=== PATIENT | male | born 1955 | race Caucasian/White ===

== ENCOUNTER 2016-10-20 12:03 | Emergency (ER) | payer MEDICAID ==
[~2016-10-20] VITALS: Ht 185.4 cm; Wt 100.0 kg
[~2016-10-20 12:03] MED LIST: ALBU18HF INH; CARB200T PO; CHLO25CA9 PO; CLON-365; CLON2TAB16 PO; ESCI10TA10 PO; GABA300C10 PO; HYDR-3138 PO; HYDR25CA94 PO; LEVO25TA4 PO; LISI-170 PO; LORA-446 PO; MELA5CAP PO; MIRT15TA4 PO; NALT50TA PO; PARO20TA4 PO; PHEN100C; PHEN100C PO; PHEN300C4 PO; PRAZ2CAP2 PO; QUET100T4 PO; QUET25TA5 PO; QUET400T4 PO; SERT25TA PO; TRAZ100T15 PO
[2016-10-20] MEDS ORDERED: FAMOTIDINE 20 MG/2 ML ONE (12:59)
[2016-10-20] MEDS ORDERED: MORPHINE SULFATE 4 MG/ML, 1ML ONE (12:59)
[2016-10-20] MEDS ORDERED: ONDANSETRON 2MG/ML, 2ML ONE (12:59)
[2016-10-20] MEDS ORDERED: MORPHINE SULFATE 4 MG/ML, 1ML IVPush PRN (13:00)
[2016-10-20] MEDS ORDERED: SODIUM CHLORIDE FLUSH 10ML SYR IVF ONE (13:00)
[2016-10-20] MEDS ORDERED: FAMOTIDINE 20 MG/2 ML IVP ONE (13:00)
[2016-10-20] MEDS ORDERED: ONDANSETRON 2MG/ML, 2ML IVPush ONE (13:00)
[2016-10-20] MEDS ORDERED: SODIUM CHLORIDE 0.9% 1,000ML IVBOLUS ONE (13:00)
[2016-10-20 13:28] LABS: ASPARTATE AMINO TRANSFERASE 18 U/L (15-37); BLOOD UREA NITROGEN 15 mg/dL (7-18)
[2016-10-20 14:34] VITALS: BP 122/79
== END 2016-10-20 14:54 | disposition home or self-care (01) ==
LOC: ED 14:02
DX: K59.00 Constipation, unspecified (principal); K08.89 Other specified disorders of teeth and supporting structures; I10 Essential (primary) hypertension; E03.9 Hypothyroidism, unspecified; J44.9 Chronic obstructive pulmonary disease, unspecified
CPT/HCPCS: 36415; 74020; 80053; 83690; 85025; 93005; 96361; 96374; 96375; 99285; J2405; J7030; S0028

== ENCOUNTER 2016-10-22 18:10 | Observation (INO) | payer MEDICAID ==
[~2016-10-22] VITALS: Ht 185.4 cm; Wt 95.0 kg
[2016-10-22] MEDS ORDERED: ZIPRASIDONE 20 MG INJ IM ONE ×4 (19:00→20:35)
[2016-10-22] MEDS ORDERED: LOSA50TA6 PO (19:04)
[2016-10-22] MEDS ORDERED: PROP20TA PO (19:04)
[2016-10-22] MEDS ORDERED: QUET300T PO (19:04)
[2016-10-22] MEDS ORDERED: MIRT45TA4 PO (19:04)
[2016-10-22] MEDS ORDERED: LEVE500T8 PO (19:04)
[2016-10-22] MEDS ORDERED: CARB200T4 PO (19:04)
[2016-10-22] MEDS ORDERED: GABA300C10 PO (19:04)
[2016-10-22] MEDS ORDERED: HYDR-3240 PO (19:04)
[2016-10-22] MEDS ORDERED: PHEN100C4 PO (19:04)
[2016-10-22 19:40] LABS: BLOOD UREA NITROGEN 19 mg/dL (7-18)
[2016-10-22 19:44] LABS: ACETAMINOPHEN 2 mcg/mL (10-30); ASPARTATE AMINO TRANSFERASE 22 U/L (15-37)
[2016-10-22] MEDS ORDERED: LORazepam 2 MG/ML, 1ML IM ONE (20:00)
[2016-10-22] MEDS ORDERED: LORazepam 2 MG/ML, 1ML ONE (20:35)
[2016-10-22 22:19] LABS: DAU SCREEN DISCLAIMER
[2016-10-22] MEDS ORDERED: HYDROcodone/APAP 5/325 TABLET PO ONE (23:30)
[2016-10-23] MEDS ORDERED: MELATONIN 3 MG TABLET PO PRN (01:30)
[2016-10-23] MEDS ORDERED: ACETAMINOPHEN 325 MG TABLET PO PRN (01:30)
[2016-10-23] MEDS ORDERED: ZIPRASIDONE 20 MG INJ IM PRN (01:30)
[2016-10-23] MEDS ORDERED: NICOTINE 14MG/24 HR PATCH.TD24 TD SCH (01:30)
[2016-10-23 01:47] VITALS: BP 130/74
[2016-10-23 08:02] VITALS: BP 121/76
[2016-10-23] MEDS ORDERED: LEVOTHYROXINE 25 MCG TABLET PO SCH (09:00)
[2016-10-23] MEDS ORDERED: PROPRANOLOL 20 MG TABLET PO SCH (09:00)
[2016-10-23] MEDS ORDERED: LOSARTAN 50MG TABLET PO SCH (09:00)
[2016-10-23] MEDS ORDERED: AMOXICILLIN 500 MG CAPSULE PO SCH (10:00)
[2016-10-23] MEDS ORDERED: QUET100T PO (10:08)
[2016-10-23] MEDS ORDERED: AMOX-291 PO (10:08)
[2016-10-23] MEDS ORDERED: QUETIAPINE 100MG TABLET PO SCH (21:00)
== END 2016-10-23 10:45 ==
LOC: ED 21:26 → INTOOBSV 10-23 00:54 → EDIP 10-23 00:54 → 3E 10-23 01:39
PROVIDERS: ADMIT Internal Medicine; ATTEND Internal Medicine
DX: R45.851 Suicidal ideations (principal); D63.8 Anemia in other chronic diseases classified elsewhere; I10 Essential (primary) hypertension; E03.9 Hypothyroidism, unspecified; J44.9 Chronic obstructive pulmonary disease, unspecified; F31.9 Bipolar disorder, unspecified; G40.909 Epilepsy, unspecified, not intractable, without status epilepticus; N40.0 Benign prostatic hyperplasia without lower urinary tract symptoms; F10.20 Alcohol dependence, uncomplicated; F17.200 Nicotine dependence, unspecified, uncomplicated; E11.9 Type 2 diabetes mellitus without complications; Z91.19 Patient's noncompliance with other medical treatment and regimen
CPT/HCPCS: 36415; 80053; 80185; 80307; 80329; 81003; 85025; 96372; 99285; G0378; J2060; J3486; G0480

== ENCOUNTER 2016-11-09 21:47 | Emergency (ER) | payer MEDICAID ==
[~2016-11-09] VITALS: Ht 185.4 cm; Wt 85.0 kg
[~2016-11-09 21:47] MED LIST changes: +AMOX-291 PO; +CARB200T4 PO; +HYDR-3240 PO; +LEVE500T8 PO; +LOSA50TA6 PO; +MIRT45TA4 PO; +PHEN100C4 PO; +PROP20TA PO; +QUET100T PO; +QUET300T PO
[2016-11-09 22:14] VITALS: BP 123/74
== END 2016-11-09 22:31 | disposition home or self-care (01) ==
LOC: ED 22:25
DX: I10 Essential (primary) hypertension (principal); F17.200 Nicotine dependence, unspecified, uncomplicated
CPT/HCPCS: 99283

== ENCOUNTER 2017-04-29 13:11 | Emergency (ER) | payer MEDICAID ==
[~2017-04-29] VITALS: Ht 185.4 cm; Wt 81.7 kg
[~2017-04-29 13:11] MED LIST changes: -HYDR-3138 PO; +HYDR-3237 PO
[2017-04-29 13:17] VITALS: BP 114/76
== END 2017-04-29 14:38 | disposition home or self-care (01) ==
LOC: ED 14:33
DX: Z76.0 Encounter for issue of repeat prescription (principal); F41.1 Generalized anxiety disorder; I10 Essential (primary) hypertension; E03.9 Hypothyroidism, unspecified; J44.9 Chronic obstructive pulmonary disease, unspecified; E11.40 Type 2 diabetes mellitus with diabetic neuropathy, unspecified
CPT/HCPCS: 99283

== ENCOUNTER 2017-06-19 13:31 | Emergency (ER) | payer MEDICAID ==
[~2017-06-19] VITALS: Ht 185.4 cm; Wt 80.8 kg
[2017-06-19] MEDS ORDERED: LORazepam 2 MG/ML, 1ML ONE (15:48)
[2017-06-19 16:00] LABS: ALANINE AMINOTRANSFERASE 18 U/L (12-78); ALBUMIN 3.7 g/dL (3.4-5.0); ANION GAP 9 mmol/L (5-15); CALCIUM 7.7 mg/dL (8.5-10.1); CHLORIDE 106 mmol/L (98-107); CREATININE 0.86 mg/dL (0.7-1.3); SALICYLATE LEVEL 2.1 mg/dL (2.8-20.0)
[2017-06-19] MEDS ORDERED: LORazepam 2 MG/ML, 1ML IM ONE (16:00)
[2017-06-19 16:03] LABS: ACETAMINOPHEN < 2 mcg/mL (10-30); ALKALINE PHOSPHATASE 148 U/L (45-117); BILIRUBIN,TOTAL 0.2 mg/dL (0.2-1.0)
[2017-06-19 16:16] LABS: AMPHETAMINE SCREEN, URINE Negative (Negative); BARBITURATE SCREEN, URINE Negative (Negative); BENZODIAZEPINE SCREEN, URINE Negative (Negative); CANNABINOID SCREEN, URINE Negative (Negative); COCAINE SCREEN, URINE Negative (Negative); METHADONE SCREEN, URINE Negative (Negative); OPIATE SCREEN, URINE Negative (Negative)
[2017-06-19 17:59] VITALS: BP 110/64
== END 2017-06-19 18:01 | disposition home or self-care (01) ==
LOC: ED 16:21
DX: F19.10 Other psychoactive substance abuse, uncomplicated (principal); F10.129 Alcohol abuse with intoxication, unspecified; J44.9 Chronic obstructive pulmonary disease, unspecified; I10 Essential (primary) hypertension; E03.9 Hypothyroidism, unspecified; E11.40 Type 2 diabetes mellitus with diabetic neuropathy, unspecified
CPT/HCPCS: 36415; 80053; 80307; 80329; 96372; 99284; J2060; G0480

== ENCOUNTER 2017-07-21 17:16 | Emergency (ER) | payer MEDICAID ==
[~2017-07-21] VITALS: Ht 185.4 cm; Wt 79.7 kg
[2017-07-21 17:24] VITALS: BP 114/64
[2017-07-21] MEDS ORDERED: CLON1TAB PO (18:42)
[2017-07-21] MEDS ORDERED: LOSA50TA6 PO (18:42)
[2017-07-21] MEDS ORDERED: CITA20TA5 PO (18:42)
[2017-07-21] MEDS ORDERED: GABA300C10 PO (18:42)
[2017-07-21] MEDS ORDERED: FLUT100B PO (18:42)
[2017-07-21] MEDS ORDERED: ALBU18HF IH (18:42)
[2017-07-22] MEDS ORDERED: ALBUTEROL 0.5%, 20ML ONE (01:01)
== END 2017-07-21 19:06 | disposition home or self-care (01) ==
LOC: ED 19:00
DX: F10.10 Alcohol abuse, uncomplicated (principal); F13.10 Sedative, hypnotic or anxiolytic abuse, uncomplicated; M54.6 Pain in thoracic spine; E11.9 Type 2 diabetes mellitus without complications; J44.9 Chronic obstructive pulmonary disease, unspecified; E03.9 Hypothyroidism, unspecified; I10 Essential (primary) hypertension; N40.0 Benign prostatic hyperplasia without lower urinary tract symptoms; F31.9 Bipolar disorder, unspecified; Z91.14 Patient's other noncompliance with medication regimen
CPT/HCPCS: 72072; 99284

== ENCOUNTER 2017-07-22 11:53 | Observation (INO) | payer MEDICAID ==
[~2017-07-22] VITALS: Ht 182.9 cm; Wt 79.7 kg
[~2017-07-22 11:53] MED LIST changes: +ALBU18HF IH; +CITA20TA5 PO; +CLON1TAB PO; +FLUT100B PO
[2017-07-22 13:03] LABS: MICROSCOPIC NOT IND
[2017-07-22 13:12] LABS: CULTURE INDICATED? NO
[2017-07-22 13:13] LABS: BASOPHILS # (AUTO) 0.02 x10^3/uL (0-0.1); BASOPHILS % (AUTO) 0 % (0-1); EOSINOPHILS # (AUTO) 0.14 x10^3/uL (0-0.4); EOSINOPHILS % (AUTO) 2 % (1-7); LYMPHOCYTES # (AUTO) 1.25 x10^3/uL (1-3.4); LYMPHOCYTES % (AUTO) 20 % (22-44); MD NO; MEAN CORPUSCULAR HEMOGLOBIN 32.9 pg (27.5-34.5); MEAN CORPUSCULAR HGB CONC 33.5 g/dL (33.2-36.2); MEAN PLATELET VOLUME 6.9 fL (7.4-10.4); MONOCYTES % (AUTO) 5 % (2-9); NEUTROPHILS % (AUTO) 73 % (42-75); PLATELET COUNT 319 x10^3/uL (130-400); RED BLOOD COUNT 3.87 x10^6/uL (4.38-5.82); RED CELL DISTRIBUTION WIDTH 14.7 % (9.4-14.8)
[2017-07-22 13:23] LABS: ANION GAP 8 mmol/L (5-15); CALCIUM 7.6 mg/dL (8.5-10.1); CHLORIDE 105 mmol/L (98-107); CREATININE 0.65 mg/dL (0.7-1.3)
[2017-07-22 13:27] LABS: AMPHETAMINE SCREEN, URINE Negative (Negative); BARBITURATE SCREEN, URINE Negative (Negative); BENZODIAZEPINE SCREEN, URINE Negative (Negative); CANNABINOID SCREEN, URINE Negative (Negative); COCAINE SCREEN, URINE Negative (Negative); METHADONE SCREEN, URINE Negative (Negative); OPIATE SCREEN, URINE Negative (Negative)
[2017-07-22 13:27] LABS: ACETAMINOPHEN < 2 mcg/mL (10-30); SALICYLATE LEVEL < 1.7 mg/dL (2.8-20.0)
[2017-07-22] MEDS ORDERED: IBUPROFEN 200 MG TABLET PO ONE (19:30)
[2017-07-22] MEDS ORDERED: IBUPROFEN 200 MG TABLET ONE (19:31)
[2017-07-23] MEDS ORDERED: DOCUSATE 100 MG CAPSULE PO PRN (03:00)
[2017-07-23] MEDS ORDERED: ALBUTEROL SULFATE 2.5 MG/3 ML IPPB PRN (03:00)
[2017-07-23] MEDS ORDERED: ONDANSETRON ODT 4 MG PO PRN (03:00)
[2017-07-23] MEDS ORDERED: QUETIAPINE 100MG TABLET ONE ×2 (03:04→20:41)
[2017-07-23] MEDS: QUETIAPINE 100MG TABLET PO SCH ×2 (03:12→20:48)
[2017-07-23] MEDS: LOSARTAN 50MG TABLET PO SCH (09:00)
[2017-07-23] MEDS: LEVOTHYROXINE 25 MCG TABLET PO SCH (09:00)
[2017-07-23] MEDS: GABAPENTIN 300 MG CAPSULE PO SCH (09:00)
[2017-07-23] MEDS ORDERED: GABAPENTIN 300 MG CAPSULE ONE (09:02)
[2017-07-23] MEDS: FLUTICASONE FUROATE 100MCG/INH INH SCH (09:16)
[2017-07-23] MEDS ORDERED: ACETAMINOPHEN 325 MG TABLET ONE ×2 (12:54→18:08)
[2017-07-23] MEDS: ACETAMINOPHEN 325 MG TABLET PO PRN ×2 (13:03→18:28)
[2017-07-23] MEDS ORDERED: PHENYTOIN 100 MG CAPSULE ONE (20:41)
[2017-07-23] MEDS ORDERED: FLUOXETINE HCL 20 MG CAPSULE ONE (20:42)
[2017-07-23] MEDS: FLUOXETINE HCL 20 MG CAPSULE PO SCH (20:47)
[2017-07-23] MEDS: PHENYTOIN 100 MG CAPSULE PO SCH (20:47)
[2017-07-24 03:00] VITALS: BP 137/80
[2017-07-24] MEDS: ACETAMINOPHEN 325 MG TABLET PO PRN ×3 (03:35→21:19)
[2017-07-24 08:38] VITALS: BP 128/78
[2017-07-24] MEDS: GABAPENTIN 300 MG CAPSULE PO SCH (08:40)
[2017-07-24] MEDS: LOSARTAN 50MG TABLET PO SCH (08:42)
[2017-07-24] MEDS: LEVOTHYROXINE 25 MCG TABLET PO SCH (08:42)
[2017-07-24] MEDS: FLUTICASONE FUROATE 100MCG/INH INH SCH (09:02)
[2017-07-24 13:34] VITALS: BP 136/63
[2017-07-24 20:00] VITALS: BP 125/69
[2017-07-24] MEDS: PHENYTOIN 100 MG CAPSULE PO SCH (21:04)
[2017-07-24] MEDS: FLUOXETINE HCL 20 MG CAPSULE PO SCH (21:05)
[2017-07-24] MEDS: QUETIAPINE 100MG TABLET PO SCH (21:05)
[2017-07-25 07:30] VITALS: BP_SYST 123
[2017-07-25] MEDS: LEVOTHYROXINE 25 MCG TABLET PO SCH (08:41)
[2017-07-25] MEDS: LOSARTAN 50MG TABLET PO SCH (08:42)
[2017-07-25] MEDS: FLUTICASONE FUROATE 100MCG/INH INH SCH (08:42)
[2017-07-25] MEDS: GABAPENTIN 300 MG CAPSULE PO SCH (08:42)
[2017-07-25] MEDS ORDERED: MAGNESIUM CITRATE 300ML ORAL SOL PO PRN (10:30)
[2017-07-25 20:13] VITALS: BP 137/70
[2017-07-25] MEDS: FLUOXETINE HCL 20 MG CAPSULE PO SCH (20:28)
[2017-07-25] MEDS: PHENYTOIN 100 MG CAPSULE PO SCH (20:29)
[2017-07-25] MEDS: QUETIAPINE 100MG TABLET PO SCH (20:29)
[2017-07-26 07:41] VITALS: BP 121/75
[2017-07-26] MEDS: ACETAMINOPHEN 325 MG TABLET PO PRN (08:52)
[2017-07-26] MEDS: LEVOTHYROXINE 25 MCG TABLET PO SCH (08:52)
[2017-07-26] MEDS: LOSARTAN 50MG TABLET PO SCH (08:52)
[2017-07-26] MEDS: GABAPENTIN 300 MG CAPSULE PO SCH (08:52)
[2017-07-26] MEDS: FLUTICASONE FUROATE 100MCG/INH INH SCH (09:05)
[2017-07-26 19:53] VITALS: BP 119/74
[2017-07-26] MEDS: FLUOXETINE HCL 20 MG CAPSULE PO SCH (20:18)
[2017-07-26] MEDS: QUETIAPINE 100MG TABLET PO SCH (20:18)
[2017-07-26] MEDS: PHENYTOIN 100 MG CAPSULE PO SCH (20:19)
[2017-07-27 08:27] VITALS: BP 114/78
[2017-07-27] MEDS: LEVOTHYROXINE 25 MCG TABLET PO SCH (09:02)
[2017-07-27] MEDS: GABAPENTIN 300 MG CAPSULE PO SCH (09:02)
[2017-07-27] MEDS: LOSARTAN 50MG TABLET PO SCH (09:02)
[2017-07-27] MEDS: FLUTICASONE FUROATE 100MCG/INH INH SCH (09:02)
[2017-07-27 19:59] VITALS: BP 98/53
[2017-07-27 20:46] VITALS: BP 110/67
[2017-07-27] MEDS: QUETIAPINE 100MG TABLET PO SCH (20:47)
[2017-07-27] MEDS: PHENYTOIN 100 MG CAPSULE PO SCH (20:47)
[2017-07-27] MEDS: FLUOXETINE HCL 20 MG CAPSULE PO SCH (20:47)
[2017-07-28 08:15] VITALS: BP 127/69
[2017-07-28] MEDS: LOSARTAN 50MG TABLET PO SCH (08:36)
[2017-07-28] MEDS: LEVOTHYROXINE 25 MCG TABLET PO SCH (08:36)
[2017-07-28] MEDS: FLUTICASONE FUROATE 100MCG/INH INH SCH (08:36)
[2017-07-28] MEDS: GABAPENTIN 300 MG CAPSULE PO SCH (08:36)
[2017-07-28 19:39] VITALS: BP 95/53
[2017-07-28 20:02] VITALS: BP 110/68
[2017-07-28] MEDS: PHENYTOIN 100 MG CAPSULE PO SCH (20:02)
[2017-07-28] MEDS: FLUOXETINE HCL 20 MG CAPSULE PO SCH (20:03)
[2017-07-28] MEDS: QUETIAPINE 100MG TABLET PO SCH (20:03)
[2017-07-29 07:30] VITALS: BP 121/73
[2017-07-29] MEDS: LOSARTAN 50MG TABLET PO SCH (08:08)
[2017-07-29] MEDS: LEVOTHYROXINE 25 MCG TABLET PO SCH (08:08)
[2017-07-29] MEDS: GABAPENTIN 300 MG CAPSULE PO SCH (08:08)
[2017-07-29] MEDS: FLUTICASONE FUROATE 100MCG/INH INH SCH (08:09)
[2017-07-29] MEDS ORDERED: QUET100T PO (10:21)
== END 2017-07-29 13:05 | disposition home or self-care (01) ==
LOC: ED 12:45 → EDIP 07-23 02:59 → INTOOBSV 07-23 02:59 → 3E 07-24 02:55
PROVIDERS: ADMIT Internal Medicine; ATTEND Family Medicine
DX: R45.851 Suicidal ideations (principal); F31.9 Bipolar disorder, unspecified; E03.9 Hypothyroidism, unspecified; I10 Essential (primary) hypertension; F41.1 Generalized anxiety disorder; F10.129 Alcohol abuse with intoxication, unspecified; G40.909 Epilepsy, unspecified, not intractable, without status epilepticus; E11.9 Type 2 diabetes mellitus without complications; M54.9 Dorsalgia, unspecified; N40.0 Benign prostatic hyperplasia without lower urinary tract symptoms; J44.9 Chronic obstructive pulmonary disease, unspecified; Z79.899 Other long term (current) drug therapy
CPT/HCPCS: 36415; 80048; 80307; 80329; 81003; 85025; 99285; G0378; G0480

== ENCOUNTER 2017-11-10 13:06 | Observation (INO) | payer MEDICAID ==
[~2017-11-10] VITALS: Ht 188 cm; Wt 75.7 kg
[~2017-11-10 13:06] MED LIST changes: -CITA20TA5 PO; +CITA20TA6 PO
[2017-11-10 13:50] LABS: BASOPHILS # (AUTO) 0.15 x10^3/uL (0-0.1); BASOPHILS % (AUTO) 2 % (0-1); EOSINOPHILS # (AUTO) 0.27 x10^3/uL (0-0.4); EOSINOPHILS % (AUTO) 4 % (1-7); LYMPHOCYTES # (AUTO) 1.97 x10^3/uL (1-3.4); LYMPHOCYTES % (AUTO) 31 % (22-44); MD NO; MEAN CORPUSCULAR HEMOGLOBIN 33.7 pg (27.5-34.5); MEAN CORPUSCULAR HGB CONC 34.1 g/dL (33.2-36.2); MEAN CORPUSCULAR VOLUME 98.6 fL (81-97); MEAN PLATELET VOLUME 6.9 fL (7.4-10.4); MONOCYTES # (AUTO) 0.43 x10^3/uL (0.2-0.8); MONOCYTES % (AUTO) 7 % (2-9); NEUTROPHILS # (AUTO) 3.56 x10^3/uL (1.8-6.8); NEUTROPHILS % (AUTO) 56 % (42-75); PLATELET COUNT 397 x10^3/uL (130-400); RED BLOOD COUNT 3.96 x10^6/uL (4.38-5.82); RED CELL DISTRIBUTION WIDTH 13.2 % (9.4-14.8)
[2017-11-10 13:57] LABS: ANION GAP 9 mmol/L (5-15); CALCIUM 8.7 mg/dL (8.5-10.1); CHLORIDE 102 mmol/L (98-107)
[2017-11-10 13:59] LABS: CREATININE 0.78 mg/dL (0.7-1.3); SALICYLATE LEVEL < 1.7 mg/dL (2.8-20.0)
[2017-11-10 14:01] LABS: ACETAMINOPHEN < 2 mcg/mL (10-30)
[2017-11-10 17:11] LABS: AMPHETAMINE SCREEN, URINE Negative (Negative); BARBITURATE SCREEN, URINE Negative (Negative); BENZODIAZEPINE SCREEN, URINE Negative (Negative); CANNABINOID SCREEN, URINE Negative (Negative); COCAINE SCREEN, URINE Negative (Negative); METHADONE SCREEN, URINE Negative (Negative); OPIATE SCREEN, URINE Negative (Negative)
[2017-11-10] MEDS ORDERED: LORazepam 2 MG/ML, 1ML IM PRN (20:30)
[2017-11-10] MEDS ORDERED: ONDANSETRON ODT 4 MG PO PRN (20:30)
[2017-11-10] MEDS ORDERED: LORazepam 1MG TABLET ONE (20:48)
[2017-11-10] MEDS: LORazepam 1MG TABLET PO PRN (20:50)
[2017-11-10 22:46] VITALS: BP 144/82
[2017-11-10] MEDS: FLUTICASONE/VILANTEROL 200-25MCG/INH INH SCH (23:50)
[2017-11-11] MEDS ORDERED: ALBUTEROL SULFATE 2.5 MG/3 ML NPPB PRN (01:30)
[2017-11-11 05:35] VITALS: BP 145/82
[2017-11-11] MEDS: LORazepam 1MG TABLET PO PRN ×5 (05:43→20:49)
[2017-11-11] MEDS: LEVOTHYROXINE 25 MCG TABLET PO SCH (05:43)
[2017-11-11 06:13] LABS: BASOPHILS # (AUTO) 0.07 x10^3/uL (0-0.1); BASOPHILS % (AUTO) 1 % (0-1); EOSINOPHILS # (AUTO) 0.48 x10^3/uL (0-0.4); EOSINOPHILS % (AUTO) 7 % (1-7); LYMPHOCYTES # (AUTO) 2.38 x10^3/uL (1-3.4); LYMPHOCYTES % (AUTO) 36 % (22-44); MD NO; MEAN CORPUSCULAR HEMOGLOBIN 33.4 pg (27.5-34.5); MEAN CORPUSCULAR HGB CONC 33.6 g/dL (33.2-36.2); MEAN CORPUSCULAR VOLUME 99.4 fL (81-97); MEAN PLATELET VOLUME 7.2 fL (7.4-10.4); MONOCYTES # (AUTO) 0.54 x10^3/uL (0.2-0.8); MONOCYTES % (AUTO) 8 % (2-9); NEUTROPHILS # (AUTO) 3.08 x10^3/uL (1.8-6.8); NEUTROPHILS % (AUTO) 47 % (42-75); PLATELET COUNT 384 x10^3/uL (130-400); RED BLOOD COUNT 3.98 x10^6/uL (4.38-5.82); RED CELL DISTRIBUTION WIDTH 13.4 % (9.4-14.8)
[2017-11-11 06:26] LABS: ALBUMIN 3.6 g/dL (3.4-5.0); ANION GAP 5 mmol/L (5-15); CALCIUM 8.5 mg/dL (8.5-10.1); CHLORIDE 104 mmol/L (98-107)
[2017-11-11 06:30] LABS: ALANINE AMINOTRANSFERASE 41 U/L (12-78); ALKALINE PHOSPHATASE 169 U/L (45-117); BILIRUBIN,TOTAL 0.4 mg/dL (0.2-1.0); CREATININE 0.73 mg/dL (0.7-1.3); TOTAL PROTEIN 6.8 g/dL (6.4-8.2)
[2017-11-11 08:02] VITALS: BP 108/60
[2017-11-11] MEDS: THIAMINE 100MG TABLET PO SCH (09:15)
[2017-11-11] MEDS: CITALOPRAM 20 MG TABLET PO SCH (09:15)
[2017-11-11] MEDS: MULTIVITAMIN 1 TABLET PO SCH (09:15)
[2017-11-11] MEDS ORDERED: ACETAMINOPHEN 500 MG TABLET PO PRN (12:00)
[2017-11-11] MEDS ORDERED: HYDR50TA13 PO (18:35)
[2017-11-11 19:39] VITALS: BP 123/75
[2017-11-11] MEDS: FLUTICASONE/VILANTEROL 200-25MCG/INH INH SCH (20:46)
[2017-11-11] MEDS: PHENYTOIN 100 MG CAPSULE PO SCH (20:48)
[2017-11-11] MEDS ORDERED: PHENYTOIN 100 MG CAPSULE PO SCH (21:00)
[2017-11-12 00:29] VITALS: BP 90/53
[2017-11-12 04:05] VITALS: BP 132/78
[2017-11-12] MEDS: LORazepam 1MG TABLET PO PRN ×6 (04:08→23:16)
[2017-11-12 07:24] VITALS: BP 124/61
[2017-11-12] MEDS: LEVOTHYROXINE 25 MCG TABLET PO SCH (08:04)
[2017-11-12] MEDS: MULTIVITAMIN 1 TABLET PO SCH (08:38)
[2017-11-12] MEDS: THIAMINE 100MG TABLET PO SCH (08:38)
[2017-11-12] MEDS: CITALOPRAM 20 MG TABLET PO SCH (08:38)
[2017-11-12] MEDS: ALBUTEROL SULFATE 2.5 MG/3 ML NPPB SCH ×3 (16:00→22:00)
[2017-11-12 20:48] VITALS: BP 122/76
[2017-11-12] MEDS: PHENYTOIN 100 MG CAPSULE PO SCH (20:57)
[2017-11-12] MEDS: FLUTICASONE/VILANTEROL 200-25MCG/INH INH SCH (20:58)
[2017-11-12] MEDS: DOCUSATE 100 MG CAPSULE PO PRN (23:16)
[2017-11-13] MEDS: ALBUTEROL SULFATE 2.5 MG/3 ML NPPB SCH ×5 (02:05→20:05)
[2017-11-13 02:33] VITALS: BP 107/48
[2017-11-13 02:39] VITALS: BP 165/90
[2017-11-13] MEDS: LORazepam 1MG TABLET PO PRN ×4 (02:44→18:30)
[2017-11-13] MEDS: LEVOTHYROXINE 25 MCG TABLET PO SCH (08:24)
[2017-11-13] MEDS: CITALOPRAM 20 MG TABLET PO SCH (09:11)
[2017-11-13] MEDS: THIAMINE 100MG TABLET PO SCH (09:12)
[2017-11-13] MEDS: MULTIVITAMIN 1 TABLET PO SCH (09:12)
[2017-11-13 09:17] VITALS: BP 135/81
[2017-11-13] MEDS ORDERED: PHEN100C4 PO (16:21)
[2017-11-13] MEDS ORDERED: SERT50TA PO (16:23)
[2017-11-13] MEDS ORDERED: LOSA50TA6 PO (16:25)
[2017-11-13 19:45] VITALS: BP 94/55
[2017-11-13] MEDS: FLUTICASONE/VILANTEROL 200-25MCG/INH INH SCH (21:00)
[2017-11-13] MEDS: PHENYTOIN 100 MG CAPSULE PO SCH (21:03)
[2017-11-14] MEDS: LORazepam 1MG TABLET PO PRN ×4 (00:31→20:56)
[2017-11-14] MEDS: ALBUTEROL SULFATE 2.5 MG/3 ML NPPB SCH ×2 (07:20→10:50)
[2017-11-14 07:34] VITALS: BP 149/89
[2017-11-14] MEDS: LEVOTHYROXINE 25 MCG TABLET PO SCH (08:00)
[2017-11-14] MEDS: THIAMINE 100MG TABLET PO SCH (08:30)
[2017-11-14] MEDS: LOSARTAN 25MG TABLET PO SCH (08:31)
[2017-11-14] MEDS: DOCUSATE 100 MG CAPSULE PO PRN (08:31)
[2017-11-14] MEDS: SERTRALINE 50MG TABLET PO SCH (08:31)
[2017-11-14] MEDS: MULTIVITAMIN 1 TABLET PO SCH (08:31)
[2017-11-14] MEDS ORDERED: ALBUTEROL SULFATE 2.5 MG/3 ML NPPB PRN (14:40)
[2017-11-14 19:25] VITALS: BP 135/73
[2017-11-14] MEDS: PHENYTOIN 100 MG CAPSULE PO SCH (20:50)
[2017-11-14] MEDS: FLUTICASONE/VILANTEROL 200-25MCG/INH INH SCH (20:51)
[2017-11-15] MEDS: LORazepam 1MG TABLET PO PRN ×4 (03:10→22:14)
[2017-11-15 08:08] VITALS: BP 120/81
[2017-11-15] MEDS: THIAMINE 100MG TABLET PO SCH (09:00)
[2017-11-15] MEDS: LOSARTAN 25MG TABLET PO SCH (09:38)
[2017-11-15] MEDS: SERTRALINE 50MG TABLET PO SCH (09:38)
[2017-11-15] MEDS: MULTIVITAMIN 1 TABLET PO SCH (09:38)
[2017-11-15] MEDS: LEVOTHYROXINE 25 MCG TABLET PO SCH (09:39)
[2017-11-15 19:33] VITALS: BP 121/78
[2017-11-15] MEDS: FLUTICASONE/VILANTEROL 200-25MCG/INH INH SCH (20:08)
[2017-11-15] MEDS: PHENYTOIN 100 MG CAPSULE PO SCH (20:08)
[2017-11-16] MEDS: LORazepam 1MG TABLET PO PRN ×2 (04:32→10:30)
[2017-11-16] MEDS: LEVOTHYROXINE 25 MCG TABLET PO SCH (06:42)
[2017-11-16 08:31] VITALS: BP 107/66
[2017-11-16] MEDS: LOSARTAN 25MG TABLET PO SCH (09:09)
[2017-11-16] MEDS: SERTRALINE 50MG TABLET PO SCH (09:10)
[2017-11-16] MEDS: MULTIVITAMIN 1 TABLET PO SCH (09:10)
[2017-11-16] MEDS: THIAMINE 100MG TABLET PO SCH (09:10)
[2017-11-16] MEDS ORDERED: PHENYTOIN 100 MG CAPSULE PO SCH (21:00)
== END 2017-11-16 13:20 ==
LOC: ED 20:01 → 2N 22:44 → INTOOBSV 22:44 → 2N 11-13 20:33
PROVIDERS: ADMIT Internal Medicine; ATTEND Internal Medicine
DX: R45.851 Suicidal ideations (principal); R56.9 Unspecified convulsions; R45.850 Homicidal ideations; J44.9 Chronic obstructive pulmonary disease, unspecified; F31.9 Bipolar disorder, unspecified; E03.9 Hypothyroidism, unspecified; F10.129 Alcohol abuse with intoxication, unspecified; G62.9 Polyneuropathy, unspecified; F41.1 Generalized anxiety disorder; I10 Essential (primary) hypertension; F17.210 Nicotine dependence, cigarettes, uncomplicated; F51.3 Sleepwalking [somnambulism]; E11.42 Type 2 diabetes mellitus with diabetic polyneuropathy
CPT/HCPCS: 36415; 80048; 80053; 80185; 80307; 80329; 82040; 82607; 82746; 82962; 83735; 84443; 85025; 94640; 99285; G0378; J7613; G0480

== ENCOUNTER 2017-11-27 09:13 | Emergency (ER) | payer MEDICAID ==
[~2017-11-27] VITALS: Ht 185.4 cm; Wt 73.9 kg
[~2017-11-27 09:13] MED LIST changes: +HYDR50TA13 PO; +SERT50TA PO
[2017-11-27] MEDS ORDERED: TRAZ50TA18 PO (09:42)
[2017-11-27 10:31] LABS: BASOPHILS # (AUTO) 0.08 x10^3/uL (0-0.1); BASOPHILS % (AUTO) 2 % (0-1); EOSINOPHILS % (AUTO) 4 % (1-7); LYMPHOCYTES # (AUTO) 1.71 x10^3/uL (1-3.4); LYMPHOCYTES % (AUTO) 33 % (22-44); MD NO; MEAN CORPUSCULAR HEMOGLOBIN 32.6 pg (27.5-34.5); MEAN CORPUSCULAR HGB CONC 33.6 g/dL (33.2-36.2); MEAN CORPUSCULAR VOLUME 96.9 fL (81-97); MONOCYTES # (AUTO) 0.44 x10^3/uL (0.2-0.8); MONOCYTES % (AUTO) 9 % (2-9); NEUTROPHILS # (AUTO) 2.71 x10^3/uL (1.8-6.8); NEUTROPHILS % (AUTO) 53 % (42-75); PLATELET COUNT 274 x10^3/uL (130-400); RED BLOOD COUNT 3.96 x10^6/uL (4.38-5.82)
[2017-11-27 10:35] LABS: TROPONIN I < 0.015 ng/mL (0.000-0.045)
[2017-11-27 10:43] LABS: ALANINE AMINOTRANSFERASE 28 U/L (12-78); ALBUMIN 3.8 g/dL (3.4-5.0); ANION GAP 11 mmol/L (5-15); CALCIUM 7.9 mg/dL (8.5-10.1); CHLORIDE 105 mmol/L (98-107); SALICYLATE LEVEL < 1.7 mg/dL (2.8-20.0)
[2017-11-27 10:46] LABS: ACETAMINOPHEN < 2 mcg/mL (10-30); ALKALINE PHOSPHATASE 161 U/L (45-117); BILIRUBIN,TOTAL 0.5 mg/dL (0.2-1.0); CREATININE 0.72 mg/dL (0.7-1.3)
[2017-11-27 12:19] LABS: AMPHETAMINE SCREEN, URINE Negative (Negative); BARBITURATE SCREEN, URINE Negative (Negative); BENZODIAZEPINE SCREEN, URINE Negative (Negative); CANNABINOID SCREEN, URINE Negative (Negative); COCAINE SCREEN, URINE Negative (Negative); METHADONE SCREEN, URINE Negative (Negative); OPIATE SCREEN, URINE Negative (Negative)
[2017-11-27 12:28] VITALS: BP 130/72
== END 2017-11-27 12:32 | disposition home or self-care (01) ==
LOC: ED 09:48
DX: F31.9 Bipolar disorder, unspecified (principal); R20.2 Paresthesia of skin; I10 Essential (primary) hypertension; E11.65 Type 2 diabetes mellitus with hyperglycemia; E03.9 Hypothyroidism, unspecified; J44.9 Chronic obstructive pulmonary disease, unspecified; F10.20 Alcohol dependence, uncomplicated; E11.40 Type 2 diabetes mellitus with diabetic neuropathy, unspecified; F17.200 Nicotine dependence, unspecified, uncomplicated; Z79.899 Other long term (current) drug therapy
CPT/HCPCS: 36415; 70450; 71045; 80053; 80307; 80329; 84484; 85025; 93005; 99285; G0480

== ENCOUNTER 2018-03-04 15:07 | Inpatient (IN) | payer MEDICAID ==
[~2018-03-04] VITALS: Ht 185.4 cm; Wt 79.0 kg
[~2018-03-04 15:07] MED LIST changes: -CLON-365; +CLON1TAB11; -LOSA50TA6 PO; +LOSA50TA7 PO; -MIRT45TA4 PO; +MIRT45TA61 PO; +QUET200T PO; +TRAZ-136 PO; +TRAZ-137 PO; -TRAZ100T15 PO
[2018-03-04 16:01] LABS: BASOPHILS # (AUTO) 0.08 x10^3/uL (0-0.1); BASOPHILS % (AUTO) 1 % (0-1); EOSINOPHILS # (AUTO) 0.08 x10^3/uL (0-0.4); EOSINOPHILS % (AUTO) 1 % (1-7); LYMPHOCYTES # (AUTO) 2.96 x10^3/uL (1-3.4); LYMPHOCYTES % (AUTO) 29 % (22-44); MD NO; MEAN CORPUSCULAR VOLUME 96.8 fL (81-97); MONOCYTES # (AUTO) 0.59 x10^3/uL (0.2-0.8); MONOCYTES % (AUTO) 6 % (2-9); NEUTROPHILS # (AUTO) 6.49 x10^3/uL (1.8-6.8); NEUTROPHILS % (AUTO) 64 % (42-75); PLATELET COUNT 371 x10^3/uL (130-400); RED CELL DISTRIBUTION WIDTH 14.2 % (9.4-14.8)
[2018-03-04 16:06] LABS: INTERNATIONAL NORMALIZED RATIO 0.99 (0.93-1.1); PROTHROMBIN TIME 10.3 Seconds (9.6-11.5)
[2018-03-04 16:07] LABS: ANION GAP 9 mmol/L (5-15); CALCIUM 7.7 mg/dL (8.5-10.1); CHLORIDE 98 mmol/L (98-107); CREATININE 0.62 mg/dL (0.7-1.3)
[2018-03-04 16:08] LABS: ALANINE AMINOTRANSFERASE 24 U/L (12-78); ALBUMIN 3.8 g/dL (3.4-5.0)
[2018-03-04 16:09] LABS: SALICYLATE LEVEL < 1.7 mg/dL (2.8-20.0)
[2018-03-04 16:11] LABS: ALKALINE PHOSPHATASE 127 U/L (45-117); BILIRUBIN,TOTAL 0.5 mg/dL (0.2-1.0); TOTAL PROTEIN 6.8 g/dL (6.4-8.2)
[2018-03-04 16:12] LABS: ACETAMINOPHEN < 2 mcg/mL (10-30)
[2018-03-04 16:17] LABS: AMPHETAMINE SCREEN, URINE Negative (Negative); BARBITURATE SCREEN, URINE Negative (Negative); BENZODIAZEPINE SCREEN, URINE Positive (Negative); CANNABINOID SCREEN, URINE Negative (Negative); COCAINE SCREEN, URINE Negative (Negative); METHADONE SCREEN, URINE Negative (Negative); OPIATE SCREEN, URINE Negative (Negative)
[2018-03-04] MEDS ORDERED: PANTOPRAZOLE 80 MG in SODIUM CHLORIDE 0.9% 50 ML IV ONE (16:30)
[2018-03-04] MEDS ORDERED: MORPHINE SULFATE 4 MG/ML, 1ML IVPush PRN (17:00)
[2018-03-04] MEDS ORDERED: ONDANSETRON 2MG/ML, 2ML IV PRN (17:00)
[2018-03-04] MEDS ORDERED: HALOPERIDOL 5 MG/ML IM PRN (17:00)
[2018-03-04] MEDS ORDERED: LORazepam 2 MG/ML, 1ML IV PRN ×4 (17:00)
[2018-03-04] MEDS ORDERED: ACETAMINOPHEN 325 MG TABLET PO PRN (17:00)
[2018-03-04] MEDS ORDERED: ONDANSETRON ODT 4 MG PO PRN (17:30)
[2018-03-04] MEDS ORDERED: ONDANSETRON 2MG/ML, 2ML IVPush PRN (17:30)
[2018-03-04] MEDS ORDERED: LORazepam 2 MG/ML, 1ML ONE (17:56)
[2018-03-04 18:07] LABS: THYROID STIMULATING HORMONE 4.78 mIU/L (0.358-3.740)
[2018-03-04] MEDS: PHENYTOIN 100 MG CAPSULE PO SCH (20:08)
[2018-03-04] MEDS ORDERED: ALBUTEROL SULFATE 2.5 MG/3 ML ONE (20:43)
[2018-03-04] MEDS: THIAMINE 100 MG in SODIUM CHLORIDE 0.9% 50 ML IV SCH (20:55)
[2018-03-04] MEDS: PANTOPRAZOLE 80 MG in SODIUM CHLORIDE 0.9% 100 ML IV SCH (21:27)
[2018-03-04 21:31] VITALS: BP 113/61
[2018-03-04 21:51] LABS: MICROSCOPIC INDICATED
[2018-03-04 21:56] LABS: CULTURE INDICATED? NO
[2018-03-04] MEDS: FOLIC ACID IV SCH (23:46)
[2018-03-04] MEDS: MAGNESIUM SULFATE IV SCH (23:46)
[2018-03-04] MEDS: MVI ADULT IV SCH (23:46)
[2018-03-04] MEDS: [UNRECOGNIZED DRUG - OTHER] IV SCH (23:46)
[2018-03-05 03:57] VITALS: BP 121/76
[2018-03-05 06:11] LABS: BASOPHILS # (AUTO) 0.08 x10^3/uL (0-0.1); BASOPHILS % (AUTO) 2 % (0-1); EOSINOPHILS # (AUTO) 0.13 x10^3/uL (0-0.4); EOSINOPHILS % (AUTO) 2 % (1-7); LYMPHOCYTES # (AUTO) 1.61 x10^3/uL (1-3.4); LYMPHOCYTES % (AUTO) 29 % (22-44); MD NO; MEAN CORPUSCULAR HEMOGLOBIN 33.2 pg (27.5-34.5); MEAN CORPUSCULAR HGB CONC 34.4 g/dL (33.2-36.2); MEAN CORPUSCULAR VOLUME 96.6 fL (81-97); MEAN PLATELET VOLUME 7.2 fL (7.4-10.4); MONOCYTES # (AUTO) 0.49 x10^3/uL (0.2-0.8); MONOCYTES % (AUTO) 9 % (2-9); NEUTROPHILS # (AUTO) 3.19 x10^3/uL (1.8-6.8); NEUTROPHILS % (AUTO) 58 % (42-75); PLATELET COUNT 281 x10^3/uL (130-400); RED BLOOD COUNT 3.17 x10^6/uL (4.38-5.82)
[2018-03-05 06:17] LABS: ALBUMIN 3.2 g/dL (3.4-5.0); ANION GAP 8 mmol/L (5-15); CALCIUM 7.2 mg/dL (8.5-10.1); CHLORIDE 105 mmol/L (98-107)
[2018-03-05 06:21] LABS: ALANINE AMINOTRANSFERASE 23 U/L (12-78); ALKALINE PHOSPHATASE 109 U/L (45-117); BILIRUBIN,TOTAL 0.3 mg/dL (0.2-1.0); CREATININE 0.52 mg/dL (0.7-1.3); TOTAL PROTEIN 5.7 g/dL (6.4-8.2)
[2018-03-05 07:36] VITALS: BP 127/77
[2018-03-05] MEDS: LORazepam 1MG TABLET PO PRN ×2 (07:42→21:52)
[2018-03-05] MEDS: LOSARTAN 50MG TABLET PO SCH (07:42)
[2018-03-05] MEDS: PANTOPRAZOLE 80 MG in SODIUM CHLORIDE 0.9% 100 ML IV SCH (07:53)
[2018-03-05] MEDS: ALBUTEROL SULFATE 2.5 MG/3 ML NPPB SCH ×4 (08:16→20:00)
[2018-03-05] MEDS ORDERED: LEVOTHYROXINE 25 MCG TABLET PO SCH (09:00)
[2018-03-05 13:19] LABS: ANION GAP 6 mmol/L (5-15); CALCIUM 7.3 mg/dL (8.5-10.1); CHLORIDE 106 mmol/L (98-107); CREATININE 0.55 mg/dL (0.7-1.3)
[2018-03-05] MEDS: GABAPENTIN 100 MG CAPSULE PO SCH ×2 (15:30→20:17)
[2018-03-05] MEDS: PANTOPROZOLE 40MG TABLET PO SCH (15:30)
[2018-03-05] MEDS: DEXTROSE 5% 1,000 ML IV SCH (15:31)
[2018-03-05 16:36] VITALS: BP 100/50
[2018-03-05 18:25] LABS: ANION GAP 7 mmol/L (5-15); CALCIUM 7.3 mg/dL (8.5-10.1); CHLORIDE 105 mmol/L (98-107); CREATININE 0.72 mg/dL (0.7-1.3)
[2018-03-05] MEDS: THIAMINE 100 MG in SODIUM CHLORIDE 0.9% 50 ML IV SCH (20:06)
[2018-03-05] MEDS: PHENYTOIN 100 MG CAPSULE PO SCH (20:17)
[2018-03-05 21:25] VITALS: BP 120/93
[2018-03-05] MEDS: FOLIC ACID IV SCH (21:52)
[2018-03-05] MEDS: MAGNESIUM SULFATE IV SCH (21:52)
[2018-03-05] MEDS: MVI ADULT IV SCH (21:52)
[2018-03-05] MEDS: [UNRECOGNIZED DRUG - OTHER] IV SCH (21:52)
[2018-03-06 02:32] VITALS: BP 99/56
[2018-03-06] MEDS: GABAPENTIN 100 MG CAPSULE PO SCH ×4 (05:34→19:53)
[2018-03-06] MEDS: LORazepam 0.5MG TABLET PO PRN ×3 (05:34→15:11)
[2018-03-06] MEDS: PANTOPROZOLE 40MG TABLET PO SCH ×2 (05:34→17:52)
[2018-03-06] MEDS: LEVOTHYROXINE 25 MCG TABLET PO SCH (05:34)
[2018-03-06 06:28] VITALS: BP 131/70
[2018-03-06 06:31] LABS: ALBUMIN 3.1 g/dL (3.4-5.0); ANION GAP 7 mmol/L (5-15); CALCIUM 7.5 mg/dL (8.5-10.1); CHLORIDE 108 mmol/L (98-107); CREATININE 0.57 mg/dL (0.7-1.3)
[2018-03-06] MEDS: ALBUTEROL SULFATE 2.5 MG/3 ML NPPB SCH ×4 (06:50→19:03)
[2018-03-06] MEDS: LOSARTAN 50MG TABLET PO SCH (10:12)
[2018-03-06] MEDS: DEXTROSE 5% 1,000 ML IV SCH (10:13)
[2018-03-06 12:16] VITALS: BP 123/67
[2018-03-06] MEDS: LACTATED RINGERS 1,000 ML IV SCH (15:12)
[2018-03-06] MEDS: ALBUTEROL SULFATE 2.5 MG/3 ML NPPB PRN (17:38)
[2018-03-06 18:46] VITALS: BP 154/81
[2018-03-06] MEDS: PHENYTOIN 100 MG CAPSULE PO SCH (19:53)
[2018-03-06] MEDS: THIAMINE 100 MG in SODIUM CHLORIDE 0.9% 50 ML IV SCH (19:54)
[2018-03-06] MEDS: QUETIAPINE 25MG TABLET PO SCH (19:54)
[2018-03-06] MEDS: CHLORDIAZEPOXIDE 10 MG CAPSULE PO SCH (20:40)
[2018-03-06] MEDS: MAGNESIUM SULFATE IV SCH (22:41)
[2018-03-06] MEDS: MVI ADULT IV SCH (22:41)
[2018-03-06] MEDS: [UNRECOGNIZED DRUG - OTHER] IV SCH (22:41)
[2018-03-06] MEDS: LORazepam 1MG TABLET PO PRN (22:41)
[2018-03-06] MEDS: FOLIC ACID IV SCH (22:41)
[2018-03-07] MEDS: LACTATED RINGERS 1,000 ML IV SCH (00:30)
[2018-03-07 02:49] VITALS: BP 112/56
[2018-03-07] MEDS: ALBUTEROL SULFATE 2.5 MG/3 ML NPPB SCH ×5 (03:20→20:00)
[2018-03-07] MEDS: LORazepam 1MG TABLET PO PRN (03:52)
[2018-03-07] MEDS: PANTOPROZOLE 40MG TABLET PO SCH ×2 (05:24→16:49)
[2018-03-07] MEDS: LEVOTHYROXINE 25 MCG TABLET PO SCH (05:24)
[2018-03-07] MEDS: GABAPENTIN 100 MG CAPSULE PO SCH ×4 (05:24→21:55)
[2018-03-07 06:10] LABS: BASOPHILS # (AUTO) 0.09 x10^3/uL (0-0.1); BASOPHILS % (AUTO) 2 % (0-1); EOSINOPHILS # (AUTO) 0.35 x10^3/uL (0-0.4); EOSINOPHILS % (AUTO) 7 % (1-7); LYMPHOCYTES # (AUTO) 1.17 x10^3/uL (1-3.4); LYMPHOCYTES % (AUTO) 24 % (22-44); MD NO; MEAN CORPUSCULAR HEMOGLOBIN 33.7 pg (27.5-34.5); MEAN CORPUSCULAR HGB CONC 34.5 g/dL (33.2-36.2); MEAN CORPUSCULAR VOLUME 97.6 fL (81-97); MEAN PLATELET VOLUME 7.1 fL (7.4-10.4); MONOCYTES # (AUTO) 0.36 x10^3/uL (0.2-0.8); MONOCYTES % (AUTO) 7 % (2-9); NEUTROPHILS % (AUTO) 61 % (42-75); PLATELET COUNT 237 x10^3/uL (130-400); RED BLOOD COUNT 2.62 x10^6/uL (4.38-5.82); RED CELL DISTRIBUTION WIDTH 14.2 % (9.4-14.8)
[2018-03-07 07:09] LABS: ALBUMIN 2.8 g/dL (3.4-5.0); ANION GAP 9 mmol/L (5-15); CHLORIDE 114 mmol/L (98-107); CREATININE 0.47 mg/dL (0.7-1.3)
[2018-03-07 07:51] VITALS: BP 108/54
[2018-03-07] MEDS: CHLORDIAZEPOXIDE 10 MG CAPSULE PO SCH ×3 (08:28→21:53)
[2018-03-07] MEDS: LOSARTAN 50MG TABLET PO SCH (08:28)
[2018-03-07] MEDS: QUETIAPINE 25MG TABLET PO SCH ×2 (08:29→21:54)
[2018-03-07] MEDS ORDERED: POLYETHYLENE GLYCOL 17 GM PACKET NG ONE (09:00)
[2018-03-07] MEDS ORDERED: DEXTROSE 5% 1,000 ML IV SCH (09:00)
[2018-03-07] MEDS ORDERED: POTASSIUM CHLORIDE 40 MEQ in SODIUM CHLORIDE 0.9% 500 ML IV ONE (09:30)
[2018-03-07] MEDS: DOCUSATE 100 MG CAPSULE PO PRN ×2 (10:08→23:08)
[2018-03-07 12:05] VITALS: BP 145/75
[2018-03-07 14:51] LABS: ANION GAP 7 mmol/L (5-15); CALCIUM 7.2 mg/dL (8.5-10.1); CHLORIDE 115 mmol/L (98-107); CREATININE 0.55 mg/dL (0.7-1.3)
[2018-03-07 19:27] VITALS: BP 123/69
[2018-03-07] MEDS: THIAMINE 100 MG in SODIUM CHLORIDE 0.9% 50 ML IV SCH (19:58)
[2018-03-07] MEDS: PHENYTOIN 100 MG CAPSULE PO SCH (21:54)
[2018-03-07] MEDS: [UNRECOGNIZED DRUG - OTHER] IV SCH (23:08)
[2018-03-07] MEDS: MAGNESIUM SULFATE IV SCH (23:08)
[2018-03-07] MEDS: FOLIC ACID IV SCH (23:08)
[2018-03-07] MEDS: MVI ADULT IV SCH (23:08)
[2018-03-08 01:58] VITALS: BP 120/64
[2018-03-08] MEDS: LORazepam 1MG TABLET PO PRN ×5 (02:07→19:26)
[2018-03-08] MEDS ORDERED: GABAPENTIN 100 MG CAPSULE ONE (06:07)
[2018-03-08 06:08] LABS: BASOPHILS # (AUTO) 0.08 x10^3/uL (0-0.1); BASOPHILS % (AUTO) 1 % (0-1); EOSINOPHILS # (AUTO) 0.65 x10^3/uL (0-0.4); EOSINOPHILS % (AUTO) 10 % (1-7); LYMPHOCYTES % (AUTO) 16 % (22-44); MD NO; MEAN CORPUSCULAR HGB CONC 34.6 g/dL (33.2-36.2); MEAN CORPUSCULAR VOLUME 98.1 fL (81-97); MEAN PLATELET VOLUME 6.9 fL (7.4-10.4); MONOCYTES # (AUTO) 0.49 x10^3/uL (0.2-0.8); MONOCYTES % (AUTO) 7 % (2-9); NEUTROPHILS # (AUTO) 4.48 x10^3/uL (1.8-6.8); NEUTROPHILS % (AUTO) 66 % (42-75); PLATELET COUNT 267 x10^3/uL (130-400); RED BLOOD COUNT 3.01 x10^6/uL (4.38-5.82); RED CELL DISTRIBUTION WIDTH 14.2 % (9.4-14.8)
[2018-03-08 06:14] LABS: ALBUMIN 3.4 g/dL (3.4-5.0); ANION GAP 6 mmol/L (5-15); CALCIUM 7.8 mg/dL (8.5-10.1); CHLORIDE 107 mmol/L (98-107); CREATININE 0.64 mg/dL (0.7-1.3)
[2018-03-08] MEDS: LEVOTHYROXINE 25 MCG TABLET PO SCH (06:24)
[2018-03-08] MEDS: PANTOPROZOLE 40MG TABLET PO SCH ×2 (06:24→18:16)
[2018-03-08] MEDS: ALBUTEROL SULFATE 2.5 MG/3 ML NPPB SCH ×4 (07:00→20:55)
[2018-03-08 07:16] VITALS: BP 137/74
[2018-03-08] MEDS: QUETIAPINE 25MG TABLET PO SCH ×2 (09:50→21:25)
[2018-03-08] MEDS: LOSARTAN 50MG TABLET PO SCH (09:50)
[2018-03-08] MEDS: SODIUM CHLORIDE 0.45% 1,000 ML IV SCH ×2 (09:50→21:33)
[2018-03-08] MEDS: CHLORDIAZEPOXIDE 10 MG CAPSULE PO SCH ×3 (09:50→21:24)
[2018-03-08 12:05] VITALS: BP 119/72
[2018-03-08] MEDS: THIAMINE 100 MG in SODIUM CHLORIDE 0.9% 50 ML IV SCH (20:34)
[2018-03-08 21:04] VITALS: BP 124/70
[2018-03-08] MEDS: PHENYTOIN 100 MG CAPSULE PO SCH (21:24)
[2018-03-08] MEDS: LORazepam 0.5MG TABLET PO PRN (21:33)
[2018-03-08] MEDS: MAGNESIUM SULFATE IV SCH (21:45)
[2018-03-08] MEDS: MVI ADULT IV SCH (21:45)
[2018-03-08] MEDS: FOLIC ACID IV SCH (21:45)
[2018-03-08] MEDS: [UNRECOGNIZED DRUG - OTHER] IV SCH (21:45)
[2018-03-09 02:41] VITALS: BP 120/69
[2018-03-09] MEDS: ALBUTEROL SULFATE 2.5 MG/3 ML NPPB SCH ×3 (03:01→10:15)
[2018-03-09] MEDS: LORazepam 1MG TABLET PO PRN (03:18)
[2018-03-09] MEDS: PANTOPROZOLE 40MG TABLET PO SCH ×2 (05:36→17:55)
[2018-03-09] MEDS: LEVOTHYROXINE 25 MCG TABLET PO SCH (05:36)
[2018-03-09 06:13] LABS: BASOPHILS # (AUTO) 0.03 x10^3/uL (0-0.1); BASOPHILS % (AUTO) 0 % (0-1); EOSINOPHILS # (AUTO) 0.74 x10^3/uL (0-0.4); EOSINOPHILS % (AUTO) 11 % (1-7); LYMPHOCYTES % (AUTO) 16 % (22-44); MD NO; MEAN CORPUSCULAR HEMOGLOBIN 33.3 pg (27.5-34.5); MEAN CORPUSCULAR HGB CONC 34.4 g/dL (33.2-36.2); MEAN CORPUSCULAR VOLUME 96.6 fL (81-97); MEAN PLATELET VOLUME 7.3 fL (7.4-10.4); MONOCYTES # (AUTO) 0.46 x10^3/uL (0.2-0.8); MONOCYTES % (AUTO) 7 % (2-9); NEUTROPHILS # (AUTO) 4.63 x10^3/uL (1.8-6.8); NEUTROPHILS % (AUTO) 67 % (42-75); PLATELET COUNT 253 x10^3/uL (130-400); RED BLOOD COUNT 3.12 x10^6/uL (4.38-5.82); RED CELL DISTRIBUTION WIDTH 14.5 % (9.4-14.8)
[2018-03-09 06:25] LABS: ALBUMIN 3.4 g/dL (3.4-5.0); ANION GAP 6 mmol/L (5-15); CALCIUM 7.9 mg/dL (8.5-10.1); CHLORIDE 106 mmol/L (98-107)
[2018-03-09 06:26] LABS: CREATININE 0.76 mg/dL (0.7-1.3)
[2018-03-09 07:29] VITALS: BP 115/71
[2018-03-09] MEDS: LOSARTAN 50MG TABLET PO SCH (08:21)
[2018-03-09] MEDS: QUETIAPINE 25MG TABLET PO SCH (08:22)
[2018-03-09] MEDS: CHLORDIAZEPOXIDE 10 MG CAPSULE PO SCH ×2 (08:22→21:07)
[2018-03-09] MEDS: SODIUM CHLORIDE 0.45% 1,000 ML IV SCH ×2 (08:23→21:08)
[2018-03-09] MEDS: ALBUTEROL SULFATE 2.5 MG/3 ML NPPB PRN ×2 (10:24→17:08)
[2018-03-09] MEDS: GUAIFENESIN/DM 100-10MG, 5ML UDC PO PRN ×2 (12:39→19:19)
[2018-03-09] MEDS: LORazepam 0.5MG TABLET PO PRN (12:47)
[2018-03-09 13:08] VITALS: BP 103/60
[2018-03-09 19:49] VITALS: BP 124/74
[2018-03-09] MEDS ORDERED: QUETIAPINE 100MG TABLET PO SCH (21:00)
[2018-03-09] MEDS: PHENYTOIN 100 MG CAPSULE PO SCH (21:07)
[2018-03-09] MEDS: THIAMINE 100 MG in SODIUM CHLORIDE 0.9% 50 ML IV SCH (21:07)
[2018-03-09] MEDS: [UNRECOGNIZED DRUG - OTHER] IV SCH (22:25)
[2018-03-09] MEDS: MVI ADULT IV SCH (22:25)
[2018-03-09] MEDS: FOLIC ACID IV SCH (22:25)
[2018-03-09] MEDS: MAGNESIUM SULFATE IV SCH (22:25)
[2018-03-10 00:40] LABS: OCCULT BLOOD NEGATIVE (NEGATIVE)
[2018-03-10 02:32] VITALS: BP 105/60
[2018-03-10] MEDS: PANTOPROZOLE 40MG TABLET PO SCH (05:58)
[2018-03-10] MEDS: LEVOTHYROXINE 25 MCG TABLET PO SCH (05:58)
[2018-03-10 06:23] LABS: BASOPHILS # (AUTO) 0.08 x10^3/uL (0-0.1); BASOPHILS % (AUTO) 2 % (0-1); EOSINOPHILS # (AUTO) 0.91 x10^3/uL (0-0.4); EOSINOPHILS % (AUTO) 18 % (1-7); LYMPHOCYTES # (AUTO) 1.12 x10^3/uL (1-3.4); LYMPHOCYTES % (AUTO) 21 % (22-44); MD NO; MEAN CORPUSCULAR HEMOGLOBIN 34.2 pg (27.5-34.5); MEAN CORPUSCULAR HGB CONC 34.8 g/dL (33.2-36.2); MEAN CORPUSCULAR VOLUME 98.3 fL (81-97); MONOCYTES # (AUTO) 0.67 x10^3/uL (0.2-0.8); MONOCYTES % (AUTO) 13 % (2-9); NEUTROPHILS # (AUTO) 2.44 x10^3/uL (1.8-6.8); NEUTROPHILS % (AUTO) 47 % (42-75); PLATELET COUNT 257 x10^3/uL (130-400); RED BLOOD COUNT 2.96 x10^6/uL (4.38-5.82); RED CELL DISTRIBUTION WIDTH 14.6 % (9.4-14.8)
[2018-03-10 06:26] LABS: ALBUMIN 3.2 g/dL (3.4-5.0); ANION GAP 5 mmol/L (5-15); CALCIUM 8.1 mg/dL (8.5-10.1); CHLORIDE 105 mmol/L (98-107); CREATININE 0.75 mg/dL (0.7-1.3)
[2018-03-10 07:44] VITALS: BP 120/68
[2018-03-10] MEDS: CHLORDIAZEPOXIDE 10 MG CAPSULE PO SCH (07:56)
[2018-03-10] MEDS: LOSARTAN 50MG TABLET PO SCH (07:57)
[2018-03-10] MEDS ORDERED: QUETIAPINE 25MG TABLET PO SCH (09:00)
[2018-03-10] MEDS: ALBUTEROL SULFATE 2.5 MG/3 ML NPPB PRN (09:45)
[2018-03-10] MEDS ORDERED: QUET100T PO (11:00)
[2018-03-10] MEDS ORDERED: QUET25TA PO (11:00)
[2018-03-10] MEDS ORDERED: CHLO5CAP2 PO (11:00)
[2018-03-10] MEDS ORDERED: LORazepam 0.5MG TABLET PO ONE (13:00)
[2018-03-10] MEDS: GUAIFENESIN/DM 100-10MG, 5ML UDC PO PRN (14:18)
[2018-03-10 14:30] VITALS: BP 100/65
== END 2018-03-10 16:34 | disposition home or self-care (01) | DRG 378 ==
LOC: ED 16:44 → EDIP 17:22 → 4WST 18:46 → 4EST 03-08 10:48 → DCLOUNGE 03-10 16:27
PROVIDERS: ADMIT Hospitalist; ATTEND Family Medicine
DX: K29.21 Alcoholic gastritis with bleeding (principal); E87.1 Hypo-osmolality and hyponatremia; R45.851 Suicidal ideations; D64.9 Anemia, unspecified; D72.829 Elevated white blood cell count, unspecified; E03.9 Hypothyroidism, unspecified; F10.229 Alcohol dependence with intoxication, unspecified; F17.200 Nicotine dependence, unspecified, uncomplicated; F31.9 Bipolar disorder, unspecified; F41.1 Generalized anxiety disorder; I10 Essential (primary) hypertension; J44.9 Chronic obstructive pulmonary disease, unspecified; N40.0 Benign prostatic hyperplasia without lower urinary tract symptoms; R09.02 Hypoxemia; R45.850 Homicidal ideations; Z91.19 Patient's noncompliance with other medical treatment and regimen; E11.42 Type 2 diabetes mellitus with diabetic polyneuropathy; Z83.3 Family history of diabetes mellitus; Z82.49 Family history of ischemic heart disease and other diseases of the circulatory system; Z71.51 Drug abuse counseling and surveillance of drug abuser; R56.9 Unspecified convulsions
CPT/HCPCS: 36415; 99285; J7613; 71045; 71250; 74177; 76700; 80048; 80053; 80185; 80307; 80329; 81001; 82040; 82140; 82272; 82607; 82728; 83540; 83550; 83690; 83735; 84443; 84466; 85014; 85018; 85025; 85610; 86677; 94640; 96374; 96375; 96376; G0378; J2405; J3411; J3475; J3480; J7070; Q0162; C9113; G0480; J2060; J7030; J7040; J7120

== ENCOUNTER 2018-03-13 09:55 | Emergency (ER) | payer MEDICAID ==
[~2018-03-13] VITALS: Ht 185.4 cm; Wt 79.0 kg
[~2018-03-13 09:55] MED LIST changes: +CHLO5CAP2 PO; +QUET25TA PO
[2018-03-13] MEDS ORDERED: LORazepam 1MG TABLET ONE (10:52)
[2018-03-13] MEDS ORDERED: ALBUTEROL/IPRATROPIUM 2.5MG/0.5MG, 3 ML NPPB ONE (11:00)
[2018-03-13] MEDS ORDERED: LORazepam 1MG TABLET PO ONE (11:00)
[2018-03-13] MEDS ORDERED: ALBUTEROL/IPRATROPIUM 2.5MG/0.5MG, 3 ML ONE (11:07)
[2018-03-13 11:10] LABS: BASOPHILS # (AUTO) 0.04 x10^3/uL (0-0.1); BASOPHILS % (AUTO) 1 % (0-1); EOSINOPHILS # (AUTO) 0.35 x10^3/uL (0-0.4); EOSINOPHILS % (AUTO) 7 % (1-7); LYMPHOCYTES # (AUTO) 1.65 x10^3/uL (1-3.4); LYMPHOCYTES % (AUTO) 31 % (22-44); MD NO; MEAN CORPUSCULAR HEMOGLOBIN 33.2 pg (27.5-34.5); MEAN CORPUSCULAR HGB CONC 33.7 g/dL (33.2-36.2); MEAN CORPUSCULAR VOLUME 98.2 fL (81-97); MEAN PLATELET VOLUME 6.6 fL (7.4-10.4); MONOCYTES # (AUTO) 0.46 x10^3/uL (0.2-0.8); MONOCYTES % (AUTO) 9 % (2-9); NEUTROPHILS # (AUTO) 2.88 x10^3/uL (1.8-6.8); NEUTROPHILS % (AUTO) 54 % (42-75); PLATELET COUNT 380 x10^3/uL (130-400); RED CELL DISTRIBUTION WIDTH 14.7 % (9.4-14.8)
[2018-03-13 11:13] LABS: ALBUMIN 3.8 g/dL (3.4-5.0); ANION GAP 8 mmol/L (5-15); CALCIUM 8.3 mg/dL (8.5-10.1); CHLORIDE 105 mmol/L (98-107)
[2018-03-13 11:14] LABS: SALICYLATE LEVEL < 1.7 mg/dL (2.8-20.0)
[2018-03-13 11:15] LABS: ALANINE AMINOTRANSFERASE 25 U/L (12-78); ALKALINE PHOSPHATASE 170 U/L (45-117); BILIRUBIN,TOTAL 0.3 mg/dL (0.2-1.0); CREATININE 0.73 mg/dL (0.7-1.3); TOTAL PROTEIN 7.1 g/dL (6.4-8.2)
[2018-03-13 11:18] LABS: ACETAMINOPHEN < 2 mcg/mL (10-30)
[2018-03-13 11:36] LABS: AMPHETAMINE SCREEN, URINE Negative (Negative); BARBITURATE SCREEN, URINE Negative (Negative); BENZODIAZEPINE SCREEN, URINE Positive (Negative); CANNABINOID SCREEN, URINE Negative (Negative); COCAINE SCREEN, URINE Negative (Negative); METHADONE SCREEN, URINE Negative (Negative); OPIATE SCREEN, URINE Negative (Negative)
[2018-03-13] MEDS ORDERED: DOCUSATE 100 MG CAPSULE PO PRN (15:00)
[2018-03-13] MEDS ORDERED: ACETAMINOPHEN 325 MG TABLET PO PRN (15:00)
[2018-03-13] MEDS ORDERED: ONDANSETRON ODT 4 MG PO PRN (15:00)
[2018-03-13] MEDS ORDERED: POLYETHYLENE GLYCOL 17 GM PACKET PO PRN (15:00)
[2018-03-13] MEDS ORDERED: ZIPRASIDONE 20MG CAPSULE ONE (16:06)
[2018-03-13] MEDS: ZIPRASIDONE 20MG CAPSULE PO PRN (16:07)
[2018-03-13] MEDS ORDERED: ALBUTEROL SULFATE 2.5 MG/3 ML ONE (17:54)
[2018-03-13] MEDS ORDERED: QUETIAPINE 100MG TABLET ONE (20:50)
[2018-03-13] MEDS ORDERED: PHENYTOIN 100 MG CAPSULE ONE (20:50)
[2018-03-13] MEDS ORDERED: TRAZODONE 50MG TABLET ONE (20:51)
[2018-03-13] MEDS: PHENYTOIN SODIUM 400 MG PO SCH (20:53)
[2018-03-13] MEDS: QUETIAPINE 100MG TABLET PO SCH (20:54)
[2018-03-13] MEDS: TEMPLATE NON-FORMULARY MED. (Trazodone Hcl** 50 MG) PO SCH (20:54)
[2018-03-14] MEDS ORDERED: ALBUTEROL SULFATE 2.5 MG/3 ML ONE (00:59)
[2018-03-14] MEDS ORDERED: SENNA/DOCUSATE TABLET ONE (08:26)
[2018-03-14] MEDS ORDERED: SERTRALINE 50MG TABLET ONE (08:26)
[2018-03-14] MEDS ORDERED: QUETIAPINE 25MG TABLET ONE (08:28)
[2018-03-14] MEDS ORDERED: ONDANSETRON ODT 4 MG ONE (08:32)
[2018-03-14] MEDS ORDERED: ALBUTEROL/IPRATROPIUM 2.5MG/0.5MG, 3 ML ONE (08:55)
[2018-03-14] MEDS ORDERED: TEMPLATE NON-FORMULARY MED. (Quetiapine Fumarate** 50 MG) PO SCH (09:00)
[2018-03-14] MEDS ORDERED: FLUTICASONE FUROATE 100MCG/INH INH SCH (09:00)
[2018-03-14] MEDS ORDERED: TEMPLATE NON-FORMULARY MED. (Albuterol Sulfate (Ventolin Hfa) 90 MCG) INH SCH (09:00)
[2018-03-14] MEDS ORDERED: SERTRALINE HCL 50 MG PO SCH (09:00)
[2018-03-14] MEDS: ALBUTEROL SULFATE 2.5 MG/3 ML NPPB PRN (09:02)
[2018-03-14] MEDS: BUDESONIDE 0.5 MG/2 ML INHA HHN SCH ×2 (09:02→19:37)
[2018-03-14] MEDS: LOSARTAN 50MG TABLET PO SCH (09:13)
[2018-03-14] MEDS: LEVOTHYROXINE 25 MCG TABLET PO SCH (09:13)
[2018-03-14] MEDS: SENNA/DOCUSATE TABLET PO SCH (09:14)
[2018-03-14] MEDS ORDERED: ZIPRASIDONE 20MG CAPSULE ONE (14:28)
[2018-03-14] MEDS: ZIPRASIDONE 20MG CAPSULE PO PRN (14:29)
[2018-03-14] MEDS ORDERED: LORazepam 1MG TABLET ONE (17:59)
[2018-03-14] MEDS ORDERED: LORazepam 1MG TABLET PO ONE (18:00)
[2018-03-14] MEDS ORDERED: PHENYTOIN 100 MG CAPSULE ONE (20:55)
[2018-03-14] MEDS ORDERED: QUETIAPINE 100MG TABLET ONE (20:55)
[2018-03-14] MEDS ORDERED: TRAZODONE 50MG TABLET ONE (20:56)
[2018-03-14] MEDS: TEMPLATE NON-FORMULARY MED. (Trazodone Hcl** 50 MG) PO SCH (21:02)
[2018-03-14] MEDS: QUETIAPINE 100MG TABLET PO SCH (21:05)
[2018-03-14] MEDS: PHENYTOIN SODIUM 400 MG PO SCH (21:06)
[2018-03-15] MEDS ORDERED: PHENYTOIN 100 MG CAPSULE PO SCH (01:01)
[2018-03-15] MEDS ORDERED: TRAZODONE 50MG TABLET PO SCH (01:02)
[2018-03-15] MEDS: BUDESONIDE 0.5 MG/2 ML INHA HHN SCH ×2 (09:00→19:13)
[2018-03-15] MEDS ORDERED: SERTRALINE 50MG TABLET ONE (09:21)
[2018-03-15] MEDS ORDERED: SENNA/DOCUSATE TABLET ONE (09:21)
[2018-03-15] MEDS ORDERED: QUETIAPINE 25MG TABLET ONE (09:21)
[2018-03-15] MEDS: LEVOTHYROXINE 25 MCG TABLET PO SCH (09:25)
[2018-03-15] MEDS: QUETIAPINE 25MG TABLET PO SCH (09:26)
[2018-03-15] MEDS: SERTRALINE 50MG TABLET PO SCH (09:26)
[2018-03-15] MEDS: LOSARTAN 50MG TABLET PO SCH (09:26)
[2018-03-15] MEDS: SENNA/DOCUSATE TABLET PO SCH (09:27)
[2018-03-15] MEDS: ZIPRASIDONE 20 MG INJ IM PRN ×2 (10:16→10:18)
[2018-03-15] MEDS ORDERED: ZIPRASIDONE 20MG CAPSULE ONE ×2 (17:14→19:42)
[2018-03-15] MEDS: ZIPRASIDONE 20MG CAPSULE PO PRN ×2 (17:16→20:32)
[2018-03-15] MEDS ORDERED: BUDESONIDE 0.5 MG/2 ML INHA ONE (19:08)
[2018-03-15] MEDS ORDERED: ALBUTEROL SULFATE 2.5 MG/3 ML ONE (19:08)
[2018-03-15] MEDS: ALBUTEROL SULFATE 2.5 MG/3 ML NPPB PRN (19:13)
[2018-03-15] MEDS ORDERED: PHENYTOIN 100 MG CAPSULE ONE (19:43)
[2018-03-15] MEDS ORDERED: TRAZODONE 50MG TABLET ONE (19:43)
[2018-03-15] MEDS ORDERED: QUETIAPINE 100MG TABLET ONE (19:43)
[2018-03-15] MEDS: QUETIAPINE 100MG TABLET PO SCH (20:32)
[2018-03-16] MEDS ORDERED: ZIPRASIDONE 20 MG INJ IM ONE (04:08)
[2018-03-16] MEDS: ZIPRASIDONE 20 MG INJ IM PRN (04:18)
[2018-03-16] MEDS ORDERED: DIPHENHYDRAMINE 50 MG CAPSULE ONE ×2 (07:27→17:52)
[2018-03-16] MEDS ORDERED: QUETIAPINE 25MG TABLET ONE (07:27)
[2018-03-16] MEDS ORDERED: SENNA/DOCUSATE TABLET ONE (07:27)
[2018-03-16] MEDS ORDERED: SERTRALINE 50MG TABLET ONE (07:27)
[2018-03-16] MEDS: QUETIAPINE 25MG TABLET PO SCH (07:33)
[2018-03-16] MEDS: SERTRALINE 50MG TABLET PO SCH (07:34)
[2018-03-16] MEDS: SENNA/DOCUSATE TABLET PO SCH (07:34)
[2018-03-16] MEDS: DIPHENHYDRAMINE 50 MG CAPSULE PO PRN ×2 (07:34→18:15)
[2018-03-16] MEDS ORDERED: ALBUTEROL SULFATE 2.5 MG/3 ML ONE ×2 (07:47→17:08)
[2018-03-16] MEDS ORDERED: BUDESONIDE 0.5 MG/2 ML INHA ONE ×2 (07:47→17:08)
[2018-03-16] MEDS: BUDESONIDE 0.5 MG/2 ML INHA HHN SCH ×2 (07:57→17:10)
[2018-03-16] MEDS: ALBUTEROL SULFATE 2.5 MG/3 ML NPPB PRN ×2 (07:57→17:11)
[2018-03-16] MEDS: LEVOTHYROXINE 25 MCG TABLET PO SCH (08:19)
[2018-03-16] MEDS: LOSARTAN 50MG TABLET PO SCH (08:19)
[2018-03-16] MEDS ORDERED: ZIPRASIDONE 20MG CAPSULE ONE ×2 (09:53→17:48)
[2018-03-16] MEDS: ZIPRASIDONE 20MG CAPSULE PO PRN ×2 (09:54→17:50)
[2018-03-16] MEDS ORDERED: hydrOXyzine 50MG TABLET ONE (17:48)
[2018-03-16 18:16] VITALS: BP 118/57
== END 2018-03-16 18:48 | disposition home or self-care (01) ==
LOC: ED 10:16 → EDIP 13:52 → INTOOBSV 13:52 → UNDOADMOB 13:52 → EDIP 03-15 17:41 → ED 03-16 18:48
DX: F32.9 Major depressive disorder, single episode, unspecified (principal); R45.851 Suicidal ideations
CPT/HCPCS: 36415; 71046; 80053; 80307; 80329; 85025; 93005; 94640; 96372; 99285; J3486; J7512; J7613; J7620; J7626; Q0177; G0480

== ENCOUNTER 2018-03-16 20:53 | Emergency (ER) | payer MEDICAID ==
[~2018-03-16] VITALS: Ht 182.9 cm; Wt 75.7 kg
[2018-03-16 21:02] VITALS: BP 140/80
[2018-03-16] MEDS ORDERED: QUETIAPINE 100MG TABLET ONE (21:56)
[2018-03-16] MEDS ORDERED: PHENYTOIN 100 MG CAPSULE ONE (21:56)
[2018-03-16] MEDS ORDERED: PHENYTOIN 100 MG CAPSULE PO ONE (22:00)
[2018-03-16] MEDS ORDERED: QUETIAPINE 100MG TABLET PO ONE (22:00)
== END 2018-03-16 22:18 | disposition home or self-care (01) ==
LOC: ED 22:02
DX: F41.9 Anxiety disorder, unspecified (principal); F32.9 Major depressive disorder, single episode, unspecified; E11.9 Type 2 diabetes mellitus without complications; J44.9 Chronic obstructive pulmonary disease, unspecified; E03.9 Hypothyroidism, unspecified; I10 Essential (primary) hypertension
CPT/HCPCS: 99283

== ENCOUNTER 2018-03-31 10:46 | Inpatient (IN) | payer MEDICAID ==
[~2018-03-31] VITALS: Ht 185.4 cm; Wt 68.2 kg
[~2018-03-31 10:46] MED LIST changes: -TRAZ-136 PO; +TRAZ50TA66 PO
[2018-03-31] MEDS ORDERED: ZIPRASIDONE 20 MG INJ IM ONE ×4 (10:59→17:00)
[2018-03-31 11:45] LABS: BASOPHILS # (AUTO) 0.02 x10^3/uL (0-0.1); BASOPHILS % (AUTO) 0 % (0-1); EOSINOPHILS % (AUTO) 3 % (1-7); LYMPHOCYTES # (AUTO) 1.46 x10^3/uL (1-3.4); LYMPHOCYTES % (AUTO) 21 % (22-44); MD NO; MEAN CORPUSCULAR HEMOGLOBIN 31.8 pg (27.5-34.5); MEAN CORPUSCULAR HGB CONC 33.1 g/dL (33.2-36.2); MEAN CORPUSCULAR VOLUME 96.1 fL (81-97); MEAN PLATELET VOLUME 6.9 fL (7.4-10.4); MONOCYTES # (AUTO) 0.56 x10^3/uL (0.2-0.8); MONOCYTES % (AUTO) 8 % (2-9); NEUTROPHILS # (AUTO) 4.74 x10^3/uL (1.8-6.8); NEUTROPHILS % (AUTO) 68 % (42-75); PLATELET COUNT 407 x10^3/uL (130-400); RED BLOOD COUNT 3.71 x10^6/uL (4.38-5.82); RED CELL DISTRIBUTION WIDTH 14.6 % (9.4-14.8)
[2018-03-31 11:55] LABS: ALBUMIN 3.5 g/dL (3.4-5.0); ANION GAP 14 mmol/L (5-15); CALCIUM 8.2 mg/dL (8.5-10.1); CHLORIDE 103 mmol/L (98-107)
[2018-03-31 12:07] LABS: ALANINE AMINOTRANSFERASE 24 U/L (12-78); ALKALINE PHOSPHATASE 138 U/L (45-117); BILIRUBIN,TOTAL 0.2 mg/dL (0.2-1.0); CREATININE 0.98 mg/dL (0.7-1.3); SALICYLATE LEVEL < 1.7 mg/dL (2.8-20.0)
[2018-03-31 12:08] LABS: ACETAMINOPHEN < 2 mcg/mL (10-30); THYROID STIMULATING HORMONE 0.658 mIU/L (0.358-3.740)
[2018-04-01] MEDS ORDERED: LORazepam 1MG TABLET PO ONE (00:30)
[2018-04-01 01:36] LABS: AMPHETAMINE SCREEN, URINE Negative (Negative); BARBITURATE SCREEN, URINE Negative (Negative); BENZODIAZEPINE SCREEN, URINE Positive (Negative); CANNABINOID SCREEN, URINE Negative (Negative); COCAINE SCREEN, URINE Negative (Negative); METHADONE SCREEN, URINE Negative (Negative); OPIATE SCREEN, URINE Negative (Negative)
[2018-04-01] MEDS ORDERED: LORazepam 2 MG/ML, 1ML IM PRN (04:00)
[2018-04-01] MEDS ORDERED: DOCUSATE 100 MG CAPSULE PO PRN (04:00)
[2018-04-01] MEDS ORDERED: ONDANSETRON ODT 4 MG PO PRN (04:00)
[2018-04-01] MEDS ORDERED: ALBUTEROL SULFATE 2.5 MG/3 ML NPPB PRN ×2 (04:30→22:30)
[2018-04-01 04:31] VITALS: BP 132/77
[2018-04-01] MEDS: LORazepam 1MG TABLET PO PRN ×4 (04:42→14:41)
[2018-04-01 04:55] VITALS: BP 122/77
[2018-04-01] MEDS: LEVOTHYROXINE 25 MCG TABLET PO SCH (08:01)
[2018-04-01] MEDS: QUETIAPINE 25MG TABLET PO SCH (08:01)
[2018-04-01 08:18] VITALS: BP 122/74
[2018-04-01] MEDS: FLUTICASONE FUROATE 100MCG/INH INH SCH (09:08)
[2018-04-01] MEDS: LOSARTAN 50MG TABLET PO SCH (09:09)
[2018-04-01] MEDS ORDERED: POTASSIUM CHLORIDE 20 MEQ TAB.ER.PRT PO ONE (11:00)
[2018-04-01] MEDS: MULTIVITAMIN 1 TABLET PO SCH (11:17)
[2018-04-01] MEDS: FOLIC ACID 1 MG TABLET PO SCH (11:17)
[2018-04-01] MEDS: THIAMINE 100MG TABLET PO SCH (11:19)
[2018-04-01] MEDS: hydrOXyzine 50MG TABLET PO PRN ×2 (14:41→22:13)
[2018-04-01 14:53] VITALS: BP 124/54
[2018-04-01] MEDS ORDERED: POTASSIUM CHLORIDE 20 MEQ, MVI ADULT 10 ML, FOLIC ACID 1 MG, MAGNESIUM SULFATE 2 GM in ... IV SCH (16:04)
[2018-04-01] MEDS ORDERED: ENOXAPARIN 40 MG/0.4 ML SQ SCH (16:30)
[2018-04-01] MEDS ORDERED: ONDANSETRON 2MG/ML, 2ML IV PRN (16:30)
[2018-04-01] MEDS ORDERED: PROMETHAZINE 12.5 MG SUPP PR PRN (16:30)
[2018-04-01] MEDS ORDERED: LORazepam 2 MG/ML, 1ML IV PRN ×3 (16:30)
[2018-04-01] MEDS ORDERED: POTASSIUM CHLORIDE 20 MEQ, MAGNESIUM SULFATE 1 GM, MVI ADULT 10 ML, THIAMINE 200 MG, FO... IV SCH (16:30)
[2018-04-01 17:22] VITALS: BP 119/75
[2018-04-01] MEDS: LORazepam 2 MG/ML, 1ML IV PRN ×2 (17:52→19:28)
[2018-04-01 19:45] VITALS: BP 122/70
[2018-04-01] MEDS: QUETIAPINE 100MG TABLET PO SCH (21:43)
[2018-04-02] MEDS: LORazepam 2 MG/ML, 1ML IV PRN ×2 (02:31→06:06)
[2018-04-02] MEDS: LEVOTHYROXINE 25 MCG TABLET PO SCH (06:07)
[2018-04-02 07:49] LABS: BASOPHILS # (AUTO) 0.04 x10^3/uL (0-0.1); BASOPHILS % (AUTO) 1 % (0-1); EOSINOPHILS # (AUTO) 0.38 x10^3/uL (0-0.4); EOSINOPHILS % (AUTO) 9 % (1-7); LYMPHOCYTES % (AUTO) 31 % (22-44); MD NO; MEAN CORPUSCULAR HEMOGLOBIN 31.7 pg (27.5-34.5); MEAN CORPUSCULAR VOLUME 95.9 fL (81-97); MEAN PLATELET VOLUME 6.5 fL (7.4-10.4); MONOCYTES # (AUTO) 0.46 x10^3/uL (0.2-0.8); MONOCYTES % (AUTO) 11 % (2-9); NEUTROPHILS # (AUTO) 2.02 x10^3/uL (1.8-6.8); NEUTROPHILS % (AUTO) 48 % (42-75); PLATELET COUNT 324 x10^3/uL (130-400); RED BLOOD COUNT 3.21 x10^6/uL (4.38-5.82); RED CELL DISTRIBUTION WIDTH 15.1 % (9.4-14.8)
[2018-04-02 07:59] LABS: ALANINE AMINOTRANSFERASE 16 U/L (12-78); ANION GAP 5 mmol/L (5-15); CALCIUM 7.6 mg/dL (8.5-10.1); CHLORIDE 108 mmol/L (98-107); CREATININE 0.72 mg/dL (0.7-1.3)
[2018-04-02 08:00] VITALS: BP 129/75
[2018-04-02 08:01] LABS: ALKALINE PHOSPHATASE 97 U/L (45-117); BILIRUBIN,TOTAL 0.3 mg/dL (0.2-1.0); TOTAL PROTEIN 6.1 g/dL (6.4-8.2)
[2018-04-02 08:25] VITALS: BP 113/69
[2018-04-02] MEDS: FOLIC ACID 1 MG TABLET PO SCH (08:31)
[2018-04-02] MEDS: LOSARTAN 50MG TABLET PO SCH (08:32)
[2018-04-02] MEDS: QUETIAPINE 25MG TABLET PO SCH (08:32)
[2018-04-02] MEDS: MULTIVITAMIN 1 TABLET PO SCH (08:32)
[2018-04-02] MEDS: LORazepam 1MG TABLET PO PRN ×4 (08:33→20:23)
[2018-04-02] MEDS: THIAMINE 100MG TABLET PO SCH (08:33)
[2018-04-02] MEDS: FLUTICASONE FUROATE 100MCG/INH INH SCH (12:05)
[2018-04-02] MEDS ORDERED: ZIPRASIDONE 20 MG INJ IM PRN (13:00)
[2018-04-02 14:18] VITALS: BP 135/75
[2018-04-02] MEDS: QUETIAPINE 100MG TABLET PO SCH (20:23)
[2018-04-02 20:37] VITALS: BP 148/83
[2018-04-03] MEDS: LORazepam 1MG TABLET PO PRN ×5 (02:58→21:34)
[2018-04-03] MEDS: LEVOTHYROXINE 25 MCG TABLET PO SCH (06:19)
[2018-04-03 07:02] VITALS: BP 114/67
[2018-04-03] MEDS: MULTIVITAMIN 1 TABLET PO SCH (08:02)
[2018-04-03] MEDS: LOSARTAN 50MG TABLET PO SCH (08:03)
[2018-04-03] MEDS: FOLIC ACID 1 MG TABLET PO SCH (08:03)
[2018-04-03] MEDS: QUETIAPINE 25MG TABLET PO SCH (08:03)
[2018-04-03] MEDS: THIAMINE 100MG TABLET PO SCH (08:03)
[2018-04-03] MEDS: FLUTICASONE FUROATE 100MCG/INH INH SCH (09:00)
[2018-04-03 12:28] VITALS: BP 131/80
[2018-04-03 20:54] VITALS: BP 135/79
[2018-04-03] MEDS: QUETIAPINE 100MG TABLET PO SCH (21:35)
[2018-04-04] MEDS: LORazepam 1MG TABLET PO PRN ×5 (02:13→18:10)
[2018-04-04 02:23] VITALS: BP 96/63
[2018-04-04] MEDS: LEVOTHYROXINE 25 MCG TABLET PO SCH (06:16)
[2018-04-04 06:46] VITALS: BP 108/68
[2018-04-04] MEDS: FLUTICASONE FUROATE 100MCG/INH INH SCH ×2 (09:00→09:06)
[2018-04-04] MEDS: FOLIC ACID 1 MG TABLET PO SCH (09:05)
[2018-04-04] MEDS: THIAMINE 100MG TABLET PO SCH (09:05)
[2018-04-04] MEDS: LOSARTAN 50MG TABLET PO SCH (09:05)
[2018-04-04] MEDS: QUETIAPINE 25MG TABLET PO SCH (09:05)
[2018-04-04] MEDS: MULTIVITAMIN 1 TABLET PO SCH (09:05)
[2018-04-04] MEDS: hydrOXyzine 50MG TABLET PO PRN (09:06)
[2018-04-04 18:39] VITALS: BP 100/61
[2018-04-04] MEDS: QUETIAPINE 100MG TABLET PO SCH (21:06)
[2018-04-05 03:20] VITALS: BP 101/61
[2018-04-05] MEDS: LORazepam 1MG TABLET PO PRN ×3 (03:52→12:10)
[2018-04-05 05:22] LABS: BASOPHILS # (AUTO) 0.05 x10^3/uL (0-0.1); BASOPHILS % (AUTO) 1 % (0-1); EOSINOPHILS # (AUTO) 0.44 x10^3/uL (0-0.4); EOSINOPHILS % (AUTO) 9 % (1-7); LYMPHOCYTES # (AUTO) 1.73 x10^3/uL (1-3.4); LYMPHOCYTES % (AUTO) 36 % (22-44); MD NO; MEAN CORPUSCULAR HEMOGLOBIN 32.1 pg (27.5-34.5); MEAN CORPUSCULAR HGB CONC 33.6 g/dL (33.2-36.2); MEAN CORPUSCULAR VOLUME 95.4 fL (81-97); MEAN PLATELET VOLUME 7.1 fL (7.4-10.4); MONOCYTES # (AUTO) 0.62 x10^3/uL (0.2-0.8); MONOCYTES % (AUTO) 13 % (2-9); NEUTROPHILS # (AUTO) 1.99 x10^3/uL (1.8-6.8); NEUTROPHILS % (AUTO) 41 % (42-75); PLATELET COUNT 354 x10^3/uL (130-400); RED BLOOD COUNT 3.76 x10^6/uL (4.38-5.82); RED CELL DISTRIBUTION WIDTH 14.8 % (9.4-14.8)
[2018-04-05] MEDS: LEVOTHYROXINE 25 MCG TABLET PO SCH (06:20)
[2018-04-05 07:01] VITALS: BP 96/56
[2018-04-05] MEDS: QUETIAPINE 25MG TABLET PO SCH (08:09)
[2018-04-05] MEDS: THIAMINE 100MG TABLET PO SCH (08:09)
[2018-04-05] MEDS: LOSARTAN 50MG TABLET PO SCH (08:09)
[2018-04-05] MEDS: FOLIC ACID 1 MG TABLET PO SCH (08:09)
[2018-04-05] MEDS: MULTIVITAMIN 1 TABLET PO SCH (08:09)
[2018-04-05] MEDS: FLUTICASONE FUROATE 100MCG/INH INH SCH (08:11)
[2018-04-05 13:02] VITALS: BP 99/57
== END 2018-04-05 13:15 | DRG 885 ==
LOC: ED 11:23 → INTOOBSV 04-01 01:28 → OBSVTOIN 04-01 01:28 → EDIP 04-01 01:28 → 2N 04-01 04:19 → 4WST 04-01 16:55
PROVIDERS: ADMIT Internal Medicine; ATTEND Internal Medicine
DX: F32.3 Major depressive disorder, single episode, severe with psychotic features (principal); F10.239 Alcohol dependence with withdrawal, unspecified; R45.851 Suicidal ideations; D64.9 Anemia, unspecified; E03.9 Hypothyroidism, unspecified; E11.9 Type 2 diabetes mellitus without complications; E87.6 Hypokalemia; F17.200 Nicotine dependence, unspecified, uncomplicated; F41.9 Anxiety disorder, unspecified; G47.00 Insomnia, unspecified; E11.51 Type 2 diabetes mellitus with diabetic peripheral angiopathy without gangrene; I10 Essential (primary) hypertension; J44.9 Chronic obstructive pulmonary disease, unspecified; N40.0 Benign prostatic hyperplasia without lower urinary tract symptoms; Z78.1 Physical restraint status; Z79.899 Other long term (current) drug therapy; Q65.89 Other specified congenital deformities of hip
CPT/HCPCS: 36415; 99285; J7613; 80053; 80307; 80329; 83690; 83735; 84100; 84443; 85025; 93005; 94640; G0378; J1650; J3411; J3475; J3480; J3486; G0480; J2060

== ENCOUNTER 2018-04-14 07:45 | Observation (INO) | payer MEDICAID ==
[~2018-04-14] VITALS: Ht 185.4 cm; Wt 82.0 kg
[2018-04-14 08:18] LABS: BASOPHILS # (AUTO) 0.12 x10^3/uL (0-0.1); BASOPHILS % (AUTO) 2 % (0-1); EOSINOPHILS # (AUTO) 0.03 x10^3/uL (0-0.4); EOSINOPHILS % (AUTO) 0 % (1-7); LYMPHOCYTES # (AUTO) 1.39 x10^3/uL (1-3.4); LYMPHOCYTES % (AUTO) 19 % (22-44); MD NO; MEAN CORPUSCULAR HEMOGLOBIN 31.4 pg (27.5-34.5); MEAN CORPUSCULAR HGB CONC 33.3 g/dL (33.2-36.2); MEAN CORPUSCULAR VOLUME 94.2 fL (81-97); MEAN PLATELET VOLUME 6.9 fL (7.4-10.4); MONOCYTES # (AUTO) 0.23 x10^3/uL (0.2-0.8); MONOCYTES % (AUTO) 3 % (2-9); NEUTROPHILS # (AUTO) 5.54 x10^3/uL (1.8-6.8); NEUTROPHILS % (AUTO) 76 % (42-75); PLATELET COUNT 472 x10^3/uL (130-400); RED BLOOD COUNT 4.17 x10^6/uL (4.38-5.82); RED CELL DISTRIBUTION WIDTH 15.4 % (9.4-14.8)
[2018-04-14 08:38] LABS: ALBUMIN 4.2 g/dL (3.4-5.0); ANION GAP 18 mmol/L (5-15); CALCIUM 8.8 mg/dL (8.5-10.1); CHLORIDE 107 mmol/L (98-107); CREATININE 0.97 mg/dL (0.7-1.3); SALICYLATE LEVEL 1.8 mg/dL (2.8-20.0)
[2018-04-14 08:49] LABS: ACETAMINOPHEN < 2 mcg/mL (10-30)
[2018-04-14] MEDS ORDERED: LORazepam 2 MG/ML, 1ML IVPush ONE (11:00)
[2018-04-14] MEDS ORDERED: THIAMINE 100MG TABLET PO ONE (11:00)
[2018-04-14] MEDS ORDERED: THIAMINE 100MG TABLET ONE (11:27)
[2018-04-14] MEDS ORDERED: LORazepam 2 MG/ML, 1ML ONE ×2 (11:29→17:39)
[2018-04-14 12:06] LABS: AMPHETAMINE SCREEN, URINE Negative (Negative); BARBITURATE SCREEN, URINE Negative (Negative); BENZODIAZEPINE SCREEN, URINE Negative (Negative); CANNABINOID SCREEN, URINE Negative (Negative); COCAINE SCREEN, URINE Negative (Negative); METHADONE SCREEN, URINE Negative (Negative); OPIATE SCREEN, URINE Negative (Negative)
[2018-04-14 12:10] LABS: SALICYLATE LEVEL < 1.7 mg/dL (2.8-20.0)
[2018-04-14 12:12] LABS: ACETAMINOPHEN < 2 mcg/mL (10-30)
[2018-04-14] MEDS ORDERED: LORazepam 1MG TABLET ONE (12:24)
[2018-04-14] MEDS ORDERED: ASPIRIN 81 MG TABLET CHEW ONE (12:24)
[2018-04-14] MEDS ORDERED: ASPIRIN 81 MG TABLET CHEW PO ONE (12:30)
[2018-04-14 13:23] LABS: TROPONIN I < 0.015 ng/mL (0.000-0.045)
[2018-04-14] MEDS ORDERED: LORazepam 2 MG/ML, 1ML IM PRN (17:30)
[2018-04-14] MEDS: NICOTINE 7 MG/24 HR PATCH.TD24 TD SCH (17:30)
[2018-04-14 18:03] LABS: TROPONIN I < 0.015 ng/mL (0.000-0.045)
[2018-04-14 18:15] VITALS: BP 132/77
[2018-04-14] MEDS: THIAMINE 50MG TABLET PO SCH (19:30)
[2018-04-14] MEDS: TRAZODONE 50MG TABLET PO SCH (19:53)
[2018-04-14] MEDS: PHENYTOIN 100 MG CAPSULE PO SCH (19:53)
[2018-04-14] MEDS: CHLORDIAZEPOXIDE 5 MG CAPSULE PO SCH (19:54)
[2018-04-14] MEDS: QUETIAPINE 100MG TABLET PO SCH (19:54)
[2018-04-14 20:42] VITALS: BP 132/77
[2018-04-14] MEDS: BUDESONIDE 0.5 MG/2 ML INHA NPPB SCH (22:41)
[2018-04-15] MEDS: LEVOTHYROXINE 25 MCG TABLET PO SCH (05:29)
[2018-04-15 05:58] LABS: BASOPHILS # (AUTO) 0.09 x10^3/uL (0-0.1); BASOPHILS % (AUTO) 2 % (0-1); EOSINOPHILS # (AUTO) 0.21 x10^3/uL (0-0.4); EOSINOPHILS % (AUTO) 3 % (1-7); LYMPHOCYTES # (AUTO) 2.07 x10^3/uL (1-3.4); LYMPHOCYTES % (AUTO) 33 % (22-44); MD NO; MEAN CORPUSCULAR HEMOGLOBIN 31.6 pg (27.5-34.5); MEAN CORPUSCULAR HGB CONC 33.7 g/dL (33.2-36.2); MEAN CORPUSCULAR VOLUME 93.8 fL (81-97); MEAN PLATELET VOLUME 6.4 fL (7.4-10.4); MONOCYTES # (AUTO) 0.53 x10^3/uL (0.2-0.8); MONOCYTES % (AUTO) 8 % (2-9); NEUTROPHILS # (AUTO) 3.41 x10^3/uL (1.8-6.8); NEUTROPHILS % (AUTO) 54 % (42-75); PLATELET COUNT 407 x10^3/uL (130-400); RED BLOOD COUNT 3.69 x10^6/uL (4.38-5.82); RED CELL DISTRIBUTION WIDTH 14.9 % (9.4-14.8)
[2018-04-15 06:14] LABS: ALBUMIN 3.7 g/dL (3.4-5.0); ANION GAP 10 mmol/L (5-15); CALCIUM 8.2 mg/dL (8.5-10.1); CHLORIDE 104 mmol/L (98-107); CREATININE 0.83 mg/dL (0.7-1.3)
[2018-04-15 06:17] LABS: ALANINE AMINOTRANSFERASE 45 U/L (12-78); ALKALINE PHOSPHATASE 120 U/L (45-117); BILIRUBIN,TOTAL 0.6 mg/dL (0.2-1.0)
[2018-04-15 07:57] VITALS: BP 119/77
[2018-04-15] MEDS: LOSARTAN 50MG TABLET PO SCH (08:30)
[2018-04-15] MEDS: CHLORDIAZEPOXIDE 5 MG CAPSULE PO SCH ×2 (08:30→21:10)
[2018-04-15] MEDS: QUETIAPINE 25MG TABLET PO SCH (08:34)
[2018-04-15] MEDS: ACETAMINOPHEN 325 MG TABLET PO PRN (08:43)
[2018-04-15] MEDS: SERTRALINE 50MG TABLET PO SCH (09:00)
[2018-04-15] MEDS: THIAMINE 50MG TABLET PO SCH (09:00)
[2018-04-15] MEDS ORDERED: ALBUTEROL SULFATE 2.5 MG/3 ML NPPB SCH (09:00)
[2018-04-15] MEDS: ALBUTEROL SULFATE 2.5 MG/3 ML NPPB SCH ×2 (09:47→20:45)
[2018-04-15] MEDS: BUDESONIDE 0.5 MG/2 ML INHA NPPB SCH ×2 (09:47→20:45)
[2018-04-15] MEDS: NICOTINE 7 MG/24 HR PATCH.TD24 TD SCH (17:30)
[2018-04-15 19:39] VITALS: BP 112/68
[2018-04-15] MEDS: PHENYTOIN 100 MG CAPSULE PO SCH (21:09)
[2018-04-15] MEDS: TRAZODONE 50MG TABLET PO SCH (21:09)
[2018-04-15] MEDS: QUETIAPINE 100MG TABLET PO SCH (21:10)
[2018-04-16] MEDS: LEVOTHYROXINE 25 MCG TABLET PO SCH (07:39)
[2018-04-16 08:00] VITALS: BP 113/70
[2018-04-16] MEDS: LOSARTAN 50MG TABLET PO SCH (08:02)
[2018-04-16] MEDS: CHLORDIAZEPOXIDE 5 MG CAPSULE PO SCH ×2 (08:03→20:58)
[2018-04-16] MEDS: QUETIAPINE 25MG TABLET PO SCH (08:04)
[2018-04-16] MEDS: THIAMINE 50MG TABLET PO SCH (08:05)
[2018-04-16] MEDS: SERTRALINE 50MG TABLET PO SCH (08:05)
[2018-04-16] MEDS: BUDESONIDE 0.5 MG/2 ML INHA NPPB SCH ×2 (09:05→21:00)
[2018-04-16] MEDS: ALBUTEROL SULFATE 2.5 MG/3 ML NPPB SCH ×2 (09:05→21:00)
[2018-04-16] MEDS: NICOTINE 7 MG/24 HR PATCH.TD24 TD SCH (17:30)
[2018-04-16 19:43] VITALS: BP 113/71
[2018-04-16] MEDS: QUETIAPINE 100MG TABLET PO SCH (20:58)
[2018-04-16] MEDS: PHENYTOIN 100 MG CAPSULE PO SCH (20:58)
[2018-04-16] MEDS: TRAZODONE 50MG TABLET PO SCH (20:58)
[2018-04-16] MEDS: ACETAMINOPHEN 325 MG TABLET PO PRN (22:45)
[2018-04-17] MEDS: LEVOTHYROXINE 25 MCG TABLET PO SCH (07:12)
[2018-04-17] MEDS: ACETAMINOPHEN 325 MG TABLET PO PRN (07:52)
[2018-04-17 08:16] VITALS: BP 122/67
[2018-04-17] MEDS: LOSARTAN 50MG TABLET PO SCH (08:39)
[2018-04-17] MEDS: CHLORDIAZEPOXIDE 5 MG CAPSULE PO SCH ×2 (08:39→20:09)
[2018-04-17] MEDS: QUETIAPINE 25MG TABLET PO SCH (08:40)
[2018-04-17] MEDS: THIAMINE 50MG TABLET PO SCH (08:40)
[2018-04-17] MEDS: SERTRALINE 50MG TABLET PO SCH (08:41)
[2018-04-17] MEDS: BUDESONIDE 0.5 MG/2 ML INHA NPPB SCH ×2 (09:00→21:00)
[2018-04-17] MEDS: ALBUTEROL SULFATE 2.5 MG/3 ML NPPB SCH ×2 (09:00→21:00)
[2018-04-17] MEDS: NICOTINE 7 MG/24 HR PATCH.TD24 TD SCH (17:59)
[2018-04-17 19:20] VITALS: BP 96/57
[2018-04-17] MEDS: PHENYTOIN 100 MG CAPSULE PO SCH (20:10)
[2018-04-17] MEDS: TRAZODONE 50MG TABLET PO SCH (20:10)
[2018-04-17] MEDS: QUETIAPINE 100MG TABLET PO SCH (20:11)
[2018-04-18] MEDS: ONDANSETRON ODT 4 MG PO PRN ×2 (05:50→08:16)
[2018-04-18] MEDS: LEVOTHYROXINE 25 MCG TABLET PO SCH (05:55)
[2018-04-18 08:06] VITALS: BP 102/59
[2018-04-18] MEDS: LOSARTAN 50MG TABLET PO SCH ×2 (09:00→09:33)
[2018-04-18] MEDS: CHLORDIAZEPOXIDE 5 MG CAPSULE PO SCH (09:33)
[2018-04-18] MEDS: QUETIAPINE 25MG TABLET PO SCH ×2 (09:33→10:09)
[2018-04-18] MEDS: THIAMINE 50MG TABLET PO SCH ×2 (09:34→10:09)
[2018-04-18] MEDS: SERTRALINE 50MG TABLET PO SCH ×2 (09:34→10:09)
[2018-04-18 09:57] VITALS: BP 90/45
[2018-04-18 09:59] VITALS: BP 96/61
[2018-04-18] MEDS: BUDESONIDE 0.5 MG/2 ML INHA NPPB SCH ×2 (10:00→21:00)
[2018-04-18] MEDS: ALBUTEROL SULFATE 2.5 MG/3 ML NPPB SCH ×2 (10:00→21:00)
[2018-04-18 10:11] VITALS: BP 105/65
[2018-04-18] MEDS: NICOTINE 7 MG/24 HR PATCH.TD24 TD SCH (17:21)
[2018-04-18 19:14] VITALS: BP 105/64
[2018-04-18] MEDS: PHENYTOIN 100 MG CAPSULE PO SCH (20:12)
[2018-04-18] MEDS: TRAZODONE 100MG TABLET PO SCH (20:13)
[2018-04-18] MEDS: hydrOXyzine 50MG TABLET PO PRN (20:13)
[2018-04-18] MEDS: DIVALPROEX 500 MG TAB.ER.24H PO SCH (23:30)
[2018-04-19] MEDS: DIVALPROEX 500 MG TAB.ER.24H PO SCH ×2 (00:06→20:14)
[2018-04-19] MEDS: LEVOTHYROXINE 25 MCG TABLET PO SCH (07:44)
[2018-04-19 08:08] VITALS: BP 105/65
[2018-04-19] MEDS: BUDESONIDE 0.5 MG/2 ML INHA NPPB SCH ×2 (09:00→21:00)
[2018-04-19] MEDS ORDERED: DIVALPROEX 500 MG TAB.ER.24H PO SCH (09:00)
[2018-04-19] MEDS: ALBUTEROL SULFATE 2.5 MG/3 ML NPPB SCH ×2 (09:00→21:00)
[2018-04-19] MEDS: SERTRALINE 50MG TABLET PO SCH (12:09)
[2018-04-19] MEDS: THIAMINE 50MG TABLET PO SCH (12:11)
[2018-04-19] MEDS: NICOTINE 7 MG/24 HR PATCH.TD24 TD SCH (17:30)
[2018-04-19 19:32] VITALS: BP 93/57
[2018-04-19] MEDS: PHENYTOIN 100 MG CAPSULE PO SCH (20:14)
[2018-04-19] MEDS: hydrOXyzine 50MG TABLET PO PRN (20:15)
[2018-04-19] MEDS: TRAZODONE 100MG TABLET PO SCH (20:15)
[2018-04-20 07:30] VITALS: BP 108/68
[2018-04-20] MEDS: THIAMINE 50MG TABLET PO SCH (08:01)
[2018-04-20] MEDS: SERTRALINE 50MG TABLET PO SCH (08:01)
[2018-04-20] MEDS: LEVOTHYROXINE 25 MCG TABLET PO SCH (08:01)
[2018-04-20] MEDS: ALBUTEROL SULFATE 2.5 MG/3 ML NPPB SCH ×2 (09:00→20:27)
[2018-04-20] MEDS: BUDESONIDE 0.5 MG/2 ML INHA NPPB SCH ×2 (09:00→20:27)
[2018-04-20] MEDS: hydrOXyzine 50MG TABLET PO PRN ×2 (12:40→20:14)
[2018-04-20] MEDS: NICOTINE 7 MG/24 HR PATCH.TD24 TD SCH (17:22)
[2018-04-20 19:49] VITALS: BP 104/57
[2018-04-20] MEDS: DIVALPROEX 500 MG TAB.ER.24H PO SCH (20:06)
[2018-04-20] MEDS: PHENYTOIN 100 MG CAPSULE PO SCH (20:06)
[2018-04-20] MEDS ORDERED: TRAZODONE 50MG TABLET PO SCH (21:00)
[2018-04-21 07:30] VITALS: BP 94/57
[2018-04-21] MEDS: SERTRALINE 50MG TABLET PO SCH (07:45)
[2018-04-21] MEDS: THIAMINE 50MG TABLET PO SCH (07:45)
[2018-04-21] MEDS: LEVOTHYROXINE 25 MCG TABLET PO SCH (07:46)
[2018-04-21] MEDS: ALBUTEROL SULFATE 2.5 MG/3 ML NPPB SCH (09:00)
[2018-04-21] MEDS: BUDESONIDE 0.5 MG/2 ML INHA NPPB SCH (09:45)
[2018-04-21] MEDS: hydrOXyzine 50MG TABLET PO PRN (12:12)
[2018-04-21] MEDS ORDERED: TRAZ50TA66 PO (13:13)
[2018-04-21] MEDS ORDERED: DIVA500T4 PO (13:13)
== END 2018-04-21 15:45 | disposition home or self-care (01) ==
LOC: ED 08:49 → EDIP 13:41 → 2N 18:15
PROVIDERS: ADMIT Hospitalist; ATTEND Internal Medicine
DX: R45.851 Suicidal ideations (principal); F31.9 Bipolar disorder, unspecified; J44.9 Chronic obstructive pulmonary disease, unspecified; G40.909 Epilepsy, unspecified, not intractable, without status epilepticus; E03.9 Hypothyroidism, unspecified; E11.9 Type 2 diabetes mellitus without complications; F10.239 Alcohol dependence with withdrawal, unspecified; I10 Essential (primary) hypertension; N40.0 Benign prostatic hyperplasia without lower urinary tract symptoms; Z79.899 Other long term (current) drug therapy; Z87.891 Personal history of nicotine dependence; Z59.0 Homelessness; Z91.5 Personal history of self-harm
CPT/HCPCS: 36415; 71045; 80048; 80053; 80185; 80307; 80329; 82040; 84484; 85025; 93005; 94640; 96374; 99284; G0378; J2060; J7613; J7626; Q0162; G0480

== ENCOUNTER 2018-06-05 03:02 | Emergency (ER) | payer MEDICAID ==
[~2018-06-05] VITALS: Ht 185.4 cm; Wt 78.0 kg
[~2018-06-05 03:02] MED LIST changes: +DIVA500T4 PO; +LOSA50TA14 PO; -LOSA50TA7 PO
[2018-06-05 03:07] VITALS: BP 140/80
--- NOTE | 2018-06-05 03:13 | NUR ---
PT REFUSING MEDICATIONS. PT STATES "I DONT WANT IT, IT WON'T WORK".
== END 2018-06-05 03:46 | disposition home or self-care (01) ==
LOC: ED 03:22
DX: F41.1 Generalized anxiety disorder (principal); I10 Essential (primary) hypertension; J44.9 Chronic obstructive pulmonary disease, unspecified; F32.9 Major depressive disorder, single episode, unspecified; G62.9 Polyneuropathy, unspecified
CPT/HCPCS: 99284; Q0177

== ENCOUNTER 2018-06-15 07:08 | Emergency (ER) | payer MEDICAID ==
[~2018-06-15] VITALS: Ht 182.9 cm; Wt 85.0 kg
[2018-06-15 07:19] VITALS: BP 136/76
[2018-06-15] MEDS ORDERED: hydrOXYzine 50 MG/ML IM PRN (07:30)
--- NOTE | 2018-06-15 07:37 | NUR ---
BIB [facility] FROM RETIREMENT FOR SI, PREVIOUS ATTEMPT (OD ON RISPERDAL) REPORTED BY EMS LAST WEEK. HX BIPOLAR, COPD, HYPOTHYROID. PT REMOVED ALL BELONGINGS, 3 BAGS LABELED AND SECURED IN BELONGINGS LOCKER. GARAGE DOORS DOWN, NO ITEMS IN PT ROOM. PT ANXIOUS, IMPULSIVE AT THIS TIME. SITTER OUTSIDE ROOM WATCHING PT. MEAL TRAY ORDERD. PT AWARE URINE SAMPLE NEEDED.
[2018-06-15 07:48] LABS: BASOPHILS # (AUTO) 0.04 x10^3/uL (0-0.1); BASOPHILS % (AUTO) 1 % (0-1); EOSINOPHILS # (AUTO) 0.16 x10^3/uL (0-0.4); EOSINOPHILS % (AUTO) 4 % (1-7); LYMPHOCYTES # (AUTO) 1.23 x10^3/uL (1-3.4); LYMPHOCYTES % (AUTO) 31 % (22-44); MD NO; MEAN CORPUSCULAR HEMOGLOBIN 30.3 pg (27.5-34.5); MEAN CORPUSCULAR HGB CONC 32.9 g/dL (33.2-36.2); MEAN CORPUSCULAR VOLUME 92.3 fL (81-97); MEAN PLATELET VOLUME 6.7 fL (7.4-10.4); MONOCYTES # (AUTO) 0.44 x10^3/uL (0.2-0.8); MONOCYTES % (AUTO) 11 % (2-9); NEUTROPHILS # (AUTO) 2.15 x10^3/uL (1.8-6.8); NEUTROPHILS % (AUTO) 54 % (42-75); PLATELET COUNT 343 x10^3/uL (130-400); RED BLOOD COUNT 3.84 x10^6/uL (4.38-5.82); RED CELL DISTRIBUTION WIDTH 15.2 % (9.4-14.8)
[2018-06-15 08:00] LABS: ALBUMIN 3.6 g/dL (3.4-5.0); ANION GAP 3 mmol/L (5-15); CALCIUM 8.4 mg/dL (8.5-10.1); CHLORIDE 108 mmol/L (98-107); CREATININE 0.76 mg/dL (0.7-1.3)
[2018-06-15 08:09] LABS: ACETAMINOPHEN < 2 mcg/mL (10-30); SALICYLATE LEVEL < 1.7 mg/dL (2.8-20.0)
[2018-06-15 08:31] LABS: AMPHETAMINE SCREEN, URINE Negative (Negative); BARBITURATE SCREEN, URINE Negative (Negative); BENZODIAZEPINE SCREEN, URINE Negative (Negative); CANNABINOID SCREEN, URINE Negative (Negative); COCAINE SCREEN, URINE Negative (Negative); METHADONE SCREEN, URINE Negative (Negative); OPIATE SCREEN, URINE Negative (Negative)
--- NOTE | 2018-06-15 08:55 | NUR ---
AT BEDSIDE. PT GIVEN BREAKFAST. RESTING IN [facility] AT THIS TIME, NAD
[2018-06-15] MEDS ORDERED: LORazepam 1MG TABLET PO ONE (09:30)
--- NOTE | 2018-06-15 09:30 | NUR ---
PT. WAS MEDICATED FOR ANXIETY ORDERED.
[2018-06-15] MEDS ORDERED: LORazepam 1MG TABLET ONE (09:44)
--- NOTE | 2018-06-15 11:13 | NUR ---
SOC CALLED FOR CONSULT
--- NOTE | 2018-06-15 11:29 | NUR ---
PER [facility] HYDRAULIC LIFT OPERATOR Bunny MORTON, PT ACCEPTED INTO ROOM 384-1. ACCEPTING PROVIDER DR SAHU. OKAY FOR TRANSFER. ANITA NOTIFIED THAT [facility] RN IS ON LUNCH AND REPORT HAS NOT BEEN GIVEN. ANITA STATED OKAY TO TRANSFER PT TO ROOM.
--- NOTE | 2018-06-15 12:40 | NUR ---
PT TRANSFERRED TO [facility] WITH TECH AND ALL BELONGINGS, 3BAGS
== END 2018-06-15 12:44 ==
LOC: ED 08:53
DX: F32.9 Major depressive disorder, single episode, unspecified (principal); R45.851 Suicidal ideations; J44.9 Chronic obstructive pulmonary disease, unspecified; E11.9 Type 2 diabetes mellitus without complications; I10 Essential (primary) hypertension; E03.9 Hypothyroidism, unspecified; Z79.899 Other long term (current) drug therapy
CPT/HCPCS: 36415; 80048; 80307; 80329; 82040; 85025; 99285; G0480

== ENCOUNTER 2018-06-15 11:59 | Inpatient (IN) | payer MEDICAID ==
[~2018-06-15] VITALS: Ht 185.4 cm; Wt 73.2 kg
[~2018-06-15 11:59] MED LIST changes: -QUET25TA PO; +QUET25TA7 PO
[2018-06-15] MEDS ORDERED: ONDANSETRON ODT 4 MG PO PRN (12:00)
[2018-06-15] MEDS ORDERED: HYDROXYZINE PAMOATE 50MG CAP PO PRN (12:00)
[2018-06-15] MEDS ORDERED: POLYETHYLENE GLYCOL 17 GM PACKET PO PRN (12:00)
[2018-06-15] MEDS ORDERED: BISACODYL 10 MG SUPP PR PRN (12:00)
[2018-06-15] MEDS ORDERED: DOCUSATE 100 MG CAPSULE PO PRN (12:00)
[2018-06-15] MEDS ORDERED: SENNA/DOCUSATE TABLET PO PRN (12:00)
[2018-06-15 14:58] VITALS: BP 127/74
[2018-06-15] MEDS: LORazepam 1MG TABLET PO PRN ×2 (16:19→20:00)
[2018-06-15] MEDS ORDERED: LOSARTAN 50MG TABLET ONE (17:08)
[2018-06-15] MEDS: LOSARTAN 50MG TABLET PO SCH (17:21)
[2018-06-15 19:36] VITALS: BP 119/71
[2018-06-15] MEDS ORDERED: TRAZODONE 50MG TABLET ONE (19:47)
[2018-06-15] MEDS ORDERED: TRAZODONE 100MG TABLET ONE (19:47)
[2018-06-15] MEDS: TRAZODONE 150MG TABLET PO SCH (20:00)
[2018-06-15] MEDS: PHENYTOIN 100 MG CAPSULE PO SCH (20:00)
[2018-06-15] MEDS: PRAZOSIN 2 MG CAPSULE PO SCH (20:00)
[2018-06-15] MEDS: QUETIAPINE 100MG TABLET PO SCH (20:01)
[2018-06-15] MEDS: DIVALPROEX 500 MG TAB.ER.24H PO SCH (20:01)
[2018-06-15] MEDS: LITHIUM CARBONATE 300 MG CAPSULE PO SCH (20:35)
[2018-06-16 05:51] LABS: HCT (SEDRATE) 34.9 % (39.2-51.8)
[2018-06-16 06:28] LABS: LDL/HDL RATIO 0.9 (0.5-3.0); THYROID STIMULATING HORMONE 1.08 mIU/L (0.358-3.740)
[2018-06-16 07:39] VITALS: BP 97/61
[2018-06-16] MEDS: LEVOTHYROXINE 25 MCG TABLET PO SCH ×2 (08:02→08:30)
[2018-06-16] MEDS: THIAMINE 100MG TABLET PO SCH (08:59)
[2018-06-16] MEDS: QUETIAPINE 100MG TABLET PO SCH ×2 (08:59→20:30)
[2018-06-16] MEDS: LORazepam 1MG TABLET PO PRN ×2 (08:59→20:29)
[2018-06-16] MEDS: LOSARTAN 50MG TABLET PO SCH (09:00)
[2018-06-16] MEDS ORDERED: hydrOXyzine 50MG TABLET PO PRN (09:30)
[2018-06-16 13:12] VITALS: BP 97/58
[2018-06-16] MEDS: BUDESONIDE 0.5 MG/2 ML INHA INH SCH ×2 (13:27→21:10)
[2018-06-16] MEDS: IPRATROPIUM 0.5 MG/2.5 ML INHA HHN SCH ×2 (13:27→21:15)
[2018-06-16 13:45] LABS: MICROSCOPIC NOT IND
[2018-06-16 13:48] LABS: CULTURE INDICATED? NO
[2018-06-16 20:20] VITALS: BP 100/62
[2018-06-16] MEDS: TRAZODONE 150MG TABLET PO SCH (20:26)
[2018-06-16] MEDS: PHENYTOIN 100 MG CAPSULE PO SCH (20:29)
[2018-06-16] MEDS: PRAZOSIN 2 MG CAPSULE PO SCH (20:29)
[2018-06-16] MEDS: LITHIUM CARBONATE 300 MG CAPSULE PO SCH (20:30)
[2018-06-16] MEDS ORDERED: DIVALPROEX 500 MG TAB.ER.24H PO SCH (21:00)
[2018-06-16] MEDS ORDERED: BUDESONIDE 0.5 MG/2 ML INHA NPPB SCH (21:00)
[2018-06-16] MEDS ORDERED: PHENYTOIN 100 MG CAPSULE PO SCH (21:00)
[2018-06-16] MEDS: DIVALPROEX 500 MG TAB.ER.24H PO SCH (21:00)
[2018-06-17] MEDS: IPRATROPIUM 0.5 MG/2.5 ML INHA HHN SCH ×2 (03:10→09:05)
[2018-06-17 05:15] VITALS: BP 92/60
[2018-06-17] MEDS: LORazepam 1MG TABLET PO PRN ×2 (05:34→13:15)
[2018-06-17] MEDS: LEVOTHYROXINE 25 MCG TABLET PO SCH ×2 (05:35→10:07)
[2018-06-17 07:08] VITALS: BP 101/67
[2018-06-17] MEDS: QUETIAPINE 100MG TABLET PO SCH ×2 (09:00→19:54)
[2018-06-17] MEDS: LOSARTAN 50MG TABLET PO SCH (09:00)
[2018-06-17] MEDS ORDERED: FLUTICASONE FUROATE 100MCG/INH INH SCH (09:00)
[2018-06-17] MEDS: TEMPLATE NON-FORMULARY MED. (Albuterol Sulfate (Ventolin Hfa) 90 MCG) INH SCH (09:00)
[2018-06-17] MEDS: BUDESONIDE 0.5 MG/2 ML INHA INH SCH ×2 (09:05→21:40)
[2018-06-17] MEDS: THIAMINE 100MG TABLET PO SCH (10:06)
[2018-06-17] MEDS: SERTRALINE 50MG TABLET PO SCH (10:06)
[2018-06-17 10:37] VITALS: BP 94/57
[2018-06-17] MEDS ORDERED: ALBUTEROL SULFATE 2.5MG/0.5ML NPPB SCH (11:00)
[2018-06-17] MEDS ORDERED: SODIUM CHLORIDE 0.9%, 500ML IVBOLUS ONE (11:00)
[2018-06-17] MEDS ORDERED: LACTULOSE 20 GM/30 ML UDC ONE (11:27)
[2018-06-17] MEDS: LACTULOSE 20 GM/30 ML UDC PO SCH ×3 (11:33→19:53)
[2018-06-17] MEDS: RIFAXIMIN 550 MG TABLET PO SCH ×2 (11:42→19:53)
[2018-06-17 12:50] VITALS: BP 103/64
[2018-06-17] MEDS: ACETAMINOPHEN 325 MG TABLET PO PRN (13:15)
[2018-06-17 14:08] VITALS: BP 114/69
[2018-06-17] MEDS: ALBUTEROL/IPRATROPIUM 2.5MG/0.5MG, 3 ML NPPB SCH ×2 (15:25→21:40)
[2018-06-17] MEDS ORDERED: LACTULOSE 20 GM/30 ML UDC PO SCH (16:00)
[2018-06-17 19:51] VITALS: BP 115/74
[2018-06-17] MEDS: LITHIUM CARBONATE 300 MG CAPSULE PO SCH (19:53)
[2018-06-17] MEDS: TRAZODONE 150MG TABLET PO SCH (19:54)
[2018-06-17] MEDS: PRAZOSIN 2 MG CAPSULE PO SCH (19:54)
[2018-06-17] MEDS: DIVALPROEX 500 MG TAB.ER.24H PO SCH (19:55)
[2018-06-17] MEDS: PHENYTOIN 100 MG CAPSULE PO SCH (19:56)
[2018-06-17] MEDS: LORazepam 0.5MG TABLET PO PRN (20:02)
[2018-06-18] MEDS: ALBUTEROL/IPRATROPIUM 2.5MG/0.5MG, 3 ML NPPB SCH ×4 (02:29→21:30)
[2018-06-18] MEDS: LEVOTHYROXINE 25 MCG TABLET PO SCH ×2 (05:34→08:31)
[2018-06-18] MEDS: LORazepam 0.5MG TABLET PO PRN ×3 (06:06→18:36)
[2018-06-18 07:23] VITALS: BP 107/66
[2018-06-18] MEDS: THIAMINE 100MG TABLET PO SCH (08:31)
[2018-06-18] MEDS: ACETAMINOPHEN 325 MG TABLET PO PRN (08:31)
[2018-06-18] MEDS: QUETIAPINE 100MG TABLET PO SCH ×2 (08:31→19:54)
[2018-06-18] MEDS: RIFAXIMIN 550 MG TABLET PO SCH ×2 (08:31→19:54)
[2018-06-18] MEDS: LACTULOSE 20 GM/30 ML UDC PO SCH ×3 (08:31→19:54)
[2018-06-18] MEDS: SERTRALINE 50MG TABLET PO SCH (08:31)
[2018-06-18] MEDS: LOSARTAN 50MG TABLET PO SCH (08:32)
[2018-06-18] MEDS: TEMPLATE NON-FORMULARY MED. (Albuterol Sulfate (Ventolin Hfa) 90 MCG) INH SCH (08:32)
[2018-06-18] MEDS: BUDESONIDE 0.5 MG/2 ML INHA INH SCH ×2 (09:20→21:30)
[2018-06-18] MEDS: AMOXICILLIN/CLAV 875-125MG TABLET PO SCH ×2 (11:22→19:54)
[2018-06-18 11:27] LABS: BASOPHILS # (AUTO) 0.07 x10^3/uL (0-0.1); BASOPHILS % (AUTO) 1 % (0-1); EOSINOPHILS # (AUTO) 0.34 x10^3/uL (0-0.4); EOSINOPHILS % (AUTO) 5 % (1-7); LYMPHOCYTES # (AUTO) 1.68 x10^3/uL (1-3.4); LYMPHOCYTES % (AUTO) 23 % (22-44); MD NO; MEAN CORPUSCULAR HEMOGLOBIN 31.1 pg (27.5-34.5); MEAN CORPUSCULAR HGB CONC 33.4 g/dL (33.2-36.2); MEAN CORPUSCULAR VOLUME 92.9 fL (81-97); MEAN PLATELET VOLUME 6.5 fL (7.4-10.4); MONOCYTES # (AUTO) 0.63 x10^3/uL (0.2-0.8); MONOCYTES % (AUTO) 9 % (2-9); NEUTROPHILS # (AUTO) 4.65 x10^3/uL (1.8-6.8); NEUTROPHILS % (AUTO) 63 % (42-75); PLATELET COUNT 325 x10^3/uL (130-400); RED BLOOD COUNT 3.71 x10^6/uL (4.38-5.82); RED CELL DISTRIBUTION WIDTH 15.4 % (9.4-14.8)
[2018-06-18 11:38] LABS: ALANINE AMINOTRANSFERASE 19 U/L (12-78); ALBUMIN 3.2 g/dL (3.4-5.0); ANION GAP 6 mmol/L (5-15); CALCIUM 8.4 mg/dL (8.5-10.1); CHLORIDE 101 mmol/L (98-107)
[2018-06-18 11:41] LABS: ALKALINE PHOSPHATASE 82 U/L (45-117); BILIRUBIN,TOTAL 0.2 mg/dL (0.2-1.0); CREATININE 0.74 mg/dL (0.7-1.3); TOTAL PROTEIN 5.8 g/dL (6.4-8.2)
[2018-06-18 12:21] VITALS: BP 114/71
[2018-06-18 18:20] VITALS: BP 123/74
[2018-06-18 19:53] VITALS: BP 103/60
[2018-06-18] MEDS: PHENYTOIN 100 MG CAPSULE PO SCH (19:54)
[2018-06-18] MEDS: DIVALPROEX 500 MG TAB.ER.24H PO SCH (19:55)
[2018-06-18] MEDS: LITHIUM CARBONATE 300 MG CAPSULE PO SCH (19:55)
[2018-06-18] MEDS: TRAZODONE 150MG TABLET PO SCH (19:55)
[2018-06-18] MEDS: PRAZOSIN 2 MG CAPSULE PO SCH (19:55)
[2018-06-19] MEDS: ALBUTEROL/IPRATROPIUM 2.5MG/0.5MG, 3 ML NPPB SCH ×4 (02:56→19:30)
[2018-06-19] MEDS: LEVOTHYROXINE 25 MCG TABLET PO SCH ×2 (05:59→08:15)
[2018-06-19] MEDS: LORazepam 0.5MG TABLET PO PRN ×3 (05:59→20:20)
[2018-06-19 07:51] VITALS: BP 101/60
[2018-06-19] MEDS: AMOXICILLIN/CLAV 875-125MG TABLET PO SCH ×2 (08:14→20:11)
[2018-06-19] MEDS: LACTULOSE 20 GM/30 ML UDC PO SCH ×3 (08:14→20:13)
[2018-06-19] MEDS: QUETIAPINE 100MG TABLET PO SCH ×2 (08:15→20:14)
[2018-06-19] MEDS: LOSARTAN 50MG TABLET PO SCH (08:15)
[2018-06-19] MEDS: RIFAXIMIN 550 MG TABLET PO SCH ×2 (08:22→20:14)
[2018-06-19] MEDS: SERTRALINE 50MG TABLET PO SCH (08:22)
[2018-06-19] MEDS: TEMPLATE NON-FORMULARY MED. (Albuterol Sulfate (Ventolin Hfa) 90 MCG) INH SCH (09:00)
[2018-06-19] MEDS: BUDESONIDE 0.5 MG/2 ML INHA INH SCH ×2 (09:10→19:30)
[2018-06-19] MEDS: THIAMINE 100MG TABLET PO SCH (09:57)
[2018-06-19 19:30] VITALS: BP 91/57
[2018-06-19] MEDS: TRAZODONE 150MG TABLET PO SCH (20:12)
[2018-06-19] MEDS: PRAZOSIN 2 MG CAPSULE PO SCH (20:13)
[2018-06-19] MEDS: PHENYTOIN 100 MG CAPSULE PO SCH (20:13)
[2018-06-19] MEDS: LITHIUM CARBONATE 300 MG CAPSULE PO SCH (20:13)
[2018-06-19] MEDS: DIVALPROEX 500 MG TAB.ER.24H PO SCH (21:00)
[2018-06-20] MEDS: ALBUTEROL/IPRATROPIUM 2.5MG/0.5MG, 3 ML NPPB SCH ×4 (03:00→21:40)
[2018-06-20] MEDS: LEVOTHYROXINE 25 MCG TABLET PO SCH ×2 (05:47→08:32)
[2018-06-20 07:20] VITALS: BP 97/56
[2018-06-20] MEDS: THIAMINE 100MG TABLET PO SCH (08:32)
[2018-06-20] MEDS: AMOXICILLIN/CLAV 875-125MG TABLET PO SCH ×2 (08:32→21:16)
[2018-06-20] MEDS: ACETAMINOPHEN 325 MG TABLET PO PRN (08:32)
[2018-06-20] MEDS: QUETIAPINE 100MG TABLET PO SCH ×2 (08:32→21:18)
[2018-06-20] MEDS: RIFAXIMIN 550 MG TABLET PO SCH ×2 (08:32→21:00)
[2018-06-20] MEDS: LORazepam 0.5MG TABLET PO PRN ×2 (08:33→16:33)
[2018-06-20] MEDS: LACTULOSE 20 GM/30 ML UDC PO SCH ×3 (08:33→21:00)
[2018-06-20] MEDS: SERTRALINE 50MG TABLET PO SCH (08:33)
[2018-06-20] MEDS: LOSARTAN 50MG TABLET PO SCH (08:33)
[2018-06-20] MEDS: TEMPLATE NON-FORMULARY MED. (Albuterol Sulfate (Ventolin Hfa) 90 MCG) INH SCH (08:38)
[2018-06-20] MEDS: BUDESONIDE 0.5 MG/2 ML INHA INH SCH ×2 (09:20→21:40)
[2018-06-20 19:52] VITALS: BP 91/52
[2018-06-20] MEDS: DIVALPROEX 500 MG TAB.ER.24H PO SCH (21:00)
[2018-06-20] MEDS: PRAZOSIN 2 MG CAPSULE PO SCH (21:00)
[2018-06-20] MEDS: TRAZODONE 150MG TABLET PO SCH (21:16)
[2018-06-20] MEDS: PHENYTOIN 100 MG CAPSULE PO SCH (21:17)
[2018-06-20] MEDS: LITHIUM CARBONATE 300 MG CAPSULE PO SCH (21:18)
[2018-06-21] MEDS: LORazepam 0.5MG TABLET PO PRN ×3 (03:09→20:10)
[2018-06-21 07:25] VITALS: BP 88/54
[2018-06-21] MEDS: ALBUTEROL/IPRATROPIUM 2.5MG/0.5MG, 3 ML NPPB SCH ×3 (08:45→20:00)
[2018-06-21] MEDS: BUDESONIDE 0.5 MG/2 ML INHA INH SCH ×2 (08:45→20:02)
[2018-06-21] MEDS: TEMPLATE NON-FORMULARY MED. (Albuterol Sulfate (Ventolin Hfa) 90 MCG) INH SCH (08:46)
[2018-06-21] MEDS: LACTULOSE 20 GM/30 ML UDC PO SCH ×3 (08:57→20:07)
[2018-06-21] MEDS: AMOXICILLIN/CLAV 875-125MG TABLET PO SCH ×2 (08:57→20:04)
[2018-06-21] MEDS: QUETIAPINE 100MG TABLET PO SCH ×2 (08:58→20:09)
[2018-06-21] MEDS: THIAMINE 100MG TABLET PO SCH (08:59)
[2018-06-21] MEDS: LEVOTHYROXINE 25 MCG TABLET PO SCH ×2 (08:59→09:15)
[2018-06-21] MEDS: RIFAXIMIN 550 MG TABLET PO SCH ×2 (08:59→20:09)
[2018-06-21] MEDS: SERTRALINE 50MG TABLET PO SCH (08:59)
[2018-06-21] MEDS: LOSARTAN 50MG TABLET PO SCH (09:00)
[2018-06-21 11:45] VITALS: BP 116/72
[2018-06-21 19:54] VITALS: BP 106/66
[2018-06-21] MEDS: DIVALPROEX 500 MG TAB.ER.24H PO SCH (20:05)
[2018-06-21] MEDS: TRAZODONE 150MG TABLET PO SCH (20:06)
[2018-06-21] MEDS: PHENYTOIN 100 MG CAPSULE PO SCH (20:07)
[2018-06-21] MEDS: LITHIUM CARBONATE 300 MG CAPSULE PO SCH (20:08)
[2018-06-21] MEDS: PRAZOSIN 2 MG CAPSULE PO SCH (20:08)
[2018-06-22] MEDS: LEVOTHYROXINE 25 MCG TABLET PO SCH ×2 (05:48→08:50)
[2018-06-22 07:31] VITALS: BP 100/67
[2018-06-22] MEDS: THIAMINE 100MG TABLET PO SCH (08:50)
[2018-06-22] MEDS: SERTRALINE 50MG TABLET PO SCH (08:50)
[2018-06-22] MEDS: RIFAXIMIN 550 MG TABLET PO SCH ×2 (08:50→20:21)
[2018-06-22] MEDS: AMOXICILLIN/CLAV 875-125MG TABLET PO SCH ×2 (08:50→20:19)
[2018-06-22] MEDS: QUETIAPINE 100MG TABLET PO SCH ×2 (08:51→20:21)
[2018-06-22] MEDS: LORazepam 0.5MG TABLET PO PRN ×2 (08:51→17:24)
[2018-06-22] MEDS: LACTULOSE 20 GM/30 ML UDC PO SCH ×3 (08:52→21:00)
[2018-06-22] MEDS: LOSARTAN 50MG TABLET PO SCH (08:52)
[2018-06-22] MEDS: TEMPLATE NON-FORMULARY MED. (Albuterol Sulfate (Ventolin Hfa) 90 MCG) INH SCH (09:00)
[2018-06-22] MEDS: BUDESONIDE 0.5 MG/2 ML INHA INH SCH ×2 (09:00→19:50)
[2018-06-22] MEDS: ALBUTEROL/IPRATROPIUM 2.5MG/0.5MG, 3 ML NPPB SCH ×3 (09:00→19:50)
[2018-06-22 20:00] VITALS: BP 107/77
[2018-06-22] MEDS: DIVALPROEX 500 MG TAB.ER.24H PO SCH (20:19)
[2018-06-22] MEDS: PHENYTOIN 100 MG CAPSULE PO SCH (20:20)
[2018-06-22] MEDS: PRAZOSIN 2 MG CAPSULE PO SCH (20:21)
[2018-06-22] MEDS: LITHIUM CARBONATE 300 MG CAPSULE PO SCH (20:21)
[2018-06-22] MEDS: TRAZODONE 150MG TABLET PO SCH (20:22)
[2018-06-23] MEDS: ALBUTEROL/IPRATROPIUM 2.5MG/0.5MG, 3 ML NPPB SCH ×4 (03:00→21:00)
[2018-06-23] MEDS: LEVOTHYROXINE 25 MCG TABLET PO SCH ×2 (05:39→08:21)
[2018-06-23 07:46] VITALS: BP 104/66
[2018-06-23] MEDS: SERTRALINE 50MG TABLET PO SCH (08:21)
[2018-06-23] MEDS: AMOXICILLIN/CLAV 875-125MG TABLET PO SCH ×2 (08:21→21:03)
[2018-06-23] MEDS: RIFAXIMIN 550 MG TABLET PO SCH ×2 (08:21→21:04)
[2018-06-23] MEDS: LORazepam 0.5MG TABLET PO PRN ×3 (08:21→21:13)
[2018-06-23] MEDS: THIAMINE 100MG TABLET PO SCH (08:21)
[2018-06-23] MEDS: QUETIAPINE 100MG TABLET PO SCH ×2 (08:22→21:04)
[2018-06-23] MEDS: LOSARTAN 50MG TABLET PO SCH (08:27)
[2018-06-23] MEDS: LACTULOSE 20 GM/30 ML UDC PO SCH ×3 (08:27→21:05)
[2018-06-23] MEDS: TEMPLATE NON-FORMULARY MED. (Albuterol Sulfate (Ventolin Hfa) 90 MCG) INH SCH (09:00)
[2018-06-23] MEDS: BUDESONIDE 0.5 MG/2 ML INHA INH SCH ×2 (09:00→21:00)
[2018-06-23] MEDS ORDERED: LITH300C PO (15:01)
[2018-06-23] MEDS ORDERED: RIFA550T4 PO (15:01)
[2018-06-23] MEDS ORDERED: LEVO25TA2 PO (15:01)
[2018-06-23] MEDS ORDERED: PHEN100C PO (15:01)
[2018-06-23] MEDS ORDERED: AMOX1TAB12 PO (15:01)
[2018-06-23] MEDS ORDERED: QUET100T PO (15:01)
[2018-06-23] MEDS ORDERED: TRAZ150T62 PO (15:01)
[2018-06-23] MEDS ORDERED: LOSA50TA2 PO (15:01)
[2018-06-23] MEDS ORDERED: HYDR50CA2 PO (15:01)
[2018-06-23] MEDS ORDERED: LACT20SO13 PO (15:01)
[2018-06-23] MEDS ORDERED: SERT50TA28 PO (15:01)
[2018-06-23] MEDS ORDERED: PRAZ2CAP2 PO (15:01)
[2018-06-23] MEDS ORDERED: ALBUTEROL SULFATE INH (15:01)
[2018-06-23 19:36] VITALS: BP 106/69
[2018-06-23] MEDS: PRAZOSIN 2 MG CAPSULE PO SCH (21:04)
[2018-06-23] MEDS: PHENYTOIN 100 MG CAPSULE PO SCH (21:04)
[2018-06-23] MEDS: TRAZODONE 150MG TABLET PO SCH (21:04)
[2018-06-23] MEDS: LITHIUM CARBONATE 300 MG CAPSULE PO SCH (21:04)
[2018-06-23] MEDS: DIVALPROEX 500 MG TAB.ER.24H PO SCH (21:05)
[2018-06-24] MEDS: ALBUTEROL/IPRATROPIUM 2.5MG/0.5MG, 3 ML NPPB SCH ×2 (03:00→06:13)
[2018-06-24] MEDS: LEVOTHYROXINE 25 MCG TABLET PO SCH (06:08)
[2018-06-24] MEDS: BUDESONIDE 0.5 MG/2 ML INHA INH SCH (06:13)
[2018-06-24 07:29] VITALS: BP 90/61
[2018-06-24] MEDS: LACTULOSE 20 GM/30 ML UDC PO SCH (09:00)
[2018-06-24 09:23] VITALS: BP 125/70
[2018-06-24] MEDS: AMOXICILLIN/CLAV 875-125MG TABLET PO SCH (09:24)
[2018-06-24] MEDS: SERTRALINE 50MG TABLET PO SCH (09:24)
[2018-06-24] MEDS: THIAMINE 100MG TABLET PO SCH (09:24)
[2018-06-24] MEDS: QUETIAPINE 100MG TABLET PO SCH (09:24)
[2018-06-24] MEDS: LORazepam 0.5MG TABLET PO PRN (09:24)
[2018-06-24] MEDS: RIFAXIMIN 550 MG TABLET PO SCH (09:24)
[2018-06-24] MEDS: LOSARTAN 50MG TABLET PO SCH (09:25)
== END 2018-06-24 11:15 | disposition home or self-care (01) | DRG 885 ==
LOC: 3E 12:42
PROVIDERS: ADMIT Psychiatry & Neurology Psychosomatic Medicine; ATTEND Psychiatry & Neurology Psychosomatic Medicine
DX: F31.30 Bipolar disorder, current episode depressed, mild or moderate severity, unspecified (principal); J18.9 Pneumonia, unspecified organism; J44.0 Chronic obstructive pulmonary disease with (acute) lower respiratory infection; I10 Essential (primary) hypertension; G40.909 Epilepsy, unspecified, not intractable, without status epilepticus; F29 Unspecified psychosis not due to a substance or known physiological condition; F17.210 Nicotine dependence, cigarettes, uncomplicated; K59.00 Constipation, unspecified; E03.9 Hypothyroidism, unspecified; F41.1 Generalized anxiety disorder; F10.21 Alcohol dependence, in remission; Z82.5 Family history of asthma and other chronic lower respiratory diseases; Z83.3 Family history of diabetes mellitus; Q65.89 Other specified congenital deformities of hip; Z79.899 Other long term (current) drug therapy; Z87.01 Personal history of pneumonia (recurrent)
CPT/HCPCS: 36415; J7620; J7626; J7644; 71045; 80053; 80061; 80185; 81003; 82140; 82607; 83605; 83735; 84100; 84436; 84443; 85025; 85651; 86592; 93005; 94640; 92523-GN; J7040

== ENCOUNTER 2018-07-10 07:41 | Emergency (ER) | payer MEDICAID ==
[~2018-07-10] VITALS: Ht 185.4 cm; Wt 77.5 kg
[~2018-07-10 07:41] MED LIST changes: +ALBUTEROL SULFATE INH; +AMOX1TAB12 PO; +HYDR50CA2 PO; +LACT20SO13 PO; +LEVO25TA2 PO; +LITH300C PO; +LOSA50TA2 PO; +RIFA550T4 PO; +SERT50TA28 PO; +TRAZ150T62 PO
[2018-07-10 08:23] LABS: BASOPHILS # (AUTO) 0.07 x10^3/uL (0-0.1); BASOPHILS % (AUTO) 1 % (0-1); EOSINOPHILS # (AUTO) 0.95 x10^3/uL (0-0.4); EOSINOPHILS % (AUTO) 15 % (1-7); LYMPHOCYTES # (AUTO) 1.78 x10^3/uL (1-3.4); LYMPHOCYTES % (AUTO) 27 % (22-44); MD NO; MEAN CORPUSCULAR HEMOGLOBIN 29.8 pg (27.5-34.5); MEAN CORPUSCULAR HGB CONC 32.6 g/dL (33.2-36.2); MEAN CORPUSCULAR VOLUME 91.3 fL (81-97); MEAN PLATELET VOLUME 7.4 fL (7.4-10.4); MONOCYTES # (AUTO) 0.39 x10^3/uL (0.2-0.8); MONOCYTES % (AUTO) 6 % (2-9); NEUTROPHILS # (AUTO) 3.36 x10^3/uL (1.8-6.8); NEUTROPHILS % (AUTO) 51 % (42-75); PLATELET COUNT 303 x10^3/uL (130-400); RED BLOOD COUNT 4.33 x10^6/uL (4.38-5.82); RED CELL DISTRIBUTION WIDTH 15.5 % (9.4-14.8)
[2018-07-10 08:31] LABS: ALBUMIN 3.6 g/dL (3.4-5.0); ANION GAP 3 mmol/L (5-15); CALCIUM 8.1 mg/dL (8.5-10.1); CHLORIDE 109 mmol/L (98-107); CREATININE 0.93 mg/dL (0.7-1.3)
--- NOTE | 2018-07-10 08:48 | NUR ---
PT ESCORTED TO BATHROOM WITH STANDBY ASSIST. PT STAGGERING GAIT PER PT CHRONIC NEUROPATHY IN BLE CAUSES GAIT ISSUES. REQUEST IV TO BE REMOVED. DISCUSSED POC WITH PT WHOM VERBALIZES UNDERSTANDING. IV DC'D PER REQUEST. PT TOLERATED WELL
[2018-07-10 08:50] VITALS: BP 127/67
[2018-07-10] MEDS ORDERED: ALBUTEROL/IPRATROPIUM 2.5MG/0.5MG, 3 ML ONE (09:50)
[2018-07-10] MEDS ORDERED: ALBUTEROL SULFATE 2.5MG/0.5ML ONE (09:51)
== END 2018-07-10 10:13 | disposition home or self-care (01) ==
LOC: ED 08:20
DX: J44.1 Chronic obstructive pulmonary disease with (acute) exacerbation (principal); J15.9 Unspecified bacterial pneumonia
CPT/HCPCS: 36415; 71045; 80048; 82040; 85025; 93005; 94640; 99284

== ENCOUNTER 2018-07-22 08:29 | Emergency (ER) | payer MEDICAID ==
[~2018-07-22] VITALS: Ht 180.3 cm; Wt 85.0 kg
--- NOTE | 2018-07-22 08:43 | NUR ---
PT. ARRIVES BY [facility] WITH C/O DIFFICULTY BREATHING. ONSET LAST NIGHT. PT. REPORTS RECENT PNEUMONIA AND COUGHING SINCE LAST NIGHT. PT. RECEIVED ONE ALBUTEROL AND ONE DUO-NEB TREATMENT IN THE FIELD NURSE ASSESSOR. PT. HAS AUDIBLE EXP. WHEEZING NOTED. IV ACCESS WAS ESTABLISHED IN THE FIELD. PT.'S 12 LEAD EKG WAS DONE. PT. HAS THE CP MONITOR IN PLACE. PT. IS RESTING WITH THE HOB ELEVATED AND SIDERAILS ARE UP X 2. PT. HAS THE CALL LIGHT IN REACH.
--- NOTE | 2018-07-22 08:50 | NUR ---
Report received from Fannie ALCAZAR.
--- NOTE | 2018-07-22 09:05 | NUR ---
Patient continues to have slight audible wheezes, 3-4 word sentences. Deminished to bases but maintains pox at 90-93 on room air. Has received 2 breathing treatment in transport by EMS w/ "minimal improvement" per patient. Denies chest pain/fevers/aches. Encouraged to continue smoking cessation (quit 2 weeks ago). Call argueta in hand/side rails up/ on putty worker.
[2018-07-22] MEDS ORDERED: ALBUTEROL SULFATE 2.5 MG/3 ML NPPB ONE (09:30)
[2018-07-22] MEDS ORDERED: ALBUTEROL SULFATE 2.5 MG/3 ML ONE (09:41)
--- NOTE | 2018-07-22 09:56 | NUR ---
RT at bedside for additional neb treatment. Also given po steroids. Patient continue to do well on room air (92%). eating/drinking. Asking when her can go home. Updated on estimated poc. Call argueta in hand/ on monitor. Will Continue to frequently
[2018-07-22 10:03] LABS: BASOPHILS # (AUTO) 0.05 x10^3/uL (0-0.1); BASOPHILS % (AUTO) 1 % (0-1); EOSINOPHILS # (AUTO) 1.05 x10^3/uL (0-0.4); EOSINOPHILS % (AUTO) 19 % (1-7); LYMPHOCYTES # (AUTO) 1.79 x10^3/uL (1-3.4); LYMPHOCYTES % (AUTO) 32 % (22-44); MD NO; MEAN CORPUSCULAR HEMOGLOBIN 30.1 pg (27.5-34.5); MEAN CORPUSCULAR HGB CONC 32.9 g/dL (33.2-36.2); MEAN CORPUSCULAR VOLUME 91.4 fL (81-97); MEAN PLATELET VOLUME 6.8 fL (7.4-10.4); MONOCYTES # (AUTO) 0.44 x10^3/uL (0.2-0.8); MONOCYTES % (AUTO) 8 % (2-9); NEUTROPHILS # (AUTO) 2.32 x10^3/uL (1.8-6.8); NEUTROPHILS % (AUTO) 41 % (42-75); PLATELET COUNT 256 x10^3/uL (130-400); RED BLOOD COUNT 4.16 x10^6/uL (4.38-5.82); RED CELL DISTRIBUTION WIDTH 16.2 % (9.4-14.8)
[2018-07-22 10:12] LABS: ALBUMIN 3.7 g/dL (3.4-5.0); ANION GAP 6 mmol/L (5-15); CALCIUM 8.1 mg/dL (8.5-10.1); CHLORIDE 106 mmol/L (98-107); CREATININE 0.82 mg/dL (0.7-1.3)
--- NOTE | 2018-07-22 10:42 | NUR ---
wheezing now minimal. wob deminished. reports he feeling much better and is ready to go home. Up walking to restroom w/out difficulty
[2018-07-22 11:20] VITALS: BP 127/71
== END 2018-07-22 11:23 | disposition home or self-care (01) ==
LOC: ED 09:12
DX: J44.1 Chronic obstructive pulmonary disease with (acute) exacerbation (principal); F41.1 Generalized anxiety disorder; E03.9 Hypothyroidism, unspecified; I10 Essential (primary) hypertension; F31.9 Bipolar disorder, unspecified; Z87.891 Personal history of nicotine dependence
CPT/HCPCS: 36415; 71046; 80048; 82040; 85025; 93005; 94640; 99284; J7512; J7613

== ENCOUNTER 2018-07-24 09:23 | Emergency (ER) | payer MEDICAID ==
[~2018-07-24] VITALS: Ht 185.4 cm; Wt 75.0 kg
[2018-07-24 09:27] VITALS: BP 126/60
--- NOTE | 2018-07-24 09:32 | NUR ---
PT SPEAKING IN FULL SENTENCES
[2018-07-24] MEDS ORDERED: BENZONATATE 100 MG CAPSULE ONE (09:42)
--- NOTE | 2018-07-24 09:45 | NUR ---
PT YELLING DOWN HALLWAY FOR HELP, PT NOT FOUND IN ANY DISTRESS, PT REQUESTS SOMETHING FOR COUGH. DISCUSSED POC WITH PT. PT NOT REASSURABLE AND PERSISTENTLY AGITATED CLAIMING "NOTHING EVER WORKS" PT UNCOOPERATIVE WITH NURSING INTERVENTIONS AND RESISTENT TO EXPLANATION OF POC.
[2018-07-24] MEDS ORDERED: BENZONATATE 100 MG CAPSULE PO ONE (10:00)
[2018-07-24] MEDS ORDERED: SODIUM CHLORIDE FLUSH 10ML SYR IVF ONE (10:00)
[2018-07-24] MEDS ORDERED: ALBUTEROL/IPRATROPIUM 2.5MG/0.5MG, 3 ML ONE (10:07)
--- NOTE | 2018-07-24 10:15 | NUR ---
PT YELLING AT STAFF AND MD. PT RECEIVED DC PAPERWORK AND CAB VOUCHER. VERBALIZES UNDERSTANDING OF DC INSTRUCTIONS. ESCORTED TO LOBBY BY SECURITY
== END 2018-07-24 10:17 | disposition home or self-care (01) ==
LOC: ED 09:26
DX: J44.1 Chronic obstructive pulmonary disease with (acute) exacerbation (principal); F41.1 Generalized anxiety disorder; I10 Essential (primary) hypertension; E03.9 Hypothyroidism, unspecified; F31.9 Bipolar disorder, unspecified; E11.649 Type 2 diabetes mellitus with hypoglycemia without coma
CPT/HCPCS: 71045; 93005; 99283

== ENCOUNTER 2018-08-05 05:59 | Inpatient (IN) | payer MEDICAID ==
[~2018-08-05] VITALS: Ht 185.4 cm; Wt 83.5 kg
--- NOTE | 2018-08-05 06:17 | NUR ---
PT HERE FOR OB. PT GIVEN DOUNEB BY LEANDRO PORTILLO. PT SAS HE NEEDS HOME O2. VSS. AT BEDSIDE. CALL LIGHT IN EACH
[2018-08-05] MEDS ORDERED: LORazepam 2 MG/ML, 1ML ONE (06:29)
[2018-08-05] MEDS ORDERED: ALBUTEROL/IPRATROPIUM 2.5MG/0.5MG, 3 ML NPPB ONE (06:30)
[2018-08-05] MEDS ORDERED: LORazepam 2 MG/ML, 1ML IVP ONE (06:30)
[2018-08-05] MEDS ORDERED: ALBUTEROL/IPRATROPIUM 2.5MG/0.5MG, 3 ML ONE (06:37)
--- NOTE | 2018-08-05 06:48 | NUR ---
REPORT FROM XAVIER ALCAZAR, ASSUME CARE OF PT AT THIS TIME.
[2018-08-05 06:54] LABS: BASOPHILS # (AUTO) 0.06 x10^3/uL (0-0.1); BASOPHILS % (AUTO) 1 % (0-1); EOSINOPHILS # (AUTO) 0.58 x10^3/uL (0-0.4); EOSINOPHILS % (AUTO) 10 % (1-7); LYMPHOCYTES # (AUTO) 1.62 x10^3/uL (1-3.4); LYMPHOCYTES % (AUTO) 29 % (22-44); MD NO; MEAN CORPUSCULAR HEMOGLOBIN 31.6 pg (27.5-34.5); MEAN CORPUSCULAR HGB CONC 33.9 g/dL (33.2-36.2); MEAN CORPUSCULAR VOLUME 93.4 fL (81-97); MEAN PLATELET VOLUME 6.8 fL (7.4-10.4); MONOCYTES # (AUTO) 0.44 x10^3/uL (0.2-0.8); MONOCYTES % (AUTO) 8 % (2-9); NEUTROPHILS # (AUTO) 2.93 x10^3/uL (1.8-6.8); NEUTROPHILS % (AUTO) 52 % (42-75); PLATELET COUNT 283 x10^3/uL (130-400); RED BLOOD COUNT 3.75 x10^6/uL (4.38-5.82); RED CELL DISTRIBUTION WIDTH 16.8 % (9.4-14.8)
--- NOTE | 2018-08-05 07:00 | NUR ---
PT ASKING TO AMBULATE TO BR. OXYGEN REMOVED, PT'S SATS 87-90% RA. PT ENCOURAGED TO STAY ON GURNEY, URINAL PROVIDED. ERP UPDATED.
[2018-08-05 07:01] LABS: ALBUMIN 3.6 g/dL (3.4-5.0); ANION GAP 5 mmol/L (5-15); CALCIUM 8.4 mg/dL (8.5-10.1); CHLORIDE 109 mmol/L (98-107)
[2018-08-05 07:03] LABS: ALANINE AMINOTRANSFERASE 21 U/L (12-78); ALKALINE PHOSPHATASE 110 U/L (45-117); BILIRUBIN,TOTAL 0.2 mg/dL (0.2-1.0); CREATININE 0.88 mg/dL (0.7-1.3); TOTAL PROTEIN 6.4 g/dL (6.4-8.2)
[2018-08-05] MEDS ORDERED: CEFTRIAXONE PMX 1GM/50ML 50 ML IVPB ONE (07:30)
[2018-08-05] MEDS ORDERED: SODIUM CHLORIDE FLUSH 10ML SYR IVF ONE (07:30)
[2018-08-05] MEDS ORDERED: methylPREDNISolone SOD SUCC 125 MG/2 ML IVP ONE (07:30)
[2018-08-05] MEDS ORDERED: AZITHROMYCIN 500 MG in SODIUM CHLORIDE 0.9% 250 ML IVPB ONE (07:30)
[2018-08-05] MEDS ORDERED: CEFTRIAXONE PMX 1GM/50ML 50 ML ONE (07:36)
[2018-08-05] MEDS ORDERED: methylPREDNISolone SOD SUCC 125 MG/2 ML ONE (07:37)
[2018-08-05] MEDS ORDERED: TRAZ300T2 PO (07:51)
--- NOTE | 2018-08-05 08:07 | NUR ---
ANTIBIOTIC INFUSING AFTER BC X 2 DRAWN. REPORT CALLED TO CONNIE ALCAZAR. PT READY FOR TRANSPORT TO FLOOR.
[2018-08-05 08:30] VITALS: BP 94/56
[2018-08-05] MEDS ORDERED: SODIUM CHLORIDE 0.9% 1,000 ML IV SCH (08:49)
[2018-08-05] MEDS ORDERED: GABAPENTIN 300 MG CAPSULE PO PRN (09:00)
[2018-08-05] MEDS ORDERED: LABETALOL 5MG/ML, 20ML IVPush PRN (09:00)
[2018-08-05] MEDS ORDERED: DOCUSATE 100 MG CAPSULE PO PRN (09:00)
[2018-08-05] MEDS: QUETIAPINE 100MG TABLET PO SCH ×2 (09:00→20:52)
[2018-08-05] MEDS ORDERED: ACETAMINOPHEN 325 MG TABLET PO PRN (09:00)
[2018-08-05] MEDS ORDERED: BISACODYL 10 MG SUPP PR PRN (09:00)
[2018-08-05] MEDS ORDERED: hydrALAzine 20 MG/ML, 1ML IVPush PRN (09:00)
[2018-08-05 09:29] LABS: FREE T4 (FREE THYROXINE) 0.75 ng/dL (0.76-1.46); TROPONIN I < 0.015 ng/mL (0.000-0.045)
[2018-08-05] MEDS ORDERED: ALBUTEROL SULFATE 2.5 MG/3 ML NPPB PRN (09:30)
[2018-08-05] MEDS ORDERED: DOXYCYCLINE 50 MG/5 ML ORAL SUSP PO SCH (10:00)
[2018-08-05] MEDS ORDERED: CEFTRIAXONE PMX 1GM/50ML 50 ML IV SCH (10:00)
--- NOTE | 2018-08-05 10:37 | NUR ---
REC: Regular diet with thin liquids Addendum: 08/05/18 at 1038 by Charissa BEAR Amended: Links added.
[2018-08-05] MEDS: ALBUTEROL SULFATE 2.5 MG/3 ML NPPB SCH ×2 (11:43→18:14)
[2018-08-05] MEDS: GUAIFENESIN/DM 200-20MG, 10ML UDC PO PRN (11:53)
[2018-08-05] MEDS: SERTRALINE 50MG TABLET PO SCH (11:54)
[2018-08-05] MEDS: LOSARTAN 50MG TABLET PO SCH (11:55)
[2018-08-05] MEDS: LEVOTHYROXINE 25 MCG TABLET PO SCH (11:56)
[2018-08-05] MEDS: DOXYCYCLINE 100MG TABLET PO SCH ×2 (11:57→20:52)
[2018-08-05] MEDS: HEPARIN 5,000 UNITS/ML, 1ML SQ SCH ×2 (11:58→18:39)
[2018-08-05] MEDS: NICOTINE 7 MG/24 HR PATCH.TD24 TD SCH (11:59)
[2018-08-05] MEDS: methylPREDNISolone SOD SUCC 40 MG/ML IV SCH ×2 (12:02→18:39)
[2018-08-05 12:13] VITALS: BP 106/65
[2018-08-05 13:07] VITALS: BP 99/60
[2018-08-05] MEDS: LORazepam 1MG TABLET PO SCH ×2 (14:35→20:52)
[2018-08-05 14:46] LABS: TROPONIN I < 0.015 ng/mL (0.000-0.045)
[2018-08-05 20:00] VITALS: BP 109/72
[2018-08-05] MEDS: PHENYTOIN 100 MG CAPSULE PO SCH (20:51)
[2018-08-05] MEDS: PRAZOSIN 2 MG CAPSULE PO SCH (20:52)
[2018-08-05] MEDS: TRAZODONE 150MG TABLET PO SCH (20:52)
[2018-08-05] MEDS: DIVALPROEX 500 MG TAB.ER.24H PO SCH (20:52)
[2018-08-06] MEDS: methylPREDNISolone SOD SUCC 40 MG/ML IV SCH ×3 (00:33→10:39)
[2018-08-06] MEDS: ALBUTEROL SULFATE 2.5 MG/3 ML NPPB SCH ×4 (01:10→20:01)
[2018-08-06 01:34] VITALS: BP 113/68
[2018-08-06] MEDS: HEPARIN 5,000 UNITS/ML, 1ML SQ SCH ×3 (02:00→18:30)
[2018-08-06] MEDS: LEVOTHYROXINE 25 MCG TABLET PO SCH (05:33)
[2018-08-06 05:41] LABS: BASOPHILS # (AUTO) 0.01 x10^3/uL (0-0.1); BASOPHILS % (AUTO) 0 % (0-1); EOSINOPHILS % (AUTO) 0 % (1-7); LYMPHOCYTES # (AUTO) 0.94 x10^3/uL (1-3.4); LYMPHOCYTES % (AUTO) 13 % (22-44); MD NO; MEAN CORPUSCULAR HEMOGLOBIN 30.5 pg (27.5-34.5); MEAN CORPUSCULAR HGB CONC 32.9 g/dL (33.2-36.2); MEAN CORPUSCULAR VOLUME 92.7 fL (81-97); MEAN PLATELET VOLUME 7.1 fL (7.4-10.4); MONOCYTES # (AUTO) 0.25 x10^3/uL (0.2-0.8); MONOCYTES % (AUTO) 4 % (2-9); NEUTROPHILS # (AUTO) 6.08 x10^3/uL (1.8-6.8); NEUTROPHILS % (AUTO) 84 % (42-75); PLATELET COUNT 277 x10^3/uL (130-400); RED BLOOD COUNT 3.78 x10^6/uL (4.38-5.82); RED CELL DISTRIBUTION WIDTH 16.4 % (9.4-14.8)
[2018-08-06 05:51] LABS: CHLORIDE 109 mmol/L (98-107)
[2018-08-06 06:15] LABS: ALANINE AMINOTRANSFERASE 28 U/L (12-78); ALBUMIN 3.6 g/dL (3.4-5.0); ALKALINE PHOSPHATASE 109 U/L (45-117); ANION GAP 5 mmol/L (5-15); BILIRUBIN,TOTAL 0.2 mg/dL (0.2-1.0); CALCIUM 8.7 mg/dL (8.5-10.1); CHOL/HDL RATIO 2.5; CHOLESTEROL, TOTAL 188 mg/dL (140-239); CREATININE 0.84 mg/dL (0.7-1.3); HDL CHOL % 40 % (26-37); HDL CHOLESTEROL (DIRECT) 76 mg/dL (40-60); LDL CHOLESTEROL,CALCULATED 95 mg/dL (54-169); LDL/HDL RATIO 1.3 (0.5-3.0); TOTAL PROTEIN 6.5 g/dL (6.4-8.2); TRIGLYCERIDES 85 mg/dL (50-200); VLDL CHOLESTEROL 17 mg/dL (0-25)
[2018-08-06 08:21] VITALS: BP 109/70
[2018-08-06] MEDS: SERTRALINE 50MG TABLET PO SCH (10:01)
[2018-08-06] MEDS: DOXYCYCLINE 100MG TABLET PO SCH ×2 (10:01→20:35)
[2018-08-06] MEDS: LOSARTAN 50MG TABLET PO SCH (10:01)
[2018-08-06] MEDS: LORazepam 1MG TABLET PO SCH ×3 (10:01→20:35)
[2018-08-06] MEDS: NICOTINE 7 MG/24 HR PATCH.TD24 TD SCH (10:03)
[2018-08-06] MEDS: CEFTRIAXONE PMX 1GM/50ML 50 ML IV SCH (10:36)
[2018-08-06] MEDS: QUETIAPINE 100MG TABLET PO SCH ×2 (10:36→20:35)
[2018-08-06] MEDS: SODIUM CHLORIDE 0.9% 1,000 ML IV SCH ×2 (10:36→20:30)
[2018-08-06 12:20] VITALS: BP 96/60
[2018-08-06] MEDS: predniSONE 50MG TABLET PO SCH (12:32)
[2018-08-06] MEDS: GUAIFENESIN/DM 200-20MG, 10ML UDC PO PRN ×2 (12:47→21:15)
[2018-08-06 14:33] VITALS: BP 111/70
[2018-08-06 18:50] VITALS: BP 123/65
[2018-08-06] MEDS: PRAZOSIN 2 MG CAPSULE PO SCH (20:35)
[2018-08-06] MEDS: PHENYTOIN 100 MG CAPSULE PO SCH (20:35)
[2018-08-06] MEDS: DIVALPROEX 500 MG TAB.ER.24H PO SCH (20:35)
[2018-08-06] MEDS: TRAZODONE 150MG TABLET PO SCH (20:35)
[2018-08-07] MEDS: HEPARIN 5,000 UNITS/ML, 1ML SQ SCH ×3 (02:00→16:56)
[2018-08-07] MEDS: LEVOTHYROXINE 25 MCG TABLET PO SCH (05:59)
[2018-08-07] MEDS: SODIUM CHLORIDE 0.9% 1,000 ML IV SCH ×2 (05:59→16:55)
[2018-08-07] MEDS: ALBUTEROL SULFATE 2.5 MG/3 ML NPPB SCH ×3 (07:15→20:00)
[2018-08-07 07:46] VITALS: BP 108/69
[2018-08-07] MEDS: predniSONE 50MG TABLET PO SCH (08:55)
[2018-08-07] MEDS: QUETIAPINE 100MG TABLET PO SCH ×2 (08:55→21:17)
[2018-08-07] MEDS: NICOTINE 7 MG/24 HR PATCH.TD24 TD SCH (08:55)
[2018-08-07] MEDS: CEFTRIAXONE PMX 1GM/50ML 50 ML IV SCH (08:55)
[2018-08-07] MEDS: DOXYCYCLINE 100MG TABLET PO SCH ×2 (08:56→21:17)
[2018-08-07] MEDS: LORazepam 1MG TABLET PO SCH ×3 (08:56→21:16)
[2018-08-07] MEDS: LOSARTAN 50MG TABLET PO SCH (08:56)
[2018-08-07] MEDS: SERTRALINE 50MG TABLET PO SCH (09:00)
[2018-08-07] MEDS: GUAIFENESIN/DM 200-20MG, 10ML UDC PO PRN ×2 (09:11→21:25)
[2018-08-07 14:06] VITALS: BP 102/64
[2018-08-07] MEDS: POLYETHYLENE GLYCOL 17 GM PACKET PO PRN (16:55)
[2018-08-07 19:06] VITALS: BP 93/54
[2018-08-07] MEDS: DIVALPROEX 500 MG TAB.ER.24H PO SCH (21:00)
[2018-08-07] MEDS: TRAZODONE 150MG TABLET PO SCH (21:16)
[2018-08-07] MEDS: PHENYTOIN 100 MG CAPSULE PO SCH (21:16)
[2018-08-07] MEDS: PRAZOSIN 2 MG CAPSULE PO SCH (21:17)
[2018-08-07] MEDS: CEFUROXIME 250 MG TABLET PO SCH (21:17)
[2018-08-08 01:33] VITALS: BP 102/63
[2018-08-08] MEDS: HEPARIN 5,000 UNITS/ML, 1ML SQ SCH ×3 (01:48→19:30)
[2018-08-08] MEDS: SODIUM CHLORIDE 0.9% 1,000 ML IV SCH ×3 (04:04→21:35)
[2018-08-08] MEDS: LEVOTHYROXINE 25 MCG TABLET PO SCH (05:47)
[2018-08-08 07:32] VITALS: BP 93/55
[2018-08-08] MEDS: ALBUTEROL SULFATE 2.5 MG/3 ML NPPB SCH ×3 (08:05→20:16)
[2018-08-08] MEDS: LOSARTAN 50MG TABLET PO SCH (08:58)
[2018-08-08] MEDS: LORazepam 1MG TABLET PO SCH ×3 (08:59→21:37)
[2018-08-08] MEDS: QUETIAPINE 100MG TABLET PO SCH ×2 (08:59→21:37)
[2018-08-08] MEDS: DOXYCYCLINE 100MG TABLET PO SCH ×2 (08:59→21:37)
[2018-08-08] MEDS: CEFUROXIME 250 MG TABLET PO SCH ×2 (09:00→21:00)
[2018-08-08] MEDS: predniSONE 50MG TABLET PO SCH (09:01)
[2018-08-08] MEDS: SERTRALINE 50MG TABLET PO SCH (09:05)
[2018-08-08] MEDS: GUAIFENESIN/DM 200-20MG, 10ML UDC PO PRN (09:23)
[2018-08-08] MEDS: POLYETHYLENE GLYCOL 17 GM PACKET PO PRN (09:24)
[2018-08-08 09:25] VITALS: BP 103/64
[2018-08-08] MEDS: NICOTINE 7 MG/24 HR PATCH.TD24 TD SCH (11:39)
[2018-08-08 13:30] VITALS: BP 102/58
[2018-08-08 20:31] VITALS: BP 110/69
[2018-08-08] MEDS: DIVALPROEX 500 MG TAB.ER.24H PO SCH (21:36)
[2018-08-08] MEDS: PHENYTOIN 100 MG CAPSULE PO SCH (21:36)
[2018-08-08] MEDS: TRAZODONE 150MG TABLET PO SCH (21:37)
[2018-08-08] MEDS: PRAZOSIN 2 MG CAPSULE PO SCH (21:37)
[2018-08-09] MEDS: HEPARIN 5,000 UNITS/ML, 1ML SQ SCH ×2 (03:30→11:30)
[2018-08-09] MEDS: SODIUM CHLORIDE 0.9% 1,000 ML IV SCH (05:01)
[2018-08-09] MEDS: LEVOTHYROXINE 25 MCG TABLET PO SCH (05:01)
[2018-08-09 05:04] VITALS: BP 104/65
[2018-08-09 07:15] VITALS: BP 96/58
[2018-08-09] MEDS: ALBUTEROL SULFATE 2.5 MG/3 ML NPPB SCH (08:54)
[2018-08-09] MEDS: CEFUROXIME 250 MG TABLET PO SCH (09:00)
[2018-08-09] MEDS: LOSARTAN 50MG TABLET PO SCH (09:16)
[2018-08-09] MEDS: DOXYCYCLINE 100MG TABLET PO SCH (09:16)
[2018-08-09] MEDS: SERTRALINE 50MG TABLET PO SCH (09:16)
[2018-08-09] MEDS: predniSONE 50MG TABLET PO SCH (09:16)
[2018-08-09] MEDS: LORazepam 1MG TABLET PO SCH (09:16)
[2018-08-09] MEDS: QUETIAPINE 100MG TABLET PO SCH (09:16)
[2018-08-09] MEDS: NICOTINE 7 MG/24 HR PATCH.TD24 TD SCH (09:17)
[2018-08-09] MEDS ORDERED: DOXY100T PO (09:21)
[2018-08-09] MEDS ORDERED: CEFU250T66 PO (09:21)
[2018-08-09] MEDS ORDERED: BUDE10.2 INH (09:21)
[2018-08-09] MEDS ORDERED: GUAI-110 PO (09:21)
== END 2018-08-09 15:29 | disposition home or self-care (01) | DRG 190 ==
LOC: ED 07:29 → 3NE 07:30 → ED 07:42
PROVIDERS: ADMIT Internal Medicine; ATTEND Internal Medicine
DX: J43.9 Emphysema, unspecified (principal); J15.9 Unspecified bacterial pneumonia; E87.2 Acidosis; N40.0 Benign prostatic hyperplasia without lower urinary tract symptoms; F17.210 Nicotine dependence, cigarettes, uncomplicated; F31.9 Bipolar disorder, unspecified; E11.9 Type 2 diabetes mellitus without complications; E03.9 Hypothyroidism, unspecified; F41.1 Generalized anxiety disorder; G40.909 Epilepsy, unspecified, not intractable, without status epilepticus; F10.11 Alcohol abuse, in remission; I10 Essential (primary) hypertension; D64.9 Anemia, unspecified; R13.10 Dysphagia, unspecified; Z83.3 Family history of diabetes mellitus; Z82.5 Family history of asthma and other chronic lower respiratory diseases; Z99.81 Dependence on supplemental oxygen; Z63.8 Other specified problems related to primary support group
CPT/HCPCS: 36415; 99285; J7613; J7620; 71046; 80053; 80061; 80185; 80307; 83605; 83735; 83880; 84439; 84443; 84484; 85025; 87040; 87070; 87205; 93005; 94640; 96374; 96375; G0378; J0456; J0696; J1644; J2060; J2920; J2930; J7030; J7050; J7512

== ENCOUNTER 2018-11-07 16:11 | Emergency (ER) | payer MEDICAID ==
[~2018-11-07] VITALS: Ht 185.4 cm; Wt 85.0 kg
[~2018-11-07 16:11] MED LIST changes: +BUDE10.2 INH; +CEFU250T66 PO; +DOXY100T PO; +GUAI-110 PO; +TRAZ300T2 PO
[2018-11-07] MEDS ORDERED: THIA100T67 PO (16:28)
[2018-11-07] MEDS ORDERED: SALM50DI INH (16:28)
[2018-11-07] MEDS ORDERED: NALT50TA PO (16:28)
[2018-11-07] MEDS ORDERED: MIRT7.5T8 PO (16:28)
[2018-11-07] MEDS ORDERED: LORazepam 2 MG/ML, 1ML ONE (16:59)
[2018-11-07] MEDS ORDERED: SODIUM CHLORIDE 0.9% 1,000ML IVBOLUS ONE (17:00)
[2018-11-07] MEDS ORDERED: SODIUM CHLORIDE FLUSH 10ML SYR IVF ONE (17:00)
[2018-11-07] MEDS ORDERED: LORazepam 2 MG/ML, 1ML IVPush ONE ×2 (17:00→19:00)
[2018-11-07 17:08] LABS: BASOPHILS # (AUTO) 0.06 x10^3/uL (0-0.1); BASOPHILS % (AUTO) 1 % (0-1); EOSINOPHILS % (AUTO) 3 % (1-7); LYMPHOCYTES # (AUTO) 2.23 x10^3/uL (1-3.4); LYMPHOCYTES % (AUTO) 29 % (22-44); MD NO; MEAN CORPUSCULAR HEMOGLOBIN 32.1 pg (27.5-34.5); MEAN CORPUSCULAR HGB CONC 32.8 g/dL (33.2-36.2); MEAN CORPUSCULAR VOLUME 97.9 fL (81-97); MEAN PLATELET VOLUME 6.5 fL (7.4-10.4); MONOCYTES # (AUTO) 0.67 x10^3/uL (0.2-0.8); MONOCYTES % (AUTO) 9 % (2-9); NEUTROPHILS # (AUTO) 4.67 x10^3/uL (1.8-6.8); NEUTROPHILS % (AUTO) 60 % (42-75); PLATELET COUNT 377 x10^3/uL (130-400); RED BLOOD COUNT 3.94 x10^6/uL (4.38-5.82); RED CELL DISTRIBUTION WIDTH 14.2 % (9.4-14.8)
--- NOTE | 2018-11-07 17:13 | NUR ---
TO CT PER LORAINE
--- NOTE | 2018-11-07 17:15 | NUR ---
PT REPORT TO RADHA MANZANARES RN. CARE TRANSFERRRED.
[2018-11-07 17:20] LABS: ALANINE AMINOTRANSFERASE 17 U/L (12-78); ALBUMIN 3.9 g/dL (3.4-5.0); ANION GAP 7 mmol/L (5-15); CALCIUM 8.6 mg/dL (8.5-10.1); CHLORIDE 100 mmol/L (98-107); CREATININE 0.75 mg/dL (0.7-1.3)
[2018-11-07 17:24] LABS: ALKALINE PHOSPHATASE 159 U/L (45-117); BILIRUBIN,TOTAL 0.4 mg/dL (0.2-1.0); TOTAL PROTEIN 7.2 g/dL (6.4-8.2); TROPONIN I < 0.015 ng/mL (0.000-0.045)
[2018-11-07 17:27] LABS: MICROSCOPIC NOT IND
[2018-11-07 17:30] LABS: CULTURE INDICATED? NO
[2018-11-07 17:37] LABS: AMPHETAMINE SCREEN, URINE Positive (Negative); BARBITURATE SCREEN, URINE Negative (Negative); BENZODIAZEPINE SCREEN, URINE Negative (Negative); CANNABINOID SCREEN, URINE Negative (Negative); COCAINE SCREEN, URINE Negative (Negative); METHADONE SCREEN, URINE Negative (Negative); OPIATE SCREEN, URINE Negative (Negative)
[2018-11-07 17:39] VITALS: BP 140/80
--- NOTE | 2018-11-07 18:01 | NUR ---
PT CARE RESUMED
--- NOTE | 2018-11-07 18:04 | NUR ---
REPORT TO JOSE ANTONIO ALCAZAR
--- NOTE | 2018-11-07 18:40 | NUR ---
PT AMBULATORY TO & FROM ROOM BR W/OUT INCIDENT, GAIT STEADY.
--- NOTE | 2018-11-07 18:45 | NUR ---
PT SITTING ON SIDE OF BED.
--- NOTE | 2018-11-07 18:46 | NUR ---
DR BROWN BS. PT REQUESTING MED FOR RIDER PAIN - INITIALLY REFUSED MOTRIN & TYLENOL. REQUESTING ADDITIONAL ATIVAN. ASKING FOR DETOX, STATES "I GUESS I'LL HAVE TO DRINK SOME BEER".
--- NOTE | 2018-11-07 18:50 | NUR ---
FAUSTINO AND HUBER BROOKE PROVIDED TO PT. PT PULLED IV OUT. WILL NOTIFY ERP
[2018-11-07] MEDS ORDERED: LORazepam 1MG TABLET ONE (18:55)
[2018-11-07] MEDS ORDERED: IBUPROFEN 800 MG TABLET ONE (18:55)
[2018-11-07] MEDS ORDERED: LORazepam 1MG TABLET PO ONE (19:00)
[2018-11-07] MEDS ORDERED: IBUPROFEN 800 MG TABLET PO ONE (19:00)
--- NOTE | 2018-11-07 19:12 | NUR ---
NOTIFIED PT OF PENDING DC. PT REQUESTING TAXI VOUCHER. INFORMED PT BUS PASS MIGHT BE AVAILABLE. PT STATES "I DON'T TAKE THE BUS. I ALWAYS TAKE A TAXI. I CAN'T WALK WITH THESE FEET" (PT SITTING ON GURNEY W/ ANKLES CROSSED; HAS BEEN OBSERVED WALKING AROUND ED ROOM).
--- NOTE | 2018-11-07 19:15 | NUR ---
NOTIFIED SUP OF PT TAXI REQUEST. WILL NOTIFY PT OF MTM TAXI SERVICE.
--- NOTE | 2018-11-07 19:16 | NUR ---
PT NOT IN ROOM. UNABLE TO GIVEN WRITTEN DC INSTRUCTIONS.
== END 2018-11-07 19:22 | disposition left against medical advice (07) ==
LOC: ED 19:02
DX: F10.239 Alcohol dependence with withdrawal, unspecified (principal); F15.159 Other stimulant abuse with stimulant-induced psychotic disorder, unspecified; F39 Unspecified mood [affective] disorder; F41.9 Anxiety disorder, unspecified; I10 Essential (primary) hypertension; E11.9 Type 2 diabetes mellitus without complications; F31.9 Bipolar disorder, unspecified; E03.9 Hypothyroidism, unspecified; J44.9 Chronic obstructive pulmonary disease, unspecified; R45.1 Restlessness and agitation; R45.4 Irritability and anger; Y90.9 Presence of alcohol in blood, level not specified
CPT/HCPCS: 36415; 70450; 71045; 80053; 80185; 80307; 81003; 82140; 84484; 85025; 93005; 96374; 99284; J2060; J7030

== ENCOUNTER 2018-11-12 11:21 | Emergency (ER) | payer MEDICAID ==
[~2018-11-12] VITALS: Ht 185.4 cm; Wt 85.0 kg
[~2018-11-12 11:21] MED LIST changes: +MIRT7.5T8 PO; +SALM50DI INH; +THIA100T67 PO
[2018-11-12 11:28] VITALS: BP 148/90
[2018-11-12 11:48] LABS: BASOPHILS # (AUTO) 0.06 x10^3/uL (0-0.1); BASOPHILS % (AUTO) 1 % (0-1); EOSINOPHILS # (AUTO) 0.23 x10^3/uL (0-0.4); EOSINOPHILS % (AUTO) 4 % (1-7); LYMPHOCYTES # (AUTO) 1.81 x10^3/uL (1-3.4); LYMPHOCYTES % (AUTO) 33 % (22-44); MD NO; MEAN CORPUSCULAR HEMOGLOBIN 33.3 pg (27.5-34.5); MEAN CORPUSCULAR VOLUME 97.9 fL (81-97); MEAN PLATELET VOLUME 6.8 fL (7.4-10.4); MONOCYTES # (AUTO) 0.46 x10^3/uL (0.2-0.8); MONOCYTES % (AUTO) 9 % (2-9); NEUTROPHILS # (AUTO) 2.87 x10^3/uL (1.8-6.8); NEUTROPHILS % (AUTO) 53 % (42-75); PLATELET COUNT 325 x10^3/uL (130-400); RED BLOOD COUNT 4.09 x10^6/uL (4.38-5.82); RED CELL DISTRIBUTION WIDTH 14.1 % (9.4-14.8)
--- NOTE | 2018-11-12 11:55 | NUR ---
Rubi gil in [facility] - 11/12/18 at 1158 by FUNMI THROUGHPUT: SOC HARIS) INTIATED, TELEMONITOR IN PLACE.
[2018-11-12 11:57] LABS: ALBUMIN 3.7 g/dL (3.4-5.0); ANION GAP 5 mmol/L (5-15); CALCIUM 8.4 mg/dL (8.5-10.1); CHLORIDE 108 mmol/L (98-107); CREATININE 0.87 mg/dL (0.7-1.3); SALICYLATE LEVEL 3.7 mg/dL (2.8-20.0)
[2018-11-12] MEDS ORDERED: LORazepam 1MG TABLET ONE (11:57)
--- NOTE | 2018-11-12 11:58 | NUR ---
CHARTING @ 8495 ENTERED IN ERROR
[2018-11-12] MEDS ORDERED: LORazepam 1MG TABLET PO ONE (12:00)
--- NOTE | 2018-11-12 12:17 | NUR ---
LEFT MESSAGE FOR JOSR CONSULT WITH 2N PA PHONE PER ERP REQUEST
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
--- NOTE | 2018-11-12 12:39 | NUR ---
LUNCH RN: PT TAKEN TO RESTROOM. PT ASKED TO PROVIDE UA, WHEN ASKED PT STARTED SMACKING THE BATHROOM WALL AND YELLING "FUCK, FUCK, FUCK I NEED TO GO" PT WAS PROVIDED WITH URINE SAMPLE CUP IMMEDIATELY AND ASKED TO PLEASE PROVIDE SAMPLE HE DID NOT WANT TO USE URINAL SECONDRAY TO ENLARGED PROSTATE. PT INFORMED THAT THIS BEHAVIOR IS NOT ACCEPTABLE AND WILL NOT BE TOLERATED IF HE ATTEMPTS TO HURT HIMSELF WE WILL CONSULT WITH PHYSCIAN FOR A MEANS TO KEEP HIM SAFE.
--- NOTE | 2018-11-12 12:55 | NUR ---
LUNCH RN: SUSHIL SENT TO LAB, PT PROVIDED WITH MILK AND GRAHM CRACKERS.
--- NOTE | 2018-11-12 12:58 | NUR ---
AUTUMN RN: ED SUICIDE SAFETY TRAY ORDERED FOR PT.
[2018-11-12 13:11] LABS: AMPHETAMINE SCREEN, URINE Negative (Negative); BARBITURATE SCREEN, URINE Negative (Negative); BENZODIAZEPINE SCREEN, URINE Negative (Negative); CANNABINOID SCREEN, URINE Negative (Negative); COCAINE SCREEN, URINE Negative (Negative); METHADONE SCREEN, URINE Negative (Negative); OPIATE SCREEN, URINE Negative (Negative)
--- NOTE | 2018-11-12 13:35 | NUR ---
Patient awake, being seen by Norma Armenta APRN.
--- NOTE | 2018-11-12 15:41 | NUR ---
Patient discharging back to his jail. Prescriptions faxed to [facility]'s pharmacy, and patient calling [facility] for ride. Discharge instructions reviewed with patient, including medications and follow up plans. Patient to call for follow up appointments o Wednesday morning. States he is feeling calm and safe now, denies SI/HI.
--- NOTE | 2018-11-12 16:02 | NUR ---
Patient decided to take the bus home - bus pass provided. Discharged home.
== END 2018-11-12 16:22 | disposition home or self-care (01) ==
LOC: ED 11:47
DX: F31.9 Bipolar disorder, unspecified (principal); Z00.01 Encounter for general adult medical examination with abnormal findings; I10 Essential (primary) hypertension; J43.9 Emphysema, unspecified; E03.9 Hypothyroidism, unspecified; E11.649 Type 2 diabetes mellitus with hypoglycemia without coma
CPT/HCPCS: 36415; 80048; 80307; 82040; 85025; 99284

== ENCOUNTER 2018-11-21 17:31 | Emergency (ER) | payer MEDICAID ==
[~2018-11-21] VITALS: Ht 185.4 cm; Wt 80.0 kg
[2018-11-21 17:36] VITALS: BP 146/74
--- NOTE | 2018-11-21 17:41 | NUR ---
BIB EMS FOR ANXIETY ATTACK. EMS GAVE 2.5 VERSED, 324 ASA, 4 MG ZOFRAN. PT STATES HE WAS HAVING CHEST PAIN, NAUSEA, AND DIZZINESS. HE STATES HE FEELS LIKE HE CAN HURT PEOPLE AND IS VERY AGITATED LATELY.
--- NOTE | 2018-11-21 17:50 | NUR ---
Received report from break RN; patient resting in bed comfortably; patient speaking calm and comfortably; VSS.
--- NOTE | 2018-11-21 17:50 | NUR ---
REPORT TO LANIE. VS STABLE. PT RESTING COMFORTABLE.
== END 2018-11-21 18:45 | disposition home or self-care (01) ==
LOC: ED 18:31
DX: F41.1 Generalized anxiety disorder (principal); F31.9 Bipolar disorder, unspecified; J44.9 Chronic obstructive pulmonary disease, unspecified; E11.9 Type 2 diabetes mellitus without complications; I10 Essential (primary) hypertension; Z72.9 Problem related to lifestyle, unspecified
CPT/HCPCS: 99284

== ENCOUNTER 2018-12-06 12:08 | Emergency (ER) | payer MEDICAID ==
[~2018-12-06] VITALS: Ht 185.4 cm; Wt 84.0 kg
[~2018-12-06 12:08] MED LIST changes: +MIRT-34 PO; -MIRT15TA4 PO
[2018-12-06 12:46] VITALS: BP 114/72
--- NOTE | 2018-12-06 13:29 | NUR ---
THIS IS A 63 YO MALE WHO PRESENTS TO THE ER BY LEANDRO FROM [facility] WHERE PT WAS BROUGHT BY FOR DETOX. PT STATED TO RN "I WANT TO " BUT DENIED ANY PLAN OF THE SAME AND DENIED ANY PREVIOUS ATTEMPTS. PT DENIES WANTING TO HURT ANYONE. PT STATES "I JUST WANT TO GET OUT OF HERE. I'M SICK. I'M A SHIT FROM HELL. THE DOCTOR WON'T GIVE ME ANY HELP, I NEED ATIVAN. I NEED FOOD. I WANT MY CLOTHES. I JUST WANT TO LEAVE." PT ALSO STATED TO DOCTOR "I WOULD NEVER HURT MYSELF, I DON'T HAVE THE GUTS. I JUST WANT TO GET OUT OF HERE.". PT ADMITS TO DRINKING 14 BEERS THIS MORNING. PT IS ABRASIVE WITH STAFF AND MINIMALLY COOPERATIVE. PT FREQUENTLY TRYING TO GET OUT OF BED TO LEAVE AND DEMANDING HIS CLOTHES, FOOD AND MEDICATION. ERMIsaias AWARE. ASTRID OSORIO AWARE OF PT AND IS FAMILIAR WITH HIM. SITTER OUTSIDE OF ROOM. GARAGE DOORS DOWN IN ROOM. BELONGINGS IN BAG AND LOCKED.
--- NOTE | 2018-12-06 14:33 | NUR ---
PT PROVIDED WITH MEAL TRAY. PT CONT TO REQUEST CLOTHING. AFTER SPEAKING DR. LAMAR, DR. LAMAR WILL DISCHARGE PT. PT IS VERBALIZING PLAN TO SECURE A NEW HOME OR [facility] WITH [facility]. PT WAS STEADY UPON AMBULATION TO RESTROOM. PT DENIES OTHER NEEDS AT THIS TIME. CALL LIGHT WITHIN REACH. WILL CONT TO MONITOR PT.
== END 2018-12-06 15:31 | disposition home or self-care (01) ==
LOC: ED 13:38
DX: F10.220 Alcohol dependence with intoxication, uncomplicated (principal); F41.1 Generalized anxiety disorder; E03.9 Hypothyroidism, unspecified; F31.9 Bipolar disorder, unspecified; E11.9 Type 2 diabetes mellitus without complications; J43.9 Emphysema, unspecified
CPT/HCPCS: 99283

== ENCOUNTER 2018-12-12 19:23 | Emergency (ER) | payer MEDICAID ==
[~2018-12-12] VITALS: Ht 175.3 cm; Wt 76.8 kg
[2018-12-12 21:30] VITALS: BP 92/49
== END 2018-12-12 22:13 | disposition home or self-care (01) ==
LOC: ED 19:30 → EDIP 21:02 → UNDOADMIN 21:02 → ED 22:13
DX: J96.01 Acute respiratory failure with hypoxia (principal); J43.9 Emphysema, unspecified; F10.220 Alcohol dependence with intoxication, uncomplicated; I10 Essential (primary) hypertension; E11.9 Type 2 diabetes mellitus without complications; F17.210 Nicotine dependence, cigarettes, uncomplicated
CPT/HCPCS: 36415; 71045; 80053; 80307; 83880; 84484; 85025; 93005; 94640; 96374; 99284; J2930; J7620; J7644

== ENCOUNTER 2019-04-12 11:11 | Emergency (ER) | payer MEDICAID ==
[~2019-04-12] VITALS: Ht 185.4 cm; Wt 70.0 kg
[2019-04-12 11:16] VITALS: BP 126/68
--- NOTE | 2019-04-12 11:20 | NUR ---
[facility] EMS FOR ANXIETY AND MULITPLE COMPLAINTS. PT IS DEMANDING ANXIETY MEDS, WAS RELEASED FROM [facility]. PT STATES HAS GENENERALIZED PAIN, BEEN DRINKING ABOUT 12 BEERS A DAY THE PAST 2 DAYS AND HASNT BEEN TAKING HIS MEDS. PT STATES HE HAS VOID BUT IS REFUSIG TO AMBULATE TO BATHROOM OR USE URINAL AND BECOMING VERBALL AGGRESSIVE W STAFF.
[2019-04-12] MEDS ORDERED: SODIUM CHLORIDE 0.9% 1,000 ML IV ONE (11:30)
[2019-04-12] MEDS ORDERED: THIAMINE 100 MG in SODIUM CHLORIDE 0.9% 50 ML IVPB ONE (11:30)
[2019-04-12] MEDS ORDERED: SODIUM CHLORIDE FLUSH 10ML SYR IVF ONE (11:30)
[2019-04-12] MEDS ORDERED: LORazepam 2 MG/ML, 1ML IM ONE (11:30)
[2019-04-12] MEDS ORDERED: LORazepam 2 MG/ML, 1ML ONE (11:38)
--- NOTE | 2019-04-12 11:50 | NUR ---
MEDICATED PER ORDERS. IV ESTABLISHED. PT COOPERATIVE
[2019-04-12 12:09] LABS: BASOPHILS # (AUTO) 0.14 x10^3/uL (0-0.1); BASOPHILS % (AUTO) 1 % (0-1); EOSINOPHILS # (AUTO) 0.04 x10^3/uL (0-0.4); EOSINOPHILS % (AUTO) 0 % (1-7); LYMPHOCYTES # (AUTO) 1.83 x10^3/uL (1-3.4); LYMPHOCYTES % (AUTO) 18 % (22-44); MD NO; MEAN CORPUSCULAR HEMOGLOBIN 32.4 pg (27.5-34.5); MEAN CORPUSCULAR HGB CONC 33.5 g/dL (33.2-36.2); MEAN CORPUSCULAR VOLUME 96.9 fL (81-97); MONOCYTES # (AUTO) 0.77 x10^3/uL (0.2-0.8); MONOCYTES % (AUTO) 8 % (2-9); NEUTROPHILS # (AUTO) 7.26 x10^3/uL (1.8-6.8); NEUTROPHILS % (AUTO) 72 % (42-75); PLATELET COUNT 312 x10^3/uL (130-400); RED BLOOD COUNT 4.09 x10^6/uL (4.38-5.82)
[2019-04-12 12:21] LABS: CHLORIDE 101 mmol/L (98-107)
[2019-04-12 12:22] LABS: ALANINE AMINOTRANSFERASE 33 U/L (12-78); ALBUMIN 3.6 g/dL (3.4-5.0); ANION GAP 9 mmol/L (5-15); CALCIUM 8.3 mg/dL (8.5-10.1); CREATININE 0.86 mg/dL (0.7-1.3)
[2019-04-12 12:23] LABS: ALKALINE PHOSPHATASE 222 U/L (45-117); BILIRUBIN,TOTAL 0.4 mg/dL (0.2-1.0)
--- NOTE | 2019-04-12 12:32 | NUR ---
APPLIED 2 L O2. PT RA DESAT TO 84%. NOW 91%
--- NOTE | 2019-04-12 13:11 | NUR ---
GIVEN MEAL TRAY
[2019-04-12] MEDS ORDERED: PHENYTOIN 100 MG CAPSULE ONE (13:26)
[2019-04-12] MEDS ORDERED: PHENYTOIN 125 MG/5 ML ORAL SUSP PO ONE (13:30)
--- NOTE | 2019-04-13 08:58 | NUR ---
late entry 4449 04/12/19 Task rn: in room to d/c pt. pt eating sandwich. this rn introduces himself to pt and pt states "what do you want." informed pt that I am here to pull his iv. pt states he is not getting admitted. pt educated that the md evaluated pt and is being discharged. pt stated "I am homeless you can't send me home if I don't have a home" list of shelters offered but pt declined. pt stated to this rn you can't discharge me I am confused. pt able to answer axo questions. pt asks how am i suppose to get my mediciations? care chest paper provided. taxi cab voucher provided to [facility].
== END 2019-04-12 13:49 | disposition home or self-care (01) ==
LOC: ED 13:39
DX: R56.9 Unspecified convulsions (principal); E11.9 Type 2 diabetes mellitus without complications; I10 Essential (primary) hypertension; J44.9 Chronic obstructive pulmonary disease, unspecified; Z72.9 Problem related to lifestyle, unspecified
CPT/HCPCS: 36415; 80053; 80185; 80307; 83735; 85025; 96365; 96372; 99283; J2060; J3411; J7030

== ENCOUNTER 2019-04-12 21:58 | Emergency (ER) | payer MEDICAID ==
[~2019-04-12] VITALS: Ht 177.8 cm; Wt 83.0 kg
[2019-04-12 22:09] VITALS: BP 126/84
[2019-04-12] MEDS ORDERED: NEOSPORIN OINT. PKT 1 PACKET ONE (22:54)
== END 2019-04-12 23:17 ==
LOC: ED 22:30
DX: F41.1 Generalized anxiety disorder (principal); F10.220 Alcohol dependence with intoxication, uncomplicated; F17.200 Nicotine dependence, unspecified, uncomplicated; J44.9 Chronic obstructive pulmonary disease, unspecified; I10 Essential (primary) hypertension; E11.40 Type 2 diabetes mellitus with diabetic neuropathy, unspecified; E03.9 Hypothyroidism, unspecified; G40.909 Epilepsy, unspecified, not intractable, without status epilepticus
CPT/HCPCS: 99283; Q0177

== ENCOUNTER 2019-04-17 16:38 | Emergency (ER) | payer MEDICAID ==
[~2019-04-17] VITALS: Ht 185.4 cm; Wt 75.2 kg
--- NOTE | 2019-04-17 17:26 | NUR ---
Went in to patient room. Pt resting on gurney. Pt states, "I am on methamphetamine, I am unsteady on my feet, I can't walk. I am suicidal, I am going to do it this time. I am homicidal, I want to kill all black people." Pt denies past SA. Pt admits past SI. Pt plan is to "jump off a bridge." Moved pt from room 10 to room 41 and provided report to OTTONIEL Vuong. All questions answered. All patient clothing and personal belongings removed and placed in ED locker for safe keeping. One personal belonging bag with clothing is in the locker, and patient's covington backpack (labeled) is in locker. Pt refusing to provide urine sample at this time. EDMD aware. OTTONIEL Vuong aware. Pt sitting on gurney in SI/HI secured room. Sitter near doorway in direct line of sight for observation. ED charge aware.
--- NOTE | 2019-04-17 17:40 | NUR ---
GUNSTOCK REPAIRER SPEAKING WITH PT
[2019-04-17 18:14] LABS: SALICYLATE LEVEL 2.3 mg/dL (2.8-20.0)
--- NOTE | 2019-04-17 18:15 | NUR ---
QUIETLY SITING IN [facility]
[2019-04-17 18:29] LABS: MEAN CORPUSCULAR HEMOGLOBIN 32.6 pg (27.5-34.5); MEAN CORPUSCULAR HGB CONC 33.1 g/dL (33.2-36.2); MEAN CORPUSCULAR VOLUME 98.5 fL (81-97); MEAN PLATELET VOLUME 7.4 fL (7.4-10.4); PLATELET COUNT 268 x10^3/uL (130-400); RED BLOOD COUNT 3.83 x10^6/uL (4.38-5.82); RED CELL DISTRIBUTION WIDTH 14.3 % (9.4-14.8)
[2019-04-17 18:29] LABS: AMPHETAMINE SCREEN, URINE Positive (Negative); BARBITURATE SCREEN, URINE Negative (Negative); BENZODIAZEPINE SCREEN, URINE Negative (Negative); CANNABINOID SCREEN, URINE Negative (Negative); COCAINE SCREEN, URINE Negative (Negative); METHADONE SCREEN, URINE Negative (Negative); OPIATE SCREEN, URINE Negative (Negative)
[2019-04-17 18:45] LABS: BASOPHILS # (AUTO) 0.04 x10^3/uL (0-0.1); BASOPHILS % (AUTO) 1 % (0-1); EOSINOPHILS # (AUTO) 0.12 x10^3/uL (0-0.4); EOSINOPHILS % (AUTO) 1 % (1-7); LYMPHOCYTES # (AUTO) 1.49 x10^3/uL (1-3.4); LYMPHOCYTES % (AUTO) 17 % (22-44); MD SCAN; MONOCYTES # (AUTO) 0.79 x10^3/uL (0.2-0.8); MONOCYTES % (AUTO) 9 % (2-9); NEUTROPHILS # (AUTO) 6.18 x10^3/uL (1.8-6.8); NEUTROPHILS % (AUTO) 72 % (42-75)
--- NOTE | 2019-04-17 18:59 | NUR ---
REPORT TO MELINDA ALCAZAR
[2019-04-17 19:52] VITALS: BP 142/87
--- NOTE | 2019-04-17 19:54 | NUR ---
TELEPSYCH CONSULT INITIATED.
--- NOTE | 2019-04-17 20:13 | NUR ---
Pt resting in room. Pt has equal chest rise, good cap refill and unlabored breathing. Pt has industrial health and safety professor outside room for continous monitoring.
--- NOTE | 2019-04-17 21:30 | NUR ---
Pt resting in room. Pt has equal chest rise, good cap refill and unlabored breathing. Pt has safety patrol officer outside room for continous monitoring.
--- NOTE | 2019-04-17 21:53 | NUR ---
DR. CHAVEZ CALLED AND GIVEN REPORT REGARDING PATIENTS CONDITION AND CURRENT ADMISSION.
--- NOTE | 2019-04-17 22:47 | NUR ---
Per psych md consult, pt to dc. Pt refusing to leave. Pt reporting that he is not leaving despite our request. Security to bedside and pt refusing to leave. [employer] being called to tresspass pt as he is being aggresive and refusing to leave.
--- NOTE | 2019-04-17 22:51 | NUR ---
Patient/Caregiver given discharge instructions and they have confirmed that they understand the instructions. Patient ambulatory with steady gait.
== END 2019-04-17 22:53 | disposition home or self-care (01) ==
LOC: ED 19:38
DX: R45.851 Suicidal ideations (principal); F15.10 Other stimulant abuse, uncomplicated; J44.9 Chronic obstructive pulmonary disease, unspecified; E03.9 Hypothyroidism, unspecified; I10 Essential (primary) hypertension; E11.9 Type 2 diabetes mellitus without complications
CPT/HCPCS: 36415; 80307; 85025; 93005; 99284

== ENCOUNTER 2019-06-27 22:07 | Emergency (ER) | payer MEDICAID ==
[~2019-06-27] VITALS: Ht 172.7 cm; Wt 75.0 kg
[~2019-06-27 22:07] MED LIST changes: -HYDR50TA13 PO; +HYDR50TA99 PO; -TRAZ-137 PO; +TRAZ-175 PO
[2019-06-27] MEDS ORDERED: ALBUTEROL/IPRATROPIUM 2.5MG/0.5MG, 3 ML NPPB ONE (22:30)
--- NOTE | 2019-06-27 22:30 | NUR ---
Pt is adamently denying si w/ md at bedside for assessment.
--- NOTE | 2019-06-27 23:12 | NUR ---
WOB better and pt states feeling better. Up for recheck.
[2019-06-27 23:16] VITALS: BP 115/55
[2019-06-27] MEDS ORDERED: LORazepam 1MG TABLET ONE (23:20)
[2019-06-27] MEDS ORDERED: LORazepam 1MG TABLET PO ONE (23:30)
== END 2019-06-27 23:55 | disposition home or self-care (01) ==
LOC: ED 23:40
DX: F41.1 Generalized anxiety disorder (principal); I10 Essential (primary) hypertension; E11.9 Type 2 diabetes mellitus without complications; J44.9 Chronic obstructive pulmonary disease, unspecified; G40.909 Epilepsy, unspecified, not intractable, without status epilepticus; F17.200 Nicotine dependence, unspecified, uncomplicated; E03.9 Hypothyroidism, unspecified; I45.10 Unspecified right bundle-branch block
CPT/HCPCS: 93005; 94640; 99283; J7620

== ENCOUNTER 2019-06-28 14:58 | Emergency (ER) | payer MEDICAID ==
[~2019-06-28] VITALS: Ht 185.4 cm; Wt 67.2 kg
[2019-06-28] MEDS ORDERED: ALBUTEROL/IPRATROPIUM 2.5MG/0.5MG, 3 ML ONE (15:20)
[2019-06-28] MEDS ORDERED: LORazepam 1MG TABLET PO ONE (15:30)
[2019-06-28] MEDS ORDERED: ALBUTEROL/IPRATROPIUM 2.5MG/0.5MG, 3 ML NPPB ONE (15:30)
[2019-06-28] MEDS ORDERED: methylPREDNISolone SOD SUCC 125 MG/2 ML IV ONE (15:30)
[2019-06-28 15:36] LABS: BASOPHILS % (AUTO) 1 % (0-1); EOSINOPHILS # (AUTO) 0.92 x10^3/uL (0-0.4); EOSINOPHILS % (AUTO) 13 % (1-7); LYMPHOCYTES # (AUTO) 1.48 x10^3/uL (1-3.4); LYMPHOCYTES % (AUTO) 21 % (22-44); MD NO; MEAN CORPUSCULAR HEMOGLOBIN 32.3 pg (27.5-34.5); MEAN CORPUSCULAR HGB CONC 33.1 g/dL (33.2-36.2); MEAN CORPUSCULAR VOLUME 97.4 fL (81-97); MONOCYTES # (AUTO) 0.52 x10^3/uL (0.2-0.8); MONOCYTES % (AUTO) 7 % (2-9); NEUTROPHILS # (AUTO) 4.15 x10^3/uL (1.8-6.8); NEUTROPHILS % (AUTO) 58 % (42-75); PLATELET COUNT 288 x10^3/uL (130-400); RED BLOOD COUNT 4.08 x10^6/uL (4.38-5.82); RED CELL DISTRIBUTION WIDTH 14.9 % (9.4-14.8)
--- NOTE | 2019-06-28 15:40 | NUR ---
RECEIVED BEDSIDE REPORT AND CARE FROM GOSIA ALCAZAR. PT REPORTS "I'M VERY ANXIOUS AND MY COPD IS BAD TODAY, MY OXYGEN HAS BEEN LOW, I USUALLY WEAR 3L AT HOME AT ALL TIMES." DENIES CP OR ANY PAIN. TO MEDICATE PER MD ORDER. CONT PULSE OX, BP, CARDIAC MONITORS APPLIED. SR ON MONITOR. VSS. CALL LIGHT IN REACH. FALL PRECAUTIONS IN PLACE. DENIES NEED TO USE RESTROOM.
[2019-06-28 15:43] LABS: ALBUMIN 3.8 g/dL (3.4-5.0); ANION GAP 3 mmol/L (5-15); CALCIUM 8.8 mg/dL (8.5-10.1); CHLORIDE 102 mmol/L (98-107); CREATININE 0.71 mg/dL (0.7-1.3)
[2019-06-28 15:48] LABS: TROPONIN I < 0.015 ng/mL (0.000-0.045)
[2019-06-28] MEDS ORDERED: LORazepam 1MG TABLET ONE ×2 (15:48→16:31)
[2019-06-28] MEDS ORDERED: methylPREDNISolone SOD SUCC 125 MG/2 ML ONE (15:48)
--- NOTE | 2019-06-28 15:49 | NUR ---
BEDSIDE REPORT AND TRANSFER OF CARE TO ADA RN AT THIS TIME.
[2019-06-28] MEDS ORDERED: LORazepam 2 MG/ML, 1ML IVPush ONE (17:00)
--- NOTE | 2019-06-28 19:13 | NUR ---
PT PROVIDED WITH FOOD PER REQUEST. AWAITING DELIVERY OF O2 TANK AT THIS TIME FOR DISCHARGE.
[2019-06-28 19:51] VITALS: BP 109/58
== END 2019-06-28 20:59 | disposition home or self-care (01) ==
LOC: ED 20:53
DX: J44.1 Chronic obstructive pulmonary disease with (acute) exacerbation (principal); F41.9 Anxiety disorder, unspecified; I45.10 Unspecified right bundle-branch block; I21.9 Acute myocardial infarction, unspecified; I10 Essential (primary) hypertension; E11.9 Type 2 diabetes mellitus without complications; E03.9 Hypothyroidism, unspecified; F17.200 Nicotine dependence, unspecified, uncomplicated; Z99.81 Dependence on supplemental oxygen
CPT/HCPCS: 36415; 71045; 80048; 82040; 84484; 85025; 93005; 94640; 96374; 96375; 99285; J2060; J2930; J7620

== ENCOUNTER 2019-07-10 23:01 | Emergency (ER) | payer MEDICAID ==
[~2019-07-10] VITALS: Ht 190.5 cm; Wt 100.0 kg
[~2019-07-10 23:01] MED LIST changes: +MONT10TA11 PO; +PRED10TA PO
[2019-07-10] MEDS ORDERED: LORazepam 2 MG/ML, 1ML ONE (23:28)
[2019-07-10] MEDS ORDERED: LORazepam 2 MG/ML, 1ML IVPush PRN (23:30)
[2019-07-10] MEDS ORDERED: ALBUTEROL/IPRATROPIUM 2.5MG/0.5MG, 3 ML NPPB ONE (23:30)
[2019-07-10 23:37] LABS: BASOPHILS # (AUTO) 0.06 x10^3/uL (0-0.1); BASOPHILS % (AUTO) 1 % (0-1); EOSINOPHILS # (AUTO) 0.26 x10^3/uL (0-0.4); EOSINOPHILS % (AUTO) 3 % (1-7); LYMPHOCYTES # (AUTO) 2.12 x10^3/uL (1-3.4); LYMPHOCYTES % (AUTO) 25 % (22-44); MD NO; MEAN CORPUSCULAR HEMOGLOBIN 32.5 pg (27.5-34.5); MEAN CORPUSCULAR HGB CONC 33.8 g/dL (33.2-36.2); MONOCYTES % (AUTO) 10 % (2-9); NEUTROPHILS # (AUTO) 5.29 x10^3/uL (1.8-6.8); NEUTROPHILS % (AUTO) 61 % (42-75); PLATELET COUNT 447 x10^3/uL (130-400)
[2019-07-10 23:46] LABS: ALANINE AMINOTRANSFERASE 52 U/L (12-78); ALBUMIN 3.3 g/dL (3.4-5.0); ANION GAP 4 mmol/L (5-15); CALCIUM 8.3 mg/dL (8.5-10.1); CHLORIDE 102 mmol/L (98-107); CREATININE 0.68 mg/dL (0.7-1.3)
[2019-07-10 23:51] LABS: ALKALINE PHOSPHATASE 109 U/L (45-117); BILIRUBIN,TOTAL 0.3 mg/dL (0.2-1.0); TOTAL PROTEIN 6.9 g/dL (6.4-8.2); TROPONIN I < 0.015 ng/mL (0.000-0.045)
[2019-07-11 00:12] LABS: AMPHETAMINE SCREEN, URINE Negative (Negative); BARBITURATE SCREEN, URINE Negative (Negative); BENZODIAZEPINE SCREEN, URINE Negative (Negative); CANNABINOID SCREEN, URINE Negative (Negative); COCAINE SCREEN, URINE Negative (Negative); METHADONE SCREEN, URINE Negative (Negative); OPIATE SCREEN, URINE Negative (Negative)
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
[2019-07-11] MEDS ORDERED: PHENYTOIN SODIUM 1,000 MG in SODIUM CHLORIDE 0.9% 100 ML IV ONE (00:30)
--- NOTE | 2019-07-11 00:55 | NUR ---
break rn note iv dilantin infusing pt is sleeping sz precution noted vss stable
[2019-07-11 00:56] VITALS: BP 116/70
[2019-07-11] MEDS ORDERED: FILTER 0.22 MICRON IV ONE (01:00)
--- NOTE | 2019-07-11 01:36 | NUR ---
RN spoke with Nette at [phone] and informed the patient was receiving a dose of medication to affect and reduce his seizures. Family member was informed that he would be ready to go soon, but that he would need an oxygen tank to be brought so that he could wear his oxygen tank home.
== END 2019-07-11 02:38 | disposition home or self-care (01) ==
LOC: ED 23:31
DX: G40.909 Epilepsy, unspecified, not intractable, without status epilepticus (principal); E03.9 Hypothyroidism, unspecified; I10 Essential (primary) hypertension; J44.9 Chronic obstructive pulmonary disease, unspecified; E11.9 Type 2 diabetes mellitus without complications; F17.210 Nicotine dependence, cigarettes, uncomplicated
CPT/HCPCS: 71045; 80053; 80185; 80307; 82962; 83735; 83880; 84484; 85025; 93005; 94640; 96365; 96375; 99285; 99406; J1165; J2060

== ENCOUNTER 2020-01-18 10:19 | Emergency (ER) | payer MEDICAID ==
[~2020-01-18] VITALS: Ht 185.4 cm; Wt 80.0 kg
--- NOTE | 2020-01-18 10:51 | NUR ---
PATIENT ARRIVES FROM HOME WITH [facility] FEELING CONSTIPATION, ABDOMINAL PAIN, AND DIFFICULTY URINATING. HE ALSO REPORTS HAVING SOB, HE HAS COPD AND IS ON 2-3 LITERS HE REPORTS, AND WAS 88% ON ROOM AIR. PLACED ON THREE LITERS NC. PATIENT IS ANXIOUS AND SHOUTING OUT AT TIMES.
[2020-01-18] MEDS ORDERED: ALBUTEROL/IPRATROPIUM 2.5MG/0.5MG, 3 ML NPPB ONE (11:00)
[2020-01-18] MEDS ORDERED: methylPREDNISolone SOD SUCC 125 MG/2 ML IV ONE (11:00)
[2020-01-18] MEDS ORDERED: methylPREDNISolone SOD SUCC 125 MG/2 ML ONE (11:01)
[2020-01-18] MEDS ORDERED: ALBUTEROL/IPRATROPIUM 2.5MG/0.5MG, 3 ML ONE (11:02)
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
[2020-01-18 11:24] LABS: BASOPHILS # (AUTO) 0.07 x10^3/uL (0-0.1); BASOPHILS % (AUTO) 2 % (0-1); EOSINOPHILS # (AUTO) 0.33 x10^3/uL (0-0.4); EOSINOPHILS % (AUTO) 9 % (1-7); LYMPHOCYTES # (AUTO) 1.43 x10^3/uL (1-3.4); LYMPHOCYTES % (AUTO) 38 % (22-44); MD NO; MEAN CORPUSCULAR HEMOGLOBIN 32.6 pg (27.5-34.5); MEAN CORPUSCULAR HGB CONC 32.6 g/dL (33.2-36.2); MEAN CORPUSCULAR VOLUME 99.9 fL (81-97); MEAN PLATELET VOLUME 7.2 fL (7.4-10.4); MONOCYTES # (AUTO) 0.26 x10^3/uL (0.2-0.8); MONOCYTES % (AUTO) 7 % (2-9); NEUTROPHILS # (AUTO) 1.66 x10^3/uL (1.8-6.8); NEUTROPHILS % (AUTO) 45 % (42-75); PLATELET COUNT 370 x10^3/uL (130-400); RED BLOOD COUNT 3.68 x10^6/uL (4.38-5.82); RED CELL DISTRIBUTION WIDTH 14.6 % (9.4-14.8)
[2020-01-18 11:40] LABS: ALBUMIN 3.4 g/dL (3.4-5.0); ANION GAP 6 mmol/L (5-15); CALCIUM 8.6 mg/dL (8.5-10.1); CHLORIDE 107 mmol/L (98-107)
[2020-01-18 11:45] LABS: ALANINE AMINOTRANSFERASE 14 U/L (12-78); ALKALINE PHOSPHATASE 115 U/L (45-117); BILIRUBIN,TOTAL 0.2 mg/dL (0.2-1.0); CREATININE 0.77 mg/dL (0.7-1.3); TOTAL PROTEIN 7.2 g/dL (6.4-8.2); TROPONIN I < 0.015 ng/mL (0.000-0.045)
[2020-01-18 11:46] LABS: SALICYLATE LEVEL < 1.7 mg/dL (2.8-20.0)
--- NOTE | 2020-01-18 11:50 | NUR ---
BELONGINGS REMOVED. GOWNED. PATIENT IN XRAY WILL CATH FOR URINE WHEN RETURNS. ONE BELONGING BAG IN LOCKER
--- NOTE | 2020-01-18 12:09 | NUR ---
urine sent. clean catch, able to void about 50 ml dark yellow. patient report to OTTONIEL Jane and patient moved rooms
--- NOTE | 2020-01-18 12:17 | NUR ---
REPORT FROM. RANJIT. PT DEMANDING FOOD.
[2020-01-18 12:26] LABS: MICROSCOPIC NOT IND
[2020-01-18 13:47] LABS: AMPHETAMINE SCREEN, URINE Negative (Negative); BARBITURATE SCREEN, URINE Positive (Negative); BENZODIAZEPINE SCREEN, URINE Negative (Negative); CANNABINOID SCREEN, URINE Negative (Negative); COCAINE SCREEN, URINE Negative (Negative); METHADONE SCREEN, URINE Negative (Negative); OPIATE SCREEN, URINE Negative (Negative)
--- NOTE | 2020-01-18 13:53 | NUR ---
PREPARATORY TECHNICIAN AT BEDSIDE.
[2020-01-18] MEDS ORDERED: MAGNESIUM CITRATE 300ML ORAL SOL ONE (14:26)
[2020-01-18] MEDS ORDERED: MAGNESIUM CITRATE 300ML ORAL SOL PO ONE (14:30)
--- NOTE | 2020-01-18 15:35 | NUR ---
Patient/Caregiver given discharge instructions and they have confirmed that they understand the instructions. Patient ambulatory with steady gait.
[2020-01-18 15:36] VITALS: BP 124/65
== END 2020-01-18 15:37 | disposition home or self-care (01) ==
LOC: ED 12:27
DX: J44.9 Chronic obstructive pulmonary disease, unspecified (principal); K59.00 Constipation, unspecified; K08.89 Other specified disorders of teeth and supporting structures; R06.02 Shortness of breath; F41.1 Generalized anxiety disorder; I10 Essential (primary) hypertension; E11.9 Type 2 diabetes mellitus without complications; F17.200 Nicotine dependence, unspecified, uncomplicated; E03.9 Hypothyroidism, unspecified; G40.909 Epilepsy, unspecified, not intractable, without status epilepticus
CPT/HCPCS: 36415; 71045; 74021; 80053; 80185; 80307; 81003; 83690; 83735; 84443; 84484; 85025; 94640; 96374; 99284; J2930

== ENCOUNTER 2020-01-23 18:55 | Inpatient (IN) | payer MEDICAID ==
[~2020-01-23] VITALS: Ht 182.9 cm; Wt 75.5 kg
[2020-01-23] MEDS ORDERED: LORazepam 0.5MG TABLET PO ONE ×2 (19:00→20:00)
[2020-01-23] MEDS ORDERED: methylPREDNISolone SOD SUCC 125 MG/2 ML IV ONE (19:00)
[2020-01-23] MEDS ORDERED: ALBUTEROL/IPRATROPIUM 2.5MG/0.5MG, 3 ML NPPB ONE (19:00)
[2020-01-23] MEDS ORDERED: LORazepam 0.5MG TABLET ONE (19:12)
[2020-01-23] MEDS ORDERED: methylPREDNISolone SOD SUCC 125 MG/2 ML ONE (19:12)
[2020-01-23] MEDS ORDERED: ALBUTEROL/IPRATROPIUM 2.5MG/0.5MG, 3 ML ONE (19:12)
--- NOTE | 2020-01-23 19:22 | NUR ---
SUMMARY NOTE: BIB [facility] FOR C/O SOB X 3 DAYS. HX OF COPD; PT. STATES WEARS 4L NC HOME O2 23/11. STATES INHAILER NOT HELPING TODAY. EMS FOUND PT. TO BE 83% ON RA; PT. STATES "I WAS WAITING FOR THEM ON THE FRONT PORCH AND I DIDN'T TAKE MY OXYGEN WITH ME". DUONEB AND ALBUTEROL TX EN ROUTE. PT. ARRIVED TO ED WITH 4L NC O2 SATS >96%. PT. SHOUTING AT RN "I AM ANXIOUS! GET ME SOMETHING FOR THIS ANXIETY NOW!". DR. PACHECO WAS IN TO EVAL PT. AND DISCUSS POC. PT. VERY VERBALLY AGRESSIVE WITH THIS RN. PT. SHOUTING "I NEED MORE THAN JUST A HALF A MILIGRAM OF ATIVAN, THAT'S NOT EVEN CLOSE TO ENOUGHT!". PT. OFFERED REASSURANCE. EKG WAS DONE ON ARRIVAL; CONTINUOUS PULSE OX HEART MONITORS PLACED. B/P MONITOR IN PLACE. BREATHING TX IN PROCESS NOW; PT. WAS MEDICATED PER JUL. BS REPORT TO OTTONIEL LEAL.
[2020-01-23 19:29] LABS: MEAN CORPUSCULAR HEMOGLOBIN 32.4 pg (27.5-34.5); MEAN CORPUSCULAR HGB CONC 32.5 g/dL (33.2-36.2); MEAN PLATELET VOLUME 6.9 fL (7.4-10.4); PLATELET COUNT 346 x10^3/uL (130-400); RED BLOOD COUNT 3.66 x10^6/uL (4.38-5.82)
[2020-01-23 19:39] LABS: ALBUMIN 3.7 g/dL (3.4-5.0); ANION GAP 7 mmol/L (5-15); CALCIUM 8.7 mg/dL (8.5-10.1); CHLORIDE 108 mmol/L (98-107); CREATININE 0.81 mg/dL (0.7-1.3)
[2020-01-23 19:43] LABS: TROPONIN I < 0.015 ng/mL (0.000-0.045)
[2020-01-23 19:48] LABS: BASOPHILS # (AUTO) 0.06 x10^3/uL (0-0.1); BASOPHILS % (AUTO) 1 % (0-1); EOSINOPHILS # (AUTO) 0.56 x10^3/uL (0-0.4); EOSINOPHILS % (AUTO) 8 % (1-7); LYMPHOCYTES # (AUTO) 3.42 x10^3/uL (1-3.4); LYMPHOCYTES % (AUTO) 49 % (22-44); MD SCAN; MONOCYTES # (AUTO) 0.55 x10^3/uL (0.2-0.8); MONOCYTES % (AUTO) 8 % (2-9); NEUTROPHILS # (AUTO) 2.34 x10^3/uL (1.8-6.8); NEUTROPHILS % (AUTO) 34 % (42-75)
[2020-01-23] MEDS ORDERED: DOXYCYCLINE 100 MG in DEXTROSE 5% 250 ML IV SCH (20:30)
[2020-01-23] MEDS ORDERED: PROMETHAZINE 25 MG/ML, 1ML IM PRN (21:30)
[2020-01-23] MEDS ORDERED: DOCUSATE 100 MG CAPSULE PO PRN (21:30)
[2020-01-23] MEDS ORDERED: ONDANSETRON 2MG/ML, 2ML IVPush PRN (21:30)
[2020-01-23] MEDS: methylPREDNISolone SOD SUCC 125 MG/2 ML IVPush SCH (21:30)
[2020-01-23] MEDS ORDERED: ONDANSETRON ODT 4 MG PO PRN (21:30)
[2020-01-23] MEDS ORDERED: POLYETHYLENE GLYCOL 17 GM PACKET PO PRN (21:30)
[2020-01-23] MEDS ORDERED: ACETAMINOPHEN 325 MG TABLET PO PRN (21:30)
[2020-01-23] MEDS ORDERED: PHENYTOIN 100 MG CAPSULE PO SCH (21:30)
[2020-01-23] MEDS ORDERED: OXYcodone IR 5MG TABLET PO PRN (21:30)
[2020-01-23] MEDS ORDERED: morphine SULFATE 10 MG/ML, 1ML IVPush PRN (21:30)
[2020-01-23] MEDS ORDERED: BISACODYL 10 MG SUPP PR PRN (21:30)
[2020-01-23] MEDS ORDERED: hydrALAzine 20 MG/ML, 1ML IVPush PRN (21:30)
[2020-01-23 21:55] VITALS: BP 116/70
[2020-01-23] MEDS: ENOXAPARIN 40 MG/0.4 ML SQ SCH (22:19)
[2020-01-23] MEDS: MIRTAZAPINE 15 MG TABLET PO SCH (22:19)
[2020-01-23] MEDS: MONTELUKAST 10 MG TABLET PO SCH (22:19)
[2020-01-23] MEDS: ALBUTEROL-IPRATROPIUM MDI INH INH SCH (22:48)
[2020-01-23] MEDS: CEFTRIAXONE PMX 2GM/50ML 50 ML IV SCH (22:48)
[2020-01-24] VITALS (9 sets, daily range): BP systolic 108–121; BP diastolic 58–77
[2020-01-24] MEDS: methylPREDNISolone SOD SUCC 125 MG/2 ML IVPush SCH (03:05)
[2020-01-24] MEDS: ALBUTEROL-IPRATROPIUM MDI INH INH SCH ×4 (06:03→21:09)
[2020-01-24] MEDS: LEVOTHYROXINE 25 MCG TABLET PO SCH (06:03)
[2020-01-24 06:14] LABS: BASOPHILS # (AUTO) 0.02 x10^3/uL (0-0.1); BASOPHILS % (AUTO) 0 % (0-1); EOSINOPHILS # (AUTO) 0.01 x10^3/uL (0-0.4); EOSINOPHILS % (AUTO) 0 % (1-7); LYMPHOCYTES # (AUTO) 0.82 x10^3/uL (1-3.4); LYMPHOCYTES % (AUTO) 20 % (22-44); MD NO; MEAN CORPUSCULAR HEMOGLOBIN 32.6 pg (27.5-34.5); MEAN CORPUSCULAR HGB CONC 33.3 g/dL (33.2-36.2); MONOCYTES # (AUTO) 0.07 x10^3/uL (0.2-0.8); MONOCYTES % (AUTO) 2 % (2-9); NEUTROPHILS # (AUTO) 3.22 x10^3/uL (1.8-6.8); NEUTROPHILS % (AUTO) 78 % (42-75); PLATELET COUNT 331 x10^3/uL (130-400); RED BLOOD COUNT 3.54 x10^6/uL (4.38-5.82); RED CELL DISTRIBUTION WIDTH 14.5 % (9.4-14.8)
[2020-01-24 06:40] LABS: ALBUMIN 3.2 g/dL (3.4-5.0); ANION GAP 5 mmol/L (5-15); CALCIUM 8.7 mg/dL (8.5-10.1); CHLORIDE 111 mmol/L (98-107)
[2020-01-24 06:49] LABS: ALANINE AMINOTRANSFERASE 19 U/L (12-78); ALKALINE PHOSPHATASE 96 U/L (45-117); BILIRUBIN,TOTAL < 0.1 mg/dL (0.2-1.0); CHOL/HDL RATIO 3.1; CHOLESTEROL, TOTAL 173 mg/dL (140-239); CREATININE 0.72 mg/dL (0.7-1.3); HDL CHOL % 32 % (26-37); HDL CHOLESTEROL (DIRECT) 56 mg/dL (40-60); LDL CHOLESTEROL,CALCULATED 100 mg/dL (54-169); LDL/HDL RATIO 1.8 (0.5-3.0); TOTAL PROTEIN 6.6 g/dL (6.4-8.2); TRIGLYCERIDES 84 mg/dL (50-200); VLDL CHOLESTEROL 17 mg/dL (0-25)
[2020-01-24] MEDS ORDERED: ACETAMINOPHEN 325 MG TABLET PO PRN (07:30)
[2020-01-24] MEDS: SODIUM CHLORIDE 0.9% 1,000 ML IV SCH (08:01)
[2020-01-24] MEDS ORDERED: PHEN50TA4 PO (09:02)
[2020-01-24] MEDS ORDERED: PHEN200C3 PO (09:02)
[2020-01-24] MEDS ORDERED: PHEN100C4 PO ×2 (09:02)
[2020-01-24] MEDS ORDERED: TAMS-11 PO (09:03)
[2020-01-24] MEDS ORDERED: LOSA100T14 PO (09:04)
[2020-01-24] MEDS: PHENYTOIN 100 MG CAPSULE PO SCH ×2 (12:17→21:09)
[2020-01-24] MEDS ORDERED: ALBUTEROL/IPRATROPIUM 2.5MG/0.5MG, 3 ML ONE (18:02)
[2020-01-24] MEDS ORDERED: ALBUTEROL/IPRATROPIUM 2.5MG/0.5MG, 3 ML NPPB PRN (18:30)
[2020-01-24] MEDS: MIRTAZAPINE 15 MG TABLET PO SCH (21:09)
[2020-01-24] MEDS: MONTELUKAST 10 MG TABLET PO SCH (21:09)
[2020-01-24] MEDS: CEFTRIAXONE PMX 2GM/50ML 50 ML IV SCH (21:11)
[2020-01-24] MEDS: ENOXAPARIN 40 MG/0.4 ML SQ SCH (21:14)
[2020-01-25] MEDS: SODIUM CHLORIDE 0.9% 1,000 ML IV SCH (00:10)
[2020-01-25 01:05] VITALS: BP 110/67
[2020-01-25] MEDS: ALBUTEROL-IPRATROPIUM MDI INH INH SCH ×4 (05:32→20:30)
[2020-01-25] MEDS: LEVOTHYROXINE 25 MCG TABLET PO SCH (05:32)
[2020-01-25] MEDS: AZITHROMYCIN 500 MG in SODIUM CHLORIDE 0.9% 250 ML IV SCH (09:09)
[2020-01-25] MEDS: FLUTICASONE FUROATE 100MCG/INH INH SCH (09:10)
[2020-01-25] MEDS: TAMSULOSIN 0.4 MG CAP.ER.24H PO SCH (09:11)
[2020-01-25] MEDS: LOSARTAN 100 MG TAB PO SCH (09:11)
[2020-01-25] MEDS: PHENYTOIN 50 MG TAB.CHEW PO SCH (09:12)
[2020-01-25] MEDS: THIAMINE 100MG TABLET PO SCH (09:12)
[2020-01-25] MEDS: NALTREXONE HCL 50 MG TABLET PO SCH (09:13)
[2020-01-25 09:28] VITALS: BP 108/74
[2020-01-25] MEDS: methylPREDNISolone SOD SUCC 40 MG/ML IV SCH ×2 (11:50→21:08)
[2020-01-25] MEDS: PHENYTOIN 100 MG CAPSULE PO SCH ×2 (11:51→21:09)
[2020-01-25 15:59] VITALS: BP 98/61
[2020-01-25 18:49] VITALS: BP 97/60
[2020-01-25] MEDS: MONTELUKAST 10 MG TABLET PO SCH (21:08)
[2020-01-25] MEDS: CEFTRIAXONE PMX 2GM/50ML 50 ML IV SCH (21:09)
[2020-01-25] MEDS: ENOXAPARIN 40 MG/0.4 ML SQ SCH (21:09)
[2020-01-25] MEDS: MIRTAZAPINE 15 MG TABLET PO SCH (21:09)
[2020-01-26 01:38] VITALS: BP 100/55
[2020-01-26] MEDS: ALBUTEROL-IPRATROPIUM MDI INH INH SCH ×4 (06:24→20:59)
[2020-01-26] MEDS: LEVOTHYROXINE 25 MCG TABLET PO SCH (06:24)
[2020-01-26 06:52] VITALS: BP 138/68
[2020-01-26] MEDS: FLUTICASONE FUROATE 100MCG/INH INH SCH (08:34)
[2020-01-26] MEDS: AZITHROMYCIN 500 MG in SODIUM CHLORIDE 0.9% 250 ML IV SCH (09:11)
[2020-01-26] MEDS: NALTREXONE HCL 50 MG TABLET PO SCH (09:12)
[2020-01-26] MEDS: PHENYTOIN 50 MG TAB.CHEW PO SCH (09:12)
[2020-01-26] MEDS: TAMSULOSIN 0.4 MG CAP.ER.24H PO SCH (09:13)
[2020-01-26] MEDS: LOSARTAN 100 MG TAB PO SCH (09:13)
[2020-01-26] MEDS: methylPREDNISolone SOD SUCC 40 MG/ML IV SCH ×2 (09:14→20:59)
[2020-01-26] MEDS: THIAMINE 100MG TABLET PO SCH (09:15)
[2020-01-26] MEDS: PHENYTOIN 100 MG CAPSULE PO SCH ×2 (12:12→21:00)
[2020-01-26 12:42] VITALS: BP 112/75
[2020-01-26 18:31] VITALS: BP 100/60
[2020-01-26] MEDS: ENOXAPARIN 40 MG/0.4 ML SQ SCH (20:59)
[2020-01-26] MEDS: OLANZAPINE 5 MG TABLET PO SCH (21:00)
[2020-01-26] MEDS: MONTELUKAST 10 MG TABLET PO SCH (21:00)
[2020-01-26] MEDS: MIRTAZAPINE 15 MG TABLET PO SCH (21:00)
[2020-01-26] MEDS: CEFTRIAXONE PMX 2GM/50ML 50 ML IV SCH (22:01)
[2020-01-27 00:55] VITALS: BP 100/62
[2020-01-27] MEDS: LEVOTHYROXINE 25 MCG TABLET PO SCH (06:29)
[2020-01-27] MEDS: ALBUTEROL-IPRATROPIUM MDI INH INH SCH ×4 (06:30→20:05)
[2020-01-27 07:04] VITALS: BP 111/66
[2020-01-27] MEDS: methylPREDNISolone SOD SUCC 40 MG/ML IV SCH (08:35)
[2020-01-27] MEDS: AZITHROMYCIN 500 MG in SODIUM CHLORIDE 0.9% 250 ML IV SCH (08:35)
[2020-01-27] MEDS: THIAMINE 100MG TABLET PO SCH (08:36)
[2020-01-27] MEDS: TAMSULOSIN 0.4 MG CAP.ER.24H PO SCH (08:36)
[2020-01-27] MEDS: NALTREXONE HCL 50 MG TABLET PO SCH (08:36)
[2020-01-27] MEDS: LOSARTAN 100 MG TAB PO SCH (08:36)
[2020-01-27] MEDS: PHENYTOIN 50 MG TAB.CHEW PO SCH (08:36)
[2020-01-27] MEDS: OLANZAPINE 5 MG TABLET PO SCH ×2 (08:37→20:03)
[2020-01-27] MEDS: FLUTICASONE FUROATE 100MCG/INH INH SCH (09:00)
[2020-01-27 12:57] VITALS: BP 92/52
[2020-01-27] MEDS: PHENYTOIN 100 MG CAPSULE PO SCH ×2 (13:27→20:03)
[2020-01-27] MEDS: MIRTAZAPINE 15 MG TABLET PO SCH (20:03)
[2020-01-27] MEDS: MONTELUKAST 10 MG TABLET PO SCH (20:04)
[2020-01-27 22:16] VITALS: BP 102/49
[2020-01-27] MEDS: CEFTRIAXONE PMX 2GM/50ML 50 ML IV SCH (22:16)
[2020-01-27] MEDS: ENOXAPARIN 40 MG/0.4 ML SQ SCH (22:16)
[2020-01-28 02:28] VITALS: BP 90/53
[2020-01-28] MEDS: LEVOTHYROXINE 25 MCG TABLET PO SCH (05:38)
[2020-01-28] MEDS: ALBUTEROL-IPRATROPIUM MDI INH INH SCH ×4 (05:38→15:50)
[2020-01-28] MEDS: FLUTICASONE FUROATE 100MCG/INH INH SCH (06:59)
[2020-01-28 07:27] VITALS: BP 109/67
[2020-01-28] MEDS: LOSARTAN 100 MG TAB PO SCH (08:32)
[2020-01-28] MEDS: AZITHROMYCIN 500 MG in SODIUM CHLORIDE 0.9% 250 ML IV SCH (08:32)
[2020-01-28] MEDS: NALTREXONE HCL 50 MG TABLET PO SCH (08:32)
[2020-01-28] MEDS: THIAMINE 100MG TABLET PO SCH (08:33)
[2020-01-28] MEDS: OLANZAPINE 5 MG TABLET PO SCH (08:33)
[2020-01-28] MEDS: TAMSULOSIN 0.4 MG CAP.ER.24H PO SCH (08:33)
[2020-01-28] MEDS: methylPREDNISolone SOD SUCC 40 MG/ML IV SCH (08:34)
[2020-01-28] MEDS: PHENYTOIN 50 MG TAB.CHEW PO SCH (08:35)
[2020-01-28] MEDS ORDERED: CEFD300C37 PO (12:19)
[2020-01-28] MEDS ORDERED: AZIT500T PO (12:19)
[2020-01-28] MEDS ORDERED: PRED20TA PO (12:19)
[2020-01-28] MEDS ORDERED: LOSA100T14 PO (12:19)
[2020-01-28] MEDS ORDERED: OLAN5TAB9 PO (12:19)
[2020-01-28] MEDS: PHENYTOIN 100 MG CAPSULE PO SCH (12:50)
[2020-01-28 12:53] VITALS: BP 102/63
== END 2020-01-28 16:51 | disposition home or self-care (01) | DRG 190 ==
LOC: ED 19:43 → EDIP 20:40 → 3N 21:48 → DCLOUNGE 01-28 16:24
PROVIDERS: ADMIT Internal Medicine; ATTEND Hospitalist
PROC: 02HV33Z Insertion of Infusion Device into Superior Vena Cava, Percutaneous Approach (ICD-10-PCS; principal; 2020-01-24)
PROC: B5181ZA Fluoroscopy of Superior Vena Cava using Low Osmolar Contrast, Guidance (ICD-10-PCS; 2020-01-24)
PROC: B548ZZA Ultrasonography of Superior Vena Cava, Guidance (ICD-10-PCS; 2020-01-24)
DX: J44.0 Chronic obstructive pulmonary disease with (acute) lower respiratory infection (principal); J15.9 Unspecified bacterial pneumonia; F31.30 Bipolar disorder, current episode depressed, mild or moderate severity, unspecified; J96.10 Chronic respiratory failure, unspecified whether with hypoxia or hypercapnia; F13.20 Sedative, hypnotic or anxiolytic dependence, uncomplicated; I50.32 Chronic diastolic (congestive) heart failure; J44.1 Chronic obstructive pulmonary disease with (acute) exacerbation; E03.9 Hypothyroidism, unspecified; E11.9 Type 2 diabetes mellitus without complications; F17.200 Nicotine dependence, unspecified, uncomplicated; F41.9 Anxiety disorder, unspecified; G40.909 Epilepsy, unspecified, not intractable, without status epilepticus; G89.29 Other chronic pain; I11.0 Hypertensive heart disease with heart failure; N40.0 Benign prostatic hyperplasia without lower urinary tract symptoms; Z82.49 Family history of ischemic heart disease and other diseases of the circulatory system; Z82.5 Family history of asthma and other chronic lower respiratory diseases; Z83.3 Family history of diabetes mellitus; Z99.81 Dependence on supplemental oxygen
CPT/HCPCS: 36415; 36573; 71045; 80048; 80053; 80061; 80185; 82040; 83036; 83605; 83735; 84443; 84484; 85025; 87040; 87070; 87205; 93005; 94640; 96374; G0378; J0456; J0696; J1650; J7060; C1751; J2920; J2930; J7030; J7050

== ENCOUNTER 2020-02-02 19:37 | Emergency (ER) | payer MEDICAID ==
[~2020-02-02] VITALS: Ht 185.4 cm; Wt 74.0 kg
[~2020-02-02 19:37] MED LIST changes: +AZIT500T PO; +CEFD300C37 PO; +LOSA100T14 PO; +METH4TAB2 PO; +OLAN5TAB9 PO; +PHEN200C3 PO; +PHEN50TA4 PO; +PRED20TA PO; +TAMS-11 PO
--- NOTE | 2020-02-02 20:00 | NUR ---
64 year old male to ed [facility]. recent admit for pneumonia. she was sob today and activated ems. he states he has been dizzy and sob with cough that produces greenish brown phlegm and he also desribes pleuritic chest pain
[2020-02-02] MEDS ORDERED: ALBUTEROL/IPRATROPIUM 2.5MG/0.5MG, 3 ML ONE (20:38)
[2020-02-02] MEDS: ALBUTEROL/IPRATROPIUM 2.5MG/0.5MG, 3 ML NPPB SCH ×2 (20:41→23:35)
[2020-02-02 21:16] LABS: BASOPHILS # (AUTO) 0.29 x10^3/uL (0-0.1); BASOPHILS % (AUTO) 4 % (0-1); EOSINOPHILS # (AUTO) 1.17 x10^3/uL (0-0.4); EOSINOPHILS % (AUTO) 14 % (1-7); LYMPHOCYTES # (AUTO) 3.06 x10^3/uL (1-3.4); LYMPHOCYTES % (AUTO) 37 % (22-44); MD NO; MEAN CORPUSCULAR HGB CONC 33.5 g/dL (33.2-36.2); MEAN PLATELET VOLUME 7.3 fL (7.4-10.4); MONOCYTES # (AUTO) 0.68 x10^3/uL (0.2-0.8); MONOCYTES % (AUTO) 8 % (2-9); NEUTROPHILS # (AUTO) 3.06 x10^3/uL (1.8-6.8); NEUTROPHILS % (AUTO) 37 % (42-75); PLATELET COUNT 320 x10^3/uL (130-400); RED BLOOD COUNT 3.36 x10^6/uL (4.38-5.82); RED CELL DISTRIBUTION WIDTH 15.1 % (9.4-14.8)
[2020-02-02 21:17] LABS: ALANINE AMINOTRANSFERASE 24 U/L (12-78); ALBUMIN 3.5 g/dL (3.4-5.0); ANION GAP 5 mmol/L (5-15); CALCIUM 8.3 mg/dL (8.5-10.1); CHLORIDE 103 mmol/L (98-107); CREATININE 0.72 mg/dL (0.7-1.3)
[2020-02-02 21:21] LABS: ALKALINE PHOSPHATASE 122 U/L (45-117); BILIRUBIN,TOTAL 0.2 mg/dL (0.2-1.0); TOTAL PROTEIN 6.5 g/dL (6.4-8.2)
[2020-02-02] MEDS ORDERED: LORazepam 1MG TABLET ONE (21:40)
[2020-02-02] MEDS ORDERED: LORazepam 1MG TABLET PO ONE (22:00)
--- NOTE | 2020-02-02 23:53 | NUR ---
Attempted to discharge patient. He began dyspneic w ambulation. He was placed on a monitor and O2 sat dropped to 82%. He was placed back into bed and Nasal canula was replaced. [facility] states he usually uses home O2 but doesn't have his tank.
[2020-02-03] MEDS ORDERED: ALBUTEROL/IPRATROPIUM 2.5MG/0.5MG, 3 ML ONE (00:07)
[2020-02-03] MEDS ORDERED: ALBUTEROL/IPRATROPIUM 2.5MG/0.5MG, 3 ML NPPB ONE (00:30)
[2020-02-03] MEDS ORDERED: GUAIFENESIN/DM 200-20MG, 10ML UDC PO PRN (01:00)
[2020-02-03] MEDS ORDERED: GUAIFENESIN/DM 200-20MG, 10ML UDC ONE (01:12)
[2020-02-03 02:23] VITALS: BP 118/64
--- NOTE | 2020-02-03 02:24 | NUR ---
KODISA at bedside to transfer patient home with O2.
== END 2020-02-03 02:37 | disposition home or self-care (01) ==
LOC: ED 20:07
DX: J44.1 Chronic obstructive pulmonary disease with (acute) exacerbation (principal); R06.02 Shortness of breath; I45.10 Unspecified right bundle-branch block; R05 Cough; I10 Essential (primary) hypertension; E11.9 Type 2 diabetes mellitus without complications; E03.9 Hypothyroidism, unspecified; F17.200 Nicotine dependence, unspecified, uncomplicated; G40.909 Epilepsy, unspecified, not intractable, without status epilepticus
CPT/HCPCS: 36415; 71045; 80053; 80307; 83735; 83880; 85025; 93005; 94640; 99285; J7512

== ENCOUNTER 2020-02-12 21:54 | Emergency (ER) | payer MEDICAID ==
[~2020-02-12] VITALS: Ht 185.4 cm; Wt 73.8 kg
[2020-02-12] MEDS ORDERED: ALBUTEROL SULFATE 2.5 MG/3 ML NPPB ONE (22:00)
[2020-02-12] MEDS ORDERED: ALBUTEROL SULFATE 2.5 MG/3 ML ONE (22:18)
--- NOTE | 2020-02-12 22:29 | NUR ---
PT DIAGNOSED WITH PNA 2 WEEKS AGO, WAS TAKING ABX AND STEROIDS BUT BREATHING GOTTEN WORSE TODAY. BIB EMS, GIVEN 2 BREATHING TX INCLUDING DUO NEB AND ALBUTEROL. PT SEEN BY ERP, PT MEDICATED PER EMAR, PLACED ON ALL MONITORS, STATES FEELING A LITTLE BETTER WITH BREATHING TX, BUT IS FEELING ANXIOUS.
--- NOTE | 2020-02-12 23:13 | NUR ---
LAB AT BEDSIDE FOR BLOOD DRAW
[2020-02-12] MEDS ORDERED: LORazepam 1MG TABLET ONE (23:25)
[2020-02-12 23:32] LABS: BASOPHILS % (AUTO) 1 % (0-1); EOSINOPHILS % (AUTO) 22 % (1-7); LYMPHOCYTES % (AUTO) 36 % (22-44); MEAN CORPUSCULAR HEMOGLOBIN 33.2 pg (27.5-34.5); MEAN CORPUSCULAR HGB CONC 33.7 g/dL (33.2-36.2); MEAN PLATELET VOLUME 6.8 fL (7.4-10.4); MONOCYTES % (AUTO) 9 % (2-9); NEUTROPHILS % (AUTO) 32 % (42-75); PLATELET COUNT 284 x10^3/uL (130-400); RED CELL DISTRIBUTION WIDTH 14.7 % (9.4-14.8)
--- NOTE | 2020-02-12 23:34 | NUR ---
PT STATED BEING ANXIOUS, ERP UPDATED AND PT MEDICATED PER EMAR.
[2020-02-12 23:40] LABS: ALBUMIN 3.6 g/dL (3.4-5.0); ANION GAP 3 mmol/L (5-15); CALCIUM 8.3 mg/dL (8.5-10.1); CHLORIDE 107 mmol/L (98-107); CREATININE 0.72 mg/dL (0.7-1.3)
[2020-02-12 23:43] LABS: TROPONIN I < 0.015 ng/mL (0.000-0.045)
[2020-02-13] MEDS ORDERED: LORazepam 1MG TABLET PO ONE
[2020-02-13 00:23] LABS: MD SCAN
[2020-02-13 00:56] VITALS: BP 115/77
--- NOTE | 2020-02-13 01:10 | NUR ---
PRIOR TO D/C O2 REMOVED TO ENSURE PT. CAN MAINTAIN O2 SAT >90% FOR TAXI RIDE HOME. O2 REMIANED >95% WITH O2 OFF FOR 5 MINUTES. O2 TO BE USED UNTIL TAXI ARRIVES FOR PT. RIDE HOME. PT. STATES HE WILL PUT ON HIS O2 UPON ARRIAL TO HOME.
== END 2020-02-13 01:25 | disposition home or self-care (01) ==
LOC: ED 23:46
DX: J44.1 Chronic obstructive pulmonary disease with (acute) exacerbation (principal); F17.210 Nicotine dependence, cigarettes, uncomplicated; I10 Essential (primary) hypertension; E11.9 Type 2 diabetes mellitus without complications; G40.909 Epilepsy, unspecified, not intractable, without status epilepticus; E03.9 Hypothyroidism, unspecified
CPT/HCPCS: 36415; 71045; 80048; 82040; 84484; 85025; 93005; 94640; 99285; 99406; J7512; J7613

== ENCOUNTER 2020-02-21 21:29 | Inpatient (IN) | payer MEDICAID ==
[~2020-02-21] VITALS: Ht 185.4 cm; Wt 73.3 kg
--- NOTE | 2020-02-21 21:30 | NUR ---
pt BIB LEANDRO into ed today due to COPD exacerbation, states he was here recently with pneumonia, SOB started yesterday and has been worsening. Pt reports 3-4L NC at home 23/11. pt was able to stand and transfer to bed with assist. pt has a productive cough, provided spit bag for phelgm. pt NAD. pt reports using albuterol inhaler and 3-4 neb treatments at home prior to arrival. found by [facility] at 88% RA pt placed on SPO2/BP/ECG monitoring
[2020-02-21] MEDS ORDERED: ALBUTEROL/IPRATROPIUM 2.5MG/0.5MG, 3 ML ONE ×2 (21:43→21:46)
[2020-02-21] MEDS ORDERED: ALBUTEROL SULFATE 2.5MG/0.5ML ONE (21:46)
[2020-02-21] MEDS ORDERED: ALBUTEROL/IPRATROPIUM 2.5MG/0.5MG, 3 ML NPPB ONE (22:00)
[2020-02-21] MEDS ORDERED: ALBUTEROL SULFATE 2.5 MG/3 ML NPPB ONE ×2 (22:00→23:00)
[2020-02-21 22:17] LABS: MEAN CORPUSCULAR HEMOGLOBIN 33.2 pg (27.5-34.5); MEAN CORPUSCULAR HGB CONC 33.6 g/dL (33.2-36.2); MEAN PLATELET VOLUME 6.7 fL (7.4-10.4); PLATELET COUNT 272 x10^3/uL (130-400); RED BLOOD COUNT 3.51 x10^6/uL (4.38-5.82); RED CELL DISTRIBUTION WIDTH 14.7 % (9.4-14.8)
[2020-02-21 22:27] LABS: ANION GAP 5 mmol/L (5-15); CALCIUM 8.3 mg/dL (8.5-10.1); CHLORIDE 107 mmol/L (98-107); CREATININE 0.66 mg/dL (0.7-1.3)
[2020-02-21 22:44] LABS: MD YES
[2020-02-21 22:48] LABS: BASOS#(MANUAL) 0.14 x10^3/uL (0-0.1); BASOS% (MANUAL) 2 % (0-1); EOS#(MANUAL) 1.66 x10^3/uL (0.0-0.4); EOS% (MANUAL) 24 % (1-7); LYMPH#(MANUAL) 2.69 x10^3/uL (1-3.4); LYMPHS% (MANUAL) 39 % (22-44); MONOS#(MANUAL) 0.35 x10^3/uL (0.3-2.7); MONOS% (MANUAL) 5 % (2-9); SEG#(MANUAL) 2.07 x10^3/uL (1.8-6.8); SEGS% (MANUAL) 30 % (42-75)
[2020-02-21 22:49] LABS: <PLATELET ESTIMATE> ADEQUATE; ANISOCYTOSIS 1+; SMALL PLATELETS 1+
[2020-02-21] MEDS ORDERED: SODIUM CHLORIDE 0.9% 1,000ML IVBOLUS ONE (23:00)
[2020-02-21] MEDS ORDERED: methylPREDNISolone SOD SUCC 125 MG/2 ML ONE (23:00)
[2020-02-21] MEDS ORDERED: methylPREDNISolone SOD SUCC 125 MG/2 ML IVPush SCH (23:00)
[2020-02-21] MEDS: OLANZAPINE 5 MG TABLET PO SCH (23:30)
[2020-02-21] MEDS ORDERED: ACETAMINOPHEN 325 MG TABLET PO PRN (23:30)
[2020-02-21] MEDS: MONTELUKAST 10 MG TABLET PO SCH (23:30)
[2020-02-21] MEDS ORDERED: ONDANSETRON ODT 4 MG PO PRN (23:30)
[2020-02-21] MEDS ORDERED: POLYETHYLENE GLYCOL 17 GM PACKET PO PRN (23:30)
[2020-02-21] MEDS ORDERED: GUAIFENESIN/DM 200-20MG, 10ML UDC PO PRN (23:30)
[2020-02-21] MEDS: methylPREDNISolone SOD SUCC 125 MG/2 ML IVPush SCH (23:30)
[2020-02-21] MEDS ORDERED: BISACODYL 10 MG SUPP PR PRN (23:30)
[2020-02-21] MEDS ORDERED: PHENYTOIN SODIUM 200 MG PO SCH (23:30)
[2020-02-21] MEDS ORDERED: MIRTAZAPINE 7.5 MG PO SCH (23:30)
[2020-02-22] MEDS ORDERED: ALBUTEROL HFA 90 MCG/SPRAY INH PRN
--- NOTE | 2020-02-22 00:48 | NUR ---
Patient was given a sandwich and juice. Offers no compalints. Called housekeeping at this time for a hospital bed.
[2020-02-22] MEDS: SODIUM CHLORIDE FLUSH 10ML SYR IVF SCH ×3 (00:49→21:38)
[2020-02-22] MEDS ORDERED: HEPARIN 5,000 UNITS/ML, 1ML ONE ×2 (01:23→10:13)
[2020-02-22] MEDS: HEPARIN 5,000 UNITS/ML, 1ML SQ SCH ×3 (01:36→15:56)
--- NOTE | 2020-02-22 01:45 | NUR ---
Law RN: Pt transfered to hospital bed. Pt able to ambulate chair with standby assist. Pt also medicated per EMAR. Lights turned out for comfort, call light with in reach.
[2020-02-22 04:36] LABS: BASOPHILS % (AUTO) 1 % (0-1); EOSINOPHILS % (AUTO) 1 % (1-7); LYMPHOCYTES % (AUTO) 14 % (22-44); MEAN CORPUSCULAR HGB CONC 33.6 g/dL (33.2-36.2); MEAN PLATELET VOLUME 6.5 fL (7.4-10.4); MONOCYTES % (AUTO) 3 % (2-9); NEUTROPHILS % (AUTO) 81 % (42-75); PLATELET COUNT 256 x10^3/uL (130-400); RED BLOOD COUNT 3.53 x10^6/uL (4.38-5.82); RED CELL DISTRIBUTION WIDTH 14.7 % (9.4-14.8)
[2020-02-22 04:38] LABS: MD NO
[2020-02-22 04:46] LABS: ANION GAP 4 mmol/L (5-15); CALCIUM 8.4 mg/dL (8.5-10.1); CHLORIDE 110 mmol/L (98-107); CREATININE 0.73 mg/dL (0.7-1.3)
--- NOTE | 2020-02-22 06:41 | NUR ---
Glycerin Supervisor sent request to pharmacy for all daily meds at this time, d/t being a hold patient in the ER
[2020-02-22] MEDS ORDERED: ALBUTEROL HFA 90 MCG/SPRAY INH SCH (07:00)
[2020-02-22] MEDS: FLUTICASONE/VILANTEROL 100-25MCG/INH INH SCH (08:53)
[2020-02-22] MEDS: LEVOTHYROXINE 25 MCG TABLET PO SCH (08:54)
[2020-02-22] MEDS: NALTREXONE HCL 50 MG TABLET PO SCH (08:54)
[2020-02-22] MEDS ORDERED: SALMETEROL 50 MCG INH SCH (09:00)
[2020-02-22] MEDS ORDERED: SODIUM CHLORIDE 0.9% 500 ML IV ONE (09:00)
[2020-02-22] MEDS: ALBUTEROL-IPRATROPIUM MDI INH INH SCH ×4 (09:00→21:00)
[2020-02-22] MEDS: PHENYTOIN 100 MG CAPSULE PO SCH ×3 (09:00→21:40)
[2020-02-22] MEDS ORDERED: FLUTICASONE/VILANTEROL 100-25MCG/INH INH SCH (09:00)
[2020-02-22] MEDS ORDERED: SODIUM CHLORIDE 0.9% 1,000 ML IV SCH (09:00)
[2020-02-22] MEDS ORDERED: LOSARTAN 50MG TABLET PO SCH (09:00)
[2020-02-22 09:07] VITALS: BP 111/66
[2020-02-22] MEDS ORDERED: PHEN100C PO (09:17)
[2020-02-22] MEDS ORDERED: methylPREDNISolone SOD SUCC 125 MG/2 ML ONE ×2 (10:12→10:16)
[2020-02-22] MEDS ORDERED: TAMSULOSIN 0.4 MG CAP.ER.24H ONE (10:13)
[2020-02-22] MEDS ORDERED: THIAMINE 100MG TABLET ONE (10:13)
[2020-02-22] MEDS ORDERED: PHENYTOIN 100 MG CAPSULE ONE ×2 (10:13→12:40)
[2020-02-22] MEDS ORDERED: SENNA/DOCUSATE TABLET ONE (10:13)
[2020-02-22] MEDS ORDERED: OLANZAPINE 5 MG TABLET ONE (10:13)
[2020-02-22] MEDS: methylPREDNISolone SOD SUCC 125 MG/2 ML IVPush SCH ×2 (10:22→21:38)
[2020-02-22] MEDS: OLANZAPINE 5 MG TABLET PO SCH ×2 (10:23→21:38)
[2020-02-22] MEDS: THIAMINE 100MG TABLET PO SCH (10:23)
[2020-02-22] MEDS: TAMSULOSIN 0.4 MG CAP.ER.24H PO SCH (10:23)
[2020-02-22] MEDS: SENNA/DOCUSATE TABLET PO SCH (10:24)
[2020-02-22] MEDS ORDERED: GUAIFENESIN 200 MG TABLET ONE ×2 (12:08→12:40)
[2020-02-22] MEDS: GUAIFENESIN 200 MG TABLET PO SCH ×3 (12:19→21:40)
[2020-02-22 13:36] VITALS: BP 111/66
[2020-02-22] MEDS ORDERED: FLU VACC QS2020-21(6MOS UP)/PF 60MCG/0.5 ML SYR IM ONE ×2 (14:00→15:00)
[2020-02-22 14:14] VITALS: BP 121/65
--- NOTE | 2020-02-22 14:18 | NUR ---
BREAK RN: REPORT RECEIVED FROM PRIMARY RN, PATIENT RESTING IN [facility], NO SIGNS OF ACUTE DISTRESS, WAITING FOR STAFF TO TRANSPORT TO FLOOR.
--- NOTE | 2020-02-22 14:34 | NUR ---
Patient transferred to floor via gurney with geothermal technician, all patient belongings taken to floor with patient.
[2020-02-22 19:21] VITALS: BP 100/60
[2020-02-22] MEDS: MONTELUKAST 10 MG TABLET PO SCH (21:39)
[2020-02-22] MEDS: AMOXICILLIN/CLAV 875-125MG TABLET PO SCH (21:39)
[2020-02-22] MEDS: MIRTAZAPINE 15 MG TABLET PO SCH (21:39)
[2020-02-22] MEDS: DOXYCYCLINE 100MG TABLET PO SCH (21:41)
[2020-02-23] MEDS: HEPARIN 5,000 UNITS/ML, 1ML SQ SCH ×3 (00:02→15:07)
[2020-02-23 00:06] VITALS: BP 116/75
[2020-02-23] MEDS: ALBUTEROL-IPRATROPIUM MDI INH INH SCH ×5 (03:00→19:28)
[2020-02-23] MEDS: methylPREDNISolone SOD SUCC 125 MG/2 ML IVPush SCH ×4 (03:09→21:03)
[2020-02-23] MEDS: GUAIFENESIN 200 MG TABLET PO SCH ×4 (06:24→21:01)
[2020-02-23] MEDS: LEVOTHYROXINE 25 MCG TABLET PO SCH (06:24)
[2020-02-23] MEDS: OLANZAPINE 5 MG TABLET PO SCH ×2 (08:52→21:28)
[2020-02-23] MEDS: TAMSULOSIN 0.4 MG CAP.ER.24H PO SCH (08:52)
[2020-02-23] MEDS: PHENYTOIN 100 MG CAPSULE PO SCH ×4 (08:52→21:02)
[2020-02-23] MEDS: SENNA/DOCUSATE TABLET PO SCH (08:52)
[2020-02-23] MEDS: DOXYCYCLINE 100MG TABLET PO SCH ×2 (08:52→21:03)
[2020-02-23] MEDS: AMOXICILLIN/CLAV 875-125MG TABLET PO SCH ×2 (08:53→21:02)
[2020-02-23] MEDS: THIAMINE 100MG TABLET PO SCH (08:53)
[2020-02-23] MEDS: SODIUM CHLORIDE FLUSH 10ML SYR IVF SCH ×2 (08:55→21:00)
[2020-02-23] MEDS: FLUTICASONE/VILANTEROL 100-25MCG/INH INH SCH (09:00)
[2020-02-23] MEDS: NALTREXONE HCL 50 MG TABLET PO SCH (09:00)
[2020-02-23 12:29] VITALS: BP 107/64
[2020-02-23 17:32] VITALS: BP 102/62
[2020-02-23 19:41] VITALS: BP 101/68
[2020-02-23] MEDS: MIRTAZAPINE 15 MG TABLET PO SCH (21:02)
[2020-02-23] MEDS: MONTELUKAST 10 MG TABLET PO SCH (21:02)
[2020-02-23] MEDS ORDERED: OLANZAPINE 10 MG TABLET ONE (21:26)
[2020-02-24] MEDS: HEPARIN 5,000 UNITS/ML, 1ML SQ SCH ×4 (00:03→23:44)
[2020-02-24 01:39] VITALS: BP 110/65
[2020-02-24] MEDS: methylPREDNISolone SOD SUCC 125 MG/2 ML IVPush SCH ×4 (02:59→22:56)
[2020-02-24] MEDS: LEVOTHYROXINE 25 MCG TABLET PO SCH (05:53)
[2020-02-24] MEDS: GUAIFENESIN 200 MG TABLET PO SCH ×4 (05:53→21:42)
[2020-02-24 06:40] VITALS: BP 92/53
[2020-02-24] MEDS: FLUTICASONE/VILANTEROL 100-25MCG/INH INH SCH (06:50)
[2020-02-24] MEDS: ALBUTEROL-IPRATROPIUM MDI INH INH SCH ×4 (06:50→19:29)
[2020-02-24] MEDS: SENNA/DOCUSATE TABLET PO SCH (08:24)
[2020-02-24] MEDS: TAMSULOSIN 0.4 MG CAP.ER.24H PO SCH (08:24)
[2020-02-24] MEDS: AMOXICILLIN/CLAV 875-125MG TABLET PO SCH ×2 (08:24→21:42)
[2020-02-24] MEDS: DOXYCYCLINE 100MG TABLET PO SCH ×2 (08:25→21:42)
[2020-02-24] MEDS: PHENYTOIN 100 MG CAPSULE PO SCH ×3 (08:25→21:42)
[2020-02-24] MEDS: THIAMINE 100MG TABLET PO SCH (08:25)
[2020-02-24] MEDS: OLANZAPINE 5 MG TABLET PO SCH ×2 (08:25→21:42)
[2020-02-24] MEDS: NALTREXONE HCL 50 MG TABLET PO SCH (08:26)
[2020-02-24] MEDS: SODIUM CHLORIDE FLUSH 10ML SYR IVF SCH ×2 (11:41→21:46)
[2020-02-24 14:10] VITALS: BP 99/64
[2020-02-24] MEDS ORDERED: MAGNESIUM CITRATE 300ML ORAL SOL PO ONE (14:30)
[2020-02-24 18:55] VITALS: BP 117/66
[2020-02-24] MEDS: MIRTAZAPINE 15 MG TABLET PO SCH (21:43)
[2020-02-24] MEDS: MONTELUKAST 10 MG TABLET PO SCH (21:43)
[2020-02-25 02:54] VITALS: BP 106/68
[2020-02-25 05:14] VITALS: BP 112/67
[2020-02-25] MEDS: methylPREDNISolone SOD SUCC 125 MG/2 ML IVPush SCH ×4 (05:15→21:25)
[2020-02-25] MEDS: LEVOTHYROXINE 25 MCG TABLET PO SCH (05:15)
[2020-02-25] MEDS: GUAIFENESIN 200 MG TABLET PO SCH ×4 (05:15→21:23)
[2020-02-25 06:47] VITALS: BP 120/76
[2020-02-25] MEDS: HEPARIN 5,000 UNITS/ML, 1ML SQ SCH ×3 (07:54→23:34)
[2020-02-25] MEDS: ALBUTEROL-IPRATROPIUM MDI INH INH SCH ×4 (07:55→19:30)
[2020-02-25] MEDS: FLUTICASONE/VILANTEROL 100-25MCG/INH INH SCH ×2 (09:00→10:17)
[2020-02-25] MEDS: SODIUM CHLORIDE FLUSH 10ML SYR IVF SCH ×2 (10:11→21:25)
[2020-02-25] MEDS: DOXYCYCLINE 100MG TABLET PO SCH ×2 (10:11→21:23)
[2020-02-25] MEDS: AMOXICILLIN/CLAV 875-125MG TABLET PO SCH ×2 (10:11→21:23)
[2020-02-25] MEDS: TAMSULOSIN 0.4 MG CAP.ER.24H PO SCH (10:11)
[2020-02-25] MEDS: SENNA/DOCUSATE TABLET PO SCH (10:11)
[2020-02-25] MEDS: OLANZAPINE 5 MG TABLET PO SCH ×2 (10:12→21:24)
[2020-02-25] MEDS: PHENYTOIN 100 MG CAPSULE PO SCH ×3 (10:12→21:25)
[2020-02-25] MEDS: THIAMINE 100MG TABLET PO SCH (10:13)
[2020-02-25] MEDS: NALTREXONE HCL 50 MG TABLET PO SCH (10:17)
[2020-02-25 12:48] VITALS: BP 105/59
[2020-02-25 19:34] VITALS: BP 112/68
[2020-02-25] MEDS: MONTELUKAST 10 MG TABLET PO SCH (21:23)
[2020-02-25] MEDS: MIRTAZAPINE 15 MG TABLET PO SCH (21:24)
[2020-02-26 03:36] VITALS: BP 102/59
[2020-02-26] MEDS: methylPREDNISolone SOD SUCC 125 MG/2 ML IVPush SCH ×2 (03:36→08:06)
[2020-02-26 05:22] LABS: BASOPHILS % (AUTO) 0 % (0-1); EOSINOPHILS % (AUTO) 0 % (1-7); LYMPHOCYTES % (AUTO) 19 % (22-44); MEAN CORPUSCULAR HEMOGLOBIN 33.1 pg (27.5-34.5); MEAN CORPUSCULAR HGB CONC 33.4 g/dL (33.2-36.2); MEAN PLATELET VOLUME 7.1 fL (7.4-10.4); MONOCYTES % (AUTO) 6 % (2-9); NEUTROPHILS % (AUTO) 75 % (42-75); PLATELET COUNT 260 x10^3/uL (130-400); RED BLOOD COUNT 3.48 x10^6/uL (4.38-5.82); RED CELL DISTRIBUTION WIDTH 15.5 % (9.4-14.8)
[2020-02-26 05:28] LABS: MD NO
[2020-02-26 05:33] LABS: ALBUMIN 3.1 g/dL (3.4-5.0); CALCIUM 8.5 mg/dL (8.5-10.1); CHLORIDE 106 mmol/L (98-107); CREATININE 0.67 mg/dL (0.7-1.3)
[2020-02-26 05:39] LABS: ALANINE AMINOTRANSFERASE 15 U/L (12-78); ALKALINE PHOSPHATASE 95 U/L (45-117); ANION GAP 4 mmol/L (5-15); BILIRUBIN,TOTAL 0.2 mg/dL (0.2-1.0)
[2020-02-26] MEDS: GUAIFENESIN 200 MG TABLET PO SCH ×4 (06:20→20:10)
[2020-02-26] MEDS: LEVOTHYROXINE 25 MCG TABLET PO SCH (06:20)
[2020-02-26] MEDS: FLUTICASONE/VILANTEROL 100-25MCG/INH INH SCH (07:20)
[2020-02-26] MEDS: ALBUTEROL-IPRATROPIUM MDI INH INH SCH ×4 (07:20→19:38)
[2020-02-26 08:00] VITALS: BP 118/70
[2020-02-26] MEDS: HEPARIN 5,000 UNITS/ML, 1ML SQ SCH ×3 (08:05→23:37)
[2020-02-26] MEDS: THIAMINE 100MG TABLET PO SCH (08:06)
[2020-02-26] MEDS: AMOXICILLIN/CLAV 875-125MG TABLET PO SCH ×2 (08:06→20:10)
[2020-02-26] MEDS: OLANZAPINE 5 MG TABLET PO SCH ×2 (08:06→20:12)
[2020-02-26] MEDS: TAMSULOSIN 0.4 MG CAP.ER.24H PO SCH (08:07)
[2020-02-26] MEDS: DOXYCYCLINE 100MG TABLET PO SCH ×2 (08:07→20:12)
[2020-02-26] MEDS: SENNA/DOCUSATE TABLET PO SCH (08:07)
[2020-02-26] MEDS: SODIUM CHLORIDE FLUSH 10ML SYR IVF SCH ×2 (08:08→20:10)
[2020-02-26] MEDS: NALTREXONE HCL 50 MG TABLET PO SCH (08:08)
[2020-02-26] MEDS: PHENYTOIN 100 MG CAPSULE PO SCH ×3 (09:00→20:11)
[2020-02-26] MEDS ORDERED: CYANOCOBALAMIN 1,000 MCG/ML, 1ML IM ONE (10:00)
[2020-02-26] MEDS: CHOLECALCIFEROL 5,000u TAB PO SCH (11:12)
[2020-02-26] MEDS: ZINC SULFATE 220 MG CAPSULE PO SCH (11:12)
[2020-02-26] MEDS: ASCORBIC ACID 500 MG TABLET PO SCH ×2 (11:13→16:18)
[2020-02-26 13:27] VITALS: BP 106/58
[2020-02-26 20:05] VITALS: BP 101/59
[2020-02-26] MEDS: MIRTAZAPINE 15 MG TABLET PO SCH (20:11)
[2020-02-26] MEDS: MONTELUKAST 10 MG TABLET PO SCH (20:12)
[2020-02-27 03:30] VITALS: BP 103/67
[2020-02-27] MEDS: LEVOTHYROXINE 25 MCG TABLET PO SCH (05:42)
[2020-02-27] MEDS: GUAIFENESIN 200 MG TABLET PO SCH ×2 (05:42→11:23)
[2020-02-27] MEDS: ALBUTEROL-IPRATROPIUM MDI INH INH SCH ×2 (07:28→10:36)
[2020-02-27 08:21] VITALS: BP 102/62
[2020-02-27] MEDS: SENNA/DOCUSATE TABLET PO SCH (09:00)
[2020-02-27] MEDS: NALTREXONE HCL 50 MG TABLET PO SCH (09:00)
[2020-02-27] MEDS: THIAMINE 100MG TABLET PO SCH (09:05)
[2020-02-27] MEDS: HEPARIN 5,000 UNITS/ML, 1ML SQ SCH (09:05)
[2020-02-27] MEDS: ZINC SULFATE 220 MG CAPSULE PO SCH (09:06)
[2020-02-27] MEDS: DOXYCYCLINE 100MG TABLET PO SCH (09:06)
[2020-02-27] MEDS: AMOXICILLIN/CLAV 875-125MG TABLET PO SCH (09:06)
[2020-02-27] MEDS: OLANZAPINE 5 MG TABLET PO SCH (09:06)
[2020-02-27] MEDS: ASCORBIC ACID 500 MG TABLET PO SCH (09:06)
[2020-02-27] MEDS: TAMSULOSIN 0.4 MG CAP.ER.24H PO SCH (09:06)
[2020-02-27] MEDS: SODIUM CHLORIDE FLUSH 10ML SYR IVF SCH (09:07)
[2020-02-27] MEDS: PHENYTOIN 100 MG CAPSULE PO SCH ×2 (09:07→11:23)
[2020-02-27] MEDS: CHOLECALCIFEROL 5,000u TAB PO SCH (09:07)
[2020-02-27] MEDS ORDERED: ALBU18HF INH (09:12)
[2020-02-27] MEDS ORDERED: FLUT1AER INH (09:12)
[2020-02-27] MEDS ORDERED: PRED20TA PO (09:12)
[2020-02-27] MEDS: FLUTICASONE/VILANTEROL 100-25MCG/INH INH SCH (10:36)
== END 2020-02-27 12:25 | disposition home or self-care (01) | DRG 202 ==
LOC: ED 21:41 → EDIP 23:13 → 4NE 02-22 14:32 → 4NW 02-23 15:43 → DCLOUNGE 02-27 12:12
PROVIDERS: ADMIT Internal Medicine; ATTEND Family Medicine
DX: J20.9 Acute bronchitis, unspecified (principal); J44.1 Chronic obstructive pulmonary disease with (acute) exacerbation; J96.11 Chronic respiratory failure with hypoxia; E03.9 Hypothyroidism, unspecified; E11.9 Type 2 diabetes mellitus without complications; F10.10 Alcohol abuse, uncomplicated; D50.9 Iron deficiency anemia, unspecified; D53.9 Nutritional anemia, unspecified; F17.210 Nicotine dependence, cigarettes, uncomplicated; F31.9 Bipolar disorder, unspecified; F41.9 Anxiety disorder, unspecified; G40.909 Epilepsy, unspecified, not intractable, without status epilepticus; I10 Essential (primary) hypertension; K59.00 Constipation, unspecified; Z66 Do not resuscitate; F10.129 Alcohol abuse with intoxication, unspecified; N40.0 Benign prostatic hyperplasia without lower urinary tract symptoms; Q65.89 Other specified congenital deformities of hip; Z82.49 Family history of ischemic heart disease and other diseases of the circulatory system; Z82.5 Family history of asthma and other chronic lower respiratory diseases; Z83.3 Family history of diabetes mellitus; Z71.6 Tobacco abuse counseling; Z79.899 Other long term (current) drug therapy; Z79.891 Long term (current) use of opiate analgesic; Z79.01 Long term (current) use of anticoagulants
CPT/HCPCS: 36415; 96374; 99285; J7613; 71045; 80048; 80053; 80185; 80307; 82607; 83735; 84443; 85025; 85379; 90686; 94640; G0378; J1644; J2930; J3420; J7030; J7040; J7512

== ENCOUNTER 2020-03-25 07:48 | Inpatient (IN) | payer MEDICAID ==
[~2020-03-25] VITALS: Ht 182.9 cm; Wt 73.5 kg
[~2020-03-25 07:48] MED LIST changes: +FLUT1AER INH
--- NOTE | 2020-03-25 08:15 | NUR ---
Pt BIBA for new onset of tremors, per family. EMS states that pt has HX of agressive behaviors, pt currently states "I dont feel good", and "leave me alone". Refusing to don hospital gown. Pt refusing to answer any other questions.
[2020-03-25] MEDS ORDERED: LORazepam 2 MG/ML, 1ML IVPush ONE ×2 (08:30→09:00)
[2020-03-25] MEDS ORDERED: THIAMINE 100 MG in SODIUM CHLORIDE 0.9% 50 ML IVPB ONE (08:30)
[2020-03-25] MEDS ORDERED: SODIUM CHLORIDE FLUSH 10ML SYR IVF ONE (08:30)
[2020-03-25] MEDS ORDERED: LORazepam 2 MG/ML, 1ML ONE ×2 (08:41→09:58)
[2020-03-25 08:48] LABS: BASOPHILS % (AUTO) 1 % (0-1); EOSINOPHILS % (AUTO) 2 % (1-7); LYMPHOCYTES % (AUTO) 20 % (22-44); MEAN CORPUSCULAR HEMOGLOBIN 33.6 pg (27.5-34.5); MEAN CORPUSCULAR HGB CONC 33.9 g/dL (33.2-36.2); MONOCYTES % (AUTO) 7 % (2-9); NEUTROPHILS % (AUTO) 69 % (42-75); PLATELET COUNT 372 x10^3/uL (130-400); RED BLOOD COUNT 3.98 x10^6/uL (4.38-5.82); RED CELL DISTRIBUTION WIDTH 14.3 % (9.4-14.8)
[2020-03-25 09:00] LABS: MD NO
[2020-03-25] MEDS ORDERED: LORazepam 2 MG/ML, 1ML IVPush PRN (09:00)
[2020-03-25 09:02] LABS: ALANINE AMINOTRANSFERASE 19 U/L (12-78); ALBUMIN 4.2 g/dL (3.4-5.0); ANION GAP 9 mmol/L (5-15); CALCIUM 8.8 mg/dL (8.5-10.1); CHLORIDE 110 mmol/L (98-107); CREATININE 0.89 mg/dL (0.7-1.3)
[2020-03-25 09:12] LABS: ALKALINE PHOSPHATASE 128 U/L (45-117); BILIRUBIN,TOTAL 0.2 mg/dL (0.2-1.0); TOTAL PROTEIN 7.7 g/dL (6.4-8.2)
--- NOTE | 2020-03-25 09:23 | NUR ---
Pt more uncooperative, attempting to get out of bed, pt not coherent with his words. Given Ativan per ERP. ERP at bedside.
[2020-03-25 09:26] LABS: SALICYLATE LEVEL < 1.7 mg/dL (2.8-20.0)
[2020-03-25] MEDS ORDERED: LACTULOSE 3.3 GM/5 ML ORAL.SOL RC ONE (09:30)
--- NOTE | 2020-03-25 09:35 | NUR ---
BG 90
[2020-03-25] MEDS ORDERED: ZIPRASIDONE 20 MG INJ IM ONE ×2 (09:57→10:00)
[2020-03-25] MEDS ORDERED: SODIUM CHLORIDE 0.9% 1,000ML IVBOLUS ONE (10:30)
--- NOTE | 2020-03-25 11:04 | NUR ---
Pt given more Ativan and Geodaon. EKG complete. Enema in progress. VS updated.
[2020-03-25] MEDS ORDERED: LORazepam 2 MG/ML, 1ML IV PRN ×3 (11:30)
[2020-03-25 11:34] LABS: INTERNATIONAL NORMALIZED RATIO 1.04 (0.93-1.1)
--- NOTE | 2020-03-25 12:01 | NUR ---
Lactulose enema complete, pt cleaned, linens changed. VS updated.
--- NOTE | 2020-03-25 12:45 | NUR ---
LUNCH RN: PT RESTING IN [facility]. UE TREMOR NOTED. US AT BEDSIDE.
[2020-03-25] MEDS ORDERED: ENOXAPARIN 40 MG/0.4 ML ONE (13:41)
[2020-03-25] MEDS: ENOXAPARIN 40 MG/0.4 ML SQ SCH (13:48)
--- NOTE | 2020-03-25 13:54 | NUR ---
Bolus infusing, pt sleeping. Less tremulous. VS updated.
[2020-03-25] MEDS ORDERED: THIAMINE 200 MG in DEXTROSE 5% 50 ML IVPB ONE (14:02)
[2020-03-25 16:10] VITALS: BP 153/78
[2020-03-25] MEDS: SODIUM CHLORIDE 0.9% 1,000 ML IV SCH (17:18)
[2020-03-25] MEDS: RIFAXIMIN 200 MG TABLET PO SCH ×2 (17:18→21:03)
[2020-03-25] MEDS: LACTULOSE 20 GM/30 ML UDC PO SCH ×2 (17:18→21:04)
[2020-03-25 18:44] VITALS: BP 137/88
[2020-03-25] MEDS ORDERED: MIRTAZAPINE 15 MG TAB.RAPDIS PO SCH (21:00)
[2020-03-25] MEDS ORDERED: PHENYTOIN 100 MG CAPSULE PO SCH (21:00)
[2020-03-25] MEDS: OLANZAPINE 5 MG TABLET PO SCH (21:03)
[2020-03-25 23:17] LABS: AMPHETAMINE SCREEN, URINE Negative (Negative); BARBITURATE SCREEN, URINE Negative (Negative); BENZODIAZEPINE SCREEN, URINE Negative (Negative); CANNABINOID SCREEN, URINE Negative (Negative); COCAINE SCREEN, URINE Negative (Negative); METHADONE SCREEN, URINE Negative (Negative); OPIATE SCREEN, URINE Negative (Negative)
[2020-03-26 00:44] VITALS: BP 134/80
[2020-03-26] MEDS: LORazepam 2 MG/ML, 1ML IV PRN ×7 (02:14→21:22)
[2020-03-26] MEDS: SODIUM CHLORIDE 0.9% 1,000 ML IV SCH ×2 (02:45→11:44)
[2020-03-26 05:58] LABS: MICROSCOPIC AUTO
[2020-03-26] MEDS ORDERED: LEVOTHYROXINE 25 MCG TABLET PO SCH (06:00)
[2020-03-26 07:45] VITALS: BP 139/76
[2020-03-26 07:54] LABS: BASOPHILS % (AUTO) 1 % (0-1); EOSINOPHILS % (AUTO) 7 % (1-7); LYMPHOCYTES % (AUTO) 32 % (22-44); MEAN CORPUSCULAR HEMOGLOBIN 34.2 pg (27.5-34.5); MEAN CORPUSCULAR HGB CONC 34.7 g/dL (33.2-36.2); MEAN PLATELET VOLUME 6.8 fL (7.4-10.4); MONOCYTES % (AUTO) 10 % (2-9); NEUTROPHILS % (AUTO) 50 % (42-75); PLATELET COUNT 310 x10^3/uL (130-400); RED BLOOD COUNT 3.42 x10^6/uL (4.38-5.82); RED CELL DISTRIBUTION WIDTH 14.6 % (9.4-14.8)
[2020-03-26 08:00] LABS: MD NO
[2020-03-26 08:02] LABS: CALCIUM 9.2 mg/dL (8.5-10.1); CHLORIDE 114 mmol/L (98-107)
[2020-03-26 08:08] LABS: ALANINE AMINOTRANSFERASE 16 U/L (12-78); ALBUMIN 3.5 g/dL (3.4-5.0); ALKALINE PHOSPHATASE 128 U/L (45-117); ANION GAP 6 mmol/L (5-15); BILIRUBIN,TOTAL 0.5 mg/dL (0.2-1.0); CREATININE 0.73 mg/dL (0.7-1.3); TOTAL PROTEIN 6.5 g/dL (6.4-8.2)
[2020-03-26] MEDS: OLANZAPINE 5 MG TABLET PO SCH (08:36)
[2020-03-26] MEDS: LACTULOSE 20 GM/30 ML UDC PO SCH ×2 (08:36→14:09)
[2020-03-26] MEDS: MULTIVITAMINS/MINERALS TABLET PO SCH (08:36)
[2020-03-26] MEDS: RIFAXIMIN 200 MG TABLET PO SCH ×2 (08:36→14:09)
[2020-03-26] MEDS: LOSARTAN 50MG TABLET PO SCH (08:37)
[2020-03-26] MEDS ORDERED: FOLIC ACID 1 MG TABLET PO SCH (09:00)
[2020-03-26] MEDS ORDERED: TAMSULOSIN 0.4 MG CAP.ER.24H PO SCH (09:00)
[2020-03-26] MEDS ORDERED: THIAMINE 100MG TABLET PO SCH (09:00)
[2020-03-26] MEDS ORDERED: PHENYTOIN 100 MG CAPSULE PO SCH ×2 (09:00→12:00)
[2020-03-26] MEDS: FLUTICASONE FUROATE 100MCG/INH INH SCH (09:35)
[2020-03-26] MEDS: ENOXAPARIN 40 MG/0.4 ML SQ SCH (11:00)
[2020-03-26 11:42] LABS: MICROSCOPIC AUTO
[2020-03-26 11:53] LABS: AMPHETAMINE SCREEN, URINE Negative (Negative); BARBITURATE SCREEN, URINE Negative (Negative); BENZODIAZEPINE SCREEN, URINE Negative (Negative); CANNABINOID SCREEN, URINE Negative (Negative); COCAINE SCREEN, URINE Negative (Negative); METHADONE SCREEN, URINE Negative (Negative); OPIATE SCREEN, URINE Negative (Negative)
[2020-03-26 12:28] VITALS: BP 151/97
--- NOTE | 2020-03-26 12:30 | NUR ---
NPO - PARALLEL COMPUTING SOFTWARE ENGINEER PLACED SWALLOW PRECAUTION SIGN AT HOB Addendum: 03/26/20 at 1230 by Olga BEAR Amended: Links added.
[2020-03-26] MEDS ORDERED: LACTULOSE 3.3 GM/5 ML ORAL.SOL RC ONE ×2 (15:30→21:00)
[2020-03-26] MEDS ORDERED: THIAMINE 100 MG in SODIUM CHLORIDE 0.9% 50 ML IV SCH (15:30)
[2020-03-26] MEDS: PHENYTOIN SODIUM 50 MG/ML, 2ML IVPush SCH ×2 (17:38→19:49)
[2020-03-26] MEDS: D5%-0.9% NACL 1,000 ML IV SCH (17:40)
[2020-03-26 20:02] VITALS: BP 150/84
[2020-03-27] MEDS: LORazepam 2 MG/ML, 1ML IV PRN ×3 (00:12→06:31)
[2020-03-27 01:55] VITALS: BP 148/87
[2020-03-27 06:08] LABS: BASOPHILS % (AUTO) 1 % (0-1); EOSINOPHILS % (AUTO) 5 % (1-7); LYMPHOCYTES % (AUTO) 35 % (22-44); MEAN CORPUSCULAR HEMOGLOBIN 33.7 pg (27.5-34.5); MEAN CORPUSCULAR HGB CONC 34.4 g/dL (33.2-36.2); MEAN PLATELET VOLUME 7.3 fL (7.4-10.4); MONOCYTES % (AUTO) 12 % (2-9); NEUTROPHILS % (AUTO) 47 % (42-75); PLATELET COUNT 245 x10^3/uL (130-400); RED BLOOD COUNT 3.38 x10^6/uL (4.38-5.82); RED CELL DISTRIBUTION WIDTH 13.9 % (9.4-14.8)
[2020-03-27 06:09] LABS: MD NO
[2020-03-27 06:23] LABS: ALANINE AMINOTRANSFERASE 28 U/L (12-78); ALBUMIN 3.4 g/dL (3.4-5.0); ANION GAP 5 mmol/L (5-15); CALCIUM 7.9 mg/dL (8.5-10.1); CHLORIDE 112 mmol/L (98-107)
[2020-03-27 06:26] LABS: ALKALINE PHOSPHATASE 130 U/L (45-117); BILIRUBIN,TOTAL 0.4 mg/dL (0.2-1.0); TOTAL PROTEIN 6.1 g/dL (6.4-8.2)
[2020-03-27 06:50] VITALS: BP 146/61
[2020-03-27] MEDS: D5%-0.9% NACL 1,000 ML IV SCH ×2 (09:00→22:54)
[2020-03-27] MEDS: AMPICILLIN/SULBACTAM 3 GM in SODIUM CHLORIDE 0.9% 100 ML IV SCH ×4 (09:00→22:15)
[2020-03-27] MEDS: FLUTICASONE FUROATE 100MCG/INH INH SCH (09:00)
[2020-03-27] MEDS: MULTIVITAMINS/MINERALS TABLET PO SCH ×2 (09:00→09:13)
[2020-03-27] MEDS: LOSARTAN 50MG TABLET PO SCH (09:13)
[2020-03-27] MEDS: PHENYTOIN SODIUM 50 MG/ML, 2ML IVPush SCH (09:13)
[2020-03-27 11:31] VITALS: BP 151/81
[2020-03-27] MEDS: ENOXAPARIN 40 MG/0.4 ML SQ SCH (12:23)
[2020-03-27 14:00] VITALS: BP 143/78
[2020-03-27 20:13] VITALS: BP 138/75
[2020-03-27] MEDS: PHENYTOIN 100 MG CAPSULE PO SCH (21:00)
[2020-03-27] MEDS: LACTULOSE 20 GM/30 ML UDC PO SCH (21:00)
[2020-03-28 01:54] VITALS: BP 120/83
[2020-03-28] MEDS: AMPICILLIN/SULBACTAM 3 GM in SODIUM CHLORIDE 0.9% 100 ML IV SCH ×2 (04:09→10:00)
[2020-03-28 05:18] LABS: BASOPHILS % (AUTO) 1 % (0-1); EOSINOPHILS % (AUTO) 6 % (1-7); LYMPHOCYTES % (AUTO) 34 % (22-44); MEAN CORPUSCULAR HEMOGLOBIN 34.2 pg (27.5-34.5); MEAN CORPUSCULAR HGB CONC 34.8 g/dL (33.2-36.2); MEAN PLATELET VOLUME 7.4 fL (7.4-10.4); MONOCYTES % (AUTO) 13 % (2-9); NEUTROPHILS % (AUTO) 46 % (42-75); PLATELET COUNT 242 x10^3/uL (130-400)
[2020-03-28 05:23] LABS: MD NO
[2020-03-28 05:38] LABS: CHLORIDE 110 mmol/L (98-107)
[2020-03-28 05:47] LABS: ALANINE AMINOTRANSFERASE 24 U/L (12-78); ALKALINE PHOSPHATASE 123 U/L (45-117); ANION GAP 4 mmol/L (5-15); BILIRUBIN,TOTAL 0.3 mg/dL (0.2-1.0); CALCIUM 7.8 mg/dL (8.5-10.1); TOTAL PROTEIN 5.7 g/dL (6.4-8.2)
[2020-03-28 07:03] VITALS: BP 125/75
[2020-03-28] MEDS: PHENYTOIN 100 MG CAPSULE PO SCH ×3 (08:43→20:48)
[2020-03-28] MEDS: LACTULOSE 20 GM/30 ML UDC PO SCH ×3 (08:44→20:48)
[2020-03-28] MEDS: MULTIVITAMINS/MINERALS TABLET PO SCH (08:44)
[2020-03-28] MEDS: FLUTICASONE FUROATE 100MCG/INH INH SCH (08:44)
[2020-03-28] MEDS: LOSARTAN 50MG TABLET PO SCH (08:44)
[2020-03-28] MEDS ORDERED: THIAMINE 100MG TABLET PO SCH (09:00)
[2020-03-28] MEDS ORDERED: LORazepam 1MG TABLET PO PRN ×4 (11:30)
[2020-03-28] MEDS: AMOXICILLIN/CLAV 875-125MG TABLET PO SCH ×2 (12:06→23:41)
[2020-03-28] MEDS: ENOXAPARIN 40 MG/0.4 ML SQ SCH (12:06)
[2020-03-28] MEDS ORDERED: THIAMINE 200 MG in SODIUM CHLORIDE 0.9% 50 ML IV ONE (12:30)
[2020-03-28 12:45] VITALS: BP 123/71
[2020-03-28] MEDS ORDERED: ALBUTEROL HFA 90 MCG/SPRAY INH PRN (13:00)
[2020-03-28] MEDS ORDERED: ACETAMINOPHEN 325 MG TABLET PO PRN (18:30)
[2020-03-28 20:05] VITALS: BP 127/77
[2020-03-28] MEDS: MONTELUKAST 10 MG TABLET PO SCH (20:48)
[2020-03-28] MEDS: LORazepam 0.5MG TABLET PO PRN (23:41)
[2020-03-29 00:06] VITALS: BP 111/76
[2020-03-29] MEDS: LORazepam 0.5MG TABLET PO PRN ×5 (03:06→20:10)
[2020-03-29 07:04] VITALS: BP 126/74
[2020-03-29 07:51] VITALS: BP 121/74
[2020-03-29] MEDS: LOSARTAN 50MG TABLET PO SCH (08:09)
[2020-03-29] MEDS: MULTIVITAMINS/MINERALS TABLET PO SCH (08:09)
[2020-03-29] MEDS: THIAMINE 100MG TABLET PO SCH (08:09)
[2020-03-29] MEDS: LACTULOSE 20 GM/30 ML UDC PO SCH ×3 (08:09→20:26)
[2020-03-29] MEDS: FLUTICASONE FUROATE 100MCG/INH INH SCH (08:14)
[2020-03-29] MEDS: PHENYTOIN 100 MG CAPSULE PO SCH ×3 (08:15→20:10)
[2020-03-29] MEDS: AMOXICILLIN/CLAV 875-125MG TABLET PO SCH ×2 (12:12→23:35)
[2020-03-29] MEDS: SALMETEROL INH 50MCG/INH DISK.W.DEV INH SCH (12:12)
[2020-03-29] MEDS: ENOXAPARIN 40 MG/0.4 ML SQ SCH (12:13)
[2020-03-29 12:39] VITALS: BP 125/72
[2020-03-29 18:53] VITALS: BP 94/55
[2020-03-29] MEDS: MONTELUKAST 10 MG TABLET PO SCH (20:10)
[2020-03-29] MEDS ORDERED: TRAZODONE 50MG TABLET PO SCH (21:00)
[2020-03-30] VITALS (7 sets, daily range): BP systolic 105–124; BP diastolic 55–79
[2020-03-30] MEDS: LORazepam 0.5MG TABLET PO PRN ×2 (00:05→05:59)
[2020-03-30 06:39] LABS: BASOPHILS % (AUTO) 1 % (0-1); EOSINOPHILS % (AUTO) 6 % (1-7); LYMPHOCYTES % (AUTO) 30 % (22-44); MEAN CORPUSCULAR HEMOGLOBIN 33.8 pg (27.5-34.5); MEAN CORPUSCULAR HGB CONC 34.7 g/dL (33.2-36.2); MEAN PLATELET VOLUME 7.4 fL (7.4-10.4); MONOCYTES % (AUTO) 10 % (2-9); NEUTROPHILS % (AUTO) 53 % (42-75); PLATELET COUNT 255 x10^3/uL (130-400); RED BLOOD COUNT 3.18 x10^6/uL (4.38-5.82); RED CELL DISTRIBUTION WIDTH 14.3 % (9.4-14.8)
[2020-03-30 06:53] LABS: MD NO
[2020-03-30] MEDS: LACTULOSE 20 GM/30 ML UDC PO SCH (08:38)
[2020-03-30] MEDS: PHENYTOIN 100 MG CAPSULE PO SCH ×3 (08:44→19:37)
[2020-03-30] MEDS: FLUTICASONE FUROATE 100MCG/INH INH SCH (08:47)
[2020-03-30] MEDS: SALMETEROL INH 50MCG/INH DISK.W.DEV INH SCH (08:47)
[2020-03-30] MEDS: LOSARTAN 50MG TABLET PO SCH (08:49)
[2020-03-30] MEDS: THIAMINE 100MG TABLET PO SCH (08:49)
[2020-03-30] MEDS: MULTIVITAMINS/MINERALS TABLET PO SCH (08:49)
[2020-03-30] MEDS ORDERED: TEMAZEPAM 15 MG CAPSULE PO PRN (09:00)
[2020-03-30] MEDS: AMOXICILLIN/CLAV 875-125MG TABLET PO SCH ×3 (11:47→23:06)
[2020-03-30] MEDS: ENOXAPARIN 40 MG/0.4 ML SQ SCH (12:44)
[2020-03-30] MEDS: MONTELUKAST 10 MG TABLET PO SCH (19:37)
[2020-03-30] MEDS ORDERED: LORazepam 1MG TABLET ONE (22:55)
[2020-03-30] MEDS ORDERED: LORazepam 1MG TABLET PO ONE (23:00)
[2020-03-30] MEDS ORDERED: HALOPERIDOL 5 MG/ML IM ONE (23:30)
[2020-03-31 00:42] VITALS: BP 120/78
[2020-03-31 01:31] VITALS: BP 112/68
[2020-03-31 02:44] VITALS: BP 96/57
[2020-03-31 07:08] VITALS: BP 107/65
[2020-03-31] MEDS: PHENYTOIN 100 MG CAPSULE PO SCH ×3 (08:40→20:34)
[2020-03-31] MEDS: FLUTICASONE FUROATE 100MCG/INH INH SCH (08:41)
[2020-03-31] MEDS: MULTIVITAMINS/MINERALS TABLET PO SCH (08:41)
[2020-03-31] MEDS: LOSARTAN 50MG TABLET PO SCH (08:41)
[2020-03-31] MEDS: THIAMINE 100MG TABLET PO SCH (08:41)
[2020-03-31] MEDS: SALMETEROL INH 50MCG/INH DISK.W.DEV INH SCH (08:42)
[2020-03-31] MEDS: AMOXICILLIN/CLAV 875-125MG TABLET PO SCH ×2 (11:15→23:03)
[2020-03-31] MEDS: ENOXAPARIN 40 MG/0.4 ML SQ SCH (12:21)
[2020-03-31] MEDS ORDERED: ACETAMINOPHEN 325 MG TABLET PO PRN (12:30)
[2020-03-31 13:20] VITALS: BP 108/78
[2020-03-31 19:07] VITALS: BP 105/53
[2020-03-31] MEDS: MONTELUKAST 10 MG TABLET PO SCH (20:34)
[2020-04-01 01:49] VITALS: BP 115/66
[2020-04-01 06:46] LABS: CREATININE 0.59 mg/dL (0.7-1.3)
[2020-04-01 07:14] VITALS: BP 108/64
[2020-04-01] MEDS: THIAMINE 100MG TABLET PO SCH (08:15)
[2020-04-01] MEDS: SALMETEROL INH 50MCG/INH DISK.W.DEV INH SCH (08:15)
[2020-04-01] MEDS: FLUTICASONE FUROATE 100MCG/INH INH SCH (08:15)
[2020-04-01] MEDS: MULTIVITAMINS/MINERALS TABLET PO SCH (08:15)
[2020-04-01] MEDS: PHENYTOIN 100 MG CAPSULE PO SCH ×2 (08:16→14:09)
[2020-04-01] MEDS: LOSARTAN 50MG TABLET PO SCH (08:16)
[2020-04-01] MEDS: AMOXICILLIN/CLAV 875-125MG TABLET PO SCH (11:22)
[2020-04-01] MEDS: ENOXAPARIN 40 MG/0.4 ML SQ SCH (13:10)
[2020-04-01] MEDS ORDERED: SALM50DI INH (15:36)
[2020-04-01] MEDS ORDERED: MONT10TA11 PO (15:36)
[2020-04-01] MEDS ORDERED: THIA100T67 PO (15:36)
[2020-04-01] MEDS ORDERED: FLUT100B INH (15:36)
[2020-04-01] MEDS ORDERED: LOSA50TA2 PO (15:36)
[2020-04-01] MEDS ORDERED: PHEN100C PO ×2 (15:36)
[2020-04-01] MEDS ORDERED: MULT-484 PO (15:36)
[2020-04-01] MEDS ORDERED: AMOX1TAB12 PO (15:36)
[2020-04-01] MEDS ORDERED: ALBU18HF INH (15:36)
[2020-04-01 15:54] VITALS: BP 114/72
== END 2020-04-01 19:01 | disposition home or self-care (01) | DRG 441 ==
LOC: ED 10:10 → EDIP 10:17 → 4WST 15:37 → 3N 03-29 16:31
PROVIDERS: ADMIT Internal Medicine; ATTEND Internal Medicine
DX: K72.00 Acute and subacute hepatic failure without coma (principal); J69.0 Pneumonitis due to inhalation of food and vomit; F10.239 Alcohol dependence with withdrawal, unspecified; J44.1 Chronic obstructive pulmonary disease with (acute) exacerbation; E72.20 Disorder of urea cycle metabolism, unspecified; Z20.828 Contact with and (suspected) exposure to other viral communicable diseases; D64.9 Anemia, unspecified; E03.9 Hypothyroidism, unspecified; E11.9 Type 2 diabetes mellitus without complications; F17.210 Nicotine dependence, cigarettes, uncomplicated; F31.9 Bipolar disorder, unspecified; G40.909 Epilepsy, unspecified, not intractable, without status epilepticus; I10 Essential (primary) hypertension; I45.10 Unspecified right bundle-branch block; K74.60 Unspecified cirrhosis of liver; N40.0 Benign prostatic hyperplasia without lower urinary tract symptoms; E87.5 Hyperkalemia; F41.9 Anxiety disorder, unspecified; Z82.49 Family history of ischemic heart disease and other diseases of the circulatory system; Z82.5 Family history of asthma and other chronic lower respiratory diseases; Z83.3 Family history of diabetes mellitus
CPT/HCPCS: 36415; 96365; 96372; 96375; 99285; J7042; 36573; 70450; 71045; 76700; 80053; 80185; 80307; 81001; 82140; 82565; 82962; 83036; 83735; 83880; 84100; 84443; 85025; 85610; 87040; 87077; 87086; 87186; 87635; 93005; G0378; J0295; J1165; J1650; J3411; J3486; 92522-GN; J1630; J2060; J7030; J7512

== ENCOUNTER 2020-04-21 11:19 | Emergency (ER) | payer MEDICAID ==
[~2020-04-21] VITALS: Ht 185.4 cm; Wt 72.6 kg
[~2020-04-21 11:19] MED LIST changes: +FLUT100B INH; -MONT10TA11 PO; +MONT10TA96 PO; +MULT-484 PO
[2020-04-21 11:25] VITALS: BP 108/63
--- NOTE | 2020-04-21 11:50 | NUR ---
BREAK RN:LU AT BEDSIDE EVALUATION.
[2020-04-21] MEDS ORDERED: ASPIRIN 81 MG TABLET CHEW ONE (11:56)
[2020-04-21] MEDS ORDERED: SODIUM CHLORIDE FLUSH 10ML SYR IVF ONE (12:00)
[2020-04-21] MEDS ORDERED: SODIUM CHLORIDE 0.9% 1,000ML IVBOLUS ONE (12:00)
[2020-04-21] MEDS ORDERED: ASPIRIN 81 MG TABLET CHEW PO ONE (12:00)
--- NOTE | 2020-04-21 12:14 | NUR ---
PIV ATTEMPT X1 W/BLOOD DRAW. UNABLE TO FLUSH. DC'D WITH CATH INTACT. PT REFUSING 2ND ATTEMPT. PT IS VERY AGITATED AND DEMANDING. EDUCATED PT ON PROCESS. PT REFUSES TO COMPLY. PT OPENING DOOR TO ROOM AND YELLING OUT DEMANDS. CHARGE UPDATED.
--- NOTE | 2020-04-21 12:21 | NUR ---
BLADDER SCAN REVEALED APPROX 120 ML'S. PT REFUSING STRAIGHT CATH. URINAL PROVIDED AND PT EDUCATED ON CLEAN CATCH PROCEDURE. PT VERBALIZES UNDERSTANDING.
[2020-04-21 12:23] LABS: BASOPHILS % (AUTO) 1 % (0-1); EOSINOPHILS % (AUTO) 9 % (1-7); LYMPHOCYTES % (AUTO) 44 % (22-44); MEAN CORPUSCULAR HEMOGLOBIN 33.1 pg (27.5-34.5); MEAN CORPUSCULAR HGB CONC 34.1 g/dL (33.2-36.2); MEAN PLATELET VOLUME 7.6 fL (7.4-10.4); MONOCYTES % (AUTO) 7 % (2-9); NEUTROPHILS % (AUTO) 38 % (42-75); PLATELET COUNT 310 x10^3/uL (130-400); RED BLOOD COUNT 3.71 x10^6/uL (4.38-5.82)
[2020-04-21 12:32] LABS: MD NO
[2020-04-21 12:39] LABS: ALANINE AMINOTRANSFERASE 37 U/L (12-78); ALBUMIN 3.9 g/dL (3.4-5.0); ANION GAP 3 mmol/L (5-15); CALCIUM 8.3 mg/dL (8.5-10.1); CHLORIDE 109 mmol/L (98-107); CREATININE 0.88 mg/dL (0.7-1.3)
[2020-04-21 12:41] LABS: ALKALINE PHOSPHATASE 125 U/L (45-117); BILIRUBIN,TOTAL 0.3 mg/dL (0.2-1.0); TOTAL PROTEIN 6.8 g/dL (6.4-8.2); TROPONIN I < 0.015 ng/mL (0.000-0.045)
== END 2020-04-21 15:33 | disposition home or self-care (01) ==
LOC: ED 11:54
DX: R06.00 Dyspnea, unspecified (principal); R00.2 Palpitations; R39.11 Hesitancy of micturition; K62.5 Hemorrhage of anus and rectum; I45.10 Unspecified right bundle-branch block; I10 Essential (primary) hypertension; E11.9 Type 2 diabetes mellitus without complications; E03.9 Hypothyroidism, unspecified; J44.9 Chronic obstructive pulmonary disease, unspecified; G40.909 Epilepsy, unspecified, not intractable, without status epilepticus
CPT/HCPCS: 36415; 71045; 80053; 84484; 85025; 85379; 93005; 99285

== ENCOUNTER 2020-05-26 13:57 | Emergency (ER) | payer MEDICAID ==
[~2020-05-26] VITALS: Ht 182.9 cm; Wt 72.0 kg
[~2020-05-26 13:57] MED LIST changes: +HYDR-1067 PO; -HYDR-3240 PO
--- NOTE | 2020-05-26 14:15 | NUR ---
RUBIA ESCAMILLA at bedside.
[2020-05-26 14:23] VITALS: BP 137/65
--- NOTE | 2020-05-26 14:42 | NUR ---
Pt refusing care and interventions. Education provided and plan of care discussed. RN and MD discussed risks on AMA with pt. AMA signed. IV catheter removed. Pt taken to lobby in wheelchair to make phonecall for ride home.
== END 2020-05-26 14:49 | disposition left against medical advice (07) ==
LOC: ED 14:19
DX: R07.89 Other chest pain (principal); F41.1 Generalized anxiety disorder; J44.9 Chronic obstructive pulmonary disease, unspecified; I10 Essential (primary) hypertension; E11.9 Type 2 diabetes mellitus without complications; E03.9 Hypothyroidism, unspecified; F17.200 Nicotine dependence, unspecified, uncomplicated
CPT/HCPCS: 99283

== ENCOUNTER 2020-06-19 11:24 | Inpatient (IN) | payer MEDICAID ==
[~2020-06-19] VITALS: Ht 182.9 cm; Wt 66.8 kg
[~2020-06-19 11:24] MED LIST changes: +MONT10TA17 PO; -MONT10TA96 PO
[2020-06-19] MEDS ORDERED: ALBUTEROL SULFATE 2.5 MG/3 ML ONE (11:59)
[2020-06-19] MEDS ORDERED: SODIUM CHLORIDE FLUSH 10ML SYR IVF ONE (12:00)
[2020-06-19] MEDS ORDERED: ALBUTEROL/IPRATROPIUM 2.5MG/0.5MG, 3 ML NPPB ONE (12:00)
[2020-06-19] MEDS ORDERED: ALBUTEROL/IPRATROPIUM 2.5MG/0.5MG, 3 ML ONE (12:00)
[2020-06-19 12:32] LABS: ALBUMIN 3.8 g/dL (3.4-5.0); ANION GAP 8 mmol/L (5-15); CALCIUM 8.3 mg/dL (8.5-10.1); CHLORIDE 107 mmol/L (98-107)
[2020-06-19 12:37] LABS: BASOPHILS % (AUTO) 1 % (0-1); EOSINOPHILS % (AUTO) 8 % (1-7); LYMPHOCYTES % (AUTO) 31 % (22-44); MEAN CORPUSCULAR HEMOGLOBIN 32.7 pg (27.5-34.5); MEAN CORPUSCULAR HGB CONC 34.4 g/dL (33.2-36.2); MEAN PLATELET VOLUME 7.6 fL (7.4-10.4); MONOCYTES % (AUTO) 7 % (2-9); NEUTROPHILS % (AUTO) 53 % (42-75); PLATELET COUNT 234 x10^3/uL (130-400); RED BLOOD COUNT 3.99 x10^6/uL (4.38-5.82); RED CELL DISTRIBUTION WIDTH 13.3 % (9.4-14.8)
[2020-06-19 12:40] LABS: ALANINE AMINOTRANSFERASE 23 U/L (12-78); ALKALINE PHOSPHATASE 151 U/L (45-117); BILIRUBIN,TOTAL 0.4 mg/dL (0.2-1.0); CREATININE 0.93 mg/dL (0.7-1.3); TOTAL PROTEIN 6.8 g/dL (6.4-8.2); TROPONIN I < 0.015 ng/mL (0.000-0.045)
[2020-06-19 13:06] LABS: MD SCAN
[2020-06-19] MEDS ORDERED: methylPREDNISolone SOD SUCC 125 MG/2 ML IVPush ONE (13:30)
[2020-06-19] MEDS ORDERED: methylPREDNISolone SOD SUCC 125 MG/2 ML ONE (13:41)
[2020-06-19] MEDS ORDERED: OMNIPAQUE 350 MG/ML, 75ML BOTTLE ONE (14:22)
[2020-06-19] MEDS ORDERED: PHENYTOIN 50 MG TAB.CHEW PO ONE (15:30)
[2020-06-19] MEDS ORDERED: ALBUTEROL/IPRATROPIUM 2.5MG/0.5MG, 3 ML HHN SCH (16:30)
[2020-06-19] MEDS ORDERED: ALBUTEROL HFA 90 MCG/SPRAY INH PRN (16:30)
[2020-06-19] MEDS ORDERED: ENALAPRILAT 1.25 MG/ML, 2ML IVPush PRN (16:30)
[2020-06-19] MEDS ORDERED: ONDANSETRON 2MG/ML, 2ML IVPush PRN (16:30)
[2020-06-19] MEDS ORDERED: HYDROcodone/APAP 5/325 TABLET PO PRN (16:30)
[2020-06-19] MEDS ORDERED: ENOXAPARIN 40 MG/0.4 ML SQ SCH (16:30)
[2020-06-19] MEDS ORDERED: SODIUM CHLORIDE FLUSH 10ML SYR IVF PRN (16:30)
[2020-06-19] MEDS ORDERED: BISACODYL 10 MG SUPP PR PRN (16:30)
[2020-06-19] MEDS ORDERED: ACETAMINOPHEN 325 MG TABLET PO PRN (16:30)
[2020-06-19] MEDS ORDERED: hydrALAzine 20 MG/ML, 1ML IVPush PRN (16:30)
[2020-06-19] MEDS: methylPREDNISolone SOD SUCC 125 MG/2 ML IVPush SCH ×2 (16:30→21:59)
[2020-06-19] MEDS ORDERED: ONDANSETRON ODT 4 MG PO PRN (16:30)
[2020-06-19] MEDS ORDERED: LACTATED RINGERS 1,000 ML IV SCH (16:30)
[2020-06-19] MEDS ORDERED: PHENYTOIN 100 MG CAPSULE PO SCH (16:30)
[2020-06-19] MEDS ORDERED: GADOTERATE 7.5 MMOL/15 ML VIAL ONE (16:54)
[2020-06-19] MEDS: NICOTINE 7 MG/24 HR PATCH.TD24 TD SCH (17:00)
[2020-06-19 19:08] VITALS: BP 107/61
[2020-06-19] MEDS ORDERED: PHENYTOIN 50 MG TAB.CHEW PO SCH (21:00)
[2020-06-19] MEDS: MONTELUKAST 10 MG TABLET PO SCH (21:57)
[2020-06-19] MEDS: OLANZAPINE 5 MG TABLET PO SCH (21:58)
[2020-06-19] MEDS: ALBUTEROL-IPRATROPIUM MDI INH INH SCH (22:50)
[2020-06-20] VITALS (11 sets, daily range): BP systolic 98–126; BP diastolic 60–80
[2020-06-20] MEDS: methylPREDNISolone SOD SUCC 125 MG/2 ML IVPush SCH ×4 (03:58→21:08)
[2020-06-20 05:20] LABS: ANION GAP 7 mmol/L (5-15); CALCIUM 8.1 mg/dL (8.5-10.1); CHLORIDE 110 mmol/L (98-107); CREATININE 1.13 mg/dL (0.7-1.3)
[2020-06-20 05:57] LABS: BASOPHILS % (AUTO) 1 % (0-1); EOSINOPHILS % (AUTO) 1 % (1-7); LYMPHOCYTES % (AUTO) 18 % (22-44); MEAN CORPUSCULAR HEMOGLOBIN 33.1 pg (27.5-34.5); MEAN CORPUSCULAR HGB CONC 34.4 g/dL (33.2-36.2); MEAN PLATELET VOLUME 6.6 fL (7.4-10.4); MONOCYTES % (AUTO) 4 % (2-9); NEUTROPHILS % (AUTO) 76 % (42-75); PLATELET COUNT 334 x10^3/uL (130-400); RED CELL DISTRIBUTION WIDTH 13.4 % (9.4-14.8)
[2020-06-20 05:58] LABS: MD NO
[2020-06-20] MEDS: LEVOTHYROXINE 25 MCG TABLET PO SCH (06:19)
[2020-06-20] MEDS: ALBUTEROL-IPRATROPIUM MDI INH INH SCH ×4 (06:19→19:36)
[2020-06-20] MEDS ORDERED: BREO INH SCH (09:00)
[2020-06-20] MEDS ORDERED: FLUTICASONE FUROATE 100MCG/INH INH SCH (09:00)
[2020-06-20] MEDS ORDERED: morphine SULFATE 10 MG/ML, 1ML ONE (10:07)
[2020-06-20] MEDS: PHENYTOIN 50 MG TAB.CHEW PO SCH ×3 (10:23→20:00)
[2020-06-20] MEDS: FLUTICASONE/VILANTEROL 100-25MCG/INH INH SCH (10:26)
[2020-06-20] MEDS ORDERED: MORPHINE SULFATE 4 MG/ML, 1ML IVPush ONE (10:30)
[2020-06-20] MEDS ORDERED: MECLIZINE 25 MG TABLET PO PRN (10:30)
[2020-06-20] MEDS ORDERED: FLUMAZENIL 0.1 MG/1 ML, 5ML ONE ×2 (12:38→14:20)
[2020-06-20] MEDS ORDERED: MIDAZOLAM 1 MG/ML, 5ML ONE ×2 (12:38→14:20)
[2020-06-20] MEDS ORDERED: FENTANYL PF 100 MCG/2ML ONE ×3 (12:38→14:20)
[2020-06-20] MEDS ORDERED: NALOXONE 1 MG/ML, 2ML ONE ×2 (12:38→14:20)
[2020-06-20] MEDS: HYDROcodone/APAP 5/325 TABLET PO PRN ×2 (15:13→20:05)
[2020-06-20] MEDS: SENNA/DOCUSATE TABLET PO SCH (15:28)
[2020-06-20] MEDS: MULTIVITAMINS/MINERALS TABLET PO SCH (15:28)
[2020-06-20] MEDS: THIAMINE 100MG TABLET PO SCH (15:28)
[2020-06-20] MEDS: OLANZAPINE 5 MG TABLET PO SCH ×2 (15:28→20:01)
[2020-06-20] MEDS: FINASTERIDE 5 MG TABLET PO SCH (15:33)
[2020-06-20] MEDS: MAGNESIUM HYDROXIDE 8%, 30ML UDC PO SCH (15:33)
[2020-06-20] MEDS: NICOTINE 7 MG/24 HR PATCH.TD24 TD SCH (15:36)
[2020-06-20] MEDS: MORPHINE SULFATE 4 MG/ML, 1ML IVPush PRN (18:11)
[2020-06-20] MEDS: MONTELUKAST 10 MG TABLET PO SCH (20:00)
[2020-06-21 01:02] VITALS: BP 98/62
[2020-06-21] MEDS: HYDROcodone/APAP 5/325 TABLET PO PRN ×5 (01:31→21:24)
[2020-06-21 06:24] LABS: ANION GAP 6 mmol/L (5-15); CALCIUM 7.8 mg/dL (8.5-10.1); CHLORIDE 110 mmol/L (98-107)
[2020-06-21 06:27] LABS: CREATININE 0.79 mg/dL (0.7-1.3)
[2020-06-21] MEDS: methylPREDNISolone SOD SUCC 125 MG/2 ML IVPush SCH ×2 (06:30→12:36)
[2020-06-21] MEDS: LEVOTHYROXINE 25 MCG TABLET PO SCH (06:31)
[2020-06-21] MEDS: ALBUTEROL-IPRATROPIUM MDI INH INH SCH ×4 (07:24→21:00)
[2020-06-21 07:29] VITALS: BP 116/69
[2020-06-21] MEDS: MAGNESIUM HYDROXIDE 8%, 30ML UDC PO SCH (09:00)
[2020-06-21] MEDS: MULTIVITAMINS/MINERALS TABLET PO SCH (09:50)
[2020-06-21] MEDS: SENNA/DOCUSATE TABLET PO SCH (09:50)
[2020-06-21] MEDS: OLANZAPINE 5 MG TABLET PO SCH ×2 (09:50→21:19)
[2020-06-21] MEDS: THIAMINE 100MG TABLET PO SCH (09:50)
[2020-06-21] MEDS: TAMSULOSIN 0.4 MG CAP.ER.24H PO SCH (09:50)
[2020-06-21] MEDS: FLUTICASONE/VILANTEROL 100-25MCG/INH INH SCH (09:50)
[2020-06-21] MEDS: FINASTERIDE 5 MG TABLET PO SCH (09:51)
[2020-06-21] MEDS: PHENYTOIN 50 MG TAB.CHEW PO SCH ×2 (09:53→16:00)
[2020-06-21 11:18] LABS: MICROSCOPIC NOT IND
[2020-06-21 12:15] VITALS: BP 101/53
[2020-06-21] MEDS: NICOTINE 7 MG/24 HR PATCH.TD24 TD SCH (16:02)
[2020-06-21] MEDS: POLYETHYLENE GLYCOL 17 GM PACKET PO PRN (16:36)
[2020-06-21 19:26] VITALS: BP 89/46
[2020-06-21] MEDS ORDERED: SODIUM CHLORIDE 0.9%, 500ML IVBOLUS ONE (20:00)
[2020-06-21 21:05] VITALS: BP 91/43
[2020-06-21] MEDS: MONTELUKAST 10 MG TABLET PO SCH (21:19)
[2020-06-22] MEDS: PHENYTOIN 50 MG TAB.CHEW PO SCH ×4 (00:10→21:11)
[2020-06-22 01:38] VITALS: BP 102/63
[2020-06-22] MEDS: methylPREDNISolone SOD SUCC 125 MG/2 ML IVPush SCH ×2 (01:49→13:26)
[2020-06-22] MEDS: HYDROcodone/APAP 5/325 TABLET PO PRN ×5 (01:50→23:38)
[2020-06-22 05:59] LABS: BASOPHILS % (AUTO) 1 % (0-1); EOSINOPHILS % (AUTO) 1 % (1-7); LYMPHOCYTES % (AUTO) 19 % (22-44); MEAN CORPUSCULAR HEMOGLOBIN 33.1 pg (27.5-34.5); MEAN CORPUSCULAR HGB CONC 34.3 g/dL (33.2-36.2); MEAN PLATELET VOLUME 6.7 fL (7.4-10.4); MONOCYTES % (AUTO) 4 % (2-9); NEUTROPHILS % (AUTO) 75 % (42-75); PLATELET COUNT 306 x10^3/uL (130-400); RED BLOOD COUNT 3.52 x10^6/uL (4.38-5.82); RED CELL DISTRIBUTION WIDTH 13.8 % (9.4-14.8)
[2020-06-22] MEDS: ALBUTEROL-IPRATROPIUM MDI INH INH SCH ×5 (06:00→21:00)
[2020-06-22 06:05] LABS: MD NO
[2020-06-22 06:06] LABS: ANION GAP 5 mmol/L (5-15); CALCIUM 8.2 mg/dL (8.5-10.1); CHLORIDE 111 mmol/L (98-107); CREATININE 0.65 mg/dL (0.7-1.3)
[2020-06-22] MEDS: LEVOTHYROXINE 25 MCG TABLET PO SCH (06:15)
[2020-06-22 07:50] VITALS: BP 119/64
[2020-06-22] MEDS: FLUTICASONE/VILANTEROL 100-25MCG/INH INH SCH (09:00)
[2020-06-22] MEDS: MAGNESIUM HYDROXIDE 8%, 30ML UDC PO SCH (10:42)
[2020-06-22] MEDS: THIAMINE 100MG TABLET PO SCH (10:43)
[2020-06-22] MEDS: SENNA/DOCUSATE TABLET PO SCH (10:43)
[2020-06-22] MEDS: TAMSULOSIN 0.4 MG CAP.ER.24H PO SCH (10:44)
[2020-06-22] MEDS: OLANZAPINE 5 MG TABLET PO SCH ×2 (10:44→21:11)
[2020-06-22] MEDS: MULTIVITAMINS/MINERALS TABLET PO SCH (10:44)
[2020-06-22] MEDS: FINASTERIDE 5 MG TABLET PO SCH (10:54)
[2020-06-22 13:40] VITALS: BP 106/58
[2020-06-22] MEDS: NICOTINE 7 MG/24 HR PATCH.TD24 TD SCH (17:39)
[2020-06-22 20:21] VITALS: BP_SYST 84; BP_SYST 87; BP_DIAS 47; BP_DIAS 49
[2020-06-22] MEDS: MONTELUKAST 10 MG TABLET PO SCH (21:11)
[2020-06-23 00:19] VITALS: BP 103/60
[2020-06-23] MEDS: methylPREDNISolone SOD SUCC 125 MG/2 ML IVPush SCH ×2 (01:17→13:03)
[2020-06-23] MEDS: MORPHINE SULFATE 4 MG/ML, 1ML IVPush PRN ×2 (02:44→03:20)
[2020-06-23 05:19] LABS: ANION GAP 5 mmol/L (5-15); BASOPHILS % (AUTO) 1 % (0-1); CALCIUM 8.1 mg/dL (8.5-10.1); CHLORIDE 109 mmol/L (98-107); CREATININE 0.66 mg/dL (0.7-1.3); EOSINOPHILS % (AUTO) 1 % (1-7); LYMPHOCYTES % (AUTO) 23 % (22-44); MEAN CORPUSCULAR HEMOGLOBIN 33.8 pg (27.5-34.5); MEAN PLATELET VOLUME 6.7 fL (7.4-10.4); MONOCYTES % (AUTO) 6 % (2-9); NEUTROPHILS % (AUTO) 69 % (42-75); PLATELET COUNT 322 x10^3/uL (130-400); RED BLOOD COUNT 3.45 x10^6/uL (4.38-5.82); RED CELL DISTRIBUTION WIDTH 13.6 % (9.4-14.8)
[2020-06-23 05:24] LABS: MD NO
[2020-06-23] MEDS: LEVOTHYROXINE 25 MCG TABLET PO SCH (06:05)
[2020-06-23] MEDS: HYDROcodone/APAP 5/325 TABLET PO PRN ×4 (06:09→22:14)
[2020-06-23 07:50] VITALS: BP 108/56
[2020-06-23] MEDS: ALBUTEROL-IPRATROPIUM MDI INH INH SCH ×3 (08:03→20:14)
[2020-06-23] MEDS: FLUTICASONE/VILANTEROL 100-25MCG/INH INH SCH (08:03)
[2020-06-23] MEDS: MAGNESIUM HYDROXIDE 8%, 30ML UDC PO SCH (08:34)
[2020-06-23] MEDS: PHENYTOIN 50 MG TAB.CHEW PO SCH ×3 (08:34→20:37)
[2020-06-23] MEDS: SENNA/DOCUSATE TABLET PO SCH (08:34)
[2020-06-23] MEDS: THIAMINE 100MG TABLET PO SCH (08:35)
[2020-06-23] MEDS: OLANZAPINE 5 MG TABLET PO SCH ×2 (08:35→20:36)
[2020-06-23] MEDS: FINASTERIDE 5 MG TABLET PO SCH (08:35)
[2020-06-23] MEDS: MULTIVITAMINS/MINERALS TABLET PO SCH (08:35)
[2020-06-23] MEDS: TAMSULOSIN 0.4 MG CAP.ER.24H PO SCH (08:35)
[2020-06-23] MEDS: ASPIRIN 325 MG TABLET PO SCH (09:23)
[2020-06-23] MEDS ORDERED: PRED10TA14 PO (11:41)
[2020-06-23] MEDS ORDERED: PHEN50TA PO (11:41)
[2020-06-23] MEDS ORDERED: FINA5TAB4 PO (12:08)
[2020-06-23] MEDS ORDERED: PINK LADY ENEMA 490 ML BOTTLE PR ONE (13:30)
[2020-06-23 14:39] VITALS: BP 107/65
[2020-06-23] MEDS: NICOTINE 7 MG/24 HR PATCH.TD24 TD SCH (16:40)
[2020-06-23 19:02] VITALS: BP 93/43
[2020-06-23] MEDS: MONTELUKAST 10 MG TABLET PO SCH (20:37)
[2020-06-23 22:10] VITALS: BP 105/73
[2020-06-24 00:57] VITALS: BP 100/58
[2020-06-24] MEDS: methylPREDNISolone SOD SUCC 125 MG/2 ML IVPush SCH ×2 (01:02→12:42)
[2020-06-24] MEDS: LEVOTHYROXINE 25 MCG TABLET PO SCH (05:11)
[2020-06-24] MEDS: ASPIRIN 325 MG TABLET PO SCH (05:12)
[2020-06-24] MEDS: HYDROcodone/APAP 5/325 TABLET PO PRN ×5 (05:14→21:43)
[2020-06-24] MEDS: ALBUTEROL-IPRATROPIUM MDI INH INH SCH ×5 (06:00→19:39)
[2020-06-24 06:30] VITALS: BP 103/47
[2020-06-24 07:41] LABS: BASOPHILS % (AUTO) 1 % (0-1); CALCIUM 8.1 mg/dL (8.5-10.1); CREATININE 0.67 mg/dL (0.7-1.3); EOSINOPHILS % (AUTO) 0 % (1-7); LYMPHOCYTES % (AUTO) 26 % (22-44); MEAN CORPUSCULAR HEMOGLOBIN 33.2 pg (27.5-34.5); MEAN CORPUSCULAR HGB CONC 34.4 g/dL (33.2-36.2); MEAN PLATELET VOLUME 6.4 fL (7.4-10.4); MONOCYTES % (AUTO) 5 % (2-9); NEUTROPHILS % (AUTO) 68 % (42-75); PLATELET COUNT 318 x10^3/uL (130-400); RED BLOOD COUNT 3.33 x10^6/uL (4.38-5.82); RED CELL DISTRIBUTION WIDTH 13.7 % (9.4-14.8)
[2020-06-24 07:46] LABS: MD NO
[2020-06-24 07:48] LABS: ANION GAP 4 mmol/L (5-15); CHLORIDE 108 mmol/L (98-107)
[2020-06-24] MEDS: FLUTICASONE/VILANTEROL 100-25MCG/INH INH SCH ×2 (08:00→12:15)
[2020-06-24] MEDS: MAGNESIUM HYDROXIDE 8%, 30ML UDC PO SCH (08:55)
[2020-06-24] MEDS: SENNA/DOCUSATE TABLET PO SCH (08:56)
[2020-06-24] MEDS: TAMSULOSIN 0.4 MG CAP.ER.24H PO SCH (08:57)
[2020-06-24] MEDS: MULTIVITAMINS/MINERALS TABLET PO SCH (08:57)
[2020-06-24] MEDS: THIAMINE 100MG TABLET PO SCH (08:57)
[2020-06-24] MEDS: PHENYTOIN 50 MG TAB.CHEW PO SCH ×3 (09:12→21:41)
[2020-06-24] MEDS: OLANZAPINE 5 MG TABLET PO SCH ×2 (09:13→21:43)
[2020-06-24] MEDS: FINASTERIDE 5 MG TABLET PO SCH (09:17)
[2020-06-24 11:26] VITALS: BP 92/59
[2020-06-24] MEDS: NICOTINE 7 MG/24 HR PATCH.TD24 TD SCH (16:52)
[2020-06-24 18:50] VITALS: BP 102/55
[2020-06-24] MEDS: MONTELUKAST 10 MG TABLET PO SCH (21:43)
[2020-06-24] MEDS: POLYETHYLENE GLYCOL 17 GM PACKET PO PRN (21:43)
[2020-06-25 00:04] VITALS: BP 94/47
[2020-06-25] MEDS: HYDROcodone/APAP 5/325 TABLET PO PRN ×3 (01:55→16:25)
[2020-06-25] MEDS: ASPIRIN 325 MG TABLET PO SCH (04:45)
[2020-06-25] MEDS: LEVOTHYROXINE 25 MCG TABLET PO SCH (04:47)
[2020-06-25 06:14] LABS: BASOPHILS % (AUTO) 1 % (0-1); EOSINOPHILS % (AUTO) 3 % (1-7); LYMPHOCYTES % (AUTO) 39 % (22-44); MEAN CORPUSCULAR HGB CONC 34.1 g/dL (33.2-36.2); MEAN PLATELET VOLUME 6.3 fL (7.4-10.4); MONOCYTES % (AUTO) 10 % (2-9); NEUTROPHILS % (AUTO) 47 % (42-75); PLATELET COUNT 302 x10^3/uL (130-400); RED BLOOD COUNT 3.07 x10^6/uL (4.38-5.82); RED CELL DISTRIBUTION WIDTH 13.4 % (9.4-14.8)
[2020-06-25 06:21] LABS: ANION GAP 5 mmol/L (5-15); CALCIUM 7.9 mg/dL (8.5-10.1); CHLORIDE 106 mmol/L (98-107); CREATININE 0.65 mg/dL (0.7-1.3)
[2020-06-25 06:22] LABS: MD NO
[2020-06-25] MEDS: ALBUTEROL-IPRATROPIUM MDI INH INH SCH ×4 (06:25→19:49)
[2020-06-25] MEDS: FLUTICASONE/VILANTEROL 100-25MCG/INH INH SCH (06:25)
[2020-06-25 06:49] VITALS: BP 113/46
[2020-06-25] MEDS: MAGNESIUM HYDROXIDE 8%, 30ML UDC PO SCH (07:59)
[2020-06-25] MEDS: PHENYTOIN 50 MG TAB.CHEW PO SCH ×3 (08:00→21:46)
[2020-06-25] MEDS: SENNA/DOCUSATE TABLET PO SCH (08:01)
[2020-06-25] MEDS: MULTIVITAMINS/MINERALS TABLET PO SCH (08:01)
[2020-06-25] MEDS: THIAMINE 100MG TABLET PO SCH (08:02)
[2020-06-25] MEDS: FINASTERIDE 5 MG TABLET PO SCH (08:02)
[2020-06-25] MEDS: TAMSULOSIN 0.4 MG CAP.ER.24H PO SCH (08:02)
[2020-06-25] MEDS: OLANZAPINE 5 MG TABLET PO SCH ×2 (08:02→21:45)
[2020-06-25] MEDS ORDERED: ZIPRASIDONE 20 MG INJ IM ONE ×2 (10:27→11:00)
[2020-06-25] MEDS ORDERED: HALOPERIDOL 5 MG/ML IM ONE (10:30)
[2020-06-25] MEDS: HALOPERIDOL 5 MG/ML IM PRN (16:25)
[2020-06-25] MEDS: NICOTINE 7 MG/24 HR PATCH.TD24 TD SCH ×2 (16:25→16:27)
[2020-06-25 19:33] VITALS: BP 100/55
[2020-06-25] MEDS: MONTELUKAST 10 MG TABLET PO SCH (21:45)
[2020-06-26] MEDS: HALOPERIDOL 5 MG/ML IM PRN (03:08)
[2020-06-26 04:05] VITALS: BP 104/66
[2020-06-26] MEDS: ASPIRIN 325 MG TABLET PO SCH (04:16)
[2020-06-26] MEDS: LEVOTHYROXINE 25 MCG TABLET PO SCH (04:17)
[2020-06-26] MEDS: HYDROcodone/APAP 5/325 TABLET PO PRN ×6 (04:19→22:23)
[2020-06-26] MEDS: ALBUTEROL-IPRATROPIUM MDI INH INH SCH ×4 (06:00→19:15)
[2020-06-26] MEDS: FLUTICASONE/VILANTEROL 100-25MCG/INH INH SCH (06:37)
[2020-06-26 08:23] VITALS: BP 90/50
[2020-06-26] MEDS: TAMSULOSIN 0.4 MG CAP.ER.24H PO SCH (08:24)
[2020-06-26] MEDS: MULTIVITAMINS/MINERALS TABLET PO SCH (08:24)
[2020-06-26] MEDS: THIAMINE 100MG TABLET PO SCH (08:24)
[2020-06-26] MEDS: OLANZAPINE 5 MG TABLET PO SCH ×2 (08:24→21:03)
[2020-06-26] MEDS: FINASTERIDE 5 MG TABLET PO SCH (08:25)
[2020-06-26] MEDS: MAGNESIUM HYDROXIDE 8%, 30ML UDC PO SCH (08:25)
[2020-06-26] MEDS: PHENYTOIN 50 MG TAB.CHEW PO SCH ×3 (08:25→21:00)
[2020-06-26] MEDS: SENNA/DOCUSATE TABLET PO SCH (08:25)
[2020-06-26] MEDS: DIVALPROEX 125 MG CAP.SPRINK PO SCH ×2 (12:13→21:04)
[2020-06-26 12:23] VITALS: BP 89/56
[2020-06-26] MEDS: NICOTINE 7 MG/24 HR PATCH.TD24 TD SCH (16:44)
[2020-06-26 18:35] VITALS: BP 95/56
[2020-06-26] MEDS: MONTELUKAST 10 MG TABLET PO SCH (21:03)
[2020-06-27 00:11] VITALS: BP 109/59
[2020-06-27 05:00] LABS: ANION GAP 7 mmol/L (5-15); CHLORIDE 102 mmol/L (98-107)
[2020-06-27] MEDS: LEVOTHYROXINE 25 MCG TABLET PO SCH (05:17)
[2020-06-27] MEDS: ASPIRIN 325 MG TABLET PO SCH (05:17)
[2020-06-27] MEDS: HYDROcodone/APAP 5/325 TABLET PO PRN ×5 (05:17→21:17)
[2020-06-27] MEDS: ALBUTEROL-IPRATROPIUM MDI INH INH SCH ×5 (06:00→20:47)
[2020-06-27 07:31] VITALS: BP 96/56
[2020-06-27] MEDS: MAGNESIUM HYDROXIDE 8%, 30ML UDC PO SCH (09:00)
[2020-06-27] MEDS: THIAMINE 100MG TABLET PO SCH (09:00)
[2020-06-27] MEDS: FLUTICASONE/VILANTEROL 100-25MCG/INH INH SCH (09:15)
[2020-06-27] MEDS: TAMSULOSIN 0.4 MG CAP.ER.24H PO SCH (09:18)
[2020-06-27] MEDS: PHENYTOIN 50 MG TAB.CHEW PO SCH ×3 (09:18→21:18)
[2020-06-27] MEDS: MULTIVITAMINS/MINERALS TABLET PO SCH (09:18)
[2020-06-27] MEDS: SENNA/DOCUSATE TABLET PO SCH (09:19)
[2020-06-27] MEDS: FINASTERIDE 5 MG TABLET PO SCH (09:19)
[2020-06-27] MEDS: DIVALPROEX 125 MG CAP.SPRINK PO SCH ×2 (09:19→21:18)
[2020-06-27] MEDS: OLANZAPINE 5 MG TABLET PO SCH ×2 (09:20→21:17)
[2020-06-27 13:24] VITALS: BP 96/58
[2020-06-27] MEDS: MONTELUKAST 10 MG TABLET PO SCH (21:18)
[2020-06-28 00:54] VITALS: BP 93/76
[2020-06-28] MEDS: HYDROcodone/APAP 5/325 TABLET PO PRN ×4 (02:28→13:35)
[2020-06-28] MEDS: LEVOTHYROXINE 25 MCG TABLET PO SCH (05:58)
[2020-06-28] MEDS: ASPIRIN 325 MG TABLET PO SCH (05:58)
[2020-06-28 06:35] VITALS: BP 94/49
[2020-06-28] MEDS: ALBUTEROL-IPRATROPIUM MDI INH INH SCH ×3 (07:20→13:06)
[2020-06-28] MEDS: FLUTICASONE/VILANTEROL 100-25MCG/INH INH SCH (07:20)
[2020-06-28] MEDS: MAGNESIUM HYDROXIDE 8%, 30ML UDC PO SCH ×2 (09:00→09:33)
[2020-06-28] MEDS: NICOTINE 7 MG/24 HR PATCH.TD24 TD SCH (09:00)
[2020-06-28] MEDS: FINASTERIDE 5 MG TABLET PO SCH (09:33)
[2020-06-28] MEDS: SENNA/DOCUSATE TABLET PO SCH (09:33)
[2020-06-28] MEDS: OLANZAPINE 5 MG TABLET PO SCH (09:33)
[2020-06-28] MEDS: DIVALPROEX 125 MG CAP.SPRINK PO SCH (09:34)
[2020-06-28] MEDS: MULTIVITAMINS/MINERALS TABLET PO SCH (09:34)
[2020-06-28] MEDS: PHENYTOIN 50 MG TAB.CHEW PO SCH (09:34)
[2020-06-28] MEDS: TAMSULOSIN 0.4 MG CAP.ER.24H PO SCH (09:34)
[2020-06-28] MEDS: THIAMINE 100MG TABLET PO SCH (09:34)
== END 2020-06-28 15:56 | disposition home or self-care (01) | DRG 189 ==
LOC: ED 12:10 → EDIP 15:31 → 4WST 17:53 → 4NW 06-28 07:41
PROVIDERS: ADMIT Hospitalist; ATTEND Hospitalist
PROC: 0BBD3ZX Excision of Right Middle Lung Lobe, Percutaneous Approach, Diagnostic (ICD-10-PCS; principal; 2020-06-20)
PROC: 0W9930Z Drainage of Right Pleural Cavity with Drainage Device, Percutaneous Approach (ICD-10-PCS; 2020-06-20)
PROC: 0T9B70Z Drainage of Bladder with Drainage Device, Via Natural or Artificial Opening (ICD-10-PCS; 2020-06-21)
DX: J96.21 Acute and chronic respiratory failure with hypoxia (principal); J44.1 Chronic obstructive pulmonary disease with (acute) exacerbation; J95.811 Postprocedural pneumothorax; M48.54XA Collapsed vertebra, not elsewhere classified, thoracic region, initial encounter for fracture; E03.9 Hypothyroidism, unspecified; F17.210 Nicotine dependence, cigarettes, uncomplicated; G40.909 Epilepsy, unspecified, not intractable, without status epilepticus; G62.9 Polyneuropathy, unspecified; H93.19 Tinnitus, unspecified ear; I10 Essential (primary) hypertension; Z66 Do not resuscitate; Z83.3 Family history of diabetes mellitus; Z82.49 Family history of ischemic heart disease and other diseases of the circulatory system; R33.8 Other retention of urine; Z78.1 Physical restraint status; R29.6 Repeated falls; N40.1 Benign prostatic hyperplasia with lower urinary tract symptoms; K76.9 Liver disease, unspecified; K59.09 Other constipation; J98.4 Other disorders of lung; F41.1 Generalized anxiety disorder; F31.9 Bipolar disorder, unspecified
CPT/HCPCS: 32408; 32557; 36415; 70553; 71045; 71275; 77012; 80048; 80053; 80185; 81003; 83880; 84132; 84484; 85025; 88305; 93005; 94640; 99156; 99157; 99285; G0378; J2250; J3010; J3486; Q9967; 92523-GN; A9575; J1630; J2270; J2310; J2930; J7040; J7120; J7512; Q0177

== ENCOUNTER 2020-07-08 08:36 | Inpatient (IN) | payer MEDICAID ==
[~2020-07-08] VITALS: Ht 182.9 cm; Wt 81.6 kg
[~2020-07-08 08:36] MED LIST changes: +FINA5TAB4 PO; +PHEN50TA PO; +PRED10TA14 PO
--- NOTE | 2020-07-08 08:48 | NUR ---
PT BIB [facility]. PT CO COUGHING UP BLOOD AND RIGHT CHEST PAIN X3 DAYS. PT STATES THAT HE WAS JUST HOSPITALIZED FOR SAME SYMPTOMS LAST WEEK. PT DENIES ANY RECENT FEVER OR CHILLS.
[2020-07-08] MEDS ORDERED: SODIUM CHLORIDE FLUSH 10ML SYR IVF ONE (09:30)
[2020-07-08] MEDS ORDERED: ALBUTEROL/IPRATROPIUM 2.5MG/0.5MG, 3 ML NPPB SCH (09:30)
[2020-07-08] MEDS ORDERED: methylPREDNISolone SOD SUCC 125 MG/2 ML IV ONE (09:30)
[2020-07-08] MEDS ORDERED: ALBUTEROL/IPRATROPIUM 2.5MG/0.5MG, 3 ML ONE (09:34)
[2020-07-08] MEDS ORDERED: methylPREDNISolone SOD SUCC 125 MG/2 ML ONE (09:34)
[2020-07-08 09:41] LABS: BASOPHILS % (AUTO) 1 % (0-1); EOSINOPHILS % (AUTO) 7 % (1-7); LYMPHOCYTES % (AUTO) 24 % (22-44); MEAN CORPUSCULAR HEMOGLOBIN 32.8 pg (27.5-34.5); MEAN CORPUSCULAR HGB CONC 34.2 g/dL (33.2-36.2); MEAN PLATELET VOLUME 6.3 fL (7.4-10.4); MONOCYTES % (AUTO) 8 % (2-9); NEUTROPHILS % (AUTO) 59 % (42-75); PLATELET COUNT 578 x10^3/uL (130-400); RED BLOOD COUNT 3.05 x10^6/uL (4.38-5.82); RED CELL DISTRIBUTION WIDTH 14.8 % (9.4-14.8)
[2020-07-08 09:43] LABS: MD NO
--- NOTE | 2020-07-08 09:49 | NUR ---
US AT BEDSIDE
[2020-07-08] MEDS ORDERED: ONDANSETRON 2MG/ML, 2ML ONE (09:50)
[2020-07-08] MEDS ORDERED: MORPHINE SULFATE 4 MG/ML, 1ML ONE (09:50)
[2020-07-08 09:51] LABS: ALANINE AMINOTRANSFERASE 76 U/L (12-78); ALBUMIN 3.3 g/dL (3.4-5.0); ANION GAP 6 mmol/L (5-15); CALCIUM 8.3 mg/dL (8.5-10.1); CHLORIDE 109 mmol/L (98-107)
[2020-07-08 09:55] LABS: ALKALINE PHOSPHATASE 122 U/L (45-117); BILIRUBIN,TOTAL 0.2 mg/dL (0.2-1.0); CREATININE 0.74 mg/dL (0.7-1.3); TOTAL PROTEIN 6.6 g/dL (6.4-8.2); TROPONIN I 0.058 ng/mL (0.000-0.045)
[2020-07-08] MEDS ORDERED: ONDANSETRON 2MG/ML, 2ML IVPush ONE (10:00)
[2020-07-08] MEDS ORDERED: MORPHINE SULFATE 4 MG/ML, 1ML IVPush PRN (10:00)
[2020-07-08] MEDS ORDERED: SODIUM CHLORIDE FLUSH 10ML SYR IVF PRN (11:00)
--- NOTE | 2020-07-08 11:15 | NUR ---
REPORT GIVEN TO OTTONIEL JARAMILLO.
[2020-07-08 11:42] VITALS: BP 105/62
[2020-07-08] MEDS ORDERED: ALBUTEROL-IPRATROPIUM MDI INH INH SCH (12:30)
[2020-07-08] MEDS ORDERED: DOCUSATE 100 MG CAPSULE PO PRN (13:30)
[2020-07-08] MEDS ORDERED: ONDANSETRON 2MG/ML, 2ML IVPush PRN (13:30)
[2020-07-08] MEDS ORDERED: POLYETHYLENE GLYCOL 17 GM PACKET PO PRN (13:30)
[2020-07-08] MEDS ORDERED: GUAIFENESIN/DM 200-20MG, 10ML UDC PO PRN (13:30)
[2020-07-08] MEDS ORDERED: ACETAMINOPHEN 325 MG TABLET PO PRN (13:30)
[2020-07-08 14:00] VITALS: BP 105/62
[2020-07-08] MEDS: methylPREDNISolone SOD SUCC 125 MG/2 ML IVPush SCH ×2 (14:15→18:28)
[2020-07-08] MEDS: DOXYCYCLINE 100 MG in DEXTROSE 5% 250 ML IV SCH (14:16)
[2020-07-08] MEDS: HYDROcodone/APAP 5/325 TABLET PO PRN ×3 (14:16→22:36)
[2020-07-08] MEDS: ALBUTEROL-IPRATROPIUM MDI INH INH SCH ×2 (15:00→19:50)
[2020-07-08 15:22] LABS: TROPONIN I 0.039 ng/mL (0.000-0.045)
[2020-07-08] MEDS: PHENYTOIN 50 MG TAB.CHEW PO SCH ×2 (16:14→21:15)
[2020-07-08 18:49] VITALS: BP 104/60
[2020-07-08 19:28] LABS: TROPONIN I 0.028 ng/mL (0.000-0.045)
[2020-07-08] MEDS: MIRTAZAPINE 15 MG TABLET PO SCH (21:15)
[2020-07-08] MEDS: MONTELUKAST 10 MG TABLET PO SCH (21:15)
[2020-07-08] MEDS: OLANZAPINE 5 MG TABLET PO SCH (21:16)
[2020-07-09 01:01] VITALS: BP 111/69
[2020-07-09] MEDS: ALBUTEROL-IPRATROPIUM MDI INH INH SCH ×4 (01:15→20:00)
[2020-07-09] MEDS: HYDROcodone/APAP 5/325 TABLET PO PRN ×5 (02:50→20:30)
[2020-07-09] MEDS: DOXYCYCLINE 100 MG in DEXTROSE 5% 250 ML IV SCH ×2 (02:50→13:22)
[2020-07-09] MEDS: methylPREDNISolone SOD SUCC 125 MG/2 ML IVPush SCH ×4 (02:51→18:35)
[2020-07-09 04:41] LABS: BASOPHILS % (AUTO) 0 % (0-1); EOSINOPHILS % (AUTO) 1 % (1-7); LYMPHOCYTES % (AUTO) 21 % (22-44); MEAN CORPUSCULAR HEMOGLOBIN 33.2 pg (27.5-34.5); MEAN CORPUSCULAR HGB CONC 34.6 g/dL (33.2-36.2); MEAN PLATELET VOLUME 6.4 fL (7.4-10.4); MONOCYTES % (AUTO) 7 % (2-9); NEUTROPHILS % (AUTO) 71 % (42-75); PLATELET COUNT 598 x10^3/uL (130-400); RED BLOOD COUNT 2.95 x10^6/uL (4.38-5.82); RED CELL DISTRIBUTION WIDTH 14.6 % (9.4-14.8)
[2020-07-09 04:42] LABS: MD NO
[2020-07-09 05:16] LABS: ALANINE AMINOTRANSFERASE 67 U/L (12-78); ANION GAP 6 mmol/L (5-15); CALCIUM 7.9 mg/dL (8.5-10.1); CHLORIDE 110 mmol/L (98-107); CREATININE 0.71 mg/dL (0.7-1.3)
[2020-07-09 05:18] LABS: ALKALINE PHOSPHATASE 122 U/L (45-117); BILIRUBIN,TOTAL 0.2 mg/dL (0.2-1.0); TOTAL PROTEIN 6.1 g/dL (6.4-8.2)
[2020-07-09] MEDS: LEVOTHYROXINE 25 MCG TABLET PO SCH (06:31)
[2020-07-09 07:05] VITALS: BP 94/56
[2020-07-09 07:28] LABS: INTERNATIONAL NORMALIZED RATIO 1.04 (0.93-1.1); PROTHROMBIN TIME 11.1 Seconds (9.6-11.5)
[2020-07-09] MEDS: FLUTICASONE/VILANTEROL 100-25MCG/INH INH SCH (09:00)
[2020-07-09] MEDS: PHENYTOIN 50 MG TAB.CHEW PO SCH ×3 (10:23→20:00)
[2020-07-09] MEDS: LOSARTAN 50MG TABLET PO SCH (10:23)
[2020-07-09] MEDS: TAMSULOSIN 0.4 MG CAP.ER.24H PO SCH (10:23)
[2020-07-09] MEDS: OLANZAPINE 5 MG TABLET PO SCH ×2 (10:23→20:02)
[2020-07-09] MEDS: THIAMINE 100MG TABLET PO SCH (10:23)
[2020-07-09] MEDS: FINASTERIDE 5 MG TABLET PO SCH (11:05)
[2020-07-09 12:30] VITALS: BP 86/41
[2020-07-09 18:47] VITALS: BP 102/59
[2020-07-09] MEDS: MIRTAZAPINE 15 MG TABLET PO SCH (20:00)
[2020-07-09] MEDS: MONTELUKAST 10 MG TABLET PO SCH (20:02)
[2020-07-10 00:20] VITALS: BP 104/61
[2020-07-10] MEDS: HYDROcodone/APAP 5/325 TABLET PO PRN ×4 (00:22→12:47)
[2020-07-10] MEDS: ALBUTEROL-IPRATROPIUM MDI INH INH SCH ×2 (01:20→07:05)
[2020-07-10] MEDS: methylPREDNISolone SOD SUCC 125 MG/2 ML IVPush SCH ×2 (02:07→08:11)
[2020-07-10] MEDS: DOXYCYCLINE 100 MG in DEXTROSE 5% 250 ML IV SCH (02:08)
[2020-07-10 05:04] LABS: BASOPHILS % (AUTO) 1 % (0-1); EOSINOPHILS % (AUTO) 1 % (1-7); LYMPHOCYTES % (AUTO) 20 % (22-44); MEAN CORPUSCULAR HEMOGLOBIN 32.9 pg (27.5-34.5); MEAN CORPUSCULAR HGB CONC 34.3 g/dL (33.2-36.2); MEAN PLATELET VOLUME 6.2 fL (7.4-10.4); MONOCYTES % (AUTO) 7 % (2-9); NEUTROPHILS % (AUTO) 71 % (42-75); PLATELET COUNT 596 x10^3/uL (130-400); RED CELL DISTRIBUTION WIDTH 14.8 % (9.4-14.8)
[2020-07-10 05:08] LABS: MD NO
[2020-07-10 05:18] LABS: ANION GAP 5 mmol/L (5-15); CALCIUM 8.1 mg/dL (8.5-10.1); CHLORIDE 111 mmol/L (98-107)
[2020-07-10 05:20] LABS: CREATININE 0.64 mg/dL (0.7-1.3)
[2020-07-10] MEDS: LEVOTHYROXINE 25 MCG TABLET PO SCH (05:55)
[2020-07-10 06:42] VITALS: BP 102/62
[2020-07-10] MEDS: FLUTICASONE/VILANTEROL 100-25MCG/INH INH SCH (07:05)
[2020-07-10] MEDS ORDERED: PRED10TA PO (07:40)
[2020-07-10] MEDS ORDERED: DOXY100T PO (07:40)
[2020-07-10] MEDS: OLANZAPINE 5 MG TABLET PO SCH (08:10)
[2020-07-10] MEDS: THIAMINE 100MG TABLET PO SCH (08:11)
[2020-07-10] MEDS: FINASTERIDE 5 MG TABLET PO SCH (08:11)
[2020-07-10] MEDS: LOSARTAN 50MG TABLET PO SCH (08:11)
[2020-07-10] MEDS: TAMSULOSIN 0.4 MG CAP.ER.24H PO SCH (08:11)
[2020-07-10] MEDS: PHENYTOIN 50 MG TAB.CHEW PO SCH (08:11)
[2020-07-10 13:01] VITALS: BP 158/76
== END 2020-07-10 13:03 | disposition home or self-care (01) | DRG 189 ==
LOC: ED 08:49 → SUATTDRO 10:54 → 4WST 10:55
PROVIDERS: ADMIT Internal Medicine; ATTEND Internal Medicine
DX: J96.21 Acute and chronic respiratory failure with hypoxia (principal); I21.A1 Myocardial infarction type 2; E87.2 Acidosis; J44.1 Chronic obstructive pulmonary disease with (acute) exacerbation; M48.50XA Collapsed vertebra, not elsewhere classified, site unspecified, initial encounter for fracture; R04.2 Hemoptysis; E03.9 Hypothyroidism, unspecified; E88.09 Other disorders of plasma-protein metabolism, not elsewhere classified; F31.9 Bipolar disorder, unspecified; G62.9 Polyneuropathy, unspecified; D63.8 Anemia in other chronic diseases classified elsewhere; G40.909 Epilepsy, unspecified, not intractable, without status epilepticus; I10 Essential (primary) hypertension; K59.09 Other constipation; N40.0 Benign prostatic hyperplasia without lower urinary tract symptoms; Z87.891 Personal history of nicotine dependence; Z99.81 Dependence on supplemental oxygen
CPT/HCPCS: 36415; 71045; 76700; 80048; 80053; 80185; 83605; 83735; 83880; 84100; 84484; 85025; 85610; 93005; 94640; 96374; 96375; 99285; G0378; J2405; J7060; J2270; J2930

== ENCOUNTER 2020-07-22 22:30 | Observation (INO) | payer MEDICAID ==
[~2020-07-22] VITALS: Ht 175.3 cm; Wt 74.2 kg
[2020-07-22] MEDS ORDERED: methylPREDNISolone SOD SUCC 125 MG/2 ML ONE (22:59)
[2020-07-22] MEDS ORDERED: methylPREDNISolone SOD SUCC 125 MG/2 ML IVPush ONE (23:00)
[2020-07-22] MEDS ORDERED: ALBUTEROL SULFATE 2.5 MG/3 ML ONE (23:00)
[2020-07-22] MEDS ORDERED: LORazepam 2 MG/ML, 1ML IVPush ONE (23:00)
[2020-07-22] MEDS ORDERED: LORazepam 2 MG/ML, 1ML ONE (23:00)
[2020-07-22] MEDS ORDERED: ALBUTEROL SULFATE 2.5 MG/3 ML NPPB ONE (23:00)
[2020-07-22 23:03] LABS: BASOPHILS % (AUTO) 1 % (0-1); EOSINOPHILS % (AUTO) 5 % (1-7); LYMPHOCYTES % (AUTO) 15 % (22-44); MEAN CORPUSCULAR HGB CONC 33.9 g/dL (33.2-36.2); MONOCYTES % (AUTO) 9 % (2-9); NEUTROPHILS % (AUTO) 70 % (42-75); PLATELET COUNT 292 x10^3/uL (130-400); RED BLOOD COUNT 3.59 x10^6/uL (4.38-5.82); RED CELL DISTRIBUTION WIDTH 14.5 % (9.4-14.8)
[2020-07-22 23:04] LABS: MD NO
[2020-07-22 23:11] LABS: ALBUMIN 3.5 g/dL (3.4-5.0); ANION GAP 5 mmol/L (5-15); CALCIUM 8.2 mg/dL (8.5-10.1); CHLORIDE 107 mmol/L (98-107)
[2020-07-22 23:17] LABS: ALANINE AMINOTRANSFERASE 21 U/L (12-78); ALKALINE PHOSPHATASE 132 U/L (45-117); BILIRUBIN,TOTAL 0.3 mg/dL (0.2-1.0); CREATININE 0.78 mg/dL (0.7-1.3); TOTAL PROTEIN 6.8 g/dL (6.4-8.2); TROPONIN I < 0.015 ng/mL (0.000-0.045)
[2020-07-23] MEDS ORDERED: MELATONIN 5 MG TABLET PO PRN (01:00)
[2020-07-23] MEDS ORDERED: ALBUTEROL HFA 90 MCG/SPRAY INH PRN (01:00)
[2020-07-23] MEDS ORDERED: DOCUSATE 100 MG CAPSULE PO PRN (01:00)
[2020-07-23] MEDS ORDERED: GUAIFENESIN/DM 200-20MG, 10ML UDC PO PRN (01:00)
[2020-07-23] MEDS ORDERED: ENOXAPARIN 40 MG/0.4 ML SQ SCH (01:00)
[2020-07-23 02:25] VITALS: BP 132/78
[2020-07-23] MEDS ORDERED: HYDROcodone/APAP 10/325 MG TABLET PO ONE (03:00)
[2020-07-23 05:24] LABS: BASOPHILS % (AUTO) 1 % (0-1); EOSINOPHILS % (AUTO) 0 % (1-7); LYMPHOCYTES % (AUTO) 12 % (22-44); MD NO; MEAN CORPUSCULAR HEMOGLOBIN 32.1 pg (27.5-34.5); MEAN CORPUSCULAR HGB CONC 33.7 g/dL (33.2-36.2); MEAN PLATELET VOLUME 7.3 fL (7.4-10.4); MONOCYTES % (AUTO) 2 % (2-9); NEUTROPHILS % (AUTO) 86 % (42-75); PLATELET COUNT 295 x10^3/uL (130-400); RED BLOOD COUNT 3.66 x10^6/uL (4.38-5.82); RED CELL DISTRIBUTION WIDTH 14.6 % (9.4-14.8)
[2020-07-23 05:59] LABS: ANION GAP 6 mmol/L (5-15); CALCIUM 8.6 mg/dL (8.5-10.1); CHLORIDE 108 mmol/L (98-107); CREATININE 0.95 mg/dL (0.7-1.3)
[2020-07-23] MEDS: ALBUTEROL HFA 90 MCG/SPRAY INH SCH ×3 (07:29→14:58)
[2020-07-23] MEDS ORDERED: DOXYCYCLINE 100MG TABLET PO SCH (09:00)
[2020-07-23] MEDS ORDERED: FLUTICASONE/VILANTEROL 100-25MCG/INH INH SCH (09:00)
[2020-07-23 09:16] VITALS: BP 115/65
[2020-07-23] MEDS ORDERED: DOXY100T PO (12:45)
[2020-07-23] MEDS ORDERED: PRED20TA PO (12:45)
[2020-07-23] MEDS ORDERED: GUAIFENESIN 100 MG/5 ML, 5ML UDC PO PRN (14:00)
== END 2020-07-23 15:34 | disposition home or self-care (01) ==
LOC: ED 07-23 00:02 → INTOOBSV 07-23 00:11 → EDIP 07-23 00:11 → 4EST 07-23 01:10 → UNDODISIN 07-23 15:34
PROVIDERS: ADMIT Family Medicine; ATTEND Internal Medicine
DX: J96.20 Acute and chronic respiratory failure, unspecified whether with hypoxia or hypercapnia (principal); J44.1 Chronic obstructive pulmonary disease with (acute) exacerbation; R04.2 Hemoptysis; R07.89 Other chest pain; R91.8 Other nonspecific abnormal finding of lung field; I10 Essential (primary) hypertension; G40.909 Epilepsy, unspecified, not intractable, without status epilepticus; E03.9 Hypothyroidism, unspecified; K59.09 Other constipation; M48.54XA Collapsed vertebra, not elsewhere classified, thoracic region, initial encounter for fracture; F31.9 Bipolar disorder, unspecified; D63.1 Anemia in chronic kidney disease; N40.0 Benign prostatic hyperplasia without lower urinary tract symptoms; F41.1 Generalized anxiety disorder; Z79.899 Other long term (current) drug therapy
CPT/HCPCS: 36415; 71045; 80048; 80053; 80185; 83880; 84484; 85025; 85379; 93005; 94640; 96372; 96374; 96375; 99285; G0378; J1650; J2060; J2930; J7512; J7613; Q0177

== ENCOUNTER 2020-08-11 06:27 | Observation (INO) | payer MEDICAID ==
[~2020-08-11] VITALS: Ht 185.4 cm; Wt 69.0 kg
[~2020-08-11 06:27] MED LIST changes: -HYDR-1067 PO; +HYDR-2214 PO; -SALM50DI INH; +SALM50DI2 INH
--- NOTE | 2020-08-11 06:27 | NUR ---
INITIAL PT CONTACT. PT BIBA C/O INCREASING SOB X2 DAYS. "I'M ALWAYS SOB, BUT I ALMOST FALL DOWN WHEN I GO TO THE BATHROOM, MY LEFT SIDE HAS BEEN WEAK AND NUMB FOR A FEW DAYS". PT EXTREMELY ARGUMENTATIVE UPON ARRIVAL TO ED, UNCOOPERATIVE WITH STAFF. WHEN STAFF STARTED TO TAKE VITALS PT STARTED SHOUTING "I DONT NEED THESE DAMN STICKERS ON ME, I HATE THESE STICKERS. YOU DON'T EVEN KNOW WHAT YOU'RE DOING" THEN PROCEEDED TO SMACK AWAY STAFF HANDS WHEN ATTEMPTING TO TAKE ORAL TEMPERATURE. PT REDIRECTED AND VERBALIZED UNDERSTADING OF APPROPRIATE BEHAVIOR WHILE IN ED. PT SITTING UPRIGHT ON GURNEY, RAPID RESPIRATIONS, EXPIRATORY WHEEZING NOTED. PLACED ON CONTINUOUS PULSE OX AND CARDIAC MONITORING. ERP DR. COPPOLA AT BEDSIDE. AWAITING ORDERS AT THIS TIME.
--- NOTE | 2020-08-11 06:30 | NUR ---
PER EMS. PT RECEIVED ALBUTEROL AND DUO ROCAEL BREATHING TX EN ROUTE, IMPROVED SENSATION OF SOB.
--- NOTE | 2020-08-11 06:45 | NUR ---
Report recieved from Meghann ALCAZAR
--- NOTE | 2020-08-11 06:45 | NUR ---
BEDSIDE REPORT TO JENNIFER ALCAZAR AND LEONIDAS ALCAZAR.
--- NOTE | 2020-08-11 06:46 | NUR ---
PT REFUSED TO PROVIDE URINE SAMPLE AFTER BEING ASSISTED TO RESTROOM.
[2020-08-11] MEDS ORDERED: SODIUM CHLORIDE FLUSH 10ML SYR IVF ONE (07:00)
[2020-08-11] MEDS ORDERED: ALBUTEROL 0.5%, 20ML NPPB SCH (07:00)
[2020-08-11] MEDS ORDERED: LORazepam 2 MG/ML, 1ML ONE (07:14)
[2020-08-11] MEDS ORDERED: ALBUTEROL 0.5%, 20ML ONE (07:14)
[2020-08-11 07:26] LABS: BASOPHILS % (AUTO) 1 % (0-1); EOSINOPHILS % (AUTO) 16 % (1-7); LYMPHOCYTES % (AUTO) 41 % (22-44); MEAN CORPUSCULAR HEMOGLOBIN 32.2 pg (27.5-34.5); MEAN CORPUSCULAR HGB CONC 33.7 g/dL (33.2-36.2); MEAN PLATELET VOLUME 6.7 fL (7.4-10.4); MONOCYTES % (AUTO) 8 % (2-9); NEUTROPHILS % (AUTO) 34 % (42-75); PLATELET COUNT 436 x10^3/uL (130-400); RED BLOOD COUNT 3.86 x10^6/uL (4.38-5.82); RED CELL DISTRIBUTION WIDTH 14.3 % (9.4-14.8)
[2020-08-11] MEDS ORDERED: LORazepam 2 MG/ML, 1ML IVPush ONE (07:30)
[2020-08-11 07:33] LABS: ALANINE AMINOTRANSFERASE 19 U/L (12-78); ALBUMIN 4.1 g/dL (3.4-5.0); ANION GAP 5 mmol/L (5-15); CALCIUM 8.6 mg/dL (8.5-10.1); CHLORIDE 104 mmol/L (98-107); CREATININE 0.86 mg/dL (0.7-1.3)
[2020-08-11 07:37] LABS: ALKALINE PHOSPHATASE 139 U/L (45-117); BILIRUBIN,TOTAL 0.3 mg/dL (0.2-1.0); TOTAL PROTEIN 7.5 g/dL (6.4-8.2); TROPONIN I < 0.015 ng/mL (0.000-0.045)
[2020-08-11 07:47] LABS: MD SCAN
--- NOTE | 2020-08-11 08:14 | NUR ---
Albuterol Tx running for about 35 mins, pt reports ease in work of breathing. RONAL DOBBINS.
[2020-08-11] MEDS ORDERED: MECLIZINE CHEWABLE 25 MG TAB ONE (08:28)
[2020-08-11] MEDS ORDERED: MECLIZINE CHEWABLE 25 MG TAB PO ONE (08:30)
--- NOTE | 2020-08-11 08:30 | NUR ---
PT AGAIN REFUSING TO PROVIDE URINE SAMPLE
--- NOTE | 2020-08-11 08:47 | NUR ---
pt in CT
[2020-08-11] MEDS ORDERED: ALBUTEROL HFA 90 MCG/SPRAY INH PRN (09:30)
[2020-08-11] MEDS ORDERED: DOCUSATE 100 MG CAPSULE PO PRN (09:30)
[2020-08-11] MEDS ORDERED: ONDANSETRON 2MG/ML, 2ML IVPush PRN (09:30)
[2020-08-11] MEDS ORDERED: ACETAMINOPHEN 325 MG TABLET PO PRN (09:30)
[2020-08-11] MEDS ORDERED: GUAIFENESIN/DM 200-20MG, 10ML UDC PO PRN (09:30)
[2020-08-11] MEDS ORDERED: hydrALAzine 20 MG/ML, 1ML IVPush PRN (09:30)
--- NOTE | 2020-08-11 09:39 | NUR ---
Pt ambulatory with steady gait to restroom to provide urine sample.
[2020-08-11 09:54] LABS: FREE T4 (FREE THYROXINE) 0.6 ng/dL (0.76-1.46)
[2020-08-11] MEDS ORDERED: ALPR0.5T7 PO (09:54)
[2020-08-11 10:10] VITALS: BP 120/75
[2020-08-11 10:36] LABS: MICROSCOPIC AUTO
[2020-08-11] MEDS: ALBUTEROL-IPRATROPIUM MDI INH INH SCH ×3 (11:04→19:30)
[2020-08-11] MEDS: LACTULOSE 20 GM/30 ML UDC PO SCH ×2 (11:24→21:00)
[2020-08-11] MEDS: AZITHROMYCIN 500 MG TABLET PO SCH (11:24)
[2020-08-11] MEDS: methylPREDNISolone SOD SUCC 40 MG/ML IVPush SCH ×3 (11:24→21:30)
[2020-08-11] MEDS: ENOXAPARIN 40 MG/0.4 ML SQ SCH (11:25)
[2020-08-11 15:21] VITALS: BP 123/70
[2020-08-11 15:23] VITALS: BP 120/74
[2020-08-11 15:24] VITALS: BP 107/68
[2020-08-11] MEDS ORDERED: PHENYTOIN 100 MG CAPSULE PO SCH (16:00)
[2020-08-11 20:10] VITALS: BP 109/64
[2020-08-11] MEDS ORDERED: MIRTAZAPINE 15 MG TABLET PO SCH (21:00)
[2020-08-11] MEDS ORDERED: MELATONIN 5 MG TABLET PO PRN (21:00)
[2020-08-11] MEDS: SODIUM CHLORIDE FLUSH 10ML SYR IVF SCH (21:00)
[2020-08-11] MEDS ORDERED: MONTELUKAST 10 MG TABLET PO SCH (21:00)
[2020-08-11] MEDS: PHENYTOIN 50 MG TAB.CHEW PO SCH (21:28)
[2020-08-11] MEDS: OLANZAPINE 5 MG TABLET PO SCH (21:28)
[2020-08-12 01:10] VITALS: BP 103/62
[2020-08-12] MEDS: methylPREDNISolone SOD SUCC 40 MG/ML IVPush SCH ×3 (04:02→15:30)
[2020-08-12] MEDS ORDERED: LEVOTHYROXINE 25 MCG TABLET PO SCH (06:00)
[2020-08-12] MEDS ORDERED: PANTOPRAZOLE 40MG TABLET PO SCH (07:30)
[2020-08-12 07:38] VITALS: BP 124/83
[2020-08-12] MEDS: ALBUTEROL-IPRATROPIUM MDI INH INH SCH ×4 (07:50→16:20)
[2020-08-12 08:11] VITALS: BP 107/67
[2020-08-12] MEDS ORDERED: FINASTERIDE 5 MG TABLET PO SCH (09:00)
[2020-08-12] MEDS ORDERED: SALMETEROL INH 50MCG/INH DISK.W.DEV INH SCH (09:00)
[2020-08-12] MEDS ORDERED: FLUTICASONE FUROATE 100MCG/INH INH SCH (09:00)
[2020-08-12] MEDS ORDERED: TAMSULOSIN 0.4 MG CAP.ER.24H PO SCH (09:00)
[2020-08-12] MEDS ORDERED: MULTIVITAMINS/MINERALS TABLET PO SCH (09:00)
[2020-08-12] MEDS ORDERED: LOSARTAN 50MG TABLET PO SCH (09:00)
[2020-08-12] MEDS: AZITHROMYCIN 500 MG TABLET PO SCH (09:58)
[2020-08-12] MEDS: OLANZAPINE 5 MG TABLET PO SCH (09:58)
[2020-08-12] MEDS: PHENYTOIN 50 MG TAB.CHEW PO SCH ×2 (09:58→15:43)
[2020-08-12] MEDS: LACTULOSE 20 GM/30 ML UDC PO SCH (09:59)
[2020-08-12] MEDS: ENOXAPARIN 40 MG/0.4 ML SQ SCH (10:13)
[2020-08-12] MEDS ORDERED: PRED20TA PO (10:25)
[2020-08-12] MEDS ORDERED: AZIT500T10 PO (10:25)
[2020-08-12] MEDS: SODIUM CHLORIDE FLUSH 10ML SYR IVF SCH (10:27)
[2020-08-12 12:49] VITALS: BP 110/65
== END 2020-08-12 18:09 | disposition home or self-care (01) ==
LOC: ED 08:24 → EDIP 08:55 → INTOOBSV 08:55 → 4WST 10:03
PROVIDERS: ADMIT Hospitalist; ATTEND Hospitalist
DX: J44.1 Chronic obstructive pulmonary disease with (acute) exacerbation (principal); J96.11 Chronic respiratory failure with hypoxia; R20.0 Anesthesia of skin; G40.909 Epilepsy, unspecified, not intractable, without status epilepticus; E03.9 Hypothyroidism, unspecified; N40.0 Benign prostatic hyperplasia without lower urinary tract symptoms; E11.41 Type 2 diabetes mellitus with diabetic mononeuropathy; E78.5 Hyperlipidemia, unspecified; D47.3 Essential (hemorrhagic) thrombocythemia; R74.8 Abnormal levels of other serum enzymes; I11.0 Hypertensive heart disease with heart failure; I50.30 Unspecified diastolic (congestive) heart failure; R91.8 Other nonspecific abnormal finding of lung field; R42 Dizziness and giddiness; F41.9 Anxiety disorder, unspecified; K59.00 Constipation, unspecified; F31.9 Bipolar disorder, unspecified; G89.29 Other chronic pain; F17.210 Nicotine dependence, cigarettes, uncomplicated; Z79.899 Other long term (current) drug therapy
CPT/HCPCS: 36415; 70450; 70551; 71045; 80053; 80185; 81001; 82607; 83605; 83880; 84439; 84443; 84484; 85025; 87040; 93005; 94640; 96372; 96374; 96375; 96376; 99285; G0378; J1650; J2060; J2920; J7512; 94644

== ENCOUNTER 2020-08-31 13:02 | Emergency (ER) | payer MEDICAID ==
[~2020-08-31] VITALS: Ht 182.9 cm; Wt 72.7 kg
[~2020-08-31 13:02] MED LIST changes: +ALPR0.5T7 PO; +AZIT500T10 PO
[2020-08-31] MEDS ORDERED: ALBUTEROL/IPRATROPIUM 2.5MG/0.5MG, 3 ML ONE ×2 (13:25→14:01)
--- NOTE | 2020-08-31 13:26 | NUR ---
THIS IS A 64 YEAR OLD MALE WHO PRESENTS TO ER WITH SOB STARTING LAST NIGHT. PT WEARS HOME O2 AT 3 LPM BASELINE. PT HAS INCREASED WORK OF BREATHING BUT NO INCREASE IN SUPPLEMENTAL O2 NEEDED. LUNG SOUNDS ARE DIMINISHED IN ALL FEILDS. PT ALSO CONCERNED WITH HAVING A RUNNY NOSE FOR THE PAST FEW DAYS WELL. AT THIS TIME RT AT BEDSIDE FOR BREATHING TX.
[2020-08-31] MEDS: ALBUTEROL/IPRATROPIUM 2.5MG/0.5MG, 3 ML NPPB SCH ×2 (13:29→14:04)
[2020-08-31] MEDS ORDERED: methylPREDNISolone SOD SUCC 125 MG/2 ML IV ONE (13:30)
[2020-08-31] MEDS ORDERED: SODIUM CHLORIDE FLUSH 10ML SYR IVF ONE (13:30)
[2020-08-31] MEDS ORDERED: methylPREDNISolone SOD SUCC 125 MG/2 ML ONE (13:46)
[2020-08-31 13:51] VITALS: BP 124/76
--- NOTE | 2020-08-31 13:53 | NUR ---
PT SITTING ON GURNEY, FEELING ANXIOUS. NADN/VSS. DENIES PAIN. CALL LIGHT WITHIN REACH.
[2020-08-31 13:57] LABS: BASOPHILS % (AUTO) 1 % (0-1); EOSINOPHILS % (AUTO) 17 % (1-7); LYMPHOCYTES % (AUTO) 26 % (22-44); MEAN CORPUSCULAR HEMOGLOBIN 32.1 pg (27.5-34.5); MEAN CORPUSCULAR HGB CONC 33.7 g/dL (33.2-36.2); MEAN PLATELET VOLUME 7.2 fL (7.4-10.4); MONOCYTES % (AUTO) 9 % (2-9); NEUTROPHILS % (AUTO) 47 % (42-75); PLATELET COUNT 274 x10^3/uL (130-400); RED BLOOD COUNT 3.86 x10^6/uL (4.38-5.82); RED CELL DISTRIBUTION WIDTH 14.1 % (9.4-14.8)
[2020-08-31 14:05] LABS: ALBUMIN 3.8 g/dL (3.4-5.0); ANION GAP 2 mmol/L (5-15); CALCIUM 8.7 mg/dL (8.5-10.1); CHLORIDE 105 mmol/L (98-107); CREATININE 0.75 mg/dL (0.7-1.3)
[2020-08-31 14:09] LABS: TROPONIN I < 0.015 ng/mL (0.000-0.045)
--- NOTE | 2020-08-31 14:11 | NUR ---
PT TOLERATED BREATHING TX WELL. NADN/VSS.
[2020-08-31 14:28] LABS: MD SCAN
[2020-08-31] MEDS ORDERED: LORazepam 1MG TABLET PO ONE (15:00)
[2020-08-31] MEDS ORDERED: LORazepam 1MG TABLET ONE (15:02)
--- NOTE | 2020-08-31 16:04 | NUR ---
Patient given discharge instructions and RX, they have confirmed that they understand the instructions. Patient ambulatory with steady gait.
== END 2020-08-31 16:06 | disposition home or self-care (01) ==
LOC: MERGE 13:02 → EDBD 13:02 → ED 14:55
DX: J44.1 Chronic obstructive pulmonary disease with (acute) exacerbation (principal); R06.02 Shortness of breath; I45.10 Unspecified right bundle-branch block; I10 Essential (primary) hypertension; E78.5 Hyperlipidemia, unspecified; E03.9 Hypothyroidism, unspecified; Z87.891 Personal history of nicotine dependence
CPT/HCPCS: 36415; 71045; 80048; 82040; 83605; 84484; 85025; 87040; 93005; 94640; 96374; 99285; J2930; 96375; 99284

== ENCOUNTER 2020-09-01 07:49 | Emergency (ER) | payer MEDICAID ==
[~2020-09-01] VITALS: Ht 182.9 cm; Wt 60.0 kg
[2020-09-01] MEDS ORDERED: ALBUTEROL/IPRATROPIUM 2.5MG/0.5MG, 3 ML NPPB ONE (08:30)
[2020-09-01] MEDS ORDERED: ALBUTEROL/IPRATROPIUM 2.5MG/0.5MG, 3 ML ONE (08:31)
[2020-09-01] MEDS ORDERED: ALBUTEROL SULFATE 2.5 MG/3 ML NPPB ONE (09:00)
[2020-09-01] MEDS ORDERED: ALBUTEROL SULFATE 2.5 MG/3 ML ONE (09:45)
[2020-09-01] MEDS ORDERED: hydrOXyzine 50MG TABLET ONE (11:03)
--- NOTE | 2020-09-01 11:06 | NUR ---
TASK RN COVERING PRIMARY BREAK. PT REQUESTING ANXIETY MED WHICH WAS PROVIDED PER ERP ORDER. CALL LIGHT WITHIN REACH.
--- NOTE | 2020-09-01 11:24 | NUR ---
PT GIVEN DISCHARGE INSTRUCTIONS. PT REFUSES TO TAKE WRITTEN INSTRUCTIONS, STATES "I DON'T NEED THEM".
[2020-09-01 11:25] VITALS: BP 128/88
== END 2020-09-01 11:27 | disposition home or self-care (01) ==
LOC: ED 11:00
DX: J96.11 Chronic respiratory failure with hypoxia (principal); J44.1 Chronic obstructive pulmonary disease with (acute) exacerbation; F41.9 Anxiety disorder, unspecified; I10 Essential (primary) hypertension; E11.649 Type 2 diabetes mellitus with hypoglycemia without coma; E11.40 Type 2 diabetes mellitus with diabetic neuropathy, unspecified; G40.909 Epilepsy, unspecified, not intractable, without status epilepticus; Z87.891 Personal history of nicotine dependence
CPT/HCPCS: 71045; 93005; 94640; 99284; J7512; J7613; Q0177

== ENCOUNTER 2020-09-05 23:45 | Inpatient (IN) | payer MEDICAID ==
[~2020-09-05] VITALS: Ht 182.9 cm; Wt 76.1 kg
[~2020-09-05 23:45] MED LIST changes: +PLEASE ENTER ALLERGIES MC SCH
[2020-09-06] MEDS ORDERED: AZITHROMYCIN 500 MG in SODIUM CHLORIDE 0.9% 250 ML IVPB ONE
[2020-09-06] MEDS ORDERED: SODIUM CHLORIDE FLUSH 10ML SYR IVF ONE
[2020-09-06] MEDS ORDERED: SODIUM CHLORIDE 0.9% 1,000ML IVBOLUS ONE
[2020-09-06] MEDS ORDERED: IPRATROPIUM 0.5 MG/2.5 ML INHA NPPB ONE
[2020-09-06] MEDS ORDERED: CEFTRIAXONE 1,000 MG in DEXTROSE 5% 50 ML IVPB ONE
[2020-09-06] MEDS ORDERED: MAGNESIUM SULFATE PMX 2GM/50ML 50 ML IVPB ONE
[2020-09-06] MEDS ORDERED: MIDAZOLAM 1 MG/ML, 2ML IVPush ONE
[2020-09-06] MEDS ORDERED: methylPREDNISolone SOD SUCC 125 MG/2 ML IV ONE
[2020-09-06] MEDS ORDERED: ETOMIDATE 20 MG/10 ML IV ONE
[2020-09-06] MEDS ORDERED: SUCCINYLCHOLINE 20 MG/ML, 10ML IVPush ONE
[2020-09-06] MEDS ORDERED: ALBUTEROL 0.5%, 20ML NPPB SCH
[2020-09-06] MEDS ORDERED: MIDAZOLAM 1 MG/ML, 2ML ONE ×2 (00:12→04:08)
[2020-09-06] MEDS ORDERED: FENTANYL PF 100 MCG/2ML ONE (00:12)
[2020-09-06 00:20] LABS: BASOPHILS % (AUTO) 1 % (0-1); EOSINOPHILS % (AUTO) 13 % (1-7); LYMPHOCYTES % (AUTO) 45 % (22-44); MEAN CORPUSCULAR HEMOGLOBIN 31.8 pg (27.5-34.5); MEAN CORPUSCULAR HGB CONC 33.8 g/dL (33.2-36.2); MONOCYTES % (AUTO) 8 % (2-9); NEUTROPHILS % (AUTO) 33 % (42-75); PLATELET COUNT 326 x10^3/uL (130-400); RED BLOOD COUNT 3.85 x10^6/uL (4.38-5.82); RED CELL DISTRIBUTION WIDTH 14.1 % (9.4-14.8)
[2020-09-06 00:22] LABS: MD NO
[2020-09-06] MEDS ORDERED: MIDAZOLAM 1 MG/ML, 5ML IVPush ONE ×3 (00:30→04:30)
[2020-09-06] MEDS ORDERED: FENTANYL PF 100 MCG/2ML IVPush ONE (00:30)
[2020-09-06 00:32] LABS: ALANINE AMINOTRANSFERASE 22 U/L (12-78); ALBUMIN 3.9 g/dL (3.4-5.0); ANION GAP 6 mmol/L (5-15); CALCIUM 8.3 mg/dL (8.5-10.1); CHLORIDE 108 mmol/L (98-107); CREATININE 0.75 mg/dL (0.7-1.3)
[2020-09-06 00:36] LABS: ALKALINE PHOSPHATASE 161 U/L (45-117); BILIRUBIN,TOTAL 0.2 mg/dL (0.2-1.0); TOTAL PROTEIN 7.2 g/dL (6.4-8.2); TROPONIN I < 0.015 ng/mL (0.000-0.045)
--- NOTE | 2020-09-06 01:16 | NUR ---
bib [facility], pt with difficulty breathing. pt ill appearing. confused and combative. not tolerating nasal canula or non rebreather. pt emergently intubated by dr fernandez. intubated with 8.0 @ 5902. 26 @ the lip
[2020-09-06] MEDS ORDERED: ALBUTEROL/IPRATROPIUM 2.5MG/0.5MG, 3 ML ONE (01:21)
[2020-09-06] MEDS ORDERED: methylPREDNISolone SOD SUCC 125 MG/2 ML ONE (01:23)
[2020-09-06] MEDS ORDERED: MAGNESIUM SULFATE PMX 2GM/50ML 50 ML ONE (01:46)
--- NOTE | 2020-09-06 02:04 | NUR ---
PT RESTING COMFORTABLY ON GURNEY. DAVIS DRAINING CLEAR YELLOW URINE. VITAL SIGNS ARE STABLE. CENTRAL LINE SET UP FOR INSERTION BY DR BO
--- NOTE | 2020-09-06 02:58 | NUR ---
central line placed right IJ. pt tolerated well.
[2020-09-06] MEDS ORDERED: SODIUM CHLORIDE 0.9% 1,000 ML IV ONE (03:00)
--- NOTE | 2020-09-06 03:03 | NUR ---
ET tube adjusted by RT and now 27 at the lip
--- NOTE | 2020-09-06 03:19 | NUR ---
BEDSIDE REPORT TO VEGA, RN
--- NOTE | 2020-09-06 03:20 | NUR ---
RECEIVED REPORT AND CARE OF PT, IN TRAUMA 3. PT SEDATED IN STRETCHER, ETT SECURE AT 27CM MARY, GOOD AERATION AND OXYGENATION ON RESP VENTILATOR. O2 30%. NGT SECURE, DRAINING AT LIS. PIV TO LEFT HAND 20G, INTACT, IVF AND PROPOFOL ON A PUMP INFUSING. AWAITING CXRY READ TO BE ABLE TO USE THE CVL TRIPLE LUMEN IN RIGHT EJ. DAVIS IN PLACE AND DRAINING CLEAR YELLOW URINE. WAITING ON ROOM ASSIGNMENT.
[2020-09-06] MEDS ORDERED: PROPOFOL 100 ML IV PRN ×2 (03:30)
[2020-09-06] MEDS ORDERED: FENTANYL PF 100 MCG/2ML IVPush PRN (03:30)
[2020-09-06] MEDS ORDERED: SENNA/DOCUSATE TABLET NG PRN (03:30)
[2020-09-06] MEDS ORDERED: SENNA 176 MG/5 ML ORAL SOL NG PRN (03:30)
[2020-09-06] MEDS ORDERED: PHARMACY MAY ADJ FOR RENAL FX MC SCH (03:30)
[2020-09-06] MEDS ORDERED: LIDOCAINE-MPF 1%, 2ML ENDO PRN (03:30)
[2020-09-06] MEDS ORDERED: BISACODYL 10 MG SUPP PR PRN (03:30)
[2020-09-06] MEDS ORDERED: LACTULOSE 20 GM/30 ML UDC NG PRN (03:30)
[2020-09-06] MEDS ORDERED: PROPOFOL 100 ML IV ONE (03:32)
--- NOTE | 2020-09-06 03:51 | NUR ---
REPORT CALLED TO CONNER ALCAZAR IN ICU. AWAITING ON CXRY READ TO USE THE CENTRAL LINE AND START MAG AND ZITHRO MEDS PER EMAR MD ORDER.
--- NOTE | 2020-09-06 04:22 | NUR ---
MEDS ADMINISTERED VIA CVL PER MD ORDERS. SEE EMAR. PT WOKE UP AND SLAPPING HAND, SHAKES HEAD YES, WHEN ASKED IF HAS PAIN. MD AWARE, AND VERSED ORDERED. SEE EMAR. PT MEDICATED PRIOR TO DEPARTURE. PT SEDATED AND RESTING AFTERWARDS. IV SITES INTACT, NO REDNESS OR SWELLING ON RIGHT ARM PIV. CVL INTACT, DRESSING INTACT. REPORT AND CARE TO CONNER ALCAZAR.
[2020-09-06] MEDS ORDERED: CEFTRIAXONE 1,000 MG in DEXTROSE 5% 50 ML IVPB SCH (06:00)
[2020-09-06] MEDS: LEVOTHYROXINE 25 MCG TABLET PO SCH (06:00)
[2020-09-06] MEDS: ALBUTEROL/IPRATROPIUM 2.5MG/0.5MG, 3 ML INLINE SCH ×2 (06:00→10:51)
[2020-09-06] MEDS: methylPREDNISolone SOD SUCC 125 MG/2 ML IVPush SCH ×2 (06:38→17:36)
[2020-09-06] MEDS: DOXYCYCLINE 100 MG in DEXTROSE 5% 250 ML IV SCH ×2 (06:38→17:36)
[2020-09-06] MEDS: ENOXAPARIN 40 MG/0.4 ML SQ SCH (06:38)
[2020-09-06] MEDS ORDERED: THIAMINE 100MG TABLET PO SCH (09:00)
[2020-09-06] MEDS: FAMOTIDINE 20 MG/2 ML IVPush SCH (10:16)
[2020-09-06] MEDS ORDERED: LORazepam 2 MG/ML, 1ML ONE (11:11)
[2020-09-06] MEDS ORDERED: LORazepam 2 MG/ML, 1ML IVPush ONE (11:30)
[2020-09-06] MEDS: ALBUTEROL/IPRATROPIUM 2.5MG/0.5MG, 3 ML NPPB SCH ×2 (15:03→20:00)
[2020-09-06] MEDS: PHENYTOIN 125 MG/5 ML ORAL SUSP PO SCH ×2 (15:38→20:56)
[2020-09-06 17:32] VITALS: BP 118/73
[2020-09-06] MEDS: NICOTINE 7 MG/24 HR PATCH.TD24 TD SCH (17:39)
[2020-09-06] MEDS: BUDESONIDE 0.5 MG/2 ML INHA INH SCH (20:20)
[2020-09-06] MEDS: MONTELUKAST 10 MG TABLET PO SCH (20:56)
[2020-09-06 21:02] VITALS: BP 116/68
[2020-09-07] MEDS: FAMOTIDINE 20 MG/2 ML IVPush SCH ×3 (00:13→09:57)
[2020-09-07] MEDS: DOXYCYCLINE 100 MG in DEXTROSE 5% 250 ML IV SCH ×2 (00:13→06:22)
[2020-09-07 00:23] VITALS: BP 99/51
[2020-09-07 04:33] VITALS: BP 102/65
[2020-09-07] MEDS: LEVOTHYROXINE 25 MCG TABLET PO SCH (05:12)
[2020-09-07] MEDS: ENOXAPARIN 40 MG/0.4 ML SQ SCH (05:14)
[2020-09-07] MEDS: methylPREDNISolone SOD SUCC 125 MG/2 ML IVPush SCH (05:57)
[2020-09-07 06:55] LABS: BASOPHILS % (AUTO) 0 % (0-1); EOSINOPHILS % (AUTO) 4 % (1-7); LYMPHOCYTES % (AUTO) 31 % (22-44); MEAN CORPUSCULAR HEMOGLOBIN 32.3 pg (27.5-34.5); MEAN CORPUSCULAR HGB CONC 34.4 g/dL (33.2-36.2); MEAN PLATELET VOLUME 7.1 fL (7.4-10.4); MONOCYTES % (AUTO) 8 % (2-9); NEUTROPHILS % (AUTO) 58 % (42-75); PLATELET COUNT 260 x10^3/uL (130-400); RED BLOOD COUNT 3.33 x10^6/uL (4.38-5.82); RED CELL DISTRIBUTION WIDTH 14.4 % (9.4-14.8)
[2020-09-07] MEDS: BUDESONIDE 0.5 MG/2 ML INHA INH SCH ×2 (07:05→20:28)
[2020-09-07] MEDS: ALBUTEROL/IPRATROPIUM 2.5MG/0.5MG, 3 ML NPPB SCH ×4 (07:05→20:00)
[2020-09-07 07:06] LABS: MD NO
[2020-09-07 07:08] LABS: ANION GAP 4 mmol/L (5-15); CALCIUM 8.2 mg/dL (8.5-10.1); CHLORIDE 109 mmol/L (98-107); CREATININE 0.65 mg/dL (0.7-1.3)
[2020-09-07 08:19] VITALS: BP 121/68
[2020-09-07] MEDS: PHENYTOIN 125 MG/5 ML ORAL SUSP PO SCH ×3 (09:59→20:42)
[2020-09-07] MEDS: FOLIC ACID 1 MG TABLET PO SCH (10:00)
[2020-09-07] MEDS: MULTIVITAMIN 1 TABLET PO SCH (10:00)
[2020-09-07] MEDS: THIAMINE 100MG TABLET PO SCH (10:01)
[2020-09-07] MEDS ORDERED: MIDAZOLAM 1 MG/ML, 5ML ONE (11:44)
[2020-09-07] MEDS ORDERED: PROPOFOL 10 MG/ML, 100ML IV ONE (11:44)
[2020-09-07] MEDS ORDERED: ETOMIDATE 20 MG/10 ML ONE (11:44)
[2020-09-07] MEDS ORDERED: SUCCINYLCHOLINE 20 MG/ML, 10ML ONE (11:44)
[2020-09-07 13:48] VITALS: BP 107/60
[2020-09-07] MEDS: CEFDINIR 300 MG CAPSULE PO SCH (14:34)
[2020-09-07] MEDS: NICOTINE 7 MG/24 HR PATCH.TD24 TD SCH (17:43)
[2020-09-07 19:43] VITALS: BP 111/68
[2020-09-07] MEDS: MONTELUKAST 10 MG TABLET PO SCH (20:42)
[2020-09-07] MEDS: DOXYCYCLINE 100MG TABLET PO SCH (20:42)
[2020-09-08 00:16] VITALS: BP 131/78
[2020-09-08 02:55] VITALS: BP 125/83
[2020-09-08] MEDS: CEFDINIR 300 MG CAPSULE PO SCH ×2 (03:07→13:56)
[2020-09-08] MEDS: ALBUTEROL/IPRATROPIUM 2.5MG/0.5MG, 3 ML NPPB SCH ×4 (03:17→15:55)
[2020-09-08 05:55] LABS: ANION GAP 5 mmol/L (5-15); CHLORIDE 109 mmol/L (98-107)
[2020-09-08 05:57] LABS: CREATININE 0.69 mg/dL (0.7-1.3)
[2020-09-08] MEDS: LEVOTHYROXINE 25 MCG TABLET PO SCH (06:13)
[2020-09-08] MEDS: ENOXAPARIN 40 MG/0.4 ML SQ SCH (06:13)
[2020-09-08 07:04] VITALS: BP 113/67
[2020-09-08] MEDS: BUDESONIDE 0.5 MG/2 ML INHA INH SCH (07:15)
[2020-09-08] MEDS: MULTIVITAMIN 1 TABLET PO SCH (09:00)
[2020-09-08] MEDS: PHENYTOIN 125 MG/5 ML ORAL SUSP PO SCH (10:12)
[2020-09-08] MEDS: FOLIC ACID 1 MG TABLET PO SCH (10:12)
[2020-09-08] MEDS: DOXYCYCLINE 100MG TABLET PO SCH (10:12)
[2020-09-08] MEDS: THIAMINE 100MG TABLET PO SCH (10:13)
[2020-09-08] MEDS ORDERED: CEFD300C37 PO (11:24)
[2020-09-08] MEDS ORDERED: LACT1TAB13 PO (11:24)
[2020-09-08] MEDS ORDERED: DOXY100T PO (11:24)
[2020-09-08] MEDS ORDERED: PRED10TA PO (11:24)
[2020-09-08 13:23] VITALS: BP 112/69
== END 2020-09-08 16:24 | disposition home or self-care (01) | DRG 208 ==
LOC: MERGE 23:45 → EDBD 23:45 → ED 09-06 00:15 → EDIP 09-06 00:50 → CCU 09-06 04:16 → 3N 09-06 17:36
PROVIDERS: ADMIT Family Medicine; ATTEND Internal Medicine
PROC: 02HV33Z Insertion of Infusion Device into Superior Vena Cava, Percutaneous Approach (ICD-10-PCS; principal; 2020-09-06)
PROC: 5A1935Z Respiratory Ventilation, Less than 24 Consecutive Hours (ICD-10-PCS; 2020-09-06)
PROC: 0BH17EZ Insertion of Endotracheal Airway into Trachea, Via Natural or Artificial Opening (ICD-10-PCS; 2020-09-06)
PROC: B548ZZA Ultrasonography of Superior Vena Cava, Guidance (ICD-10-PCS; 2020-09-06)
DX: J96.21 Acute and chronic respiratory failure with hypoxia (principal); E87.2 Acidosis; I50.32 Chronic diastolic (congestive) heart failure; J44.1 Chronic obstructive pulmonary disease with (acute) exacerbation; Z99.11 Dependence on respirator [ventilator] status; J96.22 Acute and chronic respiratory failure with hypercapnia; D63.8 Anemia in other chronic diseases classified elsewhere; E03.2 Hypothyroidism due to medicaments and other exogenous substances; E78.5 Hyperlipidemia, unspecified; F31.9 Bipolar disorder, unspecified; G40.909 Epilepsy, unspecified, not intractable, without status epilepticus; G62.9 Polyneuropathy, unspecified; G89.29 Other chronic pain; I11.0 Hypertensive heart disease with heart failure; N40.0 Benign prostatic hyperplasia without lower urinary tract symptoms; Z80.1 Family history of malignant neoplasm of trachea, bronchus and lung; Z82.49 Family history of ischemic heart disease and other diseases of the circulatory system; Z82.5 Family history of asthma and other chronic lower respiratory diseases; Z83.3 Family history of diabetes mellitus; R91.1 Solitary pulmonary nodule; R73.9 Hyperglycemia, unspecified; M54.9 Dorsalgia, unspecified; Z99.81 Dependence on supplemental oxygen; T38.0X5A Adverse effect of glucocorticoids and synthetic analogues, initial encounter
CPT/HCPCS: 31500; 36415; 36556; 36600; 96374; 96375; 99291; J7626; 71045; 80048; 80053; 80164; 80185; 82803; 83880; 84478; 84484; 85025; 87040; 87070; 87081; 87205; 93005; 94002; 94003; 94640; 94667; G0378; J0456; J0696; J1650; J2250; J2704; J3010; J7060; J0330; J2060; J2930; J3475; J7030; J7050; J7512

== ENCOUNTER 2020-10-03 14:04 | Emergency (ER) | payer MEDICAID ==
[~2020-10-03] VITALS: Ht 182.9 cm; Wt 73.1 kg
[~2020-10-03 14:04] MED LIST changes: +LACT1TAB13 PO; +MIRT-14 PO; -MIRT-34 PO; -PLEASE ENTER ALLERGIES MC SCH
[2020-10-03] MEDS ORDERED: ALBUTEROL/IPRATROPIUM 2.5MG/0.5MG, 3 ML ONE (14:16)
[2020-10-03] MEDS ORDERED: METHOCARBAMOL 750 MG TABLET ONE (14:16)
[2020-10-03] MEDS ORDERED: ACETAMINOPHEN 325 MG TABLET ONE (14:16)
--- NOTE | 2020-10-03 14:20 | NUR ---
late note for 1350 pt BIB [facility] from home with edie c/o. pt reports that he has a hx of COPD and was intubated her about 1 month ago for same. pt states that he was feeling SOB for the last 2 days s/p a fall at home and hitting the R side of his ribs. pt also c/o intermittent CP with anxiety and palpitations. per report. pt checked his pulse ox at home today and was 87% on his baseline 2.5L. 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 pr denies CP at this time. pt is anxious but cooperative and attempting to remove monitoring equipment. no family at bedside Tadeo JONES at bedside for eval. report to Christiano ALCAZAR
[2020-10-03] MEDS ORDERED: ACETAMINOPHEN 325 MG TABLET PO ONE (14:30)
[2020-10-03] MEDS ORDERED: ALBUTEROL/IPRATROPIUM 2.5MG/0.5MG, 3 ML NPPB ONE (14:30)
--- NOTE | 2020-10-03 14:45 | NUR ---
pt has returned from RAD. pt refused CT stating that he was unable to lie flat for scan. Dr. downs notified
[2020-10-03 14:56] LABS: BASOPHILS % (AUTO) 1 % (0-1); EOSINOPHILS % (AUTO) 10 % (1-7); LYMPHOCYTES % (AUTO) 37 % (22-44); MEAN CORPUSCULAR HEMOGLOBIN 32.2 pg (27.5-34.5); MEAN CORPUSCULAR HGB CONC 34.3 g/dL (33.2-36.2); MONOCYTES % (AUTO) 10 % (2-9); NEUTROPHILS % (AUTO) 41 % (42-75); PLATELET COUNT 244 x10^3/uL (130-400); RED BLOOD COUNT 3.58 x10^6/uL (4.38-5.82)
[2020-10-03 14:58] LABS: MD NO
[2020-10-03 15:12] LABS: ALBUMIN 3.6 g/dL (3.4-5.0); ANION GAP 4 mmol/L (5-15); CALCIUM 8.3 mg/dL (8.5-10.1); CHLORIDE 109 mmol/L (98-107)
[2020-10-03 15:17] LABS: CREATININE 0.71 mg/dL (0.7-1.3); TROPONIN I < 0.015 ng/mL (0.000-0.045)
[2020-10-03] MEDS ORDERED: KETOROLAC 30 MG/1 ML ONE (15:21)
[2020-10-03] MEDS ORDERED: KETOROLAC 30 MG/1 ML IM ONE (15:30)
--- NOTE | 2020-10-03 15:38 | NUR ---
TO RADIOLOGY PER LORAINE
[2020-10-03] MEDS ORDERED: METHOCARBAMOL 750 MG TABLET PO ONE (16:00)
--- NOTE | 2020-10-03 16:39 | NUR ---
TRIED CT MULTIPLE TIMES, PT UNABLE TO LAY FLAT
[2020-10-03 17:14] VITALS: BP 130/66
--- NOTE | 2020-10-03 17:20 | NUR ---
PT DEMANDING PAIN MEDICATION. INFORMED PT THAT HE HAD PAIN MEDICATION EARLIER. PT ANGRILY STATES "THAT TYLENOL DIDN'T WORK!" INFORMED PT OF OTHER MEDICATIONS GIVEN, INCLUDING ROBAXIN. PT DEMANDING FOOD. INFORMED PT THAT I HAVE HIS DC PAPERS HERE.
--- NOTE | 2020-10-03 17:30 | NUR ---
this pt was D/C by another RN
--- NOTE | 2020-10-03 17:36 | NUR ---
PT STATED "I'M NOT LEAVING" STATES HIS OXYGEN IS LOCKED UP IN HIS HOME AND HE HAS TO MAKE SURE SOMEONE IS THERE. THEN STATES HE CAN'T LEAVE BECAUSE HE'LL RUN OUT OF OXYGEN BEFORE HE GETS HOME. STATES HE DOESN'T HAVE A RIDE HOME. PT'S O2 TANK GUAGE AT 1200, PT USING 2.5LNC. PT HAS MEDICAID; INFORMED PT HE CAN CALL THE MEDICAID TAXI. PT ANGRILY RIPPED MONITORING EQUIPMENT OFF, STARTED SWEARING AT THIS RN "FUCKING BITCH" "YOU'RE AN ASSHOLE". WRITTEN DC INSTRUCTIONS DISCUSSED W/ PT. PT DEMANDED WC TO DISCHARGE AREA. PT USED COULTER PHONE TO CALL FOR RIDE; PT THEN TAKEN TO DC AREA PER WC.
--- NOTE | 2020-10-03 17:44 | NUR ---
PT'S BELONGINGS, INCLUDING HIS O2 TANK AND NEW NASAL CANNUAL W/ PT.
== END 2020-10-03 18:14 | disposition home or self-care (01) ==
LOC: ED 17:41
DX: S29.012A Strain of muscle and tendon of back wall of thorax, initial encounter (principal); S09.90XA Unspecified injury of head, initial encounter; J44.1 Chronic obstructive pulmonary disease with (acute) exacerbation; E03.9 Hypothyroidism, unspecified; I10 Essential (primary) hypertension; Z87.891 Personal history of nicotine dependence; W18.30XA Fall on same level, unspecified, initial encounter; Y93.89 Activity, other specified; Y92.89 Other specified places as the place of occurrence of the external cause; Y99.8 Other external cause status
CPT/HCPCS: 36415; 71045; 72072; 80048; 82040; 84484; 85025; 93005; 94640; 96372; 99285; J1885; J7512

== ENCOUNTER 2020-10-14 19:34 | Emergency (ER) | payer MEDICAID ==
[~2020-10-14] VITALS: Ht 182.9 cm; Wt 80.0 kg
--- NOTE | 2020-10-14 19:48 | NUR ---
PT REFUSING EKG AND SEED LABORATORY ASSISTANT
--- NOTE | 2020-10-14 19:56 | NUR ---
PT BIB EMS. PER HE HAD "8 SZ TODAY". PT AOX2 THINKS "I LIVE HERE. THIS IS MY HOME". PER EMS HE WAS COMBATIVE AND TOOK A FEW SWINGS AT THEM. PT HAS HAD A FEW VERBAL OUTBURST "FUCK FUCK FUCK!!". PT REFUSING EKG. RIPPED LEADS OFF AND SAID HE DIDNT WANT IT. PT RESTING IN RNEY. WILL CONTINUE TO MONITOR
--- NOTE | 2020-10-14 20:37 | NUR ---
PT REFUSING TO WEAR MONITORING EQUIPMENT
--- NOTE | 2020-10-14 20:37 | NUR ---
MD BEDSIDE FOR ASSESSMENT
[2020-10-14] MEDS ORDERED: LORazepam 2 MG/ML, 1ML ONE (20:39)
[2020-10-14] MEDS ORDERED: SODIUM CHLORIDE FLUSH 10ML SYR IVF ONE (21:00)
[2020-10-14] MEDS ORDERED: ALBUTEROL/IPRATROPIUM 2.5MG/0.5MG, 3 ML NPPB ONE (21:00)
[2020-10-14] MEDS ORDERED: LORazepam 2 MG/ML, 1ML IVPush ONE (21:00)
[2020-10-14] MEDS ORDERED: ALBUTEROL/IPRATROPIUM 2.5MG/0.5MG, 3 ML ONE (21:11)
[2020-10-14 21:12] LABS: BASOPHILS % (AUTO) 1 % (0-1); EOSINOPHILS % (AUTO) 3 % (1-7); LYMPHOCYTES % (AUTO) 30 % (22-44); MEAN CORPUSCULAR HEMOGLOBIN 32.3 pg (27.5-34.5); MEAN CORPUSCULAR HGB CONC 34.8 g/dL (33.2-36.2); MEAN PLATELET VOLUME 6.7 fL (7.4-10.4); MONOCYTES % (AUTO) 9 % (2-9); NEUTROPHILS % (AUTO) 57 % (42-75); PLATELET COUNT 301 x10^3/uL (130-400); RED BLOOD COUNT 3.61 x10^6/uL (4.38-5.82)
--- NOTE | 2020-10-14 21:13 | NUR ---
PT COOPERATING. PT TOLERATING BREATHING TX WELL
[2020-10-14 21:22] LABS: ALBUMIN 3.6 g/dL (3.4-5.0); ANION GAP 5 mmol/L (5-15); CALCIUM 8.2 mg/dL (8.5-10.1); CHLORIDE 107 mmol/L (98-107); CREATININE 0.61 mg/dL (0.7-1.3)
--- NOTE | 2020-10-14 21:41 | NUR ---
PT RESTING COMFORTABLY IN [facility].
[2020-10-14 21:46] VITALS: BP 131/76
--- NOTE | 2020-10-14 22:30 | NUR ---
Pt cont to refuse press clipper and vital signs. Pt Yelling at RN "I can't hold my urine". Pt provided with urinal.
--- NOTE | 2020-10-14 23:02 | NUR ---
RN ATTEMPTED TO CALL FAMILY, PHONE NUMBER DISCONNECTED.
--- NOTE | 2020-10-14 23:15 | NUR ---
Pt ambulated to Restroom without difficulty.
--- NOTE | 2020-10-14 23:55 | NUR ---
Pt given discharge paperwork and bus pass for discharge home. Pt starts yelling at RN that he doesn't want a bus pass he wants a cab voucher now. Pt instructed that the buses are still running and he can walk to the bus stop. Pt cont to scream at RN, security called.
--- NOTE | 2020-10-15 00:10 | NUR ---
Pt cont to refuse to leave with Security, [employer] at bedside and taking pt.
== END 2020-10-15 00:19 | disposition home or self-care (01) ==
LOC: ED 20:17
DX: G40.319 Generalized idiopathic epilepsy and epileptic syndromes, intractable, without status epilepticus (principal); I10 Essential (primary) hypertension; E11.9 Type 2 diabetes mellitus without complications; E03.9 Hypothyroidism, unspecified; Z87.891 Personal history of nicotine dependence
CPT/HCPCS: 36415; 80048; 80185; 82040; 85025; 94640; 96374; 99283; J2060

== ENCOUNTER 2020-10-22 14:01 | Emergency (ER) | payer MEDICAID ==
[~2020-10-22] VITALS: Ht 182.9 cm; Wt 72.0 kg
[2020-10-22 14:04] VITALS: BP 128/77
[2020-10-22] MEDS ORDERED: ALBUTEROL/IPRATROPIUM 2.5MG/0.5MG, 3 ML NPPB PRN (14:30)
[2020-10-22 15:01] LABS: BASOPHILS % (AUTO) 1 % (0-1); EOSINOPHILS % (AUTO) 7 % (1-7); LYMPHOCYTES % (AUTO) 28 % (22-44); MEAN CORPUSCULAR HEMOGLOBIN 32.3 pg (27.5-34.5); MEAN CORPUSCULAR HGB CONC 34.1 g/dL (33.2-36.2); MEAN PLATELET VOLUME 6.8 fL (7.4-10.4); MONOCYTES % (AUTO) 7 % (2-9); NEUTROPHILS % (AUTO) 57 % (42-75); PLATELET COUNT 307 x10^3/uL (130-400); RED BLOOD COUNT 3.49 x10^6/uL (4.38-5.82); RED CELL DISTRIBUTION WIDTH 14.2 % (9.4-14.8)
[2020-10-22] MEDS ORDERED: LORazepam 2 MG/ML, 1ML ONE (15:03)
[2020-10-22 15:09] LABS: ALANINE AMINOTRANSFERASE 31 U/L (12-78); ALBUMIN 3.6 g/dL (3.4-5.0); ANION GAP 5 mmol/L (5-15); CALCIUM 8.4 mg/dL (8.5-10.1); CHLORIDE 111 mmol/L (98-107); CREATININE 0.77 mg/dL (0.7-1.3)
[2020-10-22 15:14] LABS: ALKALINE PHOSPHATASE 121 U/L (45-117); BILIRUBIN,TOTAL 0.2 mg/dL (0.2-1.0); TOTAL PROTEIN 6.5 g/dL (6.4-8.2); TROPONIN I < 0.015 ng/mL (0.000-0.045)
[2020-10-22] MEDS ORDERED: LORazepam 2 MG/ML, 1ML IM ONE (15:30)
[2020-10-22] MEDS ORDERED: ALBUTEROL/IPRATROPIUM 2.5MG/0.5MG, 3 ML NPPB SCH (15:30)
--- NOTE | 2020-10-22 16:21 | NUR ---
Patient/Caregiver given discharge instructions and they have confirmed that they understand the instructions. Patient ambulatory with steady gait. NAD, all questions answered appropriately, denies additional needs at this time. No personal belongings left in room after discharge.
[2020-10-22] MEDS ORDERED: ALBUTEROL SULFATE 2.5 MG/3 ML NPPB ONE (16:50)
[2020-10-22] MEDS ORDERED: ALBUTEROL SULFATE 2.5MG/0.5ML ONE (16:52)
[2020-10-22] MEDS ORDERED: ALBUTEROL/IPRATROPIUM 2.5MG/0.5MG, 3 ML ONE (16:52)
[2020-10-22] MEDS ORDERED: ALBUTEROL/IPRATROPIUM 2.5MG/0.5MG, 3 ML NEB ONE (17:00)
== END 2020-10-22 17:22 | disposition home or self-care (01) ==
LOC: ED 15:11
DX: J44.9 Chronic obstructive pulmonary disease, unspecified (principal); R06.00 Dyspnea, unspecified; Z99.81 Dependence on supplemental oxygen; R00.1 Bradycardia, unspecified; I10 Essential (primary) hypertension; E11.649 Type 2 diabetes mellitus with hypoglycemia without coma; Z87.891 Personal history of nicotine dependence
CPT/HCPCS: 36415; 71045; 80053; 84484; 85025; 93005; 94640; 96372; 99285; J2060; J7613

== ENCOUNTER 2020-11-04 13:49 | Emergency (ER) | payer MEDICAID ==
[~2020-11-04] VITALS: Ht 185.4 cm; Wt 69.3 kg
--- NOTE | 2020-11-04 14:17 | NUR ---
BIB [facility] FOR SOB. PT STATES SOB WITH NO INCREASE IN O2. UPON ENTERING ROOM PT BEGINS TO VERBALLY ABUSE STAFF IN FULL SENTENCES. PT DIRECTED AND EDUCATED THAT THAT BEHAVIOR IS UNACCEPTABLE AND WILL NOT BE TOLERATED. PT THEN SHOUTS AT THIS RN "WELL FUCKING FIX ME
--- NOTE | 2020-11-04 14:35 | NUR ---
XRAY AT BS
[2020-11-04] MEDS ORDERED: ALBUTEROL/IPRATROPIUM 2.5MG/0.5MG, 3 ML ONE (14:38)
[2020-11-04 14:43] VITALS: BP 112/52
--- NOTE | 2020-11-04 14:44 | NUR ---
PT MEDICATED PER EMAR, PT TOLERATED BREATHING TX WELL. NADN. CALL LIGHT WITHIN REACH.
[2020-11-04] MEDS ORDERED: ALBUTEROL/IPRATROPIUM 2.5MG/0.5MG, 3 ML NPPB ONE (15:00)
--- NOTE | 2020-11-04 15:31 | NUR ---
ERP AT BS
[2020-11-04] MEDS ORDERED: PHENYLEPHRINE NASAL 1%, 15ML SPRAY ONE (15:37)
[2020-11-04] MEDS ORDERED: PHENYLEPHRINE NASAL 0.5%, 15ML SPRAY NAS ONE (16:00)
--- NOTE | 2020-11-04 16:17 | NUR ---
Patient given discharge instructions and RX, they have confirmed that they understand the instructions.
== END 2020-11-04 16:19 | disposition home or self-care (01) ==
LOC: ED 14:08
DX: J44.1 Chronic obstructive pulmonary disease with (acute) exacerbation (principal); I10 Essential (primary) hypertension; I45.19 Other right bundle-branch block
CPT/HCPCS: 71045; 93005; 94640; 99283; J7512

== ENCOUNTER 2020-11-17 11:40 | Emergency (ER) | payer MEDICAID ==
[~2020-11-17] VITALS: Ht 185.4 cm; Wt 71.5 kg
[2020-11-17] MEDS ORDERED: SODIUM CHLORIDE FLUSH 10ML SYR IVF ONE (12:30)
[2020-11-17] MEDS ORDERED: ALBUTEROL/IPRATROPIUM 2.5MG/0.5MG, 3 ML NEB ONE (12:30)
[2020-11-17] MEDS ORDERED: ALBUTEROL/IPRATROPIUM 2.5MG/0.5MG, 3 ML ONE (12:47)
[2020-11-17 13:02] LABS: BASOPHILS % (AUTO) 0 % (0-1); EOSINOPHILS % (AUTO) 12 % (1-7); LYMPHOCYTES % (AUTO) 32 % (22-44); MEAN CORPUSCULAR HEMOGLOBIN 32.5 pg (27.5-34.5); MEAN CORPUSCULAR HGB CONC 34.3 g/dL (33.2-36.2); MEAN PLATELET VOLUME 6.9 fL (7.4-10.4); MONOCYTES % (AUTO) 8 % (2-9); NEUTROPHILS % (AUTO) 48 % (42-75); PLATELET COUNT 310 x10^3/uL (130-400); RED BLOOD COUNT 3.64 x10^6/uL (4.38-5.82)
[2020-11-17 13:06] LABS: ALANINE AMINOTRANSFERASE 20 U/L (12-78); ALBUMIN 3.7 g/dL (3.4-5.0); CALCIUM 8.2 mg/dL (8.5-10.1); CREATININE 0.71 mg/dL (0.7-1.3)
[2020-11-17 13:10] LABS: ALKALINE PHOSPHATASE 140 U/L (45-117); BILIRUBIN,TOTAL 0.3 mg/dL (0.2-1.0); TROPONIN I < 0.015 ng/mL (0.000-0.045)
--- NOTE | 2020-11-17 13:10 | NUR ---
PT COMES IN WITH CHIEF COMPLAINT OF INCREASING SOB SINCE LAST NIGHT. PT HAS HX OF COPD AND STATES HE IS ON 5L NC O2 AT HOME. PT RESTING IN [facility], MONITORING IN PLACE, RONAL AT THIS TIME.
[2020-11-17 13:14] LABS: ANION GAP 3 mmol/L (5-15); CHLORIDE 107 mmol/L (98-107)
[2020-11-17] MEDS ORDERED: ALBUTEROL SULFATE 2.5 MG/3 ML NPPB ONE ×2 (13:30)
[2020-11-17 15:16] VITALS: BP 121/78
== END 2020-11-17 15:19 | disposition home or self-care (01) ==
LOC: ED 12:19
DX: J44.1 Chronic obstructive pulmonary disease with (acute) exacerbation (principal); I10 Essential (primary) hypertension; E11.9 Type 2 diabetes mellitus without complications; E03.9 Hypothyroidism, unspecified; G40.909 Epilepsy, unspecified, not intractable, without status epilepticus
CPT/HCPCS: 36415; 71045; 80053; 84484; 85025; 93005; 94640; 99285; J7512; J7613

== ENCOUNTER 2020-11-20 17:03 | Emergency (ER) | payer MEDICAID ==
[~2020-11-20] VITALS: Ht 182.9 cm; Wt 70.0 kg
[~2020-11-20 17:03] MED LIST changes: +OLAN5TAB69 PO; -OLAN5TAB9 PO
--- NOTE | 2020-11-20 17:31 | NUR ---
STRIP FEEDER: PT TO ROOM FROM LOBBY VIA
--- NOTE | 2020-11-20 17:53 | NUR ---
PT IN [facility] IN [facility]. REGISTRATION AT BS AT THIS TIME.
--- NOTE | 2020-11-20 18:09 | NUR ---
PT MEDICATED PER MAR AT THIS TIME.
[2020-11-20 18:41] LABS: BASOPHILS % (AUTO) 1 % (0-1); EOSINOPHILS % (AUTO) 13 % (1-7); LYMPHOCYTES % (AUTO) 31 % (22-44); MEAN CORPUSCULAR HGB CONC 34.3 g/dL (33.2-36.2); MEAN PLATELET VOLUME 6.9 fL (7.4-10.4); MONOCYTES % (AUTO) 10 % (2-9); NEUTROPHILS % (AUTO) 45 % (42-75); PLATELET COUNT 310 x10^3/uL (130-400); RED BLOOD COUNT 3.78 x10^6/uL (4.38-5.82)
[2020-11-20 18:43] LABS: ALBUMIN 3.9 g/dL (3.4-5.0); ANION GAP 4 mmol/L (5-15); CALCIUM 8.4 mg/dL (8.5-10.1); CHLORIDE 105 mmol/L (98-107); CREATININE 0.71 mg/dL (0.7-1.3)
[2020-11-20 19:03] VITALS: BP 109/61
--- NOTE | 2020-11-20 19:18 | NUR ---
XRAY AT AT THIS TIME.
--- NOTE | 2020-11-20 20:01 | NUR ---
REPORT OF PT TO OTTONIEL DELAROSA. ALL QUESTIONS ANSWERED.
== END 2020-11-20 20:44 | disposition home or self-care (01) ==
LOC: ED 17:45
DX: J44.1 Chronic obstructive pulmonary disease with (acute) exacerbation (principal); R06.02 Shortness of breath; F17.210 Nicotine dependence, cigarettes, uncomplicated; I10 Essential (primary) hypertension; E11.9 Type 2 diabetes mellitus without complications; E03.9 Hypothyroidism, unspecified; R94.31 Abnormal electrocardiogram [ECG] [EKG]
CPT/HCPCS: 36415; 71045; 80048; 82040; 85025; 93005; 99285; 99406; J7512

== ENCOUNTER 2020-12-20 11:31 | Inpatient (IN) | payer MEDICAID ==
[~2020-12-20] VITALS: Ht 185.4 cm; Wt 70.0 kg
--- NOTE | 2020-12-20 12:22 | NUR ---
PT TO CT
[2020-12-20] MEDS ORDERED: ALBU1.25 NEB (12:38)
[2020-12-20] MEDS ORDERED: IPRA0.2S35 INH (12:38)
[2020-12-20] MEDS ORDERED: ZONI100C29 PO (12:38)
[2020-12-20] MEDS ORDERED: LEVO25TA4 PO (12:38)
[2020-12-20] MEDS ORDERED: LOSA100T14 PO (12:38)
[2020-12-20] MEDS ORDERED: PHEN50TA4 PO (12:38)
[2020-12-20] MEDS ORDERED: MULT-332 PO (12:38)
[2020-12-20] MEDS ORDERED: BUDE0.5A INH (12:38)
[2020-12-20] MEDS ORDERED: ARIP2TAB2 PO (12:38)
[2020-12-20 13:00] LABS: BASOPHILS % (AUTO) 1 % (0-1); EOSINOPHILS % (AUTO) 13 % (1-7); LYMPHOCYTES % (AUTO) 28 % (22-44); MEAN CORPUSCULAR HEMOGLOBIN 32.3 pg (27.5-34.5); MEAN CORPUSCULAR HGB CONC 33.9 g/dL (33.2-36.2); MEAN PLATELET VOLUME 6.9 fL (7.4-10.4); MONOCYTES % (AUTO) 9 % (2-9); NEUTROPHILS % (AUTO) 50 % (42-75); PLATELET COUNT 319 x10^3/uL (130-400); RED BLOOD COUNT 3.75 x10^6/uL (4.38-5.82); RED CELL DISTRIBUTION WIDTH 14.1 % (9.4-14.8)
[2020-12-20 13:11] LABS: ALANINE AMINOTRANSFERASE 30 U/L (12-78); ALBUMIN 4.1 g/dL (3.4-5.0); ANION GAP 7 mmol/L (5-15); CALCIUM 8.7 mg/dL (8.5-10.1); CHLORIDE 104 mmol/L (98-107)
[2020-12-20 13:13] LABS: ALKALINE PHOSPHATASE 133 U/L (45-117); BILIRUBIN,TOTAL 0.3 mg/dL (0.2-1.0); TOTAL PROTEIN 7.4 g/dL (6.4-8.2)
[2020-12-20 13:16] LABS: CREATINE KINASE, TOTAL 109 U/L (39-308)
--- NOTE | 2020-12-20 13:19 | NUR ---
Pt reports frequent seizures approx 5x a day, had appt with neurologist dr linsey collado, wednesday told to double zonisamide 100mg, pt did that but still having seizures. Dilantin 600mg a day. SZ pads on bed
--- NOTE | 2020-12-20 13:20 | NUR ---
PT REQUESTING ANXIETY MEDS NOTIFIED
--- NOTE | 2020-12-20 13:40 | NUR ---
Break RN: Pt resting in [facility] in room, NAD, awaiting test results & dispo
[2020-12-20] MEDS ORDERED: LABETALOL 5MG/ML, 20ML IVPush PRN (15:00)
[2020-12-20] MEDS ORDERED: hydrALAzine 20 MG/ML, 1ML IVPush PRN (15:00)
[2020-12-20] MEDS ORDERED: THIAMINE 100 MG in SODIUM CHLORIDE 0.9% 50 ML IV ONE (15:00)
[2020-12-20] MEDS ORDERED: ONDANSETRON 2MG/ML, 2ML IVPush PRN (15:00)
[2020-12-20] MEDS ORDERED: ONDANSETRON ODT 4 MG PO PRN (15:00)
[2020-12-20] MEDS ORDERED: LORazepam 2 MG/ML, 1ML IV PRN (15:00)
[2020-12-20] MEDS ORDERED: CLON-364 PO (16:11)
[2020-12-20] MEDS: LEVETIRACETAM 500 MG in SODIUM CHLORIDE 0.9% 100 ML IV SCH (17:25)
--- NOTE | 2020-12-20 18:53 | NUR ---
Report from Cristopher ALCAZAR
--- NOTE | 2020-12-20 20:45 | NUR ---
Report to Aurelia ALCAZAR
[2020-12-20 21:30] VITALS: BP 99/66
[2020-12-20] MEDS: ENOXAPARIN 40 MG/0.4 ML SQ SCH (22:07)
[2020-12-21 02:30] VITALS: BP 106/72
[2020-12-21] MEDS: LEVETIRACETAM 500 MG in SODIUM CHLORIDE 0.9% 100 ML IV SCH (03:03)
[2020-12-21 03:46] LABS: AMPHETAMINE SCREEN, URINE Negative (Negative); BARBITURATE SCREEN, URINE Negative (Negative); BENZODIAZEPINE SCREEN, URINE Negative (Negative); CANNABINOID SCREEN, URINE Negative (Negative); COCAINE SCREEN, URINE Negative (Negative); METHADONE SCREEN, URINE Negative (Negative); OPIATE SCREEN, URINE Negative (Negative)
[2020-12-21 05:52] LABS: BASOPHILS % (AUTO) 1 % (0-1); EOSINOPHILS % (AUTO) 13 % (1-7); LYMPHOCYTES % (AUTO) 27 % (22-44); MEAN CORPUSCULAR HEMOGLOBIN 32.8 pg (27.5-34.5); MEAN CORPUSCULAR HGB CONC 34.4 g/dL (33.2-36.2); MEAN PLATELET VOLUME 6.5 fL (7.4-10.4); MONOCYTES % (AUTO) 8 % (2-9); NEUTROPHILS % (AUTO) 52 % (42-75); PLATELET COUNT 307 x10^3/uL (130-400); RED BLOOD COUNT 3.78 x10^6/uL (4.38-5.82); RED CELL DISTRIBUTION WIDTH 14.2 % (9.4-14.8)
[2020-12-21 06:24] LABS: CHLORIDE 110 mmol/L (98-107)
[2020-12-21 06:28] LABS: ANION GAP 4 mmol/L (5-15); CALCIUM 8.6 mg/dL (8.5-10.1); CREATININE 0.59 mg/dL (0.7-1.3)
[2020-12-21 06:34] VITALS: BP 105/78
[2020-12-21] MEDS: LEVOTHYROXINE 25 MCG TABLET PO SCH (07:30)
[2020-12-21] MEDS ORDERED: ZONISAMIDE 50 MG CAPSULE PO SCH ×2 (09:00→21:00)
[2020-12-21] MEDS: LOSARTAN 100 MG TAB PO SCH (09:00)
[2020-12-21] MEDS: PHENYTOIN 125 MG/5 ML ORAL SUSP PO SCH ×3 (09:17→20:35)
[2020-12-21] MEDS ORDERED: ARIP5TAB13 PO (11:06)
[2020-12-21] MEDS ORDERED: BUDE10.2 INH (11:06)
[2020-12-21] MEDS: methylPREDNISolone SOD SUCC 125 MG/2 ML IVPush SCH ×3 (12:49→23:55)
[2020-12-21 13:42] VITALS: BP 91/65
[2020-12-21] MEDS: AMPICILLIN/SULBACTAM 3 GM in SODIUM CHLORIDE 0.9% 100 ML IV SCH ×2 (14:01→20:38)
[2020-12-21] MEDS ORDERED: ALBUTEROL SULFATE 2.5 MG/3 ML NPPB PRN (14:30)
[2020-12-21] MEDS: ENOXAPARIN 40 MG/0.4 ML SQ SCH (20:38)
[2020-12-21 20:40] VITALS: BP 119/77
[2020-12-21] MEDS: BUDESONIDE 0.5 MG/2 ML INHA INH SCH ×2 (20:45→22:05)
[2020-12-21] MEDS: ALBUTEROL SULFATE 2.5 MG/3 ML NPPB SCH ×2 (20:45→22:05)
[2020-12-22] MEDS: ACETAMINOPHEN 325 MG TABLET PO PRN ×2 (00:08→10:01)
[2020-12-22 01:51] VITALS: BP 122/78
[2020-12-22] MEDS: LEVOTHYROXINE 25 MCG TABLET PO SCH (05:40)
[2020-12-22] MEDS: AMPICILLIN/SULBACTAM 3 GM in SODIUM CHLORIDE 0.9% 100 ML IV SCH (05:40)
[2020-12-22] MEDS: methylPREDNISolone SOD SUCC 125 MG/2 ML IVPush SCH (05:40)
[2020-12-22] MEDS ORDERED: CEFTRIAXONE 1,000 MG in DEXTROSE 5% 50 ML IVPB SCH (06:30)
[2020-12-22 06:32] LABS: BASOPHILS % (AUTO) 1 % (0-1); EOSINOPHILS % (AUTO) 0 % (1-7); LYMPHOCYTES % (AUTO) 22 % (22-44); MEAN CORPUSCULAR HEMOGLOBIN 32.8 pg (27.5-34.5); MEAN CORPUSCULAR HGB CONC 34.2 g/dL (33.2-36.2); MEAN PLATELET VOLUME 6.8 fL (7.4-10.4); MONOCYTES % (AUTO) 5 % (2-9); NEUTROPHILS % (AUTO) 72 % (42-75); PLATELET COUNT 301 x10^3/uL (130-400); RED BLOOD COUNT 3.66 x10^6/uL (4.38-5.82)
[2020-12-22 06:39] LABS: CHLORIDE 107 mmol/L (98-107)
[2020-12-22 06:46] LABS: ALANINE AMINOTRANSFERASE 25 U/L (12-78); ALBUMIN 3.5 g/dL (3.4-5.0); ALKALINE PHOSPHATASE 126 U/L (45-117); ANION GAP 5 mmol/L (5-15); BILIRUBIN,TOTAL 0.2 mg/dL (0.2-1.0); CALCIUM 8.5 mg/dL (8.5-10.1); CREATININE 0.67 mg/dL (0.7-1.3); TOTAL PROTEIN 6.6 g/dL (6.4-8.2)
[2020-12-22 08:34] VITALS: BP 117/74
[2020-12-22] MEDS: BUDESONIDE 0.5 MG/2 ML INHA INH SCH (09:00)
[2020-12-22] MEDS: ALBUTEROL SULFATE 2.5 MG/3 ML NPPB SCH (09:00)
[2020-12-22] MEDS ORDERED: ZONISAMIDE 50 MG CAPSULE PO SCH (09:00)
[2020-12-22] MEDS: LOSARTAN 100 MG TAB PO SCH (09:08)
[2020-12-22] MEDS: PHENYTOIN 125 MG/5 ML ORAL SUSP PO SCH ×2 (09:08→15:03)
[2020-12-22] MEDS ORDERED: PHEN100C PO (10:50)
[2020-12-22] MEDS ORDERED: ZONI100C29 PO (10:50)
[2020-12-22] MEDS ORDERED: methylPREDNISolone SOD SUCC 125 MG/2 ML IVPush SCH (13:30)
[2020-12-22] MEDS ORDERED: PRED20TA PO (16:21)
== END 2020-12-22 16:11 | disposition home or self-care (01) | DRG 100 ==
LOC: SUATTDRO 14:16 → ED 15:19 → OBSVTOIN 15:32 → EDIP 15:32 → 4EST 21:11
PROVIDERS: ADMIT Family Medicine; ATTEND Family Medicine
DX: G40.409 Other generalized epilepsy and epileptic syndromes, not intractable, without status epilepticus (principal); J96.21 Acute and chronic respiratory failure with hypoxia; J18.9 Pneumonia, unspecified organism; J44.0 Chronic obstructive pulmonary disease with (acute) lower respiratory infection; G93.40 Encephalopathy, unspecified; F13.20 Sedative, hypnotic or anxiolytic dependence, uncomplicated; J44.1 Chronic obstructive pulmonary disease with (acute) exacerbation; Z66 Do not resuscitate; N40.0 Benign prostatic hyperplasia without lower urinary tract symptoms; I10 Essential (primary) hypertension; F31.9 Bipolar disorder, unspecified; F29 Unspecified psychosis not due to a substance or known physiological condition; F17.200 Nicotine dependence, unspecified, uncomplicated; F10.11 Alcohol abuse, in remission; E78.5 Hyperlipidemia, unspecified; E11.9 Type 2 diabetes mellitus without complications; E03.9 Hypothyroidism, unspecified; R32 Unspecified urinary incontinence; Z82.5 Family history of asthma and other chronic lower respiratory diseases; Z79.899 Other long term (current) drug therapy; Z85.118 Personal history of other malignant neoplasm of bronchus and lung
CPT/HCPCS: 36415; 84145; 96365; 96366; 99285; J7613; J7626; 70450; 71045; 80048; 80053; 80185; 80307; 82550; 83605; 83735; 85025; 94640; 95819; G0378; J0295; J0696; J1650; J1953; J3411; J2930

== ENCOUNTER 2021-01-05 11:08 | Emergency (ER) | payer MEDICAID ==
[~2021-01-05] VITALS: Ht 185.4 cm; Wt 70.5 kg
[~2021-01-05 11:08] MED LIST changes: +ALBU1.25 NEB; +ARIP2TAB2 PO; +ARIP5TAB13 PO; +BUDE0.5A INH; +CLON-364 PO; +IPRA0.2S35 INH; +MULT-332 PO; -QUET100T PO; +QUET100T2 PO; -QUET200T PO; +QUET200T2 PO; -QUET300T PO; +QUET300T2 PO; +ZONI100C29 PO
--- NOTE | 2021-01-05 13:20 | NUR ---
WENT TO ASSESS PATIENT AND HE WAS GONE.
--- NOTE | 2021-01-05 13:23 | NUR ---
LEFT AMA WITHOUT BEING SEEN.
--- NOTE | 2021-01-05 13:36 | NUR ---
patient arrives anxious, sob.
[2021-01-05] MEDS ORDERED: methylPREDNISolone SOD SUCC 125 MG/2 ML ONE (13:47)
[2021-01-05] MEDS ORDERED: ALBUTEROL SULFATE 2.5 MG/3 ML ONE ×2 (13:48→16:50)
[2021-01-05] MEDS ORDERED: SODIUM CHLORIDE FLUSH 10ML SYR IVF ONE (14:00)
[2021-01-05] MEDS ORDERED: ALBUTEROL-IPRATROPIUM MDI INH INH ONE (14:00)
[2021-01-05] MEDS ORDERED: methylPREDNISolone SOD SUCC 125 MG/2 ML IV ONE (14:00)
[2021-01-05 14:20] LABS: ALANINE AMINOTRANSFERASE 26 U/L (12-78); ALBUMIN 3.9 g/dL (3.4-5.0); ANION GAP 3 mmol/L (5-15); CALCIUM 8.4 mg/dL (8.5-10.1); CHLORIDE 105 mmol/L (98-107); CREATININE 0.73 mg/dL (0.7-1.3)
[2021-01-05 14:22] LABS: ALKALINE PHOSPHATASE 142 U/L (45-117); BILIRUBIN,TOTAL 0.3 mg/dL (0.2-1.0); TOTAL PROTEIN 7.6 g/dL (6.4-8.2)
--- NOTE | 2021-01-05 14:51 | NUR ---
CALLED PHARM FOR COMBIVENT, REQUESTED AT 14:00. THEY SAID SHORT ON TUBES BUT WILL SEND
[2021-01-05 15:01] LABS: BASOPHILS % (AUTO) 1 % (0-1); EOSINOPHILS % (AUTO) 10 % (1-7); LYMPHOCYTES % (AUTO) 26 % (22-44); MEAN CORPUSCULAR HEMOGLOBIN 32.3 pg (27.5-34.5); MEAN CORPUSCULAR HGB CONC 33.6 g/dL (33.2-36.2); MEAN PLATELET VOLUME 7.4 fL (7.4-10.4); MONOCYTES % (AUTO) 7 % (2-9); NEUTROPHILS % (AUTO) 56 % (42-75); PLATELET COUNT 326 x10^3/uL (130-400); RED BLOOD COUNT 3.84 x10^6/uL (4.38-5.82); RED CELL DISTRIBUTION WIDTH 14.5 % (9.4-14.8)
--- NOTE | 2021-01-05 18:36 | NUR ---
called family to pick up operator
--- NOTE | 2021-01-05 18:42 | NUR ---
called sig other to get oxygen and ride home, and no answer left generic msg. [phone]
[2021-01-05 18:48] VITALS: BP 117/65
--- NOTE | 2021-01-05 19:10 | NUR ---
patient uncooperative and difficult. helped him call ride to get home
== END 2021-01-05 18:06 | disposition home or self-care (01) ==
LOC: ED 14:10
DX: J44.1 Chronic obstructive pulmonary disease with (acute) exacerbation (principal)
CPT/HCPCS: 36415; 71045; 80053; 85025; 93005; 94640; 96374; 99285; J2930

== ENCOUNTER 2021-01-24 07:53 | Emergency (ER) | payer MEDICAID ==
[~2021-01-24] VITALS: Ht 185.4 cm; Wt 70.0 kg
[2021-01-24] MEDS ORDERED: SODIUM CHLORIDE FLUSH 10ML SYR IVF ONE (08:00)
[2021-01-24] MEDS ORDERED: ALBUTEROL/IPRATROPIUM 2.5MG/0.5MG, 3 ML NPPB SCH (08:00)
[2021-01-24] MEDS ORDERED: methylPREDNISolone SOD SUCC 125 MG/2 ML IV ONE (08:00)
[2021-01-24] MEDS ORDERED: methylPREDNISolone SOD SUCC 125 MG/2 ML ONE (08:05)
[2021-01-24] MEDS ORDERED: ALBUTEROL/IPRATROPIUM 2.5MG/0.5MG, 3 ML ONE (08:06)
--- NOTE | 2021-01-24 08:27 | NUR ---
PIV to left upper arm, lab drawing blood x2 cx. Pt on first HHN sats stable 98%. RR 30, PCXR done.
[2021-01-24 08:43] LABS: BASOPHILS % (AUTO) 1 % (0-1); EOSINOPHILS % (AUTO) 13 % (1-7); LYMPHOCYTES % (AUTO) 30 % (22-44); MEAN CORPUSCULAR HEMOGLOBIN 32.4 pg (27.5-34.5); MEAN CORPUSCULAR HGB CONC 33.8 g/dL (33.2-36.2); MEAN PLATELET VOLUME 6.5 fL (7.4-10.4); MONOCYTES % (AUTO) 6 % (2-9); NEUTROPHILS % (AUTO) 50 % (42-75); PLATELET COUNT 345 x10^3/uL (130-400); RED BLOOD COUNT 3.89 x10^6/uL (4.38-5.82); RED CELL DISTRIBUTION WIDTH 13.8 % (9.4-14.8)
[2021-01-24 09:01] LABS: ALBUMIN 4.2 g/dL (3.4-5.0); ANION GAP 5 mmol/L (5-15); CALCIUM 8.3 mg/dL (8.5-10.1); CHLORIDE 103 mmol/L (98-107)
[2021-01-24 09:06] LABS: CREATININE 0.72 mg/dL (0.7-1.3); TROPONIN I < 0.015 ng/mL (0.000-0.045)
--- NOTE | 2021-01-24 09:18 | NUR ---
RECEIVED REPORT FROM OTTONIEL EATON. PT RESTING IN POSITION OF COMFORT IN [facility]. DENIES NEEDS AT THIS TIME. CONTINUOUS SPO2 AND CARDIAC MONITORING REMAIN IN PLACE. VSS.
--- NOTE | 2021-01-24 10:52 | NUR ---
CLAUDIA RESENDIZ AT BEDSIDE. PT STATES THAT HE DOES NOT HAVE A AVALOS TO HIS OWN HOUSE. PT STATES HIS HAS A AVALOS BUT THAT HE DOENS'T KNOW HER CELL PHONE NUMBER OR HER LAST NAME FOR SW CLAIMS ADMINISTRATOR TO CALL AT WORK ([employer]). PT UNCOOPERATIVE WITH ATTEMPTS TO DC HIM SAFELY HOME.
--- NOTE | 2021-01-24 11:36 | NUR ---
THROUGHPUT: CALLED [employer], LOG LOADER AT 1400
--- NOTE | 2021-01-24 12:09 | NUR ---
PT'S CONDITION UNCHANGED. [facility] ARRANGED FOR 1400. ASTRID, CLAUDIA, WORKING TO ARRANGE FOR PT TO HAVE AVALOS TO GET INTO HOME UPON ARRIVAL.
--- NOTE | 2021-01-24 12:27 | NUR ---
PT'S CONDITION REMAINS UNCHANGED. AWAITING [facility] TRANSPORT. PT STABLE.
--- NOTE | 2021-01-24 13:03 | NUR ---
THROUGHPUT: MOVED [employer] FOR 1830 NEXT AVAILABLE DUE TO UNABLE TO FIND WHO HAS THE KEYS TO THE APPT.
--- NOTE | 2021-01-24 13:14 | NUR ---
REPORT TO OTTONIEL CORRAL.
--- NOTE | 2021-01-24 13:34 | NUR ---
REPORT RECEIVED FROM OTTONIEL MORGAN, THIS RN ASSUMING CARE. PT HAS REMOVED SPO2 AND BP MONITORS, REFUSING TO ALLOW RN TO REAPPLY. CELERY TIER REMAINS IN PLACE, NSR ON CELERY TIER WITH NO ECTOPY. PT REQUESTING MEAL TRAY, MEAL TRAY ORDERED.
--- NOTE | 2021-01-24 13:56 | NUR ---
THIS RN CONTACTED REEL STRIPPER CLAUDIA WHO STATES SHE HAS ATTEMPTED TO CONTACT PT'S ON CELL AND AT WORK WITH NO RESPONSE. PT'S HOME IS LOCKED, PT STATES HE HAS LEFT HIS AVALOS INSIDE OF HOUSE. FIRE DEPARTMENT ALSO CONTACTED WHO STATE THAT THEY CANNOT FORCE ENTRY INTO PT'S HOME, PT REFUSING TO PAY FOR PROVIDER CONTRACTING CONSULTANT TO OPEN HIS HOUSE. PT'S DAUGHTER STATES SHE DOES NOT HAVE ACCESS TO PT'S HOUSE AVALOS AND CANNOT DRIVE TO ASSIST. [facility] HAS ARRANGED FOR TRANSPORT TO PT'S HOME AT 1830, PER RECLAIMER CLAUDIA PT'S WILL BE HOME AT THAT TIME AND PT WILL BE ABLE TO ENTER HOME.
--- NOTE | 2021-01-24 14:30 | NUR ---
pt provided with meal tray, pt allowed RN to recheck vital signs, vss. pt is a&ox4, neuro intact. resps even and unlabored, nsr on museum technician with no ectopy. pt tolerating meal well with no s/sx aspiration.
[2021-01-24 15:59] VITALS: BP 98/64
--- NOTE | 2021-01-24 16:19 | NUR ---
report to OTTONIEL Kirkland at bedside for meal break. pt awaiting to arrive for discharge.
--- NOTE | 2021-01-24 16:24 | NUR ---
Dc home with and his home o2, rx and instruct. Pt verbalizes understanding of instruct and f/u. To return to ER if worse or concerns.
== END 2021-01-24 16:26 | disposition home or self-care (01) ==
LOC: ED 08:23
DX: J44.1 Chronic obstructive pulmonary disease with (acute) exacerbation (principal); Z87.891 Personal history of nicotine dependence; I10 Essential (primary) hypertension; E11.9 Type 2 diabetes mellitus without complications
CPT/HCPCS: 36415; 71045; 80048; 82040; 83605; 83880; 84484; 85025; 87040; 93005; 94640; 96374; 99285; J2930